=== PATIENT | female | born 1985 | race Two or more races ===

== ENCOUNTER 2021-11-08 03:40 | Inpatient (IN) ==
[2021-11-08] MEDS ORDERED: OXYTOCIN 30 UNITS/500 ML BAG IV PRN ×3 (04:00→21:31)
--- NOTE | 2021-11-08 04:14 | History & Physical Report ---
Date of Service November 08, 2021 Assessment & Plan (1) Uterine contractions at greater than 20 weeks of gestation: Plan: 36-year-old -0-0-3 at 39 weeks of gestation presenting with regular uterine contractions and bloody show, asking for epidural for pain. Vital signs stable afebrile, heart rate reassuring, Bedside ultrasound confirmed vertex presentation with normal placenta, GBS negative, Plan to admit, monitor, labs, COVID-19 testing, IV fluids, epidural for pain, All questions were answered. History of Present Illness Primary Care Provider: Valorie Gabriel PA-C Patient is a 36-year-old -0-0-3 at 39 weeks of gestation who has been feeling contractions since 11 PM last night and went to sleep. She woke up at 3 AM with severe contractions and some vaginal bleeding. She presented to labor and delivery and asking for epidural for pain. She denies leakage of fluid. She reports good movements. Her has been uncomplicated, GBS negative. She denies COVID-19 symptoms. Allergies Allergy/AdvReac Type Severity Reaction Status Date / Time amoxicillin Allergy Intermediate Hives Verified 11/08/21 03:49 Home Medications Medication Instructions Recorded Confirmed Type vit no.95-ferrous 1 tab PO HS 09/08/21 11/08/21 History fumarate 28 mg-folic acid 800 mcg tablet () albuterol 90 mcg/actuation aerosol INHALATION PRN 10/26/21 History inhaler Patient History Medical History Asthma Herniated disc, cervical Surgical History H/O abdominoplasty 2011 History of appendectomy 2009 History of breast augmentation 2011 [place] teeth extracted 2020 Social History Smoking Status: Former smoker Smoking End Date: 2016; Second Hand Exposure: No; Hx Alcohol Use: No Hx Substance Use: No Preferred Language: Amharic Communication Ability: Effective Fulfillment Associate Required: No Beliefs That Will Affect Care: None marital status: Current Living Situation: Spouse and Family Current Living Situation Comment: , her 3 children , Alber's 4 children- this is 1st together Other Information That Helps Us Care for You: No Feels Safe at Home: Yes Assistive Devices: Glasses 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 Review of Systems as per Subjective / HPI Physical Exam Constitutional: WD/WN, vitals as above well developed, well nourished and + acute distress (Contractions) Genitourinary: normal external appearance ( No blood) OB Exam Abdomen: + vertex (Confirmed with bedside ultrasound, placenta fundal posterior) Manual OB Exam: + cervical dilation 3 cm, + cervical effacement 60% and + station -2 OB Exam Monitor Tracing: + external uterine monitor used and + category I Results & Data ([facility]) Vital Signs (Past 12 Hours) Vital Signs Temp Pulse Resp BP 11/08/21 03:53 72 141/87 H 11/08/21 03:52 36.4 C L 20
[2021-11-08] MEDS: LACTATED RINGER'S 1,000 ML IV PRN ×5 (04:21→20:27)
[2021-11-08] MEDS ORDERED: ePHEDrine sulfate 50 MG/ML AMP ONE ×2 (04:32→14:04)
[2021-11-08] MEDS ORDERED: SODIUM CHLORIDE 0.9% INJ 10 ML VIAL ONE ×2 (04:32→14:05)
[2021-11-08] MEDS ORDERED: fentaNYL citrate 100 MCG/2 ML VIAL ONE ×3 (04:33→20:23)
[2021-11-08] MEDS ORDERED: BUPIVACAINE 0.25% 30 ML VIAL ONE ×3 (04:33→20:23)
[2021-11-08] MEDS ORDERED: fentaNYL 2MCG/ML ROPIVACAINE 1.25MG/ML 100 ML BAG EPI ONE ×2 (04:34→14:06)
[2021-11-08 04:39] LABS: Hematocrit (blood only) 38.1 % (37-47); Hemoglobin 12.9 g/dL (12.0-16.0); Mean Corpuscular Hgb Conc 33.9 g/dL (32-36); Mean Corpuscular Volume 91.6 fL (80-100); Mean Platelet Volume 11.1 fL (7.4-10.4); Platelet Count 176 K/uL (130-400); RDW Coefficient of Variation 14.3 % (11.5-14.5); Red Blood Count 4.16 M/uL (4.2-5.4)
[2021-11-08 05:05] LABS: Albumin Globulin Ratio 1.1 (0.9-2); Albumin Level 3.5 gm/dl (3.4-5.0); BUN Creatinine Ratio 16.7 (10-20); Bilirubin,Total 0.4 mg/dl (0.2-1.0); Calcium 8.9 mg/dl (8.5-10.1); Creatinine Clr Calc Pharmacy 106.7 ml/min; Est GFR (African American) 133.6 ml/min; Est GFR (Non-African American) 115.3 ml/min; Globulin 3.3 gm/dl (2.5-4.0); Potassium 3.7 mmol/L (3.5-5.1); Total Protein 6.8 gm/dl (6.0-8.3)
[2021-11-08] MEDS ORDERED: fentaNYL 2MCG/ML ROPIVACAINE 1.25MG/ML 100 ML BAG EPI PRN (05:28)
[2021-11-08] MEDS ORDERED: diphenhydrAMINE 50 MG/ML VIAL IV PRN (05:28)
[2021-11-08] MEDS ORDERED: NALBUPHINE HCL INJ 10 MG/ML AMP IV PRN (05:28)
[2021-11-08] MEDS ORDERED: NALOXONE HCL 1 MG in SODIUM CHLORIDE 0.9% 1000ML 1,000 ML IV PRN (05:28)
[2021-11-08] MEDS ORDERED: NALOXONE HCL 0.4 MG/1 ML VIAL/CARP IV PRN (05:28)
[2021-11-08] MEDS ORDERED: ONDANSETRON INJ 2 MG/ML 2 ML VIAL IV PRN (05:28)
[2021-11-08 05:30] LABS: Fibrinogen 532 mg/dl (184-400); INR 0.9 (0.9-1.1); Partial Thromboplastin Time 25.9 Seconds (21.0-31.0); Prothrombin Time 9.4 Seconds (9.0-12.0)
--- NOTE | 2021-11-08 05:33 | Anesthesiology Consultation ---
Date of Service November 08, 2021 Assessment & Plan (1) Encounter for pre-operative examination: Chart Review Chart Review: Patient NOT seen in Pre Admission Testing and Acceptable Risk for Labor Epidural Consults Requested none ASA ASA2 Proposed Anesthesia Anesthesia Type: Labor Epidural and CSE Risk / Benefits Reviewed With: PT / POA / Parent / Guardian, Accepts Plan and Informed Consent Obtained History Height/Weight Height: 5 ft 1 in Weight: 68.946 kg Allergies Allergy/AdvReac Type Severity Reaction Status Date / Time amoxicillin Allergy Intermediate Hives Verified 11/08/21 03:49 Medications Home Medications Medication Instructions Recorded Confirmed Last Taken vit no.95-ferrous 1 tab PO HS 09/08/21 11/08/21 11/07/21 08:00 fumarate 28 mg-folic acid 800 mcg tablet () albuterol 90 mcg/actuation aerosol INHALATION PRN 10/26/21 Unknown inhaler Active Medications Generic Name Dose Route Start Last Admin Trade Name Freq PRN Reason Stop Dose Admin Lactated Ringer's 1,000 mls @ 125 mls/hr 11/08/21 04:00 11/08/21 05:26 Lr IV 11/10/21 03:59 125 mls/hr .Q8H PRN Administration L&D Protocol Protocol NPO Date Last Intake of Fluids: 11/08/21 Time Last Intake of Fluids: 04:30 Date Last Intake of Solids: 11/07/21 Time Last Intake of Solids: 19:00 Past Medical History Medical History Asthma Herniated disc, cervical Exercise / Class Metabolic Activity II 4-5 Yardwork/Stairs/Walk up hill Past Surgical History Surgical History H/O abdominoplasty 2011 History of appendectomy 2010 History of breast augmentation 2011 [place] teeth extracted 2020 Past Anesthesia History No Hx of Anesthesia Complications and No Family Hx of Anesthesia Complications History of PONV No Hx of PONV and No Hx of Motion Sickness Social History Smoking Status: Former smoker tobacco type: cigarettes Smoking End Date: 2016 Hx Alcohol Use: No Hx Substance Use: No substance use type: does not use Review of Systems no chest pain or sob Physical Exam Vital Signs Last Vital Signs Temp 36.4 C L 11/08/21 03:52 Pulse 83 11/08/21 05:26 Resp 20 11/08/21 03:52 BP 141/87 H 11/08/21 03:53 Pulse Ox 100 11/08/21 05:26 ENMT Mouth: no TMJ abnormality Thyromental Distance: > or= 3.5 Finger Breadths Mallampati Class: II Neck normal visual inspection Respiratory normal respiratory effort Auscultation: lungs clear to auscultation bilaterally Cardiovascular Rate/Rhythm: regular rate and regular rhythm Musculoskeletal Spine: normal cervical ROM Neurologic moves all extremities Psychiatric Orientation: alert and oriented x 3 Testing Laboratory Results 11/08/21 04:18 11/08/21 04:18 PT 9.4 Seconds (9.0-12.0) 11/08/21 04:18 INR 0.9 (0.9-1.1) 11/08/21 04:18 APTT 25.9 Seconds (21.0-31.0) 11/08/21 04:18
--- NOTE | 2021-11-08 07:08 | Obstetrical Progress Note ---
Date of Service November 08, 2021 Assessment & Plan Admission and Anticipated Discharge Date Admission Date: November 08, 2021 Subjective Patient is elevated. She is comfortable now, received epidural. Vital signs stable afebrile, heart rate reassuring, Vaginal exam is unchanged, cervix is 3 cm, 60% effaced, head at -3 station, [place] with contractions every 5 to 6 minutes, Continue to monitor closely, Augment with oxytocin per protocol. All questions were answered. Lab Results 11/08/21 11/08/21 11/08/21 Range/Units 04:18 04:18 04:18 WBC 8.20 (4.8-10.8) K/uL RBC 4.16 L (4.2-5.4) M/uL Hgb 12.9 (12.0-16.0) g/dL Hct 38.1 (37-47) % MCV 91.6 (80-100) fL MCH 31.0 (25-34) pg MCHC 33.9 (32-36) g/dL RDW Std Deviation 48.0 H (36.4-46.3) fL RDW Coeff of Jermain 14.3 (11.5-14.5) % Plt Count 176 (130-400) K/uL MPV 11.1 H (7.4-10.4) fL PT 9.4 (9.0-12.0) Seconds INR 0.9 (0.9-1.1) APTT 25.9 (21.0-31.0) Seconds PTT Ratio 1.0 Fibrinogen 532 H (184-400) mg/dl Sodium (136-145) mmol/L Potassium (3.5-5.1) mmol/L Chloride (98-107) mmol/L Carbon Dioxide (21-32) mmol/L Anion Gap (3-11) BUN (6-23) mg/dl Creatinine (0.6-1.2) mg/dl Est Cr Clr Drug Dosing ml/min Est GFR ( Amer) ml/min Est GFR (Non-Af Amer) ml/min BUN/Creatinine Ratio (10-20) Glucose (70-99(Fasting)) mg/dl Calcium (8.5-10.1) mg/dl Total Bilirubin (0.2-1.0) mg/dl AST (13-39) U/L ALT (7-52) U/L Alkaline Phosphatase (34-104) U/L Total Protein (6.0-8.3) gm/dl Albumin (3.4-5.0) gm/dl Globulin (2.5-4.0) gm/dl Albumin/Globulin Ratio (0.9-2) SARS-CoV-2, RNA, NAAT (NEGATIVE) Blood Type O Positive Antibody Screen NEGATIVE 11/08/21 11/08/21 Range/Units 04:18 Unknown WBC (4.8-10.8) K/uL RBC (4.2-5.4) M/uL Hgb (12.0-16.0) g/dL Hct (37-47) % MCV (80-100) fL MCH (25-34) pg MCHC (32-36) g/dL RDW Std Deviation (36.4-46.3) fL RDW Coeff of Jermain (11.5-14.5) % Plt Count (130-400) K/uL MPV (7.4-10.4) fL PT (9.0-12.0) Seconds INR (0.9-1.1) APTT (21.0-31.0) Seconds PTT Ratio Fibrinogen (184-400) mg/dl Sodium 133 L (136-145) mmol/L Potassium 3.7 (3.5-5.1) mmol/L Chloride 106 (98-107) mmol/L Carbon Dioxide 19 L (21-32) mmol/L Anion Gap 8 (3-11) BUN 11 (6-23) mg/dl Creatinine 0.66 (0.6-1.2) mg/dl Est Cr Clr Drug Dosing 106.7 ml/min Est GFR ( Amer) 133.6 ml/min Est GFR (Non-Af Amer) 115.3 ml/min BUN/Creatinine Ratio 16.7 (10-20) Glucose 90 (70-99(Fasting)) mg/dl Calcium 8.9 (8.5-10.1) mg/dl Total Bilirubin 0.4 (0.2-1.0) mg/dl AST 24 (13-39) U/L ALT 31 (7-52) U/L Alkaline Phosphatase 222 H (34-104) U/L Total Protein 6.8 (6.0-8.3) gm/dl Albumin 3.5 (3.4-5.0) gm/dl Globulin 3.3 (2.5-4.0) gm/dl Albumin/Globulin Ratio 1.1 (0.9-2) SARS-CoV-2, RNA, NAAT NEGATIVE (NEGATIVE) Blood Type Antibody Screen Results & Data ([facility]) Vital Signs (Past 12 Hours) Vital Signs Temp Pulse Resp BP Pulse Ox 11/08/21 07:04 83 100 11/08/21 06:59 84 100 11/08/21 06:58 80 114/78 11/08/21 06:54 71 99 11/08/21 06:49 65 99 11/08/21 06:44 69 98 11/08/21 06:43 67 18 132/89 11/08/21 06:39 68 100 11/08/21 06:34 72 100 11/08/21 06:29 77 98 11/08/21 06:25 73 148/82 H 11/08/21 06:24 74 98 11/08/21 06:19 75 18 130/78 98 11/08/21 06:14 79 97 11/08/21 06:09 68 98 11/08/21 06:08 70 153/80 H 11/08/21 06:05 75 18 110/77 11/08/21 06:04 78 99 11/08/21 06:01 73 124/78 11/08/21 05:59 73 99 11/08/21 05:58 75 18 118/72 11/08/21 05:55 82 115/69 11/08/21 05:54 75 100 11/08/21 05:53 75 18 140/70 11/08/21 05:49 74 133/92 100 11/08/21 05:46 78 125/89 11/08/21 05:44 87 100 11/08/21 05:42 82 137/92 11/08/21 05:39 88 100 11/08/21 05:34 76 100 11/08/21 05:26 83 100 11/08/21 05:21 74 100 11/08/21 05:16 95 H 100 11/08/21 05:11 81 100 11/08/21 05:06 79 100 11/08/21 05:01 83 100 11/08/21 04:56 78 100 11/08/21 04:51 83 100 11/08/21 04:46 91 H 100 11/08/21 03:53 72 141/87 H 11/08/21 03:52 36.4 C L 20
[2021-11-08] MEDS ORDERED: ACETAMINOPHEN 500 MG TAB PO ONE (08:18)
[2021-11-08] MEDS: ePHEDrine sulfate 50 MG/ML AMP IV PRN ×5 (08:54→12:38)
--- NOTE | 2021-11-08 09:07 | Labor Progress Brief Note ---
Date of Service November 08, 2021 Assessment & Plan (1) Vaginal bleeding in : Plan: Met pt and family doing well NST; CAT1 Ctx; 2-5mins Pit; 4Mu VE 3-4/60/-3 Plan continue with labor augmentation Admission and Anticipated Discharge Date Admission Date: November 08, 2021 Results & Data ([facility]) Vital Signs (Past 12 Hours) Vital Signs Temp Pulse Resp BP Pulse Ox 11/08/21 08:56 87 85/56 L 11/08/21 08:54 67 99 11/08/21 08:52 75 71/49 L 11/08/21 08:49 93 H 98 11/08/21 08:45 102 H 76/46 L 94 11/08/21 08:44 69 100 11/08/21 08:39 68 100 11/08/21 08:36 90 90 11/08/21 08:34 66 100 11/08/21 08:29 84 91 11/08/21 08:28 86 92/59 L 11/08/21 08:24 100 H 93 11/08/21 08:19 86 100 11/08/21 08:15 81 91/61 L 11/08/21 08:14 79 94 11/08/21 08:09 91 H 95 11/08/21 08:04 96 H 100 11/08/21 08:01 77 102/60 11/08/21 07:59 72 100 11/08/21 07:55 84 91 11/08/21 07:54 71 100 11/08/21 07:49 78 100 11/08/21 07:45 75 124/79 11/08/21 07:44 73 100 11/08/21 07:39 78 100 11/08/21 07:34 71 100 11/08/21 07:29 75 117/81 100 11/08/21 07:24 74 100 11/08/21 07:19 66 100 11/08/21 07:14 79 100 11/08/21 07:13 80 117/90 11/08/21 07:09 36.6 C 74 20 100 11/08/21 07:04 83 100 11/08/21 06:59 84 100 11/08/21 06:58 80 114/78 11/08/21 06:54 71 99 11/08/21 06:49 65 99 11/08/21 06:44 69 98 11/08/21 06:43 67 18 132/89 11/08/21 06:39 68 100 11/08/21 06:34 72 100 11/08/21 06:29 77 98 11/08/21 06:25 73 148/82 H 11/08/21 06:24 74 98 11/08/21 06:19 75 18 130/78 98 11/08/21 06:14 79 97 11/08/21 06:09 68 98 11/08/21 06:08 70 153/80 H 11/08/21 06:05 75 18 110/77 11/08/21 06:04 78 99 11/08/21 06:01 73 124/78 11/08/21 05:59 73 99 11/08/21 05:58 75 18 118/72 11/08/21 05:55 82 115/69 11/08/21 05:54 75 100 11/08/21 05:53 75 18 140/70 11/08/21 05:49 74 133/92 100 11/08/21 05:46 78 125/89 11/08/21 05:44 87 100 11/08/21 05:42 82 137/92 11/08/21 05:39 88 100 11/08/21 05:34 76 100 11/08/21 05:26 83 100 11/08/21 05:21 74 100 11/08/21 05:16 95 H 100 11/08/21 05:11 81 100 11/08/21 05:06 79 100 11/08/21 05:01 83 100 11/08/21 04:56 78 100 11/08/21 04:51 83 100 11/08/21 04:46 91 H 100 11/08/21 03:53 72 141/87 H 11/08/21 03:52 36.4 C L 20
[2021-11-08] MEDS ORDERED: ePHEDrine sulfate 50 MG/ML AMP IV STA (12:55)
[2021-11-08] MEDS ORDERED: PHENYLEPHRINE 100MCG/ML 5ML SYR IV PRN ×2 (12:55→13:52)
--- NOTE | 2021-11-08 12:59 | Anesthesiology Progress Note ---
Date of Service November 08, 2021 Assessment & Plan Admission and Anticipated Discharge Date Admission Date: November 08, 2021 Subjective Called by nursing, SBP's 70 with pulse 110's. Patient is symptomatic with dizziness she denies any pain at this time. Level to ice is T5 but has retained motor strength of bilateral lower extremities. Epidural catheter is intact without erythema or drainage at the site. Negative aspiration of the catheter. Epidural is suspected to be subdural. Subsequently Pitocin and epidural were stopped patient was placed in Trendelenburg position. She retained consciousness throughout and blood pressure was managed with ephedrine and phenylephrine. heart rate within normal limits throughout. Discussed with the patient possibility of subdural catheter and will hold on replacing at this time given her multipara status and history of expeditious delivery. Discussed with OB. Can replace epidural if necessary but will hold for now. Physical Exam Vital Signs: Last Vital Signs Temp 36.7 C 11/08/21 11:29 Pulse 78 11/08/21 12:54 Resp 20 11/08/21 11:29 BP 123/82 11/08/21 12:54 Pulse Ox 99 11/08/21 12:54 Results & Data ([facility]) Medications Administered Diphenhydramine HCl (Diphenhydramine 50 Mg/Ml Vial) 25 mg IV Q6H PRN PRN Reason: Itching Stop: 11/09/21 05:27 Last Admin: 11/08/21 07:15 Dose: 25 mg Documented by: [id number] Ephedrine Sulfate (Ephedrine Sulfate 50 Mg/Ml Amp) 10 mg IV Q5M PRN PRN Reason: Hypotension Stop: 11/09/21 05:27 Last Admin: 11/08/21 12:31 Dose: 10 mg Documented by: [id number] Admin: 11/08/21 12:06 Dose: 10 mg Documented by: [id number] Admin: 11/08/21 09:01 Dose: 10 mg Documented by: [id number] Admin: 11/08/21 08:54 Dose: 10 mg Documented by: [id number] Lactated Ringer's (Lr) 1,000 mls @ 125 mls/hr IV .Q8H PRN; Protocol PRN Reason: L&D Protocol Stop: 11/10/21 03:59 Last Infusion: 11/08/21 12:10 Dose: 999 mls/hr Documented by: [id number] Admin: 11/08/21 10:00 Dose: 125 mls/hr Documented by: [id number] Infusion: 11/08/21 09:57 Dose: 125 mls/hr Documented by: [id number] Infusion: 11/08/21 08:37 Dose: 125 mls/hr Documented by: [id number] Infusion: 11/08/21 08:07 Dose: 999 mls/hr Documented by: [id number] Infusion: 11/08/21 06:33 Dose: 125 mls/hr Documented by: [id number] Admin: 11/08/21 05:26 Dose: 125 mls/hr Documented by: [id number] Infusion: 11/08/21 05:22 Dose: 0 mls/hr Documented by: [id number] Admin: 11/08/21 04:21 Dose: 999 mls/hr Documented by: [id number] Oxytocin (Pitocin) 30 units in 500 mls @ 0 mls/hr IV .Q0M PRN; Protocol PRN Reason: Labor Induction/Augmentation Stop: 11/10/21 06:48 Last Titration: 11/08/21 12:13 Dose: 0 units/hr, 0 mls/hr Documented by: [id number] Titration: 11/08/21 11:00 Dose: 0.84 units/hr, 14 mls/hr Documented by: [id number] Titration: 11/08/21 10:01 Dose: 0.72 units/hr, 12 mls/hr Documented by: [id number] Titration: 11/08/21 09:32 Dose: 0.6 units/hr, 10 mls/hr Documented by: [id number] Titration: 11/08/21 09:04 Dose: 0.48 units/hr, 8 mls/hr Documented by: [id number] Titration: 11/08/21 08:31 Dose: 0.36 units/hr, 6 mls/hr Documented by: [id number] Titration: 11/08/21 08:00 Dose: 0.24 units/hr, 4 mls/hr Documented by: [id number] Admin: 11/08/21 07:27 Dose: 0.12 units/hr, 2 mls/hr Documented by: [id number] Cosigned by: [id number] Ondansetron HCl (Ondansetron Inj 2 Mg/Ml 2 Ml Vial) 4 mg IV Q6H PRN PRN Reason: Nausea And Vomiting Stop: 11/09/21 05:27 Last Admin: 11/08/21 07:19 Dose: 4 mg Documented by: [id number]
--- NOTE | 2021-11-08 13:58 | Labor Progress Brief Note ---
Date of Service November 08, 2021 Assessment & Plan (1) Vaginal bleeding in : Plan: Doing well Pt examined for episodic hypotension by anethesia Pitocin was d/gregory BP is stable since anaesthesia eval FHR; CAT1 Ctx. minimal VE; / FSE placed- Bloody tinged disch but no significant amniotic fluid dsen bedside sono showed AF in upper quadrant of abdomen. Baby if OP on sono Plan will restart Pitocin augmentation when Pt;s epidural is adequate Admission and Anticipated Discharge Date Admission Date: November 08, 2021 Results & Data ([facility]) Vital Signs (Past 12 Hours) Vital Signs Temp Pulse Resp BP Pulse Ox 11/08/21 13:49 80 128/76 98 11/08/21 13:44 85 100 11/08/21 13:39 89 100 11/08/21 13:34 82 116/70 100 11/08/21 13:29 84 100 11/08/21 13:24 103 H 99 11/08/21 13:19 36.5 C 80 20 143/81 H 98 11/08/21 13:17 102 H 94 11/08/21 13:15 93 H 16 106/60 11/08/21 13:14 81 100 11/08/21 13:12 90 98/57 L 11/08/21 13:09 98 H 98/61 L 99 11/08/21 13:06 84 121/66 11/08/21 13:04 110 H 94 11/08/21 13:03 98 H 20 99/54 L 94 11/08/21 13:00 80 109/64 11/08/21 12:59 75 100 11/08/21 12:57 85 112/67 11/08/21 12:54 78 123/82 99 11/08/21 12:51 69 111/69 11/08/21 12:49 113 H 99/63 L 100 11/08/21 12:45 70 20 128/61 11/08/21 12:44 66 100 11/08/21 12:42 67 130/75 11/08/21 12:40 78 113/63 11/08/21 12:39 100 H 100 11/08/21 12:38 114 H 90/55 L 11/08/21 12:36 113 H 108/58 L 11/08/21 12:34 80 122/63 100 11/08/21 12:29 113 H 66/29 L 100 11/08/21 12:24 74 104/51 L 99 11/08/21 12:19 87 97 11/08/21 12:18 79 157/58 H 11/08/21 12:14 76 100 11/08/21 12:13 75 126/61 11/08/21 12:09 76 100 11/08/21 12:04 93 H 78/49 L 97 11/08/21 12:01 75 103/59 L 11/08/21 11:59 92 H 88/48 L 92 11/08/21 11:54 79 98 11/08/21 11:49 79 98 11/08/21 11:44 93 H 99 11/08/21 11:43 80 107/66 11/08/21 11:39 82 98 11/08/21 11:34 91 H 100 11/08/21 11:29 36.7 C 83 20 111/65 99 11/08/21 11:24 75 99 11/08/21 11:19 106 H 99 11/08/21 11:14 84 98 11/08/21 11:13 77 113/69 11/08/21 11:09 74 99 11/08/21 11:04 87 98 11/08/21 11:00 78 125/75 11/08/21 10:59 84 99 11/08/21 10:54 75 98 11/08/21 10:49 76 97 11/08/21 10:44 73 99 11/08/21 10:43 71 109/63 11/08/21 10:39 77 98 11/08/21 10:34 80 97 11/08/21 10:29 76 16 112/64 97 11/08/21 10:24 77 100 11/08/21 10:19 77 99 11/08/21 10:14 78 100 11/08/21 10:13 85 110/65 11/08/21 10:09 78 100 11/08/21 10:04 84 99 11/08/21 09:59 86 92 11/08/21 09:58 79 16 107/66 11/08/21 09:54 75 98 11/08/21 09:49 73 99 11/08/21 09:44 75 112/68 100 11/08/21 09:41 94 H 93 11/08/21 09:39 72 99 11/08/21 09:34 79 100 11/08/21 09:29 72 99 11/08/21 09:28 71 116/67 11/08/21 09:24 77 96 11/08/21 09:21 85 91 11/08/21 09:19 85 99 11/08/21 09:14 101 H 99 11/08/21 09:13 122 H 90/50 L 11/08/21 09:09 118 H 97 11/08/21 09:04 94 H 100 11/08/21 09:03 100 H 92/60 L 11/08/21 08:59 82 108/57 L 100 11/08/21 08:58 92 H 20 78/51 L 11/08/21 08:56 87 85/56 L 11/08/21 08:54 67 99 11/08/21 08:52 75 71/49 L 11/08/21 08:49 93 H 98 11/08/21 08:45 102 H 76/46 L 94 11/08/21 08:44 69 100 11/08/21 08:39 68 100 11/08/21 08:36 90 90 11/08/21 08:34 66 100 11/08/21 08:29 84 91 11/08/21 08:28 86 92/59 L 11/08/21 08:24 100 H 93 11/08/21 08:19 86 100 11/08/21 08:15 81 91/61 L 11/08/21 08:14 79 94 11/08/21 08:09 91 H 95 11/08/21 08:04 96 H 100 11/08/21 08:01 77 102/60 11/08/21 07:59 72 100 11/08/21 07:55 84 91 11/08/21 07:54 71 100 11/08/21 07:49 78 100 11/08/21 07:45 75 124/79 11/08/21 07:44 73 100 11/08/21 07:39 78 100 11/08/21 07:34 71 100 11/08/21 07:29 75 117/81 100 11/08/21 07:24 74 100 11/08/21 07:19 66 100 11/08/21 07:14 79 100 11/08/21 07:13 80 117/90 11/08/21 07:09 36.6 C 74 20 100 11/08/21 07:04 83 100 11/08/21 06:59 84 100 11/08/21 06:58 80 114/78 11/08/21 06:54 71 99 11/08/21 06:49 65 99 11/08/21 06:44 69 98 11/08/21 06:43 67 18 132/89 11/08/21 06:39 68 100 11/08/21 06:34 72 100 11/08/21 06:29 77 98 11/08/21 06:25 73 148/82 H 11/08/21 06:24 74 98 11/08/21 06:19 75 18 130/78 98 11/08/21 06:14 79 97 11/08/21 06:09 68 98 11/08/21 06:08 70 153/80 H 11/08/21 06:05 75 18 110/77 11/08/21 06:04 78 99 11/08/21 06:01 73 124/78 11/08/21 05:59 73 99 11/08/21 05:58 75 18 118/72 11/08/21 05:55 82 115/69 11/08/21 05:54 75 100 11/08/21 05:53 75 18 140/70 11/08/21 05:49 74 133/92 100 11/08/21 05:46 78 125/89 11/08/21 05:44 87 100 11/08/21 05:42 82 137/92 11/08/21 05:39 88 100 11/08/21 05:34 76 100 11/08/21 05:26 83 100 11/08/21 05:21 74 100 11/08/21 05:16 95 H 100 11/08/21 05:11 81 100 11/08/21 05:06 79 100 11/08/21 05:01 83 100 11/08/21 04:56 78 100 11/08/21 04:51 83 100 22 04:46 91 H 100 11/08/21 03:53 72 141/87 H 11/08/21 03:52 36.4 C L 20
--- NOTE | 2021-11-08 18:43 | Labor Progress Brief Note ---
Date of Service November 08, 2021 Assessment & Plan (1) Vaginal bleeding in : Plan: Pt doing well FHR; CAT2 VE 5/80/-2 Pit 10Mu Admission and Anticipated Discharge Date Admission Date: November 08, 2021 Results & Data ([facility]) Vital Signs (Past 12 Hours) Vital Signs Temp Pulse Resp BP Pulse Ox 11/08/21 18:39 86 100 11/08/21 18:34 81 100 11/08/21 18:29 90 100 11/08/21 18:24 91 H 100 11/08/21 18:19 93 H 100 11/08/21 18:14 85 99 11/08/21 18:09 87 98 11/08/21 18:04 82 119/68 99 11/08/21 17:59 92 H 97 11/08/21 17:54 87 98 11/08/21 17:49 93 H 100 11/08/21 17:47 82 121/67 11/08/21 17:45 84 121/64 11/08/21 17:44 87 99 11/08/21 17:42 105 H 104/62 11/08/21 17:39 97 H 99 11/08/21 17:38 90 110/69 11/08/21 17:35 99 H 108/66 11/08/21 17:34 88 98 11/08/21 17:32 98 H 112/65 11/08/21 17:29 36.9 C 114 H 20 107/59 L 99 11/08/21 17:27 118 H 118/69 11/08/21 17:24 89 129/67 100 11/08/21 17:21 121 H 20 103/69 11/08/21 17:19 95 H 99 11/08/21 17:18 118 H 117/77 11/08/21 17:15 91 H 120/74 11/08/21 17:14 90 100 11/08/21 17:10 104 H 117/71 11/08/21 17:09 96 H 100 11/08/21 17:04 98 H 100 11/08/21 16:59 86 99 11/08/21 16:54 108 H 91 11/08/21 16:53 97 H 130/77 11/08/21 16:50 94 H 120/76 11/08/21 16:49 101 H 100 11/08/21 16:45 91 H 131/80 11/08/21 16:44 92 H 99 11/08/21 16:43 93 H 125/79 11/08/21 16:40 98 H 124/76 11/08/21 16:39 101 H 99 11/08/21 16:34 99 H 100 11/08/21 16:29 97 H 99 11/08/21 16:26 99 H 125/94 11/08/21 16:24 98 H 99 11/08/21 16:21 95 H 93 11/08/21 16:19 84 99 11/08/21 16:14 91 H 99 11/08/21 16:10 90 132/77 11/08/21 16:09 89 98 11/08/21 16:04 95 H 99 11/08/21 15:59 86 99 11/08/21 15:54 36.7 C 86 20 118/69 98 11/08/21 15:49 88 98 11/08/21 15:44 105 H 99 11/08/21 15:40 95 H 117/72 11/08/21 15:39 97 H 98 11/08/21 15:34 85 98 11/08/21 15:29 91 H 98 11/08/21 15:24 86 99 11/08/21 15:19 100 H 107/69 98 11/08/21 15:14 83 123/69 99 11/08/21 15:09 105 H 116/70 99 11/08/21 15:04 88 118/72 99 11/08/21 14:59 115 H 123/74 100 11/08/21 14:55 83 126/72 11/08/21 14:54 82 100 11/08/21 14:49 98 H 117/69 98 11/08/21 14:44 101 H 100 11/08/21 14:42 100 H 102/56 L 11/08/21 14:39 127 H 99 11/08/21 14:38 129 H 105/68 11/08/21 14:36 133 H 106/69 11/08/21 14:35 107 H 109/74 11/08/21 14:34 99 H 100 11/08/21 14:32 101 H 127/87 11/08/21 14:29 100 H 100 11/08/21 14:28 90 141/83 H 11/08/21 14:24 94 H 100 11/08/21 14:20 91 H 132/75 11/08/21 14:19 90 100 11/08/21 14:14 102 H 100 11/08/21 14:10 116 H 89 L 11/08/21 14:09 95 H 100 11/08/21 14:06 85 119/68 11/08/21 14:04 105 H 100 11/08/21 13:59 90 100 11/08/21 13:54 87 100 11/08/21 13:49 80 128/76 98 11/08/21 13:44 85 100 11/08/21 13:39 89 100 11/08/21 13:34 82 116/70 100 11/08/21 13:29 84 100 11/08/21 13:24 103 H 99 11/08/21 13:19 36.5 C 80 20 143/81 H 98 11/08/21 13:17 102 H 94 11/08/21 13:15 93 H 16 106/60 11/08/21 13:14 81 100 11/08/21 13:12 90 98/57 L 11/08/21 13:09 98 H 98/61 L 99 11/08/21 13:06 84 121/66 11/08/21 13:04 110 H 94 11/08/21 13:03 98 H 20 99/54 L 94 11/08/21 13:00 80 109/64 11/08/21 12:59 75 100 11/08/21 12:57 85 112/67 11/08/21 12:54 78 123/82 99 11/08/21 12:51 69 111/69 11/08/21 12:49 113 H 99/63 L 100 11/08/21 12:45 70 20 128/61 11/08/21 12:44 66 100 11/08/21 12:42 67 130/75 11/08/21 12:40 78 113/63 11/08/21 12:39 100 H 100 11/08/21 12:38 114 H 90/55 L 11/08/21 12:36 113 H 108/58 L 11/08/21 12:34 80 122/63 100 11/08/21 12:29 113 H 66/29 L 100 11/08/21 12:24 74 104/51 L 99 11/08/21 12:19 87 97 11/08/21 12:18 79 157/58 H 11/08/21 12:14 76 100 11/08/21 12:13 75 126/61 11/08/21 12:09 76 100 11/08/21 12:04 93 H 78/49 L 97 11/08/21 12:01 75 103/59 L 11/08/21 11:59 92 H 88/48 L 92 11/08/21 11:54 79 98 11/08/21 11:49 79 98 11/08/21 11:44 93 H 99 11/08/21 11:43 80 107/66 11/08/21 11:39 82 98 11/08/21 11:34 91 H 100 11/08/21 11:29 36.7 C 83 20 111/65 99 11/08/21 11:24 75 99 11/08/21 11:19 106 H 99 11/08/21 11:14 84 98 11/08/21 11:13 77 113/69 11/08/21 11:09 74 99 11/08/21 11:04 87 98 11/08/21 11:00 78 125/75 11/08/21 10:59 84 99 11/08/21 10:54 75 98 11/08/21 10:49 76 97 11/08/21 10:44 73 99 11/08/21 10:43 71 109/63 11/08/21 10:39 77 98 11/08/21 10:34 80 97 11/08/21 10:29 76 16 112/64 97 11/08/21 10:24 77 100 11/08/21 10:19 77 99 11/08/21 10:14 78 100 11/08/21 10:13 85 110/65 11/08/21 10:09 78 100 11/08/21 10:04 84 99 11/08/21 09:59 86 92 11/08/21 09:58 79 16 107/66 11/08/21 09:54 75 98 11/08/21 09:49 73 99 11/08/21 09:44 75 112/68 100 11/08/21 09:41 94 H 93 11/08/21 09:39 72 99 11/08/21 09:34 79 100 11/08/21 09:29 72 99 11/08/21 09:28 71 116/67 11/08/21 09:24 77 96 11/08/21 09:21 85 91 11/08/21 09:19 85 99 11/08/21 09:14 101 H 99 11/08/21 09:13 122 H 90/50 L 11/08/21 09:09 118 H 97 11/08/21 09:04 94 H 100 11/08/21 09:03 100 H 92/60 L 11/08/21 08:59 82 108/57 L 100 11/08/21 08:58 92 H 20 78/51 L 11/08/21 08:56 87 85/56 L 11/08/21 08:54 67 99 11/08/21 08:52 75 71/49 L 11/08/21 08:49 93 H 98 11/08/21 08:45 102 H 76/46 L 94 11/08/21 08:44 69 100 11/08/21 08:39 68 100 11/08/21 08:36 90 90 11/08/21 08:34 66 100 11/08/21 08:29 84 91 11/08/21 08:28 86 92/59 L 11/08/21 08:24 100 H 93 11/08/21 08:19 86 100 11/08/21 08:15 81 91/61 L 11/08/21 08:14 79 94 11/08/21 08:09 91 H 95 11/08/21 08:04 96 H 100 11/08/21 08:01 77 102/60 11/08/21 07:59 72 100 11/08/21 07:55 84 91 11/08/21 07:54 71 100 11/08/21 07:49 78 100 11/08/21 07:45 75 124/79 11/08/21 07:44 73 100 11/08/21 07:39 78 100 11/08/21 07:34 71 100 11/08/21 07:29 75 117/81 100 11/08/21 07:24 74 100 11/08/21 07:19 66 100 11/08/21 07:14 79 100 11/08/21 07:13 80 117/90 11/08/21 07:09 36.6 C 74 20 100 11/08/21 07:04 83 100 11/08/21 06:59 84 100 02/21/22 06:58 80 114/78 11/08/21 06:54 71 99 11/08/21 06:49 65 99 11/08/21 06:44 69 98 11/08/21 06:43 67 18 132/89
[2021-11-08] MEDS ORDERED: Nursing to Pharmacy Communication SCH (20:45)
[2021-11-08] MEDS ORDERED: HYDROCORTISONE ACETATE 25 MG SUPP PR PRN (21:31)
[2021-11-08] MEDS ORDERED: bisacodyL 10 MG SUPP PR PRN (21:31)
[2021-11-08] MEDS ORDERED: METHYLERGONOVINE MALEATE 0.2 MG/ML AMP IM ONE (21:31)
[2021-11-08] MEDS ORDERED: BENZOCAINE 20% AER SPR 82.5 GM CAN EXT PRN (21:31)
[2021-11-08] MEDS ORDERED: miSOPROStoL 200 MCG TAB PR ONE (21:31)
[2021-11-08] MEDS ORDERED: DIPHTHERIA/TETANUS/PERTUSSIS 0.5 ML SYR/VIAL IM ONE (21:31)
--- NOTE | 2021-11-08 21:51 | Anesthesia Procedure Note ---
Date of Service November 08, 2021 Anesthesia Post Epidural Note Vital Signs Vital Signs: Temp Pulse Resp BP Pulse Ox 36.6 C 95 H 18 150/88 H 100 11/08/21 19:20 11/08/21 21:49 11/08/21 19:20 11/08/21 21:47 11/08/21 21:49 Pain Intensity Abdomen: Pain Intensity: 7 Notes Mental Status: alert / awake / arousable and participated in evaluation Nausea / Vomiting: adequately controlled Pain: adequately controlled Airway Patency, RR, SpO2: stable & adequate BP & HR: stable & adequate Hydration State: stable & adequate Neuraxial Anesthesia: was administered and sensory block is resolving Anesthetic Complications: no major complications apparent and Pt Satisfied with anesthetic care Epidural: Removed without complications and With tip intact Notes: Epidural site clean, dry and intact. No signs of edema, erythema or bruising at insertion site. Pt instructed to request anesthesia if she has residual lower extremity numbness or if she develops lower extremity pain or weakness, back pain or headache.
[2021-11-08] MEDS: ACETAMINOPHEN 325 MG TAB PO PRN (22:01)
--- NOTE | 2021-11-08 22:03 | Delivery Summary ---
DATE OF SERVICE: 11/08/2021 DELIVERY NOTE: The patient delivered a live male in left occiput anterior presentation. Ther e was no nuchal cord. Infant was delivered and placed on mother's abdomen. Delayed cord clamp was p erformed. Cord gases and cord blood was obtained. Placenta was spontaneously delivered. Inspection of the placenta shows a normal-looking placenta. Cord gas and placenta were sent to pathology for p athological analysis. Inspection of the perineum showed no laceration or tears. Perineum was intact. Rectal exam post-rep air showed good sphincter tone. Estimated blood loss is 450 mL. Baby and mother are doing well in recovery. Apgars of infant is 8 an d 9. Weight is pending. Job ID: [id number]
[2021-11-08 22:50] LABS: Base Excess Cord Venous Blood -4.7 mEq/L (-7.7-1.9); Cord Venous Blood HCO3 20 mmol/L (18.4-26.8); Cord Venous Blood PCO2 36 mmHg (30.4-57.2); Cord Venous Blood PO2 37 mmHg (14.1-43.3); Cord Venous Blood pH 7.36 (7.20-7.44); O2 Saturation Cord Venous Bld 76.5 % (<68)
--- NOTE | 2021-11-08 23:11 | Labor Progress Brief Note ---
Date of Service November 08, 2021 Assessment & Plan (1) Vaginal bleeding in : Plan: Called to evaluate pt because 'Feels funny' On arrival. pt is in beds and having trouble keeping her eyes open Pt and spouse deny any mediations outside PNV Denies any SOB, headache or chest pain Vitals are stable BP 140/80's. P-97 BS; 71 Bleeding : minimal, fundus at umbilicus Shah placed Expectant management labs ordered Admission and Anticipated Discharge Date Admission Date: November 08, 2021 Results & Data ([facility]) Vital Signs (Past 12 Hours) Vital Signs Temp Pulse Resp BP Pulse Ox 11/08/21 22:59 83 98 11/08/21 22:54 88 97 11/08/21 22:52 82 140/66 11/08/21 22:49 85 98 11/08/21 22:44 90 100 11/08/21 22:42 111 H 142/86 H 11/08/21 22:39 101 H 80 L 11/08/21 22:37 96 H 90 11/08/21 22:35 89 152/80 H 11/08/21 22:34 85 100 11/08/21 22:32 84 151/79 H 11/08/21 22:29 36.7 C 81 18 154/77 H 100 11/08/21 22:26 89 160/79 H 11/08/21 22:24 104 H 100 11/08/21 22:23 100 H 138/78 11/08/21 22:21 83 206/115 H 11/08/21 22:20 108 H 94 11/08/21 22:19 112 H 80 L 11/08/21 22:15 86 165/123 H 11/08/21 22:14 109 H 81 L 11/08/21 22:13 109 H 180/104 H 91 11/08/21 22:09 99 H 100 11/08/21 22:07 103 H 92 11/08/21 22:04 105 H 90 11/08/21 22:02 176 H 190/124 H 11/08/21 22:00 99 H 92 11/08/21 21:59 95 H 100 11/08/21 21:54 97 H 90 11/08/21 21:53 96 H 91 11/08/21 21:50 93 H 125/85 11/08/21 21:49 95 H 100 02/21/22 21:47 89 150/88 H 11/08/21 21:44 92 H 132/82 92 11/08/21 21:41 94 H 138/75 11/08/21 21:39 98 H 99 11/08/21 21:36 97 H 91 11/08/21 21:34 101 H 98 11/08/21 21:32 87 137/94 11/08/21 21:29 96 H 132/75 100 11/08/21 21:26 96 H 144/83 H 11/08/21 21:25 97 H 147/84 H 11/08/21 21:24 100 H 147/88 H 93 11/08/21 21:23 93 H 134/99 11/08/21 21:20 121 H 146/102 H 11/08/21 21:19 130 H 93 11/08/21 21:18 114 H 83 L 11/08/21 21:17 105 H 140/89 11/08/21 21:14 105 H 144/93 H 100 11/08/21 21:13 107 H 91 11/08/21 21:11 93 H 142/90 H 11/08/21 21:09 85 100 11/08/21 21:08 85 146/89 H 11/08/21 21:05 88 138/86 11/08/21 21:04 85 100 11/08/21 21:02 90 144/90 H 11/08/21 20:59 95 H 95 11/08/21 20:58 91 H 92 11/08/21 20:56 85 132/82 11/08/21 20:54 103 H 100 11/08/21 20:53 90 140/78 11/08/21 20:50 92 H 117/70 11/08/21 20:49 87 98 11/08/21 20:47 96 H 132/79 11/08/21 20:44 88 132/90 100 11/08/21 20:41 94 H 131/89 11/08/21 20:39 87 100 11/08/21 20:38 93 H 142/91 H 11/08/21 20:35 85 146/91 H 11/08/21 20:34 106 H 100 11/08/21 20:32 84 132/85 11/08/21 20:29 93 H 158/92 H 100 11/08/21 20:25 86 154/87 H 11/08/21 20:24 95 H 96 11/08/21 20:20 99 H 131/84 11/08/21 20:19 99 H 99 11/08/21 20:17 120 H 154/91 H 11/08/21 20:14 111 H 100 11/08/21 20:09 100 H 100 11/08/21 20:05 106 H 119/79 11/08/21 20:04 105 H 98 11/08/21 20:02 95 H 129/75 11/08/21 19:59 86 122/70 100 11/08/21 19:56 92 H 119/68 11/08/21 19:54 109 H 100 11/08/21 19:53 113 H 111/71 11/08/21 19:50 111 H 124/87 94 11/08/21 19:49 92 H 100 11/08/21 19:47 118 H 115/78 11/08/21 19:44 96 H 93 11/08/21 19:39 97 H 98 11/08/21 19:35 104 H 138/83 92 11/08/21 19:34 96 H 99 11/08/21 19:29 93 H 135/92 100 11/08/21 19:28 90 91 11/08/21 19:26 90 124/90 11/08/21 19:24 86 99 11/08/21 19:23 82 137/93 11/08/21 19:22 85 92 11/08/21 19:20 36.6 C 18 11/08/21 19:19 91 H 98 11/08/21 19:14 88 100 11/08/21 19:12 95 H 90 11/08/21 19:09 92 H 100 11/08/21 19:07 86 127/85 11/08/21 19:04 88 100 11/08/21 18:59 91 H 100 11/08/21 18:57 82 138/71 11/08/21 18:54 80 124/84 99 11/08/21 18:49 88 99 11/08/21 18:44 89 100 11/08/21 18:39 86 100 11/08/21 18:34 81 100 11/08/21 18:29 90 100 11/08/21 18:24 91 H 100 11/08/21 18:19 93 H 100 11/08/21 18:14 85 99 11/08/21 18:09 87 98 11/08/21 18:04 82 119/68 99 11/08/21 17:59 92 H 97 11/08/21 17:54 87 98 11/08/21 17:49 93 H 100 11/08/21 17:47 82 121/67 11/08/21 17:45 84 121/64 11/08/21 17:44 87 99 11/08/21 17:42 105 H 104/62 11/08/21 17:39 97 H 99 11/08/21 17:38 90 110/69 11/08/21 17:35 99 H 108/66 11/08/21 17:34 88 98 11/08/21 17:32 98 H 112/65 11/08/21 17:29 36.9 C 114 H 20 107/59 L 99 11/08/21 17:27 118 H 118/69 11/08/21 17:24 89 129/67 100 11/08/21 17:21 121 H 20 103/69 11/08/21 17:19 95 H 99 11/08/21 17:18 118 H 117/77 11/08/21 17:15 91 H 120/74 11/08/21 17:14 90 100 11/08/21 17:10 104 H 117/71 11/08/21 17:09 96 H 100 11/08/21 17:04 98 H 100 11/08/21 16:59 86 99 11/08/21 16:54 108 H 91 11/08/21 16:53 97 H 130/77 11/08/21 16:50 94 H 120/76 11/08/21 16:49 101 H 100 11/08/21 16:45 91 H 131/80 11/08/21 16:44 92 H 99 11/08/21 16:43 93 H 125/79 11/08/21 16:40 98 H 124/76 11/08/21 16:39 101 H 99 11/08/21 16:34 99 H 100 11/08/21 16:29 97 H 99 11/08/21 16:26 99 H 125/94 11/08/21 16:24 98 H 99 11/08/21 16:21 95 H 93 11/08/21 16:19 84 99 11/08/21 16:14 91 H 99 11/08/21 16:10 90 132/77 11/08/21 16:09 89 98 11/08/21 16:04 95 H 99 11/08/21 15:59 86 99 11/08/21 15:54 36.7 C 86 20 118/69 98 11/08/21 15:49 88 98 11/08/21 15:44 105 H 99 11/08/21 15:40 95 H 117/72 11/08/21 15:39 97 H 98 11/08/21 15:34 85 98 11/08/21 15:29 91 H 98 11/08/21 15:24 86 99 11/08/21 15:19 100 H 107/69 98 11/08/21 15:14 83 123/69 99 11/08/21 15:09 105 H 116/70 99 11/08/21 15:04 88 118/72 99 11/08/21 14:59 115 H 123/74 100 11/08/21 14:55 83 126/72 11/08/21 14:54 82 100 11/08/21 14:49 98 H 117/69 98 11/08/21 14:44 101 H 100 11/08/21 14:42 100 H 102/56 L 11/08/21 14:39 127 H 99 11/08/21 14:38 129 H 105/68 11/08/21 14:36 133 H 106/69 11/08/21 14:35 107 H 109/74 11/08/21 14:34 99 H 100 11/08/21 14:32 101 H 127/87 11/08/21 14:29 100 H 100 11/08/21 14:28 90 141/83 H 11/08/21 14:24 94 H 100 11/08/21 14:20 91 H 132/75 11/08/21 14:19 90 100 11/08/21 14:14 102 H 100 11/08/21 14:10 116 H 89 L 11/08/21 14:09 95 H 100 11/08/21 14:06 85 119/68 11/08/21 14:04 105 H 100 11/08/21 13:59 90 100 11/08/21 13:54 87 100 11/08/21 13:49 80 128/76 98 11/08/21 13:44 85 100 11/08/21 13:39 89 100 11/08/21 13:34 82 116/70 100 11/08/21 13:29 84 100 11/08/21 13:24 103 H 99 11/08/21 13:19 36.5 C 80 20 143/81 H 98 11/08/21 13:17 102 H 94 11/08/21 13:15 93 H 16 106/60 11/08/21 13:14 81 100 11/08/21 13:12 90 98/57 L 11/08/21 13:09 98 H 98/61 L 99 11/08/21 13:06 84 121/66 11/08/21 13:04 110 H 94 11/08/21 13:03 98 H 20 99/54 L 94 11/08/21 13:00 80 109/64 11/08/21 12:59 75 100 11/08/21 12:57 85 112/67 11/08/21 12:54 78 123/82 99 11/08/21 12:51 69 111/69 11/08/21 12:49 113 H 99/63 L 100 11/08/21 12:45 70 20 128/61 11/08/21 12:44 66 100 11/08/21 12:42 67 130/75 11/08/21 12:40 78 113/63 11/08/21 12:39 100 H 100 11/08/21 12:38 114 H 90/55 L 11/08/21 12:36 113 H 108/58 L 11/08/21 12:34 80 122/63 100 11/08/21 12:29 113 H 66/29 L 100 11/08/21 12:24 74 104/51 L 99 11/08/21 12:19 87 97 11/08/21 12:18 79 157/58 H 11/08/21 12:14 76 100 11/08/21 12:13 75 126/61 11/08/21 12:09 76 100 11/08/21 12:04 93 H 78/49 L 97 11/08/21 12:01 75 103/59 L 11/08/21 11:59 92 H 88/48 L 92 11/08/21 11:54 79 98 11/08/21 11:49 79 98 02/21/22 11:44 93 H 99 11/08/21 11:43 80 107/66 11/08/21 11:39 82 98 11/08/21 11:34 91 H 100 11/08/21 11:29 36.7 C 83 20 111/65 99 11/08/21 11:24 75 99 11/08/21 11:19 106 H 99 11/08/21 11:14 84 98 11/08/21 11:13 77 113/69 11/08/21 11:09 74 99 11/08/21 11:04 87 98
[2021-11-08 23:50] LABS: Basophils # (auto) 0.01 K/uL (0-0.2); Basophils % (auto) 0.1 %; Eosinophils # (auto) 0.01 K/uL (0-0.5); Eosinophils % (auto) 0.1 %; Hematocrit (blood only) 38.1 % (37-47); Hemoglobin 12.9 g/dL (12.0-16.0); Immature Granulocytes # (auto) 0.06 K/uL (0.00-0.02); Immature Granulocytes % (auto) 0.5 %; Lymphocytes # (auto) 0.81 K/uL (1.2-3.4); Lymphocytes % (auto) 6.3 %; Mean Corpuscular Hemoglobin 30.9 pg (25-34); Mean Corpuscular Volume 91.4 fL (80-100); Mean Platelet Volume 10.6 fL (7.4-10.4); Monocytes % (auto) 6.2 %; Neutrophils # (auto) 11.16 K/uL (1.4-6.5); Neutrophils % (auto) 86.8 %; Platelet Count 138 K/uL (130-400); RDW Coefficient of Variation 14.3 % (11.5-14.5); RDW Standard Deviation 47.6 fL (36.4-46.3); Red Blood Count 4.17 M/uL (4.2-5.4); White Blood Count 12.85 K/uL (4.8-10.8)
[2021-11-08 23:58] LABS: Amphetamines+Metham, Urine Neg (Neg); Barbiturates, Urine Neg (Neg); Benzodiazepine, Urine Neg (Neg); Cocaine, Urine Neg (Neg); MDMA (Ecstacy), Urine Neg (Neg); Methadone, Urine Neg (Neg); Opiate, Urine Neg (Neg); Phencyclidine, Urine Neg (Neg)
[2021-11-09 00:01] LABS: Mean Corpuscular Hgb Conc 33.9 g/dL (32-36)
[2021-11-09 00:08] LABS: Albumin Globulin Ratio 1.1 (0.9-2); Albumin Level 3.2 gm/dl (3.4-5.0); BUN Creatinine Ratio 9.1 (10-20); Bilirubin,Total 0.6 mg/dl (0.2-1.0); Calcium 8.4 mg/dl (8.5-10.1); Est GFR (African American) 141.8 ml/min; Est GFR (Non-African American) 122.4 ml/min; Globulin 2.9 gm/dl (2.5-4.0); Potassium 3.6 mmol/L (3.5-5.1); Total Protein 6.1 gm/dl (6.0-8.3)
[2021-11-09] MEDS: IBUPROFEN 600 MG TAB PO PRN ×6 (00:10→23:34)
[2021-11-09] MEDS ORDERED: miSOPROStoL 200 MCG TAB ONE (01:10)
[2021-11-09] MEDS ORDERED: METHYLERGONOVINE MALEATE 0.2 MG/ML AMP ONE (01:11)
[2021-11-09] MEDS: ACETAMINOPHEN 325 MG TAB PO PRN ×3 (05:07→18:14)
[2021-11-09 06:33] LABS: Hematocrit (blood only) 35.3 % (37-47); Mean Corpuscular Hemoglobin 31.2 pg (25-34); Mean Corpuscular Volume 91.7 fL (80-100); Mean Platelet Volume 10.8 fL (7.4-10.4); Platelet Count 148 K/uL (130-400); RDW Coefficient of Variation 14.4 % (11.5-14.5); RDW Standard Deviation 48.4 fL (36.4-46.3); Red Blood Count 3.85 M/uL (4.2-5.4); White Blood Count 11.72 K/uL (4.8-10.8)
[2021-11-09] MEDS: DOCUSATE SODIUM 100 MG CAP PO SCH ×2 (07:46→20:04)
[2021-11-09] MEDS: PRENATAL VITAMIN 1 TAB PO SCH (07:46)
[2021-11-09] MEDS ORDERED: oxyCODONE/ACETAMINOPHEN 5mg/325mg TAB PO PRN (09:37)
--- NOTE | 2021-11-09 09:42 | Obstetrical Progress Note ---
Date of Service November 09, 2021 Subjective Ambulation: limited ambulation Voiding: no voiding problems Passing Gas:: Yes Diet Tolerance:: regular diet Lochia:: Small Feeding Type:: breast feeding Current Pain Level(1-10): 2 (feeling right back and leg pain radiating down back side. had 2 epidurals in labor) Physical Exam Constitutional WD/WN, vitals as above comfortable Musculoskeletal Extremities: extremities normal to inspection some pain over right back side Neurologic patellar DTR's 2+ bilat, sensation intact Genitourinary fundus firm. Abdomen soft and non-tender. no edema. neg Ben's Results & Data ([facility]) Vital Signs (Past 12 Hours) Vital Signs Temp Pulse Pulse Resp BP BP Pulse Ox 11/09/21 07:20 36.9 C 72 16 125/80 11/09/21 03:30 36.8 C 84 16 110/76 97 11/09/21 00:05 37.0 C 83 16 131/85 98 11/08/21 23:37 105 H 92 11/08/21 23:35 88 147/86 H 11/08/21 23:34 92 H 98 11/08/21 23:29 94 H 98 11/08/21 23:24 96 H 98 11/08/21 23:20 96 H 155/69 H 11/08/21 23:19 99 H 94 11/08/21 23:14 92 H 99 11/08/21 23:11 86 149/77 H 11/08/21 23:09 87 98 11/08/21 23:05 86 169/87 H 11/08/21 23:04 87 97 11/08/21 22:59 83 98 11/08/21 22:54 88 97 11/08/21 22:52 82 140/66 11/08/21 22:49 85 98 11/08/21 22:44 90 100 11/08/21 22:42 111 H 142/86 H 11/08/21 22:40 18 11/08/21 22:39 101 H 80 L 11/08/21 22:37 96 H 90 11/08/21 22:35 89 152/80 H 11/08/21 22:34 85 100 11/08/21 22:32 84 151/79 H 11/08/21 22:29 36.7 C 81 18 154/77 H 100 11/08/21 22:26 89 160/79 H 11/08/21 22:24 104 H 100 11/08/21 22:23 100 H 138/78 11/08/21 22:21 83 206/115 H 11/08/21 22:20 108 H 94 11/08/21 22:19 112 H 80 L 11/08/21 22:15 86 165/123 H 11/08/21 22:14 109 H 81 L 11/08/21 22:13 109 H 180/104 H 91 11/08/21 22:09 99 H 100 11/08/21 22:07 103 H 92 11/08/21 22:04 105 H 90 11/08/21 22:02 176 H 190/124 H 11/08/21 22:00 99 H 92 11/08/21 21:59 95 H 100 11/08/21 21:54 97 H 90 11/08/21 21:53 96 H 91 11/08/21 21:50 93 H 125/85 11/08/21 21:49 95 H 100 11/08/21 21:47 89 150/88 H 11/08/21 21:44 92 H 132/82 92 11/08/21 21:41 94 H 138/75 11/08/21 21:39 98 H 99
--- NOTE | 2021-11-09 11:31 | Communication Note ---
Date of Service: November 09, 2021 Called by nursing per her doctor's request regarding back and RLE pain. In brief, patient had been experiencing back and lower right leg pain shortly after delivery that has persisted until today. Describes it has sharp in nature and intermittent. Thinks her right leg is slightly weak not has been OOB and ambulating. Also notes mild areas of abnormal sensation of anterior thigh and inner aspect of RLE. Noted that she had two epidurals placed during her admission for control of labor pain and described a paresthesia when placing the first epidural. On exam, I didn't note a major difference in lower leg strength between her left and right leg (leg raise, leg extension, plantar/dorsiflexions). When I looked at her lower back, it was tender to pa lpation but not red/swollen/irritated and no drainage was noted. She denied any bowel/bladder dysfunction. It appears this is some degree of nerve root irritation that is usually self limiting. Patient is already using a heat pad to her back, anti-inflammatories, and medications for pain control. In speaking with the attending OB physician, suggested a formal neurology consult for a more focused neurology exam and recommendations regarding treatment (i.e. possibility of steroids or neuropathic pain medications to include gabapentin). Attending agreed and will be placing the consult today.
[2021-11-09] MEDS: oxyCODONE/ACETAMINOPHEN 5mg/325mg TAB PO PRN ×2 (13:57→19:32)
[2021-11-09] MEDS ORDERED: bisacodyL 5 MG TABEC PO SCH (20:00)
--- NOTE | 2021-11-09 21:28 | Consultation Report ---
NEUROLOGY CONSULTATION NOTE DATE OF CONSULTATION: 11/09/2021. CONSULTING PHYSICIAN: New Hernandez MD CHIEF COMPLAINT: Low back pain radiating into the right leg. HISTORY OF HISTORY OF PRESENT ILLNESS: A 36-year-old female status post vaginal delivery of her fourth child, noted to have new onset low back pain predominantly radiating into the leg. She did have an epidural prior to this delivery. She has had 3 previous pregnancies. No similar symptoms. She does have prior history of sciatica during previous pregnancies. She denies numbness or weakness in the right leg. Symptoms were improved with the use of Percocet. Pain seems to wax and wane, although when it does occur, it seems to persist unlike previous sciatica. She denies numbness. Neurology was consulted for further assessment. ALLERGIES: AMOXICILLIN. HOME MEDICATIONS: Albuterol inhaler as needed, vitamin. PAST MEDICAL HISTORY: No pertinent past medical history. PAST SURGICAL HISTORY: Abdominoplasty, appendectomy, breast augmentation, wisdom teeth extraction. SOCIAL HISTORY: She is a former smoker. She quit smoking in 2017. She denies any alcohol. No illicit substance use. She is . She has 4 children. REVIEW OF SYSTEMS: All other review of systems was negative except as noted above in the HPI. PHYSICAL EXAMINATION: GENERAL: The patient is awake, alert, oriented to person, place, and time. She appears in no acute distress. She appears her stated age. She is currently . HEENT: Head is normocephalic and atraumatic. Normal conjunctivae. NECK: Supple. LUNGS: Normal respiratory effort. CARDIAC: Pulses are intact. SKIN: No skin rash. PSYCHIATRIC: Normal mood, normal affect. NEUROLOGIC: Her speech is clear. She is following commands. She has no dysarthria. Her face is symmetric. Eyes are midline. Pupils are symmetric. Hearing is grossly intact. Holding her head upright. She has no tremor or myoclonic jerks. Sensation is intact to light touch. Proprioception is intact. Toes are downgoing. Ankle dorsiflexion is 5/5. BACK: On inspection of her low back, there are no signs of erythema or tenderness to palpation. There is no swelling noted. She is wearing a patch in the mid low back. ASSESSMENT AND PLAN: A 36-year-old female post day #1 after noted to have low back pain radiating into the right leg. Symptoms noted after an epidural injection.She had a vaginal delivery. No prior history of similar symptoms, although she notes having sciatica in the past. Agree with conservative management and pain management per discretion of [employer] providers. I did discuss with the patient that I suspect symptoms will improve with time. If symptoms persist despite conservative management, would obtain an EMG of the right lower extremity in 4-6 weeks. If symptoms progress or become worse, would obtain MRI of the lumbar spine. Otherwise, the patient can follow with neurology on an as-needed basis for now. Please contact me with any additional questions or concerns. Job ID: [id number] [id number]
[2021-11-10] MEDS: IBUPROFEN 600 MG TAB PO PRN ×2 (06:24→11:28)
[2021-11-10 07:10] LABS: Hematocrit (blood only) 32.8 % (37-47); Hemoglobin 10.9 g/dL (12.0-16.0)
--- NOTE | 2021-11-10 07:50 | Obstetrical Progress Note ---
Date of Service November 10, 2021 Assessment & Plan Admission and Anticipated Discharge Date Admission Date: November 08, 2021 Subjective Patient is seen and examined. She feels well, no complaints. Desires d/c No more back or leg pain No numbness/ tingling Ambulating without dizziness Voiding without difficulty Tolerating regular diet with out N&V Bleeding is minimal No fever/ chills/ CP/ SOB/ N&V/ Leg pain Breast feeding without problems Vital Signs Temp Pulse Resp BP BP Pulse Ox 11/10/21 07:36 36.9 C 68 18 107/67 97 11/09/21 23:35 36.7 C 60 18 126/80 99 11/09/21 19:50 36.6 C 62 18 130/79 98 11/09/21 15:25 36.6 C 69 18 110/68 97 11/09/21 11:25 36.8 C 67 18 126/84 Lab Results 11/08/21 11/08/21 11/08/21 Range/Units 04:18 04:18 04:18 WBC 8.20 (4.8-10.8) K/uL RBC 4.16 L (4.2-5.4) M/uL Hgb 12.9 (12.0-16.0) g/dL Hct 38.1 (37-47) % MCV 91.6 (80-100) fL MCH 31.0 (25-34) pg MCHC 33.9 (32-36) g/dL RDW Std Deviation 48.0 H (36.4-46.3) fL RDW Coeff of Jermain 14.3 (11.5-14.5) % Plt Count 176 (130-400) K/uL MPV 11.1 H (7.4-10.4) fL Immature Gran % (Auto) % Neut % (Auto) % Lymph % (Auto) % Jennings % (Auto) % Eos % (Auto) % Baso % (Auto) % Neut # (Auto) (1.4-6.5) K/uL Lymph # (Auto) (1.2-3.4) K/uL Jennings # (Auto) (0.11-0.59) K/uL Eos # (Auto) (0-0.5) K/uL Baso # (Auto) (0-0.2) K/uL Immature Gran # (Auto) (0.00-0.02) K/uL PT 9.4 (9.0-12.0) Seconds INR 0.9 (0.9-1.1) APTT 25.9 (21.0-31.0) Seconds PTT Ratio 1.0 Fibrinogen 532 H (184-400) mg/dl Cord VBG pH (7.20-7.44) Cord VBG pCO2 (30.4-57.2) mmHg Cord VBG pO2 (14.1-43.3) mmHg Cord VBG HCO3 (18.4-26.8) mmol/L Cord VBG Base Excess (-7.7-1.9) mEq/L Cord VBG O2 Sat (<68) % Barometric Pressure mm/Hg Blood Gas Comments Sodium (136-145) mmol/L Potassium (3.5-5.1) mmol/L Chloride (98-107) mmol/L Carbon Dioxide (21-32) mmol/L Anion Gap (3-11) BUN (6-23) mg/dl Creatinine (0.6-1.2) mg/dl Est Cr Clr Drug Dosing ml/min Est GFR ( Amer) ml/min Est GFR (Non-Af Amer) ml/min BUN/Creatinine Ratio (10-20) Glucose (70-99(Fasting)) mg/dl POC Glucose (70-99) mg/dl Calcium (8.5-10.1) mg/dl Total Bilirubin (0.2-1.0) mg/dl AST (13-39) U/L ALT (7-52) U/L Alkaline Phosphatase (34-104) U/L Total Protein (6.0-8.3) gm/dl Albumin (3.4-5.0) gm/dl Globulin (2.5-4.0) gm/dl Albumin/Globulin Ratio (0.9-2) Urine Opiates Screen (Neg) Ur Methadone, Qual (Neg) Urine Barbiturates (Neg) Ur Phencyclidine (PCP) (Neg) U Amphetamin/Meth Scrn (Neg) MDMA (Ecstasy) Screen (Neg) U Benzodiazepines Scrn (Neg) Ur Cocaine Metabolite (Neg) U Marijuana (THC) Screen (Neg) SARS-CoV-2, RNA, NAAT (NEGATIVE) Blood Type O Positive Antibody Screen NEGATIVE 11/08/21 11/08/21 11/08/21 Range/Units 04:18 21:19 22:44 WBC (4.8-10.8) K/uL RBC (4.2-5.4) M/uL Hgb (12.0-16.0) g/dL Hct (37-47) % MCV (80-100) fL MCH (25-34) pg MCHC (32-36) g/dL RDW Std Deviation (36.4-46.3) fL RDW Coeff of Jermain (11.5-14.5) % Plt Count (130-400) K/uL MPV (7.4-10.4) fL Immature Gran % (Auto) % Neut % (Auto) % Lymph % (Auto) % Jennings % (Auto) % Eos % (Auto) % Baso % (Auto) % Neut # (Auto) (1.4-6.5) K/uL Lymph # (Auto) (1.2-3.4) K/uL Jennings # (Auto) (0.11-0.59) K/uL Eos # (Auto) (0-0.5) K/uL Baso # (Auto) (0-0.2) K/uL Immature Gran # (Auto) (0.00-0.02) K/uL PT (9.0-12.0) Seconds INR (0.9-1.1) APTT (21.0-31.0) Seconds PTT Ratio Fibrinogen (184-400) mg/dl Cord VBG pH 7.36 (7.20-7.44) Cord VBG pCO2 36 (30.4-57.2) mmHg Cord VBG pO2 37 (14.1-43.3) mmHg Cord VBG HCO3 20 (18.4-26.8) mmol/L Cord VBG Base Excess -4.7 (-7.7-1.9) mEq/L Cord VBG O2 Sat 76.5 H (<68) % Barometric Pressure 737.1 mm/Hg Blood Gas Comments ANDERSON Sodium 133 L (136-145) mmol/L Potassium 3.7 (3.5-5.1) mmol/L Chloride 106 (98-107) mmol/L Carbon Dioxide 19 L (21-32) mmol/L Anion Gap 8 (3-11) BUN 11 (6-23) mg/dl Creatinine 0.66 (0.6-1.2) mg/dl Est Cr Clr Drug Dosing 106.7 ml/min Est GFR ( Amer) 133.6 ml/min Est GFR (Non-Af Amer) 115.3 ml/min BUN/Creatinine Ratio 16.7 (10-20) Glucose 90 (70-99(Fasting)) mg/dl POC Glucose 77 (70-99) mg/dl Calcium 8.9 (8.5-10.1) mg/dl Total Bilirubin 0.4 (0.2-1.0) mg/dl AST 24 (13-39) U/L ALT 31 (7-52) U/L Alkaline Phosphatase 222 H (34-104) U/L Total Protein 6.8 (6.0-8.3) gm/dl Albumin 3.5 (3.4-5.0) gm/dl Globulin 3.3 (2.5-4.0) gm/dl Albumin/Globulin Ratio 1.1 (0.9-2) Urine Opiates Screen (Neg) Ur Methadone, Qual (Neg) Urine Barbiturates (Neg) Ur Phencyclidine (PCP) (Neg) U Amphetamin/Meth Scrn (Neg) MDMA (Ecstasy) Screen (Neg) U Benzodiazepines Scrn (Neg) Ur Cocaine Metabolite (Neg) U Marijuana (THC) Screen (Neg) SARS-CoV-2, RNA, NAAT (NEGATIVE) Blood Type Antibody Screen 11/08/21 11/08/21 11/08/21 Range/Units 23:00 23:27 23:27 WBC 12.85 H (4.8-10.8) K/uL RBC 4.17 L (4.2-5.4) M/uL Hgb 12.9 (12.0-16.0) g/dL Hct 38.1 (37-47) % MCV 91.4 (80-100) fL MCH 30.9 (25-34) pg MCHC 33.9 (32-36) g/dL RDW Std Deviation 47.6 H (36.4-46.3) fL RDW Coeff of Jermain 14.3 (11.5-14.5) % Plt Count 138 (130-400) K/uL MPV 10.6 H (7.4-10.4) fL Immature Gran % (Auto) 0.5 % Neut % (Auto) 86.8 % Lymph % (Auto) 6.3 % Jennings % (Auto) 6.2 % Eos % (Auto) 0.1 % Baso % (Auto) 0.1 % Neut # (Auto) 11.16 H (1.4-6.5) K/uL Lymph # (Auto) 0.81 L (1.2-3.4) K/uL Jennings # (Auto) 0.80 H (0.11-0.59) K/uL Eos # (Auto) 0.01 (0-0.5) K/uL Baso # (Auto) 0.01 (0-0.2) K/uL Immature Gran # (Auto) 0.06 H (0.00-0.02) K/uL PT (9.0-12.0) Seconds INR (0.9-1.1) APTT (21.0-31.0) Seconds PTT Ratio Fibrinogen (184-400) mg/dl Cord VBG pH (7.20-7.44) Cord VBG pCO2 (30.4-57.2) mmHg Cord VBG pO2 (14.1-43.3) mmHg Cord VBG HCO3 (18.4-26.8) mmol/L Cord VBG Base Excess (-7.7-1.9) mEq/L Cord VBG O2 Sat (<68) % Barometric Pressure mm/Hg Blood Gas Comments Sodium 134 L (136-145) mmol/L Potassium 3.6 (3.5-5.1) mmol/L Chloride 105 (98-107) mmol/L Carbon Dioxide 20 L (21-32) mmol/L Anion Gap 9 (3-11) BUN 5 L (6-23) mg/dl Creatinine 0.55 L (0.6-1.2) mg/dl Est Cr Clr Drug Dosing 128.0 ml/min Est GFR ( Amer) 141.8 ml/min Est GFR (Non-Af Amer) 122.4 ml/min BUN/Creatinine Ratio 9.1 L (10-20) Glucose 129 H (70-99(Fasting)) mg/dl POC Glucose (70-99) mg/dl Calcium 8.4 L (8.5-10.1) mg/dl Total Bilirubin 0.6 (0.2-1.0) mg/dl AST 25 (13-39) U/L ALT 28 (7-52) U/L Alkaline Phosphatase 193 H (34-104) U/L Total Protein 6.1 (6.0-8.3) gm/dl Albumin 3.2 L (3.4-5.0) gm/dl Globulin 2.9 (2.5-4.0) gm/dl Albumin/Globulin Ratio 1.1 (0.9-2) Urine Opiates Screen Neg (Neg) Ur Methadone, Qual Neg (Neg) Urine Barbiturates Neg (Neg) Ur Phencyclidine (PCP) Neg (Neg) U Amphetamin/Meth Scrn Neg (Neg) MDMA (Ecstasy) Screen Neg (Neg) U Benzodiazepines Scrn Neg (Neg) Ur Cocaine Metabolite Neg (Neg) U Marijuana (THC) Screen Neg (Neg) SARS-CoV-2, RNA, NAAT (NEGATIVE) Blood Type Antibody Screen 11/08/21 11/09/21 11/10/21 Range/Units Unknown 05:55 06:50 WBC 11.72 H (4.8-10.8) K/uL RBC 3.85 L (4.2-5.4) M/uL Hgb 12.0 10.9 L (12.0-16.0) g/dL Hct 35.3 L 32.8 L (37-47) % MCV 91.7 (80-100) fL MCH 31.2 (25-34) pg MCHC 34.0 (32-36) g/dL RDW Std Deviation 48.4 H (36.4-46.3) fL RDW Coeff of Jermain 14.4 (11.5-14.5) % Plt Count 148 (130-400) K/uL MPV 10.8 H (7.4-10.4) fL Immature Gran % (Auto) % Neut % (Auto) % Lymph % (Auto) % Jennings % (Auto) % Eos % (Auto) % Baso % (Auto) % Neut # (Auto) (1.4-6.5) K/uL Lymph # (Auto) (1.2-3.4) K/uL Jennings # (Auto) (0.11-0.59) K/uL Eos # (Auto) (0-0.5) K/uL Baso # (Auto) (0-0.2) K/uL Immature Gran # (Auto) (0.00-0.02) K/uL PT (9.0-12.0) Seconds INR (0.9-1.1) APTT (21.0-31.0) Seconds PTT Ratio Fibrinogen (184-400) mg/dl Cord VBG pH (7.20-7.44) Cord VBG pCO2 (30.4-57.2) mmHg Cord VBG pO2 (14.1-43.3) mmHg Cord VBG HCO3 (18.4-26.8) mmol/L Cord VBG Base Excess (-7.7-1.9) mEq/L Cord VBG O2 Sat (<68) % Barometric Pressure mm/Hg Blood Gas Comments Sodium (136-145) mmol/L Potassium (3.5-5.1) mmol/L Chloride (98-107) mmol/L Carbon Dioxide (21-32) mmol/L Anion Gap (3-11) BUN (6-23) mg/dl Creatinine (0.6-1.2) mg/dl Est Cr Clr Drug Dosing ml/min Est GFR ( Amer) ml/min Est GFR (Non-Af Amer) ml/min BUN/Creatinine Ratio (10-20) Glucose (70-99(Fasting)) mg/dl POC Glucose (70-99) mg/dl Calcium (8.5-10.1) mg/dl Total Bilirubin (0.2-1.0) mg/dl AST (13-39) U/L ALT (7-52) U/L Alkaline Phosphatase (34-104) U/L Total Protein (6.0-8.3) gm/dl Albumin (3.4-5.0) gm/dl Globulin (2.5-4.0) gm/dl Albumin/Globulin Ratio (0.9-2) Urine Opiates Screen (Neg) Ur Methadone, Qual (Neg) Urine Barbiturates (Neg) Ur Phencyclidine (PCP) (Neg) U Amphetamin/Meth Scrn (Neg) MDMA (Ecstasy) Screen (Neg) U Benzodiazepines Scrn (Neg) Ur Cocaine Metabolite (Neg) U Marijuana (THC) Screen (Neg) SARS-CoV-2, RNA, NAAT NEGATIVE (NEGATIVE) Blood Type Antibody Screen PE: General: Alert, orientedx3, NAD Abd: soft, NT, fundus firm, below Umbilicus Perineum intact, Lochia rubra minimal Ext; NT, no edema AP: 36 yo s/p , ppd# 2 VSS Afebrile doing well no more back/ leg pain Appreciated neurology consultation, recommended expectant management Continue routine care Discussed when to call All questions were answered D/C home , f/u in office Results & Data ([facility]) Vital Signs (Past 12 Hours) Vital Signs Temp Pulse Resp BP BP Pulse Ox 11/10/21 07:36 36.9 C 68 18 107/67 97 11/09/21 23:35 36.7 C 60 18 126/80 99 11/09/21 19:50 36.6 C 62 18 130/79 98
[2021-11-10] MEDS: PRENATAL VITAMIN 1 TAB PO SCH (08:13)
[2021-11-10] MEDS: DOCUSATE SODIUM 100 MG CAP PO SCH (08:13)
[2021-11-10] MEDS: oxyCODONE/ACETAMINOPHEN 5mg/325mg TAB PO PRN (13:20)
== END 2021-11-10 14:05 | disposition home or self-care (01) | DRG 807 ==
LOC: OPB 03:40 → 4S1 03:43 → 4S2 11-09 00:16

== ENCOUNTER 2023-09-18 15:47 | Inpatient (IN) ==
--- NOTE | 2023-09-18 16:13 | ED Triage Note ---
Date of Service September 18, 2023 Provider in Triage Author: Dieudonne Rowland A History of Present Illness This patient was briefly evaluated while in triage. An abbreviated physical exam was performed. This patient is a 38-year-old Female who presents to the ED for evaluation of headache and chest pain. Is 11 weeks . Symptoms for 1 day. Hx of cardiac spasm--last cath was May 2023. Physical Exam Limited Triage Exam: VITALS: Vitals are noted on the nurse's note and reviewed by myself. Vital signs stable. GENERAL: Well-developed, well-nourished, white female, who is in no acute distress and resting comfortably. Patient is cooperative with the examination. HEART: Regular rate and rhythm without murmurs gallops or rubs. LUNGS: Clear to auscultation bilaterally without wheezes, rales or rhonchi. No retractions or accessory muscle use. NEURO: Patient was alert and oriented to person place and time. CN II through XII grossly intact. Initial orders for labs and / or imaging were placed and patient was placed in the waiting area until a bed is available. Please see further documentation for the full ED course.
--- OUTSIDE RECORDS SUMMARY | 2023-09-18 16:13 | External Medical Summary ---
Author Name Unknown Address Unknown Organization [id number]:[facility] [place] - [address] [place] [id number] Laboratory Report Ordering Provider Test Date Status ALIDA SAMANO 08/24/2023 16:04:09 Final Observation Date Value Abnormality Reference (Units) Status Bacteria identified in Specimen by Culture 08/24/2023 16:04:09 No significant growth Final Test: Culture, Urine, Quanti tative
Specimen Source: Urine, Clean Catch
Specimen Type: Urine
Specimen Date: 08/24/2023 4:04 PM
Result Date: 08/25/2023 5:57 PM
Result Status: Final result
Resulting Lab: [facility] [place]
[address]
[facility] [id number]

CULTURE

No significant growth

null Performing Location [facility] [place] - [address] [facility] [id number]
--- OUTSIDE RECORDS SUMMARY | 2023-09-18 16:13 | External Medical Summary | Summary of Care ---
Author Name Unknown Organization [facility] Address [address] [place] [address] Phone [phone] Care Team Providers Care Line Fisher Name Role Phone Penny Roper MD Primary Care Provider [phone] Encounter Details Date Type Department Care Team (Late st Contact Info) Description 09/04/2023 Orders Only Outcomes Research Department [address] [place] [address] Emily Rogers CHRA [facility] Other*[id number] Allergies Active Allergy Reactions Criticality Noted Date Comments Amoxicillin-Pot Clavulanate Rash 06/29/20 17 Pollen Hives High 02/28/2017 Dust,ragweed,mold,dog and cat dander. documented as of this encounter (statuses as of 09/04/2023) Medications Medication Sig Dispensed Refills Start Date End Date Status Montelukast Sodium 10 MG Oral Tablet (Singulair) Take 1 Tab by mouth every evening. 30 Tab 5 02/24/2021 Active Acetaminophen 325 MG Oral Tablet (Tylenol) Take 3 Tablets by mouth in the morning and 3 Tablets at noon and 3 Tablets in the evening and 3 Tablets before bedtime. 30 Tablet 5 01/25/2023 Active traZODone HCl 50 MG Oral Tablet (Desyrel)Indication s:Primary insomnia Take 1.5 Tablets by mouth at bedtime for 360 doses. 135 Tablet 3 05/29/2023 05/23/2024 Active 27-0.8 MG Oral Tablet Take 1 Tablet by mouth daily at noon. 0 Active Ondansetron HCl 4 MG Oral TabletIndications:Familia nava of advanced maternal age in third trimester,Vomiting of Take 1 Tablet by mouth in the morning and 1 Tablet at noon and 1 Tablet before bedtime. 40 Tablet 2 08/24/2023 Active documented as of this encounter (statuses as of 09/04/2023) Active Problems Problem Noted Date Diagnosed Date Medication exposure during first trimester of pr egnancy 08/30/2023 Last Assessment & Plan: Trazodone - Based on experimental animal studies and limited experience in human pregnancies, is not expected to increase incident of congenital anomalies. Family history of DVT 08/30/2023 Overview: Mother with hx of VTE. Patient unsure what etiology was. Last Assessment & Plan: Encouraged patient to ask her mother if VTE related to inherited thrombophilia. If yes, recommend testing patient for inherited thrombophilias as may affect management. Antepartum multigravida of advanced maternal age 1208/24/2023 Last Assessment & Plan: CONSIDERATIONS: We reviewed the most pertinent aspects of the following: Advanced maternal age (AMA) refers to a woman with a giron who will be at the age of 35 or older at the estimated time of delivery and may be associated with increased morbidity. After discussion of the genetic screening/testing options, the patient desires cffDNA screening, and testing was coordinated by [facility]. In addition to the risk of chromosomal abnormalities, there is an increased risk of congenital/structural anomalies. RECOMMENDATIONS: Recommend M anatomy ultrasound at 19-20 weeks gestation. H/O section 08/24/2023 Overview: Desired TOLAC Last Assessment & Plan: DISCUSSION: 1. Reviewed that patients with a history of a previous section are at increased risk in subsequent pregnancies for abnormal placentation (such as previa, acreta, increta, percreta), uterine rupture, abdominal adhesions (which increases the associated surgical risks of injury to adjacent organs, length of procedure, and increased blood loss), and other incision-related complications (such as hernia, rectal muscle diastasis). These risks increase linearly with the number of previous sections performed. 2. carries a lower risk of hemorrhage and infection than delivery. It also generally involves a shorter hospital admission as well as a less painful and shorter recovery than delivery. The risks of uterine rupture are increased for at 0.2 to 1.5% with prior low transverse uterine incision and up to 10% with prior classical incision. In the event of uterine rupture there is a risk of maternal injury that may require a blood transfusion, hysterectomy, damage to nearby organs and even maternal . There is also a 10 to 25% risk of significant adverse sequelae which includes or permanent injury in 09/999 's. The chances of successful increases with any prior successful deliveries. RECOMMENDATIONS: 1. Routine repeat section is recommended to be scheduled between 39-40 weeks gestation. If patient has a previous classical uterine incision, then recommend proceeding with scheduled repeat delivery at 36-37 weeks without amniocentesis per [employer]. Every effort should be made by patient s primary OB provider to obtain prior operative reports. 2. As per [employer]'s 2010 practice bulletin (reaffirmed 2015) regarding offering of trial of labor after delivery, the risks and benefits should be discussed between the patient and her primary OB provider and ultimately agreed upon between these parties and documented as such. Any attempt at should be undertaken at a facility capable of emergent delivery. The following factors are NOT contraindications to offering a trial of labor after delivery: a. Two prior deliveries b. Suspected macrosomia c. Gestation beyond 40 weeks d. History of previous low vertical uterine incision e. Twin gestation (if only one prior ) f. One delivery with an unknown uterine scar type (unless there is a high clinical suspicion of a previous classical uterine incision) 3. Induction of labor for maternal or indications is an option for women undergoing Trial of Labor After . Misoprostol should not be used for cervical ripening or induction of labor. 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 Suspected during evaluation with heart cath. Her chest pain also responds to nitroglycerine. S/p stress echo which was unremarkable. Continues to follow with Cardiology (notes in scanned records). Taking nitroglycerine prn. Stopped Imdur with . Also experiences palpitations with normal Zio Patch. Last Assessment & Plan: DISCUSSION: Discussed reassuring findings of normal stress echo. Would not expect to be a direct trigger of her vasospasm. Reviewed that palpitations can increase in frequency during . RECOMMENDATIONS: Continue to follow with Cardiology. Patient has not noticed worsening in symptoms since stopping Imdur. Limited data on Imdur use in . Does appear that CCB may be alternative therapy, which would be okay to use in with reassuring safety profile. Discussed that when these medications are used in the setting of HTN there is a potential risk of affecting growth, however HTN also carries this risk. If she were to start CCB during would at least check growth in the third trimester. If symptoms worsen and are not responsive to CCB then risk/benefit discussion on the use of Imdur would be recommended as there may be more benefit than risks. This diagnosis should not preclude patient from having a TOLAC. If palpitations persist may consider repeat evaluation with Ziopatch. Hypokalemia 07/04/2023 Abnormal GTT (glucose tolerance test) 12/23/2022 Estimated Date of Delivery Comme nts Yes 04/05/2024 Based on Ultraso und documented as of this encounter (statuses as of 09/04/2023) Resolved Problems Problem Noted Date Diagnosed Date Resolved Date Liveborn , of triplet , born in hospital by delivery 01/24/2023 023 Hypokalemia 12/23/2022 05/29/2023 Health counseling 09/28/2022 01/22/2023 Overview: Problem Action Taken Date entered Entered by Date resolved Education 2nd trimester education 09/28/2022 Chica Fountain RN 09/28/2022 Problem Action Taken Date entered Entered by Date resolved Need for food assistance Due date letter given for Assistance office 09/28/2022 Chica Fountain RN 09/28/2022 Problem Action Taken Date entered Entered by Date resolved Current needs or questions Patient denies having any current needs or questions 10/28/2022 Chica Fountain RN 10/28/2022 Problem Action Taken Date entered Entered by Date resolved Current needs or questions Patient denies having any current needs or questions 11/21/2022 Chica Fountain RN 11/21/22 Problem Action Taken Date entered Entered by Date resolved 3rd trimester education Education given 11/21/2022 Chica Fountain RN 11/21/2022 Problem Action Taken Date entered Entered by Date resolved Current needs or questions Patient denies having any current needs or questions 12/22/2022 Chica Fountain RN 12/22/2022 Problem Action Taken Date entered Entered by Date resolved Current needs or questions Patient denies having any current needs or questions 01/04/2023 Chica Fountain RN 01/04/2023 Problem Action Taken Date entered Entered by Date resolved Need for baby supplies Distribute cribs letter 03/06/2023 Chica Fountain RN 03/06/2023 Problem Action Taken Date entered Entered by Date resolved PP education given 03/06/2023 Chica Fountain RN 03/06/2023 Anxiety disorder affecting p regnancy, antepartum 08/21/2022 03/06/2023 Overview: -Mood stable. Last Assessment & Plan: -Risks and benefits of anti-anxiety medications in should be considered and compared with the risks of untreated anxiety or mental illness in . Anxiety in has been associated with miscarriage, delivery and delivery complications. -Patient appears to be overall well controlled and stable at this time without treatment. We discussed that it may worsen during ; however, the period is a particularly high risk time period. depression and anxiety precautions were reviewed. We discussed that multiple therapeutic options, including medications, can be considered if treatment is indicated. She was advised to maintain/establish care with her psychiatric team. -Treatment of anxiety in can include counseling or medication. Monotherapy is preferred over polytherapy, and at the lowest effective dose. -Benzodiazepines (Xanax, Ativan, Klonopin) are category D medications used to treat anxiety. They can be expected to cross the placenta. Some benzodiazepines have shown teratogenic potential, therefore the risk cannot be ruled out. Main risks of benzodiazepine use throughout the , are withdrawal symptoms. Symptoms include tremors, irritability, hyperactivity, tachypnea, and hypertonicity. Careful monitoring of the for these signs/symptoms should be performed. Data suggests that is not recommended while a woman is taking benzodiazepines. -Additional classes of medications include non-benzodiazepines that are in categories B or C, and have not been shown to cause harm. In all cases, it is important to consider the benefits and risks of medication use in . Headache in 08/21/20222022 Last Assessment & Plan: Considerations: Reviewed relief measures for headaches in include adequate hydration, small frequent meals, and Tylenol with caffeinated beverage as needed. Advise limiting Tylenol to no greater than 3000 mg per day. Recommendations: Recommend patient follow up with primary care provider or a neurologist if her headache symptoms persist or worsen. Recommend evaluation for Preeclampsia if greater than 20 weeks gestation. A combination of supplements--once daily magnesium 400 mg, coenzyme Q-10 200 mg, and riboflavin (vitamin B2) 400 mg--prevent migraine headaches if taken daily. MRI is the diagnostic imaging modality of choice in . Discussed at length that there is no evidence of adverse effects due to MRI. However, gadolinium contrast may be associated with a higher risk of congenital anomalies and should be avoided in the first trimester of . Asthma affecting in third trimester 08/21/2003/06/2023 Last Assessment & Plan: CONSIDERATIONS: Asthma symptoms may improve, worsen or remain unchanged in severity in . Asthma is generally managed the same in as in the non- patient, as asthma-control medications are considered safe in . If asthma is well-controlled with medications prior to , it is recommended to continue the same medication regimen during . A patient should seek medical care immediately if an asthma flare does not respond to therapy. Mild and well-controlled moderate asthma can be associated with excellent maternal and outcomes. Severe and poorly controlled asthma may be associated with increased morbidity and mortality. Asthma management includes monitoring of lung function with pulmonary function testing (when indicated), avoidance of triggers (such as tobacco smoke, mold, dust mite exposure, animal dander and cockroaches), and a step-care approach to pharmacologic therapy based on the severity of the patient's asthma. RECOMMENDATIONS: Inhaled corticosteroids are the mainstay of therapy for all patients except those with intermittent asthma. o If patients are routinely requiring rescue inhaler (such as albuterol, Ventolin, ProAir, Atrovent, or Proventil) use more than twice weekly, we recommend adding a low-dose inhaled corticosteroid. [Pulmicort (budesonide) is preferred to use in .] o If patients are routinely requiring rescue inhaler use daily, we recommend adding a combined low-dose inhaled corticosteroid/long-acting beta-agonist [such as Advair (fluticasone/salmeterol) or Symbicort (budesonide/formoterol)] or a medium dose inhaled corticosteroid. o Patient should discuss these treatment options with her primary OB provider or PCP. Typically, patients do not need stress dose steroids as long as they continue their usual dose perioperatively (or during labor) and do not have primary renal failure or other problems with the pituitary axis. Medications such as prostaglandin F2a (including Hemabate), ergonovine, and indomethacin (in patients who are aspirin allergic) should be used with caution. Supervision of high-risk pre gnancy, unspecified trimester 08/19/2022 03/06/2023 AMA (advanced maternal age) multigravida 35+ 03/06/2023 Last Assessment & Plan: We reviewed the most pertinent aspects of the following: -Advanced maternal age (AMA) refers to a woman with a giron who will be at the age of 35 or older at the estimated time of delivery and may be associated with increased morbidity. After discussion of the genetic screening/testing options, the patient desires NT screening. In addition to the risk of chromosomal abnormalities, there is an increased risk for congenital/structural anomalies. RECOMMENDATIONS: Recommend MFM NT <14 weeks and anatomy ultrasound at 19-20 weeks gestation. Short interval between pregn ancies complicating , antepartum 08/19/202203/06 Overview: Triplets delivered via c/s 01/2023 Last Assessment & Plan: DISCUSSION: Reviewed that a short Inter- Interval (IPI) may place the patient at an increased risk for , low weight, and SGA . IPI is defined as less than a year from the time of delivery of one to conception of the next . Some studies show that a short IPI may be associated with an increased risk for maternal , third trimester bleeding, premature rupture of membranes, puerperal endometritis, and anemia as well as placental abruption. Health counseling 08/04/2022 08/21/2022 Last Assessment & Plan: Problem Action Taken Date entered Entered by Date resolved Triplet Provider eval 08/04/2022 Jennifer Lee RN 08/04/2022 Problem Action Taken Date entered Entered by Date resolved Nutrition Due date letter given for WIC 08/04/2022 Jennifer Lee RN 08/04/2022 Triplet gestation, with two or more monochorionic fetuses 08/04/2022 03/06/2023 Overview: Spontaneous [id number]-[id number] [on outside scan, to be confirmed by MFM] Primary OB planning for Betamethasone at 24wk. -Any multiple gestation with a shared chorionic sac is at risk for TTTS, selective FGR, and TAPS. -Beginning at 16 weeks we recommend surveillance for MVP, and hydrops check every 2 weeks and assessment of growth every 3-4 weeks. -Recommend twice weekly surveillance starting at 32 weeks. -Recommend repeat at 24-28 weeks. -Consider prophylactic course of Betamethasone at 24 weeks gestation for lung maturity on a case by case basis. -Recommend delivery of uncomplicated triplet via section at 35w0d to 35w6d. -Weight gain: 54lbs -Supplement 1mg folic acid and daily Fe -Recommend early GDM screening and repeat 26-28 weeks if normal. Last Assessment & Plan: She presents for follow-up of triplet growth and TTTS surveillance. This is a monochorionic triamniotic triplet gestation. We reviewed the results of today's ultrasound. A monochorionic triamniotic triplet gestation is noted. The estimated weight for all three fetuses is appropriate for gestational age. Triplet B is again at the 10th percentile with an AC in the 14th percentile. The inter-triplet discordance is normal. The visualized anatomy is unremarkable in appearance. The maximum vertical pockets of amniotic fluid are normal. There is no evidence of twin to twin transfusion syndrome. Umbilical artery and MCA Doppler testing is normal for all three fetuses. A BPP is 8/8 x 3. We discussed the growth patterns. Triplet B is again measuring at the lower range of normal, which is a decrease compared to her most recent growth evaluation but is similar to the exam before that. We reviewed challenges in defining normal growth, particularly in a multifetal gestation, but at this time the trend over time appears stable. I recommended surveillance as scheduled and a return visit for growth and Doppler testing in 2 weeks as she is at risk for complications regarding her monochorionic triplet gestation.. Transverse or oblique presentation 10/28/2021 08/19/2022 Overview: OBLIQUE but vertex at 37w3d Antepartum anemia complicating 09/08/2021 08/19/2022 Overview: hgb 11.3 at 28 wks Supervision of other normal 04/01/2021 08/19/2022 Overview: Problem Action Taken Date entered Entered by Date resolved Nutrition provided due date letter for pt to attend [facility] 04/01/2021 Kasey Tovar RN 04/01/2021 1st trimester education Reviewed w/pt 04/01/2021 Kasey Tovar RN 04/01/2021 Problem Action Taken Date entered Entered by Date resolved Current needs or questions Patient denies having any current needs or questions 07/01/2021 Jennifer Lee RN 07/01/2021 Problem Action Taken Date entered Entered by Date resolved 3rd trimester education reviewed w/pt 08/25/2021 Kasey Tovar RN 08/25/2021 Problem Action Taken Date entered Entered by Date resolved Current needs or questions Patient denies having any current needs or questions 09/08/2021 Jennifer Lee RN 09/08/2021 Problem Action Taken Date entered Entered by Date resolved Current needs or questions Patient denies having any current needs or questions 10/20/2021 Kasey Tovar RN 10/20/2021 Problem Action Taken Date entered Entered by Date resolved Current needs or questions Patient denies having any current needs or questions 10/28/2021 Kasey Tovar RN 10/28/2021 Allergic conjunctivitis, bilateral 02/24/2021 08/21/2022 Intermittent asthma with rel iever use up to twice per week, uncomplicated 02/24/2021 08/21/2022 Anxiety state 03/11/2020 08/21/2022 Paresthesias 07/27/2018 08/21/2022 Herniated disc, cervical 07/27/2018 Headache, unspecified headache type 07/27/2018 08/21/2022 Allergic rhinitis 09/08/2017 08/21/2022 Psychophysiological insomnia 03/03/2017 08/21/2022 Family history of hypercoagulable state 03/06/2023 Overview: Mother with a provoked DVT/PE Unsure on thrombophilia work-up. Last Assessment & Plan: Recommend patient discuss with mother and encourage mother to pursue thrombophilia work up if not previously done. If positive, patient should also be tested. -Reassured patient that she has tolerated well x4 and that this is of low likelihood to provide any yield. -S/s of pulmonary embolism and DVT reviewed> calf swelling/tenderness/redness/ documented as of this encounter (statuses as of 09/04/2023) Immunizations Name Administration Dates Next Due COVID-19 mRNA, LNP-s, No Pre serve, 2-Dose Series ([employer]) 01/06/2021,12/02/2020 DTaP Dipth/Tet/Acell Pertussis (Infanrix), Peds 08/23/2015 MMR - Measles/Mumps/Rubella Vaccine 08/24/2015 PPD 05/25/2018 Seasonal Influenza, PF, 6 M & above, IM , (FluLaval or Fluzone) 06/20/2023,08/31/2022,07/01/2021, 021,07/26/2018() Seasonal Influenza, Split, I IV3, With Preserve, Inj 08/07/2017 TDAP (age 10 and older)(Boostrix) 08/25/2021 documented as of this encounter Social History Tobacco Use Types Packs/Day Years Used Date Smoking Tobacco: Former Cigarettes 0.5 8 Q uit: 01/16/2017 Smokeless Tobacco: Former Quit: 03/08/2017 Comments:No passive smoke ex posures Alcohol Use Standard Drinks/Week Comments Not Currently 0 (1 standard drink = 0.6 oz pur e alcohol) social wine AUDIT-C Answer Date Recorded Q1: How often do you have a drink containing alc ohol? 2-4 times a month 10/28/2020 Q2: How many drinks containi ng alcohol do you have on a typical day when you are drinking? 1 or 2 10/28/2020 Q3: How often do you have si x or more drinks on one occasion? Never 10/28/2020 PHQ-2 Answer Date Recorded PHQ-2 Score 0 08/07/2018 [facility] - Occupational Stress Questionnaire Answer Date Recorded Do you feel stress - tense, restless, nervous, or anxious, or unable to sleep at night because your mind is troubled all the time - these days? Only a little 10/28/2020 Exercise Vital Sign Answer Date Recorde d On average, how many days pe r week do you engage in moderate to strenuous exercise (like a brisk walk)? 5 days 10/28/2020 On average, how many minutes do you engage in exercise at this level? 120 min 10/28/2020 Hunger Vital Sign Answer Date Recorded Within the past 12 months, y ou worried that your food would run out before you got the money to buy more. Never true 01/21/20 23 Within the past 12 months, t he food you bought just didn't last and you didn't have money to get more. Never true 01/20/2023 [place] Depression Scale Answer Date Recorded [place] Depression Scale Total 8 08/24/2023 The thought of harming myself has occurred to me . Never 08/24/2023 Estimated Date of Delivery Comme nts Yes 04/05/2024 Based on Ultraso und Sex and Gender Information Value Date Recorded Sex Assigned at Female 04/21/2022 2:32 PM EDT Gender Identity Not on file Sexual Orientation Straight 04/21/2022 2: 32 PM EDT Job Start Date Occupation Industry Not on file Not on file Not on file documented as of this encounter Functional Status Functional Status Response Date of Assess ment Are you deaf or do you have serious difficulty h earing? No 07/24/2018 Are you blind or do you have serious difficulty seeing, even when wearing glasses? No 07/24/2018 Do you have serious difficul ty walking or climbing stairs? (5 years old or older) No 07/24/2018 Do you have difficulty dress ing or bathing? (5 years old or older) No 07/24/2018 Because of a physical, menta l, or emotional condition, do you have difficulty doing errands alone such as visiting a doctor s office or shopping? (15 years old or older) No 07/24/20 18 Cognitive Status Response Date of Assessm ent Because of a physical, menta l, or emotional condition, do you have serious difficulty concentrating, remembering, or making decisions? (5 years old or older) No 07/24/2018 documented as of this encounter Plan of Treatment Upcoming Encounters Date Type Department Care Team (Late st Contact Info) Description 09/22/2023 2:30 PM EST Office Visit Clinical Nursing Assistant Obstetrics Maternal Medicine, [address] [address] Randall Mathew, [address] [address] 09/22/2023 2:30 PM EST Imaging Radiology [address] [address] 10/16/2023 12:00 PM EST Office Visit Gastroenterology, [facility] [address] [facility] [place] [address] Tarah Tyler CRNP [facility] [place] [address] 11/13/2023 9:30 AM EST Office Visit Clinical Nursing Assistant Obstetrics Maternal Medicine, [address] [address] Randall Mathew [place] [address] 11/13/2023 9:30 AM EST Imaging Radiology [place] [address] [place] [address] Scheduled Orders Name Type Priority Associated Diagnoses Orde r Schedule MYCODE SUBSEQUENT ADULT Lab Routine MyCode Research Other*[id number] Every 6 Months for 2 Occurrences starting 09/04/2023 until 09/23/2024 Health Maintenance Due Date Last Done Comments Hepatitis B (1 of 3 - 3-dose series) 1987 Pneumococcal Vaccine: Pediatrics (0 to 5 Years) and At-Risk Patients (6 to 64 Years) (1 - PCV) 1993 HPV/Co-Test 2017 Depression Screening 08/07/2019 08/07/2018 COVID-19 Vaccine (3 - 2022-24 season) 2023 01/06/2021, 12/02/2020 Cervical Cancer Screening 01/20/2024 Pap Smear 01/20/2024 01/19/2021 Diabetes Screening 06/29/2026 06/29/2023, 0 12/22/2022, 11/28/2022, Additional history exists DTaP,Tdap,and Td Vaccines (3 - Td or Tdap) 08/25/2031 08/25/2021, 08/23/2015 Influenza Vaccine (FLU shot) Completed 11/2022, 08/31/2022, 07/01/2021, Additional history exists GARDASIL-HPV IMMUNIZATION SERIES Aged Out No longer eligible based on patient's age to complete this topic MENINGOCOCCAL (MENACTRA/MENVEO) Aged Out No longer eligible based on patient's age to complete this topic documented as of this encounter Medical Devices Not on filedocumented as of this encounter Visit Diagnoses Diagnosis MyCode Research Other*[id number] documented in this encounter Advance Directives Latest Code Status on File Code Status Date Activated Date Inactivated Comments Full Code 01/21/2023 12:29 AM 01/25/2023 4:50 PM This order reflects the patients wishes and were consensually agreed upon. Question Answer Comments Discussion of Advance Directives occurred with: Not Discussed due to patient's condition Code Status History Code Status Date Activated Date Inactivated Comments Full Code 07/24/2018 11:50 AM 07/27/2018 4:40 PM This order reflects the patients wishes and were consensually agreed upon. Question Answer Comments Discussion of Advance Directives occurred with: Patient Does the patient have a Living Will? No Does the patient have Health Care Power of Clay Machine Operator? No Care Teams Line Fisher Relationship Specialty Start Date End Date Penny Roper MD [address] [facility], [place] [address] PCP - General Family Medicine 08/30/22 documented as of this encounter
--- OUTSIDE RECORDS SUMMARY | 2023-09-18 16:13 | External Medical Summary | Summary of Care ---
Author Name Unknown Organization [facility] Address [address] [place] [address] Phone [phone] Care Team Providers Care Linter Tender Name Role Phone Penny Roper MD Primary Care Provider [phone] Reason for Referral * Evaluate & Treat - Unlimited Visits (Within 10 days (routine)) - Authorized Specialty Diagnoses / Procedures Referred By Contac t Referred To Contact Obstetrics/Gynecology / Maternal Medicine Diagnoses Multigravida of advanced maternal age in third trimester Supervision of with grand multiparity, antepartum H/O section Vasospasm (HCC) Leila Alejandra CRNP [address] [place] [address] Referral ID Status Reason Start Date Expiration Date Visits Requested Visits Authorized [id number] Authorized Specialty Services Required 08/24/2023 999 999 Question Answer Referral Priority Within 10 days (routine) Has the patient had a viability scan? Yes Date performed 08/24/2023 Location performed Radiology Reason for referral Other Please provide additional details recently dx with vasospasm, PR ruled out. taking nitroglycerine prn. stopped Imdur with . c/s with triplet 01/2023 Where should this appointment be scheduled? [facility] Comments /Para: LMP: Patient's last menstrual period was 06/30/2023. Patient is . LORENA: 04/05/2024, by Last Menstrual Period Pre-Gravid BMI: 26.69 Reason for Visit * Reason Comments [facility] New Encounter Details Date Type Department Care Team ([facility] Contact Info) Description 08/24/2023 1:45 PM EST Office Visit Gynecology/Obstetric s Joyce Beckett [address] [place] [address] Leila Alejandra CRNP [address] [place] [address] Gw, Nurse [employer] [place] [address] [place] [address] Multigravida of advanced maternal age in third trimester*; Vomiting of ; Supervision of with grand multiparity, antepartum; H/O section; Vasospasm (HCC) Allergies Active Allergy Reactions Criticality Noted Date Comments Amoxicillin-Pot Clavulanate Rash 06/29/20 17 Pollen Hives High 02/28/2017 Dust,ragweed,mold,dog and cat dander. documented as of this encounter (statuses as of 08/24/2023) Medications Medication Sig Dispensed Refills Start Date [...] Active traZODone HCl 50 MG Oral Tablet (Desyrel)Indicati ons:Primary insomnia Take 1.5 Tablets by mouth at bedtime for 360 doses. 135 Tablet 3 05/29/2023 05/23/2024 Active 27-0.8 MG Oral Tablet Take 1 Tablet by mouth daily at noon. 0 Active Ondansetron HCl 4 MG Oral TabletIndications :Multigravida of advanced maternal age in third trimester,Vomitin g of Take 1 Tablet by mouth in the morning and 1 Tablet at noon and 1 Tablet before bedtime. 40 Tablet 2 08/24/2023 Active Sennosides 8.6 MG Oral Tablet (Senokot) Take 1 Tablet by mouth in the morning and 1 Tablet before bedtime. 60 Tablet 0 01/25/2023 08/24/2023 Discontinued (Medication List Clean Up) Sucralfate 1 GM/10ML Oral Suspension (Carafate) Take 10 mL by mouth in the morning and 10 mL before bedtime. 0 06/16/2023 08/24/2023 Discontinued (Medication List Clean Up) amLODIPine Besylate 2.5 MG Oral Tablet (Norvasc)Indicati ons:Esophageal spasm Take 1 Tablet by mouth in the morning. 30 Tablet 5 06/20/2023 08/24/2023 Discontinued (Medication List Clean Up) Pantoprazole Sodium 40 MG Oral Tablet Delayed Release (Protonix) Take 1 Tablet by mouth in the morning. 30 Tablet 3 06/22/2023 08/24/2023 Discontinued (Medication List Clean Up) Nitroglycerin 0.4 MG Sublingual Tablet Sublingual (Nitrostat) Place 1 Tablet under the tongue every 5 minutes as needed for Pain, Chest. 25 Tablet 1 07/07/2023 08/24/2023 Discontinued (Medication List Clean Up) documented as of this encounter (statuses as of 08/24/2023) Active Problems Problem Noted Date Diagnosed Date Antepartum multigravida of advanced maternal age 1208/24/2023 H/O section 08/24/2023 Supervision of with grand multiparity, antepartum 08/24/2023 Vasospasm 08/24/2023 Overview: Taking nitroglycerine prn. Stopped Imdur with . Following with cardiology at [facility]. Hypokalemia 07/04/2023 Abnormal GTT (glucose tolerance test) 12/23/2022 Estimated Date of Delivery Comme nts Yes 04/05/2024 Based on last me nstrual period of 06/30/2023 documented as of this encounter (statuses as of 08/24/2023) Resolved Problems Problem Noted Date Diagnosed Date Resolved Date Liveborn infant, of triplet , born in hospital by [...] more monochorionic fetuses 08/04/2022 03/06/2023 Overview: Spontaneous [id number] [on outside scan, to be confirmed by [...] due date letter for pt to attend [facility] 04/01/2021 Kasey Tovar RN 04/01/2021 1st trimester [...] as of this encounter (statuses as of 08/24/2023) Immunizations Name Administration Dates Next Due COVID-19 mRNA, LNP-s, No Pre serve, 2-Dose Series (LFS ([employer])) 01/06/2021,12/02/2020 DTaP Dipth/Tet/Acell Pertussis (Infanrix), Peds 08/23/2015 MMR - Measles/Mumps/Rubella Vaccine 08/24/2015 PPD 05/25/2018 SEASONAL INFLUENZA, PF, 6 M & Above, IM , (FLULAVAL or FLUZONE) 06/20/2023,08/31/2022,07/01/2021, 021,07/26/2018() Seasonal Influenza, Split, I IV3, With Preserve, Inj 08/07/2017 TDAP (age 10 and older)(Boostrix) 08/25/2021 documented as of this encounter Social History Tobacco Use Types Packs/Day Years Used Date Smoking Tobacco: Former Cigarettes 0.5 8 Q uit: 01/16/2017 Smokeless Tobacco: Former Quit: 03/08/2017 Tobacco Cessation:Counseling Given: Not Answered Comments:No passive smoke exposures Alcohol Use Standard Drinks/Week Comments Not Currently [...] Answer Date Recorded PHQ-2 Score 0 08/07/2018 [facility] - Occupational Stress [...] money to get more. Never true 01/20/2023 [place] Depression Scale Answer Date Recorded [place] Depression Scale Total 8 08/24/2023 The thought of harming myself has occurred to me . Never 08/24/2023 Estimated Date of Delivery Comme nts Yes 04/05/2024 Based on last me nstrual period of 06/30/2023 Sex and Gender Information Value Date Recorded Sex Assigned at Female 04/21/2022 2:32 PM EDT Gender Identity Not on file Sexual Orientation Straight 04/21/2022 2: 32 PM EDT Job Start Date Occupation Industry Not on file Not on file Not on file documented as of this encounter Last Filed Vital Signs Vital Sign Reading Time Taken Comments Blood Pressure 110/72 08/24/2023 1:28 PM EST Pulse - - Temperature - - Respiratory Rate - - Oxygen Saturation - - Inhaled Oxygen Concentration - - Weight 64.2 kg (141 lb 9.6 oz) 08/24/2023 1:28 P M EST Height 154.9 cm (5' 1") 08/24/2023 1:28 PM EST Body Mass Index 26.76 08/24/2023 1:28 PM EST documented in this encounter Functional Status Functional Status Response [...] No 07/24/2018 documented as of this encounter Progress Notes * Leila Alejandra CRNP - 08/24/2023 3:35 PM EST HPI: Yakelin Hughes is a 38 year old year old female here for NOB visit. 7w6d . EDC 04/05/24. Early dating u/s confirming single viable IUP. Reviewed PMH, PSH, social hx, and family hx with pt and FOB. Recently had extensive cardiac workup including cardiac cath for chest pain. Diagnosed as coronary vasospasm. Stopped nitroglycerine and Imdur with knowledge of . Did take nitro again recently for chest pain that would not resolve, it did resolve after taking the med. Following with [facility] cardiology. Recent c/s for delivery of triplets on 01/2023, delivered at 32w6d at [facility]. Babies are thriving. Discussed genetic screening tests with pt. She is interested in Qnatal symptoms: +nausea, +vomiting, no vaginal bleeding since LMP. She is taking PNV. She is planning to breastfeed. Past Medical History: Diagnosis Date Anxiety state 03/11/2020 Family history of hypercoagulable state mother with blood clots-provoked Headache, unspecified headache type 07/27/2018 Herniated disc, cervical 07/27/2018 Hypertension Insomnia Paresthesias 07/27/2018 Vasospasm (HCC) Past Surgical History: Procedure Laterality Date BREAST AUGMENTATION EDU CARDIAC CATHERIZATION.EDU 05/2023 [facility] Cardio DELIVERY ONLY W/ N/A 01/21/2023 DELIVERY AND CARE performed by Bay Long Jr., MD at OB [facility] INFORMATION history of tummy tuck LA EXCISION EXCESSIVE SKIN & SUBQ TISSUE ABDOMEN N/A 2009 REMOVAL OF APPENDIX around age 27 Current outpatient prescriptions Current Outpatient Medications Medication Sig Dispense Refill traZODone HCl 50 MG Oral Tablet (Desyrel) Take 1.5 Tablets by mouth at bedtime for 360 doses. 135 Tablet 3 27-0.8 MG Oral Tablet Take 1 Tablet by mouth daily at noon. Ondansetron HCl 4 MG Oral Tablet Take 1 Tablet by mouth in the morning and 1 Tablet at noon and 1 Tablet before bedtime. 40 Tablet 2 Montelukast Sodium 10 MG Oral Tablet (Singulair) Take 1 Tab by mouth every evening. 30 Tab 5 Acetaminophen 325 MG Oral Tablet (Tylenol) Take 3 Tablets by mouth in the morning and 3 Tablets at noon and 3 Tablets in the evening and 3 Tablets before bedtime. 30 Tablet 5 No current facility-administered medications for this visit. Review of patient's allergies indicates: Allergen Reactions Environmental [Pollen] Hives Dust,ragweed,mold,dog and cat dander. Augmentin [Amoxicillin-Pot Clavulanate] Rash Social History Social History Socioeconomic History Marital status: Spouse name: Alber Number of children: Not on file Years of education: Not on file Highest education level: Not on file Occupational History Not on file Tobacco Use Smoking status: Former Packs/day: 0.50 Years: 8.00 Additional pack years: 0.00 Total pack years: 4.00 Types: Cigarettes Quit date: 01/16/2017 Years since quittin.6 Smokeless tobacco: Former Quit date: 03/08/2017 Tobacco comments: No passive smoke exposures Vaping Use Vaping Use: Never used Substance and Sexual Activity Alcohol use: Not Currently Comment: social wine Drug use: Never Sexual activity: Yes Partners: Male Other Topics Concern Not on file Social History Narrative Not on file Social Determinants of Health Financial Resource Strain: Not on file Food Insecurity: No Food Insecurity (01/20/2023) Hunger Vital Sign Worried About Running Out of Food in the Last Year: Never true Ran Out of Food in the Last Year: Never true Transportation Needs: Not on file Physical Activity: Sufficiently Active (10/28/2020) Exercise Vital Sign Days of Exercise per Week: 5 days Minutes of Exercise per Session: 120 min Stress: No Stress Concern Present (10/28/2020) [facility] [place] [facility] - Occupational Stress Questionnaire Feeling of Stress : Only a little Social Connections: Not on file Intimate Partner Violence: Not on file Housing Stability: Not on file Family History Family History Problem Relation Age of Onset Diabetes Brother Allergies Brother Nasal and food allergies Diabetes Grandmother (Maternal) Diabetes Grandmother (Paternal) Dementia Grandmother (Paternal) Blood Disorder Mother hypercoagulable, hx of VTE (DVT, PE) Lung Disorder Mother PE Allergies Mother Nasal allergies Asthma Sister Allergies Sister Allergic rhinitis Glaucoma Brother Obstetric History OB History Para Term AB Living 6 5 4 1 0 7 SAB IAB Ectopic Multiple Live Births 0 0 0 1 7 # Outcome Date GA Lbr Derek/2nd Weight Sex Delivery Anes PTL Lv 6 Current 5A 01/21/23 32w6d 1.758 kg (3 lb 14 oz) M CS-LTranv Spinal, EPI Y BRIGITTE 5B 01/21/23 32w6d 1.644 kg (3 lb 10 oz) M CS-LTranv Spinal, EPI Y BRIGITTE 5C 01/21/23 32w6d 1.559 kg (3 lb 7 oz) M CS-LTranv Spinal, EPI Y BRIGITTE 4 Term 11/08/21 39w0d 3.095 kg (6 lb 13.2 oz) M Vag-Spont BRIGITTE 3 Term 08/23/15 3.402 kg (7 lb 8 oz) M Vag-Spont N BRIGITTE 2 Term 04/13/10 3.402 kg (7 lb 8 oz) M Vag-Spont EPI N BRIGITTE 1 Term 08/07/07 3.005 kg (6 lb 10 oz) M Vag-Spont EPI N BRIGITTE PHYSICAL EXAM: See physical IMPRESSION: Multigravida of advanced maternal age in third trimester (Primary) - CULTURE, URINE, QUANTITATIVE; Future; Expected date: 08/24/2023 - TYPE AND SCREEN; Future; Expected date: 08/24/2023 - RUBELLA IGG ANTIBODY; Future; Expected date: 08/24/2023 - HEPATITIS B SURFACE ANTIGEN; Future; Expected date: 08/24/2023 - HIV ANTIGEN & ANTIBODY SCREEN W/ CONFIRMATION; Future; Expected date: 08/24/2023 - CHLAMYDIA TRACHOMATIS AND NEISSERIA GONORRHOEAE, AMPLIFIED PROBE; Future; Expected date: 08/24/2023 - CBC WITH WBC DIFFERENTIAL AND ANEMIA REFLEX WORKUP; Future; Expected date: 08/24/2023 - HEPATITIS C ANTIBODY SCREEN WITH PROGRESSION TO HEPATITIS C RNA QUANTITATIVE; Future; Expected date: 08/24/2023 - SYPHILIS ANTIBODY SCREEN WITH REFLEX TO RPR; Future; Expected date: 08/24/2023 - URINALYSIS, POINT OF CARE (ENTER/EDIT) - Ondansetron HCl 4 MG Oral Tablet; Take 1 Tablet by mouth in the morning and 1 Tablet at noon and1 Tablet before bedtime. - [facility] US MATERNAL 1ST FETUS; Future; Expected date: 08/24/2023 - MATERNAL MEDICINE REFERRAL OP Vomiting of - Ondansetron HCl 4 MG Oral Tablet; Take 1 Tablet by mouth in the morning and 1 Tablet at noon and 1 Tablet before bedtime. Supervision of with grand multiparity, antepartum - [facility] US MATERNAL 1ST FETUS; Future; Expected date: 08/24/2023 - MATERNAL MEDICINE REFERRAL OP H/O section - [facility] US MATERNAL 1ST FETUS; Future; Expected date: 08/24/2023 - MATERNAL MEDICINE REFERRAL OP Vasospasm (HCC) - [facility] US MATERNAL 1ST FETUS; Future; Expected date: 08/24/2023 - MATERNAL MEDICINE REFERRAL OP Follow Up: Return in about 4 weeks (around 09/21/2023) for steve. | For: steve | Check-out note: Lab today KIRA Casarez documented in this encounter Nursing Notes * Chica Fountain RN - 08/24/2023 2:08 PM EST Patient here for HB NOB visit Recent triplet delivery 01/2023 Dating US today showing 7w6d Having a lot of nausea and vomiting - would like medication for this. + BARBOSA Taking Seeing [facility] for exertional chest pain and ? Coronary vasospasm, was recently on amlodipine and nitroglycerine PRN and stopped these since finding out about . Patient here to enroll in the [facility] program. Forms completed and intake assessment form completed. Info given on moderate needs teacher, clinical social work therapist, home health nurse, childbirth classes, and community resources - [facility], [place] , [facility] and [facility], WIC, and CARS. Patient has our phone number and is aware who her [facility] nurses areand to contact us at office number if needs/concerns should arise and that we are available to her throughout the . Chica Fountain RN documented in this encounter Plan of Treatment Upcoming Encounters Date Type Department Care Team (Late st Contact Info) Description 10/16/2023 12:00 PM EST Office Visit Gastroenterology, [facility] [address] [place] [address] Tarah Tyler CRNP [address] [place] [address] Pending Results Name Type Priority Associated Diagnoses Date /Time CULTURE, URINE, QUANTITATIVE Lab Routine Multigravida of advanced maternal age in third trimester 08/24/2023 4:04 PM EST TYPE AND SCREEN Lab Routine Multigravida of advanced maternal age in third trimester 08/24/2023 3:35 PM EST RUBELLA IGG ANTIBODY Lab Routine Multigravida of advanced maternal age in third trimester 08/24/2023 3:35 PM EST HEPATITIS B SURFACE ANTIGEN Lab Routine Multigravida of advanced maternal age in third trimester 08/24/2023 3:35 PM EST HIV ANTIGEN & ANTIBODY SCREEN W/ CONFIRMATION Lab Routine Multigravida of advanced maternal age in third trimester 08/24/2023 3:35 PM EST CHLAMYDIA TRACHOMATIS AND NEISSERIA GONORRHOEAE, AMPLIFIED PROBE Lab Routine Multigravida of advanced maternal age in third trimester 08/24/2023 4:04 PM EST CBC WITH WBC DIFFERENTIAL AND ANEMIA REFLEX WORKUP Lab Routine Multigravida of advanced maternal age in third trimester 08/24/2023 3:35 PM EST HEPATITIS C ANTIBODY SCREEN WITH PROGRESSION TO HEPATITIS C RNA QUANTITATIVE Lab Routine Multigravida of advanced maternal age in third trimester 08/24/2023 3:35 PM EST SYPHILIS ANTIBODY SCREEN WITH REFLEX TO RPR Lab Routine Multigravida of advanced maternal age in third trimester 08/24/2023 3:35 PM EST Scheduled Orders Name Type Priority Associated Diagnoses Orde r Schedule CULTURE, URINE, QUANTITATIVE Lab Routine Multigravida of advanced maternal age in third trimester Expected: 08/24/2023, Expires: 08/24/2024 TYPE AND SCREEN Lab Routine Multigravida of advanced maternal age in third trimester Expected: 08/24/2023, Expires: 09/24/2024 RUBELLA IGG ANTIBODY Lab Routine Multigravida of advanced maternal age in third trimester Expected: 08/24/2023, Expires: 08/24/2024 HEPATITIS B SURFACE ANTIGEN Lab Routine Multigravida of advanced maternal age in third trimester Expected: 08/24/2023, Expires: 08/24/2024 HIV ANTIGEN & ANTIBODY SCREEN W/ CONFIRMATION Lab Routine Multigravida of advanced maternal age in third trimester Expected: 08/24/2023, Expires: 08/24/2024 CHLAMYDIA TRACHOMATIS AND NEISSERIA GONORRHOEAE, AMPLIFIED PROBE Lab Routine Multigravida of advanced maternal age in third trimester Expected: 08/24/2023, Expires: 08/24/2024 CBC WITH WBC DIFFERENTIAL AND ANEMIA REFLEX WORKUP Lab Routine Multigravida of advanced maternal age in third trimester Expected: 08/24/2023, Expires: 08/24/2024 HEPATITIS C ANTIBODY SCREEN WITH PROGRESSION TO HEPATITIS C RNA QUANTITATIVE Lab Routine Multigravida of advanced maternal age in third trimester Expected: 08/24/2023, Expires: 08/24/2024 SYPHILIS ANTIBODY SCREEN WITH REFLEX TO RPR Lab Routine Multigravida of advanced maternal age in third trimester Expected: 08/24/2023, Expires: 08/24/2024 MFM US MATERNAL 1ST FETUS Medical Imaging Routine Multigravida of advanced maternal age in third trimester Supervision of with grand multiparity, antepartum H/O section Vasospasm (HCC) Expected: 08/24/2023, Expires: 09/24/2024 Scheduled Referrals Name Type Priority Associated Diagnoses Orde r Schedule MATERNAL MEDICINE REFERRAL OP Referral Within 10 days (routine) Multigravida of advanced maternal age in third trimester Supervision of with grand multiparity, antepartum H/O section Vasospasm (HCC) Ordered: 08/24/2023 Health Maintenance Due Date Last Done Comments [...] Not on filedocumented as of this encounter Procedures Procedure Name Priority Date/Time Associated Diagnosis Comments URINALYSIS, POINT OF CARE (ENTER/EDIT) Routine 08/24/2023 Multigravida of advanced maternal age in third trimester documented in this encounter Results * URINALYSIS, POINT OF CARE (ENTER/EDIT) (08/24/2023) Color, Urine Yellow Yellow or Light Yellow Clarity, Urine Clear Clear Glucose, Urine Negative Negative mg/dL Bilirubin, Urine Negative Negative Ketone, Urine Negative Negative mg/dL Specific [place], Urine 1.030 1.003 - 1.030 Blood, Urine Negative Negative pH, Urine 6.0 5.0 - 7.5 units Protein, Urine Trace Negative mg/dL Urobilinogen, Urine 0.2 0.2 - 1.0 mg/dL Nitrite, Urine Negative Negative Esterase, Urine Negative Negative Urine 08/24/2023 Leila MALONE [facility] POINT OF CARE TE ST ENTER/EDIT ORDERABLES documented in this encounter Visit Diagnoses Diagnosis Multigravida of advanced maternal age in third trimester- Primary Vomiting of Unspecified vomiting of , unspecified as to episode of care Supervision of with grand multiparity, antepartum H/O section Other postprocedural status Vasospasm (HCC) Peripheral vascular disease, unspecified documented in this encounter Advance Directives Latest [...] the patient have Health Care Power of Aluminum Can Collector? No Care Teams Linter Tender Relationship Specialty Start Date End Date Penny Roper MD [address] [facility], [place] [address] PCP - General Family Medicine 08/30/22 documented as of this encounter
--- OUTSIDE RECORDS SUMMARY | 2023-09-18 16:13 | External Medical Summary | Summary of Care ---
Author Name Unknown Organization [facility] Address [address] [place] [address] Phone [phone] Care Team Providers Care Boat Canvas Maker Installer Name Role Phone Penny Roper MD Primary Care Provider [phone] Reason for Visit * Reason Onset Date Comments Appointment 06/16/2023 Encounter Details Date Type Department Care Team ([facility] Contact Info) Description 06/16/2023 Telephone Gastroenterology, [facility] [address] [facility] [address] Tarah Tyler CRNP [address] [facility] [address] Appointment Allergies Active Allergy Reactions Criticality Noted Date Comments Amoxicillin-Pot Clavulanate Rash 06/29/20 17 Pollen Hives High 02/28/2017 Dust,ragweed,mold,dog and cat dander. documented as of this encounter (statuses as of 08/01/2023) Medications Medication Sig Dispensed Refills Start Date [...] before bedtime. 30 Tablet 5 01/25/2023 Active Sennosides 8.6 MG Oral Tablet (Senokot) Take 1 Tablet by mouth in the morning and 1 Tablet before bedtime. 60 Tablet 0 01/25/2023 Active traZODone HCl 50 MG Oral Tablet (Desyrel)Indicati ons:Primary insomnia Take 1.5 Tablets by mouth at bedtime for 360 doses. 135 Tablet 3 05/29/2023 05/23/2024 Active Naproxen 500 MG Oral Tablet (Naprosyn)Indicat ions:Left wrist pain Take 1 Tablet by mouth 2 times a day with morning and evening meals. 20 Tablet 0 06/09/2023 06/20/2023 Discontinued (Medication List Clean Up) documented as of this encounter (statuses as of 08/01/2023) Active Problems Problem Noted Date Diagnosed Date Abnormal GTT (glucose tolerance test) 12/23/2022 documented as of this encounter (statuses as of 08/01/2023) Resolved Problems Problem Noted Date Diagnosed Date [...] pregn ancies complicating , antepartum 08/19/202203/06 Overview: Last delivered 10/2021 Last Assessment & Plan: DISCUSSION: Reviewed that [...] entered Entered by Date resolved Triplet Provider lexus 08/04/2022 Jennifer Lee RN 08/04/2022 Problem Action Taken Date entered Entered by Date resolved Nutrition Due date letter given for [facility] 08/04/2022 Jennifer Lee RN 08/04/2022 Triplet gestation, with two or more monochorionic fetuses 08/04/2022 03/06/2023 Overview: Spontaneous nqbbajihikaij-huq-lxtoqvfr [on outside scan, to be confirmed by [...] due date letter for pt to attend [facility] 04/01/2021 Kasey Tovar RN 04/01/2021 1st trimester [...] as of this encounter (statuses as of 08/01/2023) Immunizations Name Administration Dates Next Due COVID-19 mRNA, LNP-s, No Pre serve, 2-Dose Series (Pfizer) 01/06/2021,12/02/2020 DTaP Dipth/Tet/Acell Pertussis (Infanrix), Peds 08/23/2015 [...] Answer Date Recorded PHQ-2 Score 0 08/07/2018 [facility] - Occupational Stress Questionnaire Answer Date Recorded [...] money to get more. Never true 01/20/2023 [place] Depression Scale Answer Date Recorded [place] Depression Scale Total 1 03/06/2023 The thought of harming myself has occurred to me . Never 03/06/2023 Sex and Gender Information Value Date Recorded [...] No 07/24/2018 documented as of this encounter Miscellaneous Notes * Telephone Encounter - Rickie Costello OSA - 06/22/2023 12:20 PM EDT Spoke to pt, appt scheduled 10/16 * Telephone Encounter - Penelope Lantigua RN - 06/22/2023 12:09 PM EDT It also looks like tarah may have wanted her to have a follow up in the GI clinic not just referred for a mano appt as she didn't place the order. Scheduling can you verify she doesn't want a regular OV with us. Mano order is not in yet. * Telephone Encounter - Ceci Gaviria LPN - 06/20/2023 4:17 PM EDT Pt asking to get scheduled for a mano. Pt told that this office is most likely unable to get her scheduled til closer til the end of the year. Asked pt if she would like to see if reji has a sooner appt. ? Pt agreeable. Scheduling, do you have any sooner appt's for esophageal motility at this time ? * Telephone Encounter - Rickie Costello OSA - 06/19/2023 11:27 AM EDT Spoke to pt, she states that she wants to try a couple things and speak with her pcp first. Then if an appt is needed she will call back to schedule * Telephone Encounter - Tarah Tyler CRNP - 06/16/2023 11:45 AM EDT Pt admitted at [facility] for CP symptoms. Barium swallow negative. She needs f/u appt in GI clinic to discuss esophageal manometry evaluationto r/o esophageal dysmotility +/- EGD. Pls assist w appt KIRA Bautista documented in this encounter Plan of Treatment Upcoming Encounters Date Type Department Care Team (Late st Contact Info) Description 08/24/2023 12:45 PM EST Imaging Radiology [facility] [place] [address] 08/24/2023 1:45 PM EST Office Visit Gynecology/Obstetrics [facility] 132 [facility] [place] [address] Leila Alejandra CRNP [address] [place] [address] Gw, Nurse Organ Tuner Electronic New 132 [facility] [place] [address] 10/16/2023 12:00 PM EST Office Visit [facility], [facility] [place] [address] Tarah Tyler CRNP [address] [place] [address] Health Maintenance Due Date Last Done Comments Hepatitis B (1 of 3 - 3-dose series) 1987 Pneumococcal Vaccine: Pediatrics (0 to 5 Years) and At-Risk Patients (6 to 64 Years) (1 - PCV) 1993 HPV/Co-Test 2017 Depression Screening 08/07/2019 08/07/2018 COVID-19 Vaccine (3 - 2022- season) 2023 01/06/2021, 12/02/2020 Cervical Cancer Screening [...] Not on filedocumented as of this encounter Advance Directives Latest Code Status [...] the patient have Health Care Power of Tool And Die Designer? No Care Teams Boat Canvas Maker Installer Relationship Specialty Start Date End Date Penny Roper MD [address] [place] [address] PCP - General Family Medicine 08/30/22 documented as of this encounter
--- OUTSIDE RECORDS SUMMARY | 2023-09-18 16:13 | External Medical Summary | Summary of Care ---
Author Name Unknown Organization [facility] Address [address] [place] [address] Phone [phone] Care Team Providers Care Footwear Production Machine Operator Name Role Phone Penny Roper MD Primary Care Provider [phone] Reason for Visit * Evaluate & Treat - Unlimited Visits (Within 10 days (routine)) - Authorized Specialty Diagnoses / Procedures Referred By Contac t Referred To Contact Obstetrics/Gynecology / Maternal Medicine Diagnoses Multigravida of advanced maternal age in third trimester Supervision of with grand multiparity, antepartum H/O section Vasospasm (HCC) Leila Alejandra, KIRA [address] [place] [address] Referral ID Status Reason Start Date Expiration Date Visits Requested Visits Authorized [id number] Authorized Specialty Services Required 08/24/2023 [id number] Encounter Details Date Type Department Care Team ([facility] Contact Info) Description 08/30/2023 10:45 AM EST Telemedicine Membership Counselor Obstetrics Maternal Medicine, [place] [address], [place] [id number] Sivan Butterfield DO [address] [place] [address] Multigravida of advanced maternal age in first trimester*; Antepartum multigravida of advanced maternal age; H/O section; Supervision of with grand multiparity, antepartum; Coronary vasospasm (HCC); Medication exposure during first trimester of ; Family history of DVT Allergies Active Allergy Reactions Criticality Noted Date Comments Amoxicillin-Pot Clavulanate Rash 06/29/20 17 Pollen Hives High 02/28/2017 Dust,ragweed,mold,dog and cat dander. documented as of this encounter (statuses as of 08/31/2023) Medications Medication Sig Dispensed Refills Start Date [...] 0 Active Ondansetron HCl 4 MG Oral TabletIndications:M ultigravida of advanced maternal age in third trimester,Vomiting of Take 1 Tablet by mouth in the morning and 1 Tablet at noon and 1 Tablet before bedtime. 40 Tablet 2 08/24/2023 Active documented as of this encounter (statuses as of 08/31/2023) Active Problems Problem Noted Date Diagnosed Date [...] cffDNA screening, and testing was coordinated by [facility]. In addition to the risk of [...] delivery at 36-37 weeks without amniocentesis per [employer]. Every effort should be made by patient s primary OB provider to obtain prior operative reports. 2. As per [employer]'s 2010 practice [...] Diagnosed in May 2023 after evaluation at [facility] for chest pain. Suspected during evaluation with [...] as of this encounter (statuses as of 08/31/2023) Resolved Problems Problem Noted Date Diagnosed Date [...] resolved Nutrition Due date letter given for [facility] 08/04/2022 Jennifer Lee RN 08/04/2022 Triplet gestation, with two or more monochorionic fetuses 08/04/2022 03/06/2023 Overview: Spontaneous gtwjjsbsnujgy-upm-zsuhsmts [on outside scan, to be confirmed by [...] due date letter for pt to attend [facility] 04/01/2021 Kasey Tovar RN 04/01/2021 1st trimester [...] as of this encounter (statuses as of 08/31/2023) Immunizations Name Administration Dates Next Due COVID-19 [...] Answer Date Recorded PHQ-2 Score 0 08/07/2018 [facility] - Occupational Stress [...] money to get more. Never true 01/20/2023 [place] Depression Scale Answer Date Recorded [place] Depression Scale Total 8 08/24/2023 The thought [...] as of this encounter Progress Notes * Sivan Butterfield, - 08/30/2023 4:57 PM EST MATERNAL MEDICINE CONSULT Yakelin Hughes 08/30/23 REFERRING PROVIDER: KIRA Casarez Patient location: HOME. I was in a hospital or clinic location. After connecting through [employer],patient was verified with two unique identifiers. Patient (or authorized legal entry level account representative) was then informed that this was a Telemedicine visit and being conducted confidentially over secure lines. Methods to assure confidentiality were taken. Patient acknowledged consent and understanding of pr ivacy and security of the Telemedicine visit. The patient agreed to participate. Yakelin Hughes is a 38 year old with intrauterine at 8w5d (Estimated Date of Delivery: 04/05/24 by 7w6d ultrasound) who presents today for a MFM consult. HPI/CURRENT : pre- BMI=overweight (64 kg (141 lb 3.2 oz); 5' 1"); FOB #2; complicated by the following: OB Allison Beckett HBP Problems (from 08/24/23 to present) Problem Noted Resolved Medication exposure during first trimester of Family history of DVT Mother with hx of VTE. Patient unsure what etiology was. Antepartum multigravida of advanced maternal age H/O section Desired TOLAC Supervision of with grand multiparity, antepartum Coronary vasospasm (HCC) Diagnosed in May 2023 after evaluation at [facility] for chest pain. Suspected during evaluation with heart cath. Her chest pain also responds to nitroglycerine. S/p stress echo which was unremarkable. Continues to follow with Cardiology (notes in scanned records). Taking nitroglycerine prn. Stopped Imdur with . Also experiences palpitations with normal Zio Patch. I have reviewed this patient's previous OB ultrasound reports, pertinent labwork and testing provided by her referring OB provider. Current Outpatient Medications Medication Sig Dispense Refill Acetaminophen 325 MG Oral Tablet (Tylenol) Take 3 Tablets by mouth in the morning and 3 Tablets at noon and 3 Tablets in the evening and 3 Tablets before bedtime. 30 Tablet 5 Montelukast Sodium 10 MG Oral Tablet (Singulair) Take 1 Tab by mouth every evening. 30 Tab 5 Ondansetron HCl 4 MG Oral Tablet Take 1 Tablet by mouth in the morning and 1 Tablet at noon and 1 Tablet before bedtime. 40 Tablet 2 27-0.8 MG Oral Tablet Take 1 Tablet by mouth daily at noon. traZODone HCl 50 MG Oral Tablet (Desyrel) Take 1.5 Tablets by mouth at bedtime for 360 doses. 135 Tablet 3 No current facility-administered medications for this visit. Review of patient's allergies indicates: Allergen Reactions Environmental [Pollen] Hives Dust,ragweed,mold,dog and cat dander. Augmentin [Amoxicillin-Pot Clavulanate] Rash OB History Para Term AB Living 6 [...] 10 oz) M Vag-Spont EPI N BRIGITTE Obstetric Comments FOB#2: Alber, 43yo, healthy no concerns Past Medical History: Diagnosis Date Anxiety state 03/11/2020 Family history of hypercoagulable state mother with blood clots-provoked Headache, unspecified headache type 07/27/2018 Herniated disc, cervical 07/27/2018 Hypertension Insomnia Paresthesias 07/27/2018 Vasospasm (HCC) Past Surgical History: Procedure Laterality Date BREAST AUGMENTATION EDU CARDIAC CATHERIZATION.EDU 05/2023 [facility] Cardio DELIVERY ONLY W/ N/A 01/21/2023 DELIVERY AND CARE performed by Bay Long Jr., MD at [facility] [place] history of tummy tuck MS EXCISION EXCESSIVE SKIN & SUBQ TISSUE ABDOMEN N/A 2009 REMOVAL OF APPENDIX around age 27 Family History Problem Relation Age of Onset Diabetes Brother Allergies Brother Nasal and food allergies Diabetes Grandmother (Maternal) Diabetes Grandmother (Paternal) Dementia Grandmother (Paternal) Blood Disorder Mother hypercoagulable, hx of VTE (DVT, PE) Lung Disorder Mother PE Allergies Mother Nasal allergies Asthma Sister Allergies Sister Allergic rhinitis Glaucoma Brother Social History Tobacco Use Smoking status: Former Packs/day: 0.50 Years: 8.00 Additional pack years: 0.00 Total pack years: 4.00 Types: Cigarettes Quit date: 01/16/2017 Years since quittin.6 Smokeless tobacco: Former Quit date: 03/08/2017 Tobacco comments: No passive smoke exposures Vaping Use Vaping Use: Never used Substance Use Topics Alcohol use: Not Currently Comment: social wine Drug use: Never REVIEW OF SYSTEMS: negative PHYSICAL EXAM: General: Well appearing Psych: Alert to time, place, and person DISCUSSION/RECOMMENDATIONS: Problem List Items Addressed This Visit Circulatory Coronary vasospasm (HCC) (Chronic) DISCUSSION: Discussed reassuring findings of normal stress [...] persist may consider repeat evaluation with Ziopatch. Other Antepartum multigravida of advanced maternal age CONSIDERATIONS: We reviewed the most pertinent aspects of the following: Advanced maternal age (AMA) refers to a woman with a giron who will be at the age of 35 or older at the estimated time of delivery and may be associated with increased morbidity. After discussion of the genetic screening/testing options, the patient desires cffDNA screening, and testing was coordinated by [facility]. In addition to the risk of chromosomal abnormalities, there is an increased risk of congenital/structural anomalies. RECOMMENDATIONS: Recommend [facility] anatomy ultrasound at 19-20 weeks gestation. H/O section DISCUSSION: 1. Reviewed that patients with a history of a previous section are at increased risk in subsequent pregnancies for abnormal placentation (such as previa, acreta, increta, percreta), uterine rupture, abdominal adhesions (which increases the associated surgical risks of injury to adjacent organs, length of procedure, and increased blood loss), and other incision-related complications (suchas hernia, rectal muscle diastasis). These risks increase [...] 10 to 25% risk of significant adverse sequelaewhich includes or permanent injury in 09/999 's. The chances of successful increases with any prior successful deliveries. RECOMMENDATIONS: 1. Routine repeat section is recommended to be scheduled between 39-40 weeks gestation. Ifpatient has a previous classical uterine incision, then recommend proceeding with scheduled repeat delivery at 36-37 weeks without amniocentesis per [employer]. Every effort should be made by patients primary OB provider to obtain prior operative reports. 2. As per [employer]'s 2010 practice [...] labor. Supervision of with grand multiparity, antepartum Medication exposure during first trimester of Trazodone - Based on experimental animal studies and limited experience in human pregnancies, is not expected to increase incident of congenital anomalies. Family history of DVT Encouraged patient to ask her mother if VTE related to inherited thrombophilia. If yes, recommend testing patient for inherited thrombophilias as may affect management. Other Visit Diagnoses Multigravida of advanced maternal age in first trimester - Primary Relevant Orders QNATAL ADVANCED ([facility]) Follow up ultrasound with Maternal Medicine is scheduled on 09/22/23 for limited anatomy scan . Patient is aware of upcoming MFM appointments. Sivan Butterfield DO 08/30/2023 4:57 PM LATE ENTRY FOR 08/30/2023: I have discussed the patient's management with the medical trainee and agree with the note. Please refer to the documented findings and plan of care. This patient's visit today consisted of a telemedicine visit using real time audio/video technology. I personally interacted with the patient via this technology and confirmed the findings as documented. Yonny Goldsmith MD 08/31/2023 8:46 AM Yonny Goldsmith MD documented in this encounter Miscellaneous Notes * Assessment & Plan Note - Sivan Butterfield DO - 08/30/2023 4:57 PM ESTAssociated Problem(s): Family history of DVT Encouraged patient to ask her mother if VTE related to inherited thrombophilia. If yes, recommend testing patient for inherited thrombophilias as may affect management. * Assessment & Plan Note - Sivan Butterfield DO - 08/30/2023 4:55 PM ESTAssociated Problem(s): Medication exposure during first trimester of Trazodone - Based on experimental animal studies and limited experience in human pregnancies, is not expected to increase incident of congenital anomalies. * Assessment & Plan Note - Sivan Butterfield DO - 08/30/2023 4:54 PM ESTAssociated Problem(s): H/O section DISCUSSION: 1. Reviewed that patients with a history of a previous section are at increased risk in subsequent pregnancies for abnormal placentation (such as previa, acreta, increta, percreta), uterine rupture, abdominal adhesions (which increases the associated surgical risks of injury to adjacent organs, length of procedure, and increased blood loss), and other incision-related complications (suchas hernia, rectal muscle diastasis). These risks increase [...] 10 to 25% risk of significant adverse sequelaewhich includes or permanent injury in 09/999 's. The chances of successful increases with any prior successful deliveries. RECOMMENDATIONS: 1. Routine repeat section is recommended to be scheduled between 39-40 weeks gestation. Ifpatient has a previous classical uterine incision, then recommend proceeding with scheduled repeat delivery at 36-37 weeks without amniocentesis per [employer]. Every effort should be made by patients primary OB provider to obtain prior operative reports. 2. As per [employer]'s 2010 practice [...] for cervical ripening or induction of labor. * Assessment & Plan Note - Sivan Butterfield DO - 08/30/2023 4:54 PM ESTAssociated Problem(s): Antepartum multigravida of advanced maternal age CONSIDERATIONS: We reviewed the most pertinent aspects of the following: Advanced maternal age (AMA) refers to a woman with a giron who will be at the age of 35 or older at the estimated time of delivery and may be associated with increased morbidity. After discussion of the genetic screening/testing options, the patient desires cffDNA screening, and testing was coordinated by [facility]. In addition to the risk of chromosomal abnormalities, there is an increased risk of congenital/structural anomalies. RECOMMENDATIONS: Recommend [facility] anatomy ultrasound at 19-20 weeks gestation. * Assessment & Plan Note - Sivan Butterfield DO - 08/30/2023 4:50 PM ESTAssociated Problem(s): Coronary vasospasm (HCC) DISCUSSION: Discussed reassuring findings of normal stress [...] persist may consider repeat evaluation with Ziopatch. documented in this encounter Plan of Treatment Upcoming Encounters Date Type Department Care Team (Late st Contact Info) Description 09/22/2023 2:30 PM EST Office Visit Membership Counselor Obstetrics Maternal Medicine, [address] [address] Randall Mathew DO [address] [place] [address] 09/22/2023 2:30 PM EST Imaging Radiology [address] [address] 10/16/2023 12:00 PM EST Office Visit Gastroenterology, [facility] [address] [place] [address] Tarah Tyler CRNP [address] [place] [address] 11/13/2023 9:30 AM EST Office Visit Membership Counselor Obstetrics Maternal Medicine, [address] [address] Randall Mathew DO [address] [place] [address] 11/13/2023 9:30 AM EST Imaging Radiology [address] [address] Scheduled Orders Name Type Priority Associated Diagnoses Orde r Schedule QNATAL ADVANCED ([facility]) Lab Routine Multigravida of advanced maternal age in first trimester 1 Occurrences starting 08/30/2023 until 11/29/2023 Health Maintenance Due Date Last Done Comments [...] as of this encounter Visit Diagnoses Diagnosis Multigravida of advanced maternal age in first trimester- Primary Antepartum multigravida of advanced maternal age H/O section Other postprocedural status Supervision of with grand multiparity, antepartum Coronary vasospasm (HCC) Prinzmetal angina Medication exposure during first trimester of Supervision of other high-risk Family history of DVT Family history of other cardiovascular diseases documented in this encounter Advance Directives Latest [...] the patient have Health Care Power of Battery Tester And Repairer? No Care Teams Footwear Production Machine Operator Relationship Specialty Start Date End Date Penny Roper MD [address] [place] [address] PCP - General Family Medicine 08/30/22 documented as of this encounter
--- OUTSIDE RECORDS SUMMARY | 2023-09-18 16:13 | External Medical Summary ---
Author Name Unknown Address Unknown Organization K01:[facility] [place] [facility] [address] [facility] [address] Laboratory Report Ordering Provider Test Date Status ALIDA SAMANO 08/24/2023 16:04:09 Final Observation Date Value Abnormality Reference (Units ) Status Chlamydia trachomatis rRNA [Presence] in Specimen by CARLOS MANUEL with probe detection 08/24/2023 16:04:09 Negative Negative Final No Chlamydia trachomatis det ected by blueprint blocker-mediated nucleic acid amplification. Neisseria gonorrhoeae rRNA [ Presence] in Specimen by CARLOS MANUEL with probe detection 08/24/2023 16:04:09 Negative Negative Final No Neisseria gonorrhoeae det ected by blueprint blocker-mediated nucleic acid amplification. Performing Location [facility] [place] [address] [facility] [address]
--- OUTSIDE RECORDS SUMMARY | 2023-09-18 16:13 | External Medical Summary | Summary of Care ---
Author Name Unknown Organization [facility] Address [address] [place] [address] Phone [phone] Care Team Providers Care Manufacturing Plant Controller Name Role Phone Penny Roper MD Primary Care Provider [phone] Reason for Visit * Reason Onset Date Comments Referral 08/25/2023 Encounter Details Date Type Department Care Team ([facility] st Contact Info) Description 08/25/2023 Telephone Antique Furniture Repairer Obstetrics Maternal Medicine, [place] [address] [place] [address] [place], Nurse Antique Furniture Repairer [facility] [address] [place] [address] Referral Allergies Active Allergy Reactions Criticality Noted Date Comments Amoxicillin-Pot Clavulanate Rash 06/29/20 17 Pollen Hives High 02/28/2017 Dust,ragweed,mold,dog and cat dander. documented as of this encounter (statuses as of 08/25/2023) Medications Medication Sig Dispensed Refills Start Date [...] 0 Active Ondansetron HCl 4 MG Oral TabletIndications:Aamir nava of advanced maternal age in third trimester,Vomiting of Take 1 Tablet by mouth in the morning and 1 Tablet at noon and 1 Tablet before bedtime. 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 Stopped Imdur with . Following with cardiology at [facility]. Hypokalemia 07/04/2023 Abnormal GTT (glucose tolerance test) 12/23/2022 Estimated Date of Delivery Comme nts Yes 04/05/2024 Based on last me nstrual period of 06/30/2023 documented as of this encounter (statuses as of 08/25/2023) Resolved Problems Problem Noted Date Diagnosed Date [...] more monochorionic fetuses 08/04/2022 03/06/2023 Overview: Spontaneous nlvacucnzxtim-vdm-vlrlnrbf [on outside scan, to be confirmed by [...] due date letter for pt to attend [facility] 04/01/2021 Kasey Tovar RN 04/01/2021 1st [...] as of this encounter (statuses as of 08/25/2023) Immunizations Name Administration Dates Next Due COVID-19 [...] Answer Date Recorded PHQ-2 Score 0 08/07/2018 [facility] - Occupational Stress Questionnaire Answer [...] money to get more. Never true 01/20/2023 [place] Depression Scale Answer Date Recorded [place] Depression Scale Total 8 08/24/2023 The thought [...] encounter Miscellaneous Notes * Telephone Encounter - Amy Bustillo OSA - 08/25/2023 10:44 AM EST Appointment scheduled. Patient aware of date, time and location of Maternal Medicine appointment. * Telephone Encounter - Jennifer Yuan MED ASSIST - 08/25/2023 9:57 AM EST Estimated Date of Delivery: 04/05/24 Please schedule for 60 MINUTE CONSULT SIMPLE MEDICAL WITH FELLOW , in time frame of next available or at patient's earliest convenience at location [facility] with the indication of AMA(37), recently dx with vasospasm, [place] ruled out. taking nitroglycerine prn. stopped Imdur with . c/s with triplet 01/2023 . Please schedule limited anatomy between [id number] weeks (09/19/23-10/05/23) Please schedule anatomy between 19-21 weeks (11/10/23-11/25/23). Referring Provider: Leila Alejandra CRNP documented in this encounter Plan of Treatment Upcoming Encounters Date Type Department Care Team (Late st Contact Info) Description 08/30/2023 10:45 AM EST Telemedicine Antique Furniture Repairer Obstetrics Maternal Medicine, [address] [address] Sivan Butterfield, DO [address] [place] [facility] [place] [address] 09/22/2023 2:30 PM EST Office Visit Antique Furniture Repairer Obstetrics Maternal Medicine, [place] [address] [place] [address] Randall Mathew, DO [address] [place] [address] 09/22/2023 2:30 PM EST Imaging Radiology [facility], [place] [address] [place] [address] 10/16/2023 12:00 PM EST Office Visit Gastroenterology, [facility] [address] [facility] [address] Tarah Tyler CRNP [address] [place] [address] 11/13/2023 9:30 AM EST Office Visit Antique Furniture Repairer Obstetrics Maternal Medicine, [place] [address] [place] [address] Randall Mathew, [address] [place] [address] 11/13/2023 9:30 AM EST Imaging Radiology [place] [address] [place] [address] Health Maintenance Due Date Last Done Comments [...] the patient have Health Care Power of Agitator Operator? No Care Teams Manufacturing Plant Controller Relationship Specialty Start Date End Date Penny Roper MD [address] [place] [address] PCP - General Family Medicine 08/30/22 documented as of this encounter
--- OUTSIDE RECORDS SUMMARY | 2023-09-18 16:13 | External Medical Summary | Summary of Care ---
Author Name Unknown Organization [facility] Address [address] [place] [address] Phone [phone] Care Team Providers Care Blood Bank Laboratory Technologist Name Role Phone Penny Roper MD Primary Care Provider [phone] Reason for Visit * Reason Onset Date Comments Order Request 08/16/2023 Encounter Details Date Type Department Care Team ([facility] Contact Info) Description 08/16/2023 Telephone [facility] [address] [facility] [place] [address] Selwyn Alejandra CRNP [address] [facility] [place] [address] Order Request Allergies Active Allergy Reactions Criticality Noted Date Comments Amoxicillin-Pot Clavulanate Rash 06/29/20 17 Pollen Hives High 02/28/2017 Dust,ragweed,mold,dog and cat dander. documented as of this encounter (statuses as of 08/16/2023) Medications Medication Sig Dispensed Refills Start Date [...] doses. 135 Tablet 3 05/29/2023 05/23/2024 Active Sucralfate 1 GM/10ML Oral Suspension (Carafate) Take 10 mL by mouth in the morning and 10 mL before bedtime. 0 06/16/2023 Active amLODIPine Besylate 2.5 MG Oral Tablet (Norvasc)Indication s:Esophageal spasm Take 1 Tablet by mouth in the morning. 30 Tablet 5 06/20/2023 Active Pantoprazole Sodium 40 MG Oral Tablet Delayed Release (Protonix) Take 1 Tablet by mouth in the morning. 30 Tablet 3 06/22/2023 Active Nitroglycerin 0.4 MG Sublingual Tablet Sublingual (Nitrostat) Place 1 Tablet under the tongue every 5 minutes as needed for Pain, Chest. 25 Tablet 1 07/07/2023 Active documented as of this encounter (statuses as of 08/16/2023) Active Problems Problem Noted Date Diagnosed Date Hypokalemia 07/04/2023 Abnormal GTT (glucose tolerance test) 12/23/2022 documented as of this encounter (statuses as of 08/16/2023) Resolved Problems Problem Noted Date Diagnosed Date [...] 3rd trimester education Education given 11/21/2022 Chica Fountain, AMIRAH 11/21/2022 Problem Action Taken Date entered Entered [...] more monochorionic fetuses 08/04/2022 03/06/2023 Overview: Spontaneous eodmnzlyyvefb-ujj-llbeikah [on outside scan, to be confirmed by [...] due date letter for pt to attend [facility] 04/01/2021 Kasey Tovar RN 04/01/2021 [...] as of this encounter (statuses as of 08/16/2023) Immunizations Name Administration Dates Next Due COVID-19 [...] Answer Date Recorded PHQ-2 Score 0 08/07/2018 [facility] - Occupational Stress Questionnaire Answer [...] money to get more. Never true 01/20/2023 [place] Depression Scale Answer Date Recorded [place] Depression Scale Total 1 03/06/2023 The thought [...] as of this encounter Miscellaneous Notes * Addendum Note - Selwyn Alejandra CRNP - 08/16/2023 3:30 PM ESTAddended by: SELWYN ALEJANDRA on: 08/16/2023 03:30 PM Modules accepted: Orders * Telephone Encounter - Selwyn Alejandra CRNP - 08/16/2023 3:30 PM EST Signed. * Telephone Encounter - Velia Graves OSA - 08/16/2023 2:54 PM EST Pt is scheduled for an US pelvis trans vaginal ob and needs the order placed documented in this encounter Plan of Treatment Upcoming Encounters Date Type Department Care Team (Late st Contact Info) Description 08/24/2023 12:45 PM EST Imaging Radiology [facility] [address] [facility] [place] [address] 08/24/2023 1:45 PM EST Office Visit Gynecology/Obstetrics [facility] [address] [facility] [place] [address] Selwyn Alejandra CRNP [address] [facility] [place] [address] G[place], Nurse Algology Teacher New [address] [place] [address] 10/16/2023 12:00 PM EST Office Visit Gastroenterology, [facility] [address] [place] [address] Tarah Tyler CRNP [address] [place] [address] Scheduled Orders Name Type Priority Associated Diagnoses Orde r Schedule US PELVIS TRANS-VAGINAL OB Medical Imaging Routine Early stage of Expected: 08/16/2023 (Approximate), Expires: 09/15/2024 Health Maintenance Due Date Last Done Comments [...] as of this encounter Visit Diagnoses Diagnosis Early stage of - Primary documented in this encounter Advance Directives Latest [...] the patient have Health Care Power of Analytics Consultant? No Care Teams Blood Bank Laboratory Technologist Relationship Specialty Start Date End Date Penny Roper MD [address] [place] [address] PCP - General Family Medicine 08/30/22 documented as of this encounter
--- OUTSIDE RECORDS SUMMARY | 2023-09-18 16:13 | External Medical Summary | Summary of Care ---
Author Name Unknown Organization [facility] Address [address] [place] [address] Phone [phone] Care Team Providers Care Tow Truck Dispatcher Name Role Phone Penny Roper MD Primary Care Provider [phone] [phone] Reason for Visit * Reason Comments Outpatient Testing Encounter Details Date Type Department Care Team ([facility] Contact Info) Description 08/24/2023 3:40 PM EST Laboratory Laboratory, [facility] [address] [place] [id number] [facility] [address] [place] [address] Multigravida of advanced maternal age in third trimester Allergies Active Allergy Reactions Criticality Noted Date [...] Imdur with . Following with cardiology at [facility]. Hypokalemia 07/04/2023 Abnormal GTT (glucose tolerance test) [...] more monochorionic fetuses 08/04/2022 03/06/2023 Overview: Spontaneous jrkqgomdujfmu-zyh-vglfjhnk [on outside scan, to be confirmed by [...] having any current needs or questions 07/01/2021 Jennifre Lee RN 07/01/2021 Problem Action Taken Date [...] mRNA, LNP-s, No Pre serve, 2-Dose Series ([employer]) 01/06/2021,12/02/2020 DTaP Dipth/Tet/Acell Pertussis ([employer]an[employer]), Peds 08/23/2015 [...] Answer Date Recorded PHQ-2 Score 0 08/07/2018 [facility] ional Health - Occupational [...] money to get more. Never true 01/20/2023 Meta Depression Scale Answer Date Recorded Meta Depression Scale Total 8 08/24/2023 The thought [...] 12:00 PM EST Office Visit Gastroenterology, [facility] [address] [place] [address] Tarah Tyler CRNP [address] [place] [address] Pending Results Name Type Priority Associated Diagnoses Date /Time TYPE AND SCREEN Lab Routine Multigravida of [...] in third trimester 08/24/2023 3:35 PM EST CBC WITH WBC DIFFERENTIAL AND [...] in third trimester 08/24/2023 3:35 PM EST ANEMIA CBC Lab Routine Multigravida of advanced maternal age in third trimester 08/24/2023 3:35 PM EST DIFFERENTIAL, AUTOMATED Lab Routine Multigravida of advanced maternal age in third trimester 08/24/2023 3:35 PM EST ANEMIA REFLEX CHEMISTRY HOLD Lab Routine Multigravida of advanced maternal age in third trimester 08/24/2023 3:35 PM EST HEPATITIS C ANTIBODY Lab Routine Multigravida of advanced maternal age in third trimester 08/24/2023 3:35 PM EST HEPATITIS C RNA ADD ON Lab Routine Multigravida of advanced maternal age in third trimester 08/24/2023 3:35 PM EST SYPHILIS ANTIBODY SCREEN Lab Routine Multigravida of advanced maternal age in third trimester 08/24/2023 3:35 PM EST Health Maintenance Due Date Last Done Comments [...] in third trimester documented in this encounter Advance Directives Latest [...] the patient have Health Care Power of Copy Writer? No Care Teams Tow Truck Dispatcher Relationship Specialty Start Date End Date Penny Roper MD [address] [place] [address] PCP - General Family Medicine 08/30/22 documented as of this encounter
--- OUTSIDE RECORDS SUMMARY | 2023-09-18 16:13 | External Medical Summary ---
Author Name Unknown Address Unknown Organization [id number]:[facility]ORY [facility] - [address] [place] [address] Laboratory Report Ordering Provider Test Date Status ALIDA SAMANO 08/24/2023 15:35:47 Final Observation Date Value Abnormality Reference (Units ) Status Rubella virus IgG Ab [Presence] in Serum 08/24/2023 15:35:47 Positive Abnormal Negative Final A positive result is consist ent with having had rubella virus or vaccination. Performing Location [facility]ORY [facility] - [address] [place] [address]
--- OUTSIDE RECORDS SUMMARY | 2023-09-18 16:13 | External Medical Summary ---
Author Name Unknown Address Unknown Organization [id number]:[facility] [place] [address] [place] [address] Ave[address] [facility] [address] Laboratory Report Ordering Provider Test Date Status ALIDA SAMANO 08/24/2023 15:35:47 Final Observation Date Value Abnormality Reference (Units ) Status HIV 1+2 Ab+HIV1 p24 Ag [Presence] in Serum or Plasma by Immunoassay 08/24/2023 15:35:47 Negative Negative Final Negative HIV-1/2 antigen and antibody screening tset results usually indicate the absence of HIV-1 and HIV-2 infection. However, such negative results do not rule-out acute HIV infection. If acute HIV-1 infection is highly suspected, it is recommended that a specimen be submitted for detection of HIV-1 RNA. Performing Location [facility] - [address] [facility] [address] [facility] [address]
--- OUTSIDE RECORDS SUMMARY | 2023-09-18 16:13 | External Medical Summary | Summary of Care ---
Author Name Unknown Organization [facility] Address [address] [place] [address] Phone [phone] Care Team Providers Care Mail Processing Clerk Name Role Phone Penny Roper MD Primary Care Provider [phone] Reason for Referral * Evaluate & Treat - Unlimited Visits (Within 10 days (routine)) - Authorized Specialty Diagnoses / Procedures Referred By Contac t Referred To Contact Obstetrics/Gynecology / Maternal Medicine Diagnoses Multigravida of advanced maternal age in third trimester Supervision of with grand multiparity, antepartum H/O section Vasospasm (HCC) Leila Alejandra CRNP [address] [place] [address] Referral ID Status Reason Start Date Expiration Date Visits Requested Visits Authorized [id number] Authorized Specialty Services Required 08/24/2023 999 999 Question Answer Referral Priority Within 10 days (routine) Has the patient had a viability scan? Yes Date performed 08/24/2023 Location performed Radiology Reason for referral Other Please provide additional details recently dx with vasospasm, [place] ruled out. taking nitroglycerine prn. stopped Imdur with . c/s with triplet 01/2023 Where should this appointment be scheduled? [facility] Comments /Para: LMP: Patient's last menstrual period was 06/30/2023. Patient is . LORENA: 04/05/2024, by Last Menstrual Period Pre-Gravid BMI: 26.69 Reason for Visit * Reason Comments Healthy Beginnings New Encounter Details Date Type Department Care Team ([facility] Contact Info) Description 08/24/2023 1:45 PM EST Office Visit Gynecology/Obstetric s Joyce Beckett [address] [place] [address] Leila Alejandra CRNP [address] [place] [address] Gw, Nurse Seed Core Operator New [address] [place] [address] Multigravida of advanced maternal age in third [...] Imdur with . [place] with [place] [facility]. Hypokalemia 07/04/2023 Abnormal GTT (glucose tolerance test) [...] having any current needs or questions 11/21/2022 Chiac Fountain RN 11/21/22 Problem Action Taken Date entered Entered by Date resolved 3rd trimester education Education given 11/21/2022 Chica Fountain RN 11/21/2022 Problem Action Taken Date entered Entered by Date resolved Current needs or questions Patient denies having any current needs or questions 12/22/2022 Chica Fountian RN 12/22/2022 Problem Action Taken Date entered [...] more monochorionic fetuses 08/04/2022 03/06/2023 Overview: Spontaneous zwmtfmpwurkcd-oxr-wcgxsanu [on outside scan, to be confirmed by [...] mRNA, LNP-s, No Pre serve, 2-Dose Series ([employer]) 01/06/2021,12/02/2020 DTaP Dipth/Tet/Acell Pertussis ([employer]anrix), Peds 08/23/2015 [...] Answer Date Recorded PHQ-2 Score 0 08/07/2018 [facility] ional Health - Occupational [...] money to get more. Never true 01/20/2023 [place] Depression Scale Answer Date Recorded [place] Depression Scale Total 8 08/24/2023 The thought [...] resolve after taking the med. Following with [facility] cardiology. Recent c/s for delivery of triplets on 01/2023, delivered at 32w6d at [facility]. Babies are thriving. Discussed genetic screening tests [...] Date BREAST AUGMENTATION EDU CARDIAC CATHERIZATION.EDU 05/2023 [facility] Cardio DELIVERY ONLY W/ N/A 01/21/2023 DELIVERY AND CARE performed by Bay Long Jr., MD at OB [facility] INFORMATION history of tummy tuck [place] EXCISION EXCESSIVE SKIN & SUBQ TISSUE ABDOMEN [...] min Stress: No Stress Concern Present (10/28/2020) [place] of Occupational Health - Occupational Stress Questionnaire [...] at noon and 1 Tablet before bedtime. - [facility] US MATERNAL 1ST FETUS; Future; Expected date: 08/24/2023 - MATERNAL MEDICINE REFERRAL OP Vomiting of - Ondansetron HCl 4 MG Oral Tablet; Take 1 Tablet by mouth in the morning and 1 Tablet at noon and 1 Tablet before bedtime. Supervision of with grand multiparity, antepartum - [facility] US MATERNAL 1ST FETUS; Future; Expected date: 08/24/2023 - MATERNAL MEDICINE REFERRAL OP H/O section - [facility] US MATERNAL 1ST FETUS; Future; Expected [...] intake assessment form completed. Info given on marketing strategy analyst, social media assistant, home health nurse, childbirth classes, and community resources - [facility], [place] , [facility] and Elect [...] 10/16/2023 12:00 PM EST Office Visit Gastroenterology, [facility] [address] [place] [address] Tarah Tyler CRNP [address] [place] [address] Pending Results Name Type Priority Associated Diagnoses [...] Negative Ketone, Urine Negative Negative mg/dL Specific [facility], Urine 1.030 1.003 - 1.030 Blood, Urine [...] the patient have Health Care Power of Core Manager? No Care Teams Mail Processing Clerk Relationship Specialty Start Date End Date Penny Roper MD [address] [place] [address] PCP - General Family Medicine 08/30/22 documented as of this encounter
--- OUTSIDE RECORDS SUMMARY | 2023-09-18 16:13 | External Medical Summary ---
Author Name Unknown Address Unknown Organization [id number]:[facility] [place] [address] [facility] [address] Laboratory Report Ordering Provider Test Date Status ALIDA SAMANO 08/24/2023 15:35:47 Final Observation Date Value Abnormality Reference (Units ) Status Treponema pallidum Ab [Presence] in Serum by Immunoassay 08/24/2023 15:35:47 Nonreactive Nonreactive Final No serologic evidence of syp hilis. No additional testing clinicially indicated at this time. Consider repeat testing in 2-4 weeks if acute or primary syphilis is suspected. Performing Location [facility] [place] [address] [place] [address]
--- OUTSIDE RECORDS SUMMARY | 2023-09-18 16:13 | External Medical Summary ---
Author Name Unknown Address Unknown Organization [id number]:[facility] [place] [address] [facility] [address] Laboratory Report Ordering Provider Test Date Status ALIDA SAMANO 08/24/2023 15:35:47 Final Observation Date Value Abnormality Reference (Units ) Status SYNC LEUKOCYTES IN BLOOD BY AUTOMATED COUNT 08/24/2023 15:35:47 7.64 4.00-10.80 (K/uL) Final Segs 08/24/2023 15:35:47 73.9 40.0-75.0 (%) Final Lymphs % 08/24/2023 15:35:47 17.5 Below low normal 18.0-42.0 (%) Final Monos 08/24/2023 15:35:47 6.2 1.0-11.0 (%) Final Eosinophils 08/24/2023 15:35:47 0.9 0.0-6.0 (%) Final Basos 08/24/2023 15:35:47 0.5 0.0-2.0 (%) Final Immature Granulocyte, Percent 08/24/2023 15:35:47 1.0 0.0-2.0 (%) Final Absolute Segs 08/24/2023 15:35:47 5.64 1.80-7.70 (K/uL) Final Lymphs, absolute 08/24/2023 15:35:47 1.34 1.00-4.80 (K/ul) Final Monos, Abs 08/24/2023 15:35:47 0.47 0.00-1.10 (K/uL) Final Eos, Abs 08/24/2023 15:35:47 0.07 0.00-0.70 (K/uL) Final Basos, Abs 08/24/2023 15:35:47 0.04 0.00-0.20 (K/uL) Final Immature Granulocytes, Number 08/24/2023 15:35:47 0.08 0.00-0.20 (K/uL) Final Performing Location [facility] [place] [address] [facility] [address]
--- OUTSIDE RECORDS SUMMARY | 2023-09-18 16:13 | External Medical Summary | Summary of Care ---
Author Name Unknown Organization [facility] Address [address] [place] [address] Phone [phone] Care Team Providers Care Navy Airspace Officer Name Role Phone Penny Roper MD Primary Care Provider [phone] Reason for Visit * Reason Onset Date Comments Order Request 08/16/2023 Encounter Details Date Type Department Care Team ([facility] Contact Info) Description 08/16/2023 Telephone [facility] [address] [facility] [address] [address] Leila Alejandra CRNP [address] [facility], [place] [address] Order Request Allergies Active Allergy Reactions Criticality [...] having any current needs or questions 01/04/2023 Chiac Fountain RN 01/04/2023 Problem Action Taken Date [...] more monochorionic fetuses 08/04/2022 03/06/2023 Overview: Spontaneous fvhvvforisicr-qlk-vcqjjouw [on outside scan, to be confirmed by [...] due date letter for pt to attend [facility] 04/01/2021 Kasey Tovar RN 04/01/2021 1st [...] Answer Date Recorded PHQ-2 Score 0 08/07/2018 [facility] - Occupational Stress Questionnaire Answer [...] money to get more. Never true 01/20/2023 Lamont Depression Scale Answer Date Recorded [place] Depression Scale Total 1 03/06/2023 The thought [...] encounter Miscellaneous Notes * Telephone Encounter - Velia Graves OSA - 08/16/2023 2:54 PM EST Pt is scheduled for an US pelvis trans vaginal ob and needs the order placed documented in this encounter Plan of Treatment Upcoming Encounters Date Type Department Care Team (Late st Contact Info) Description 08/24/2023 12:45 PM EST Imaging Radiology [facility] 2nd [facility] [address] [address] 08/24/2023 1:45 PM EST Office Visit Gynecology/Obstetrics [facility] [address] [address] Leila Alejandra CRNP [address] [address] Gw, Nurse Tax Manager [facility] [address] [address] 10/16/2023 12:00 PM EST Office Visit Gastroenterology, [facility] [address] [address] Tarah Tyler CRNP [address] [address] Health Maintenance Due Date Last Done Comments [...] the patient have Health Care Power of Trailhead Maintenance Worker? No Care Teams Navy Airspace Officer Relationship Specialty Start Date End Date Penny Roper MD [address] [place] [address] PCP - General Family Medicine 08/30/22 documented as of this encounter
--- OUTSIDE RECORDS SUMMARY | 2023-09-18 16:13 | External Medical Summary ---
Author Name Unknown Address Unknown Organization K01:[facility]ATORY C - [address] [place] [address] Laboratory Report Ordering Provider Test Date Status ALIDA SAMANO 08/24/2023 15:35:47 Final Observation Date Value Abnormality Reference (Units ) Status Hep C Ab 08/24/2023 15:35:47 Negative Negative Final Further HCV quantitative génesis ting not performed per protocol. Performing Location [facility] [address] [place] [address]
--- OUTSIDE RECORDS SUMMARY | 2023-09-18 16:13 | External Medical Summary ---
Author Name Unknown Address Unknown Organization : Laboratory Report Ordering Provider Test Date Status EDER LINDQUIST 09/08/2023 12:02:16 Final Observation Date Value Abnormality Reference (Units ) Status NUMBER OF FETUSES? 09/08/2023 12:02:16 1 Final ADVANCED MATERNAL AGE? 09/08/2023 12:02:16 NO Final ABNORMAL PATRICIA? 09/08/2023 12:02:16 NO Final ABNORMAL US? 09/08/2023 12:02:16 NOT GIVEN Final PERSONAL/FAM HISTORY? 09/08/2023 12:02:16 NOT GIVEN Final INTERPRETATION 09/08/2023 12:02:16 SEE BELOW Final This specimen showed an expe cted representation of
chromosome 21, 18, and 13 material. Results were
not analyzed or reported for microdeletions. See
'Limitations' below. TRISOMY 21 (T21) 09/08/2023 12:02:16 Negative Final TRISOMY 18 (T18) 09/08/2023 12:02:16 Negative Final TRISOMY 13 (T13) 09/08/2023 12:02:16 Negative Final Y CHROMOSOME 09/08/2023 12:02:16 Not detected Final Y CHR. INTERPRETATION 09/08/2023 12:02:16 SEE BELOW Final Consistent with a female fet us. SEX CHROMOSOME 09/08/2023 12:02:16 No aneuploidy Final SEX CHROMOSOME INTERP 09/08/2023 12:02:16 SEE BELOW Final No apparent abnormality was detected. See
'Limitations' below. MICRODELETION 09/08/2023 12:02:16 Opted Out Final MICRODELETION INTERP 09/08/2023 12:02:16 SEE BELOW Final Results were not analyzed or reported for
microdeletions. GESTATIONAL AGE (IN WEEKS) 09/08/2023 12:02:16 10 Final GESTATIONAL AGE (IN DAYS) 09/08/2023 12:02:16 0 Final FRACTION 09/08/2023 12:02:16 13.76% Final LABORATORY COMMENTS 09/08/2023 12:02:16 SEE BELOW Final Laboratory testing supervise d and results
monitored by Angela Watts, Ph.D., DABMGG,
[facility]. LIMITATIONS 09/08/2023 12:02:16 SEE BELOW Final QNatal(R) Advanced is a cell -free DNA test that
screens for increased risk of certain
chromosomal abnormalities that may cause
defects, including Trisomy 21 (Down syndrome),
Trisomy 18, Trisomy 13, and certain sex chromosome
abnormalities (i.e., 45,X, 47,XXY, 47,XXX, and
47,XYY), as well as sex. In addition, if
selected as an option, QNatal(R) Advanced can
screen for certain microdeletions (i.e., 22q, 5p,
1p36, 15q, 11q, 8q, and 4p) that may cause
defects. This test does not assess the risk of
abnormalities such as neural tube defects or
ventral wall defects and should not be considered
in isolation from other clinical findings and
laboratory test results.
QNatal(R) Advanced has been validated in giron
pregnancies for the trisomies and sex chromosome
abnormalities listed above, as well as for
microdeletions, and for the determination of
sex. Sex chromosome aneuploidy analysis is only
performed in giron pregnancies. The test has
also been validated in twin pregnancies for the
trisomies listed above and for microdeletions, but
not for the sex chromosome abnormalities due to
limited data. The test has not been validated in
higher order pregnancies (more than two) because
limited data is available.
Microdeletion screening is limited to the
specified microdeletion regions (see
'Methodology'). The Y chromosome is analyzed for
the determination of sex. The sensitivity
and specificity of sex determination
analysis may be less than that of the Trisomy 21,
18, and 13 analysis and this determination can be
confounded by vanishing twin syndrome in
pregnancies that were originally multiple
gestation pregnancies. It should be noted that
QNatal(R) Advanced is a quantitative analysis of
maternal and placental cfDNA. As a result, the
accuracy of the screening test results may be
affected by the presence of chromosome
abnormalities or microdeletions that are maternal
or confined placental in origin. False positive
findings involving the examined chromosomes and
microdeletion regions may be due to maternal,
placental, or mosaicism, by vanishing twin
syndrome, or other unexplained causes. SPECIFICATIONS 09/08/2023 12:02:16 SEE BELOW Final Sensitivity Specificity
T21 >99.9% >99.9%
T18 >99.9% >99.9%
T13 >99.9% >99.9%
Accuracy
Y >99.9%
Performance of the QNatal Advanced
laboratory-developed test (LDT) has been
determined based on internal analytical
assessment. METHODOLOGY 09/08/2023 12:02:16 SEE BELOW Final Circulating cell-free (cf) D NA was isolated from
plasma followed by detection on a massively
parallel sequencing platform. Bioinformatic
analysis was performed to determine the
representation of chromosomes 21, 18, 13, X and Y
in circulating cell-free DNA. The representation
of sequences from the critical regions involved in
1p36 microdeletion syndrome (1p36),
Rosenberg-Hirschhorn syndrome (4p), Cri-du-chat
syndrome (5p), Saira-Giedion syndrome (8p),
Riky syndrome (11q), Prader Willi
syndrome/Angelman syndrome (15q), and DiGeorge
syndrome (22q) is evaluated for the detection of
microdeletions if requested. This test was
developed, and its performance characteristics
have been determined by [facility]. It has not been
cleared or approved by the U.S. Food and Drug
Administration. Performance characteristics refer
to the analytical performance of the test. This
test is performed pursuant to a license agreement
with [facility].
This test was developed and its analytical
performance characteristics have been determined
by [facility]. It has not been cleared or
approved by FDA. This assay has been validated
pursuant to the CLIA regulations and is used for
clinical purposes.
Test performed by [facility]
[address] [facility] [place] [address]

Client Account Representative: Viviane Rosenthal MD,PHD,WALTER
Test Reported by [facility],
[facility],
[address] [place], [place]
Al Soto M.D., Ph.D., Director of Laboratories
, [place] [id number] Performing Location
--- OUTSIDE RECORDS SUMMARY | 2023-09-18 16:13 | External Medical Summary | Summary of Care ---
Author Name Unknown Organization [facility] Address [address] [place] [address] Phone [phone] Care Team Providers Care Biostatistics Manager Name Role Phone Penny Roper MD Primary Care Provider [phone] Reason for Visit * Reason Comments Outpatient Testing Encounter Details Date Type Department Care Team ([facility] Contact Info) Description 09/08/2023 12:00 PM EST Laboratory Laboratory, [facility] [address] [place] [id number] [facility] [address] [place] [address] Multigravida of advanced maternal age in first trimester Allergies Active Allergy Reactions Criticality Noted Date Comments Amoxicillin-Pot Clavulanate Rash 06/29/20 17 Pollen Hives High 02/28/2017 Dust,ragweed,mold,dog and cat dander. documented as of this encounter (statuses as of 09/08/2023) Medications Medication Sig Dispensed Refills Start Date [...] as of this encounter (statuses as of 09/08/2023) Active Problems Problem Noted Date Diagnosed Date [...] cffDNA screening, and testing was coordinated by [facility]. In addition to the risk of [...] delivery at 36-37 weeks without amniocentesis per [employer]. Every effort should be made by patient s primary OB provider to obtain prior operative reports. 2. As per [employer]'s 2010 practice [...] Diagnosed in May 2023 after evaluation at [facility] for chest pain. Suspected during [...] as of this encounter (statuses as of 09/08/2023) Resolved Problems Problem Noted Date Diagnosed Date [...] any current needs or questions 10/28/2022 Chica Fountain, AMIRAH 10/28/2022 Problem Action Taken Date entered Entered by Date resolved Current needs or questions Patient denies having any current needs or questions 11/21/2022 Chica Fountain, AMIRAH 11/21/22 Problem Action Taken Date entered Entered [...] resolved Nutrition Due date letter given for [place] 08/04/2022 Jennifer Lee RN 08/04/2022 Triplet gestation, with two or more monochorionic fetuses 08/04/2022 03/06/2023 Overview: Spontaneous fvvjanyjhiopc-wpf-ratsfovq [on outside scan, to be confirmed by [...] due date letter for pt to attend [facility] 04/01/2021 Kasey Tovar RN 04/01/2021 [...] as of this encounter (statuses as of 09/08/2023) Immunizations Name Administration Dates Next Due COVID-19 [...] Answer Date Recorded PHQ-2 Score 0 08/07/2018 [facility] [...] money to get more. Never true 01/20/2023 [place] Depression Scale Answer Date Recorded [place] Depression Scale Total 8 08/24/2023 The thought [...] Description 09/22/2023 2:30 PM EST Office Visit Business Lawyer Obstetrics [facility], [place] [address] [place] [address] Randall Mathew DO [address] [place] [address] 09/22/2023 2:30 PM EST Imaging Radiology [facility] [place] [address] [place] [address] 10/17/2023 11:00 AM EST Office Visit Gastroenterology, [facility] [address] [address] Tarah Tyler CRNP [address] [address] 11/13/2023 9:30 AM EST Office Visit Business Lawyer Obstetrics Maternal Medicine, [place] [address] [place] [address] Randall Mathew, DO [address] [place] [address] 11/13/2023 9:30 AM EST [facility] [address] [place] [address] Pending Results Name Type Priority Associated Diagnoses Date /Time QNATAL ADVANCED (QUEST) Lab Routine Multigravida of advanced maternal age in first trimester 09/08/2023 12:02 PM EST Health Maintenance Due Date Last Done Comments Hepatitis B (1 of 3 - 3-dose series) 1987 Pneumococcal Vaccine: Pediatrics (0 to 5 Years) and At-Risk Patients (6 to 64 Years) (1 - PCV) 1993 HPV/Co-Test 2017 Depression Screening 08/07/2019 08/07/2018 COVID-19 Vaccine (3 - season) 2023 01/06/2021, 12/02/2020 Cervical Cancer Screening [...] of advanced maternal age in first trimester documented in this encounter Advance Directives [...] the patient have Health Care Power of Biodiesel Production Technician? No Care Teams Biostatistics Manager Relationship Specialty Start Date End Date Penny Roper MD [address] [place] [address] PCP - General Family Medicine 08/30/22 documented as of this encounter
--- OUTSIDE RECORDS SUMMARY | 2023-09-18 16:13 | External Medical Summary ---
Author Name Unknown Address Unknown Organization K01:LABORATORY C - [address] [facility] [address] Laboratory Report Ordering Provider Test Date Status KRISTAN SAMANOHAWK 08/24/2023 15:35:47 Final Observation Date Value Abnormality Reference (Units ) Status WBC, Total 08/24/2023 15:35:47 7.64 4.00-10.8 0 (K/uL) Final RBC 08/24/2023 15:35:47 4.55 3.85-5.15 (M/uL) Final Hemoglobin 08/24/2023 15:35:47 13.8 12.0-15.3 (g/dL) Final Anemia reflex testing trigge rs on a HGB < 12.0 for Females and HGB < 13.0 for Males in accordance with the WHO Anemia Guidelines
Anemia reflex testing triggers on a HGB < 12.0 for Females and HGB < 13.0 for Males in accordance with the WHO Anemia Guidelines HCT 08/24/2023 15:35:47 42.5 36.0-45.2 (%) Final MCV 08/24/2023 15:35:47 93.4 81.5-97.5 (fL) Final MCH 08/24/2023 15:35:47 30.3 27.0-34.0 (pg) Final MCHC 08/24/2023 15:35:47 32.5 32.0-36.0 (g/dL) Final RDW 08/24/2023 15:35:47 12.7 11.5-15.5 (%) Final Platelets 08/24/2023 15:35:47 238 140-400 (K /uL) Final MPV 08/24/2023 15:35:47 10.0 6.6-11.1 ( fL) Final Nucleated erythrocytes/100 leukocytes [Ratio] in Blood by Automated count 08/24/2023 15:35:47 0 <=0 (/100 WBCs) [facility] Performing Location [facility] - [address] [facility] [address]
--- OUTSIDE RECORDS SUMMARY | 2023-09-18 16:13 | External Medical Summary ---
Author Name Unknown Address Unknown Organization K01:LABORATORY C - [address] [place] [address] Laboratory Report Ordering Provider Test Date Status ALIDA SAMANO 08/24/2023 15:35:47 Final Observation Date Value Abnormality Reference (Units ) Status Hep B surface Ag 08/24/2023 15:35:47 Negative Neg ative Final Performing Location [facility] - [address] [facility] [place] [address]
--- OUTSIDE RECORDS SUMMARY | 2023-09-18 16:14 | External Medical Summary | Summary of Care ---
Author Name Unknown Organization [facility] Address [address] [place] [address] Phone [phone] Care Team Providers Care Coal Weigher Name Role Phone Penny Roper MD Primary Care Provider [phone] Encounter Details Date Type Department Care Team ([facility] st Contact Info) Description 07/28/2023 Result Scan Unspecified Department <No scans attached> Allergies Active Allergy Reactions Criticality Noted Date Comments Amoxicillin-Pot Clavulanate Rash 06/29/20 17 Pollen Hives High 02/28/2017 Dust,ragweed,mold,dog and cat dander. documented as of this encounter (statuses as of 07/31/2023) Medications Medication Sig Dispensed Refills Start Date [...] Active traZODone HCl 50 MG Oral Tablet (Desyrel)Indications :Primary insomnia Take 1.5 Tablets by mouth at bedtime for 360 doses. 135 Tablet 3 05/29/2023 05/23/2024 Active Sucralfate 1 GM/10ML Oral Suspension (Carafate) Take 10 mL by mouth in the morning and 10 mL before bedtime. 0 06/16/2023 Active amLODIPine Besylate 2.5 MG Oral Tablet (Norvasc)Indications :Esophageal spasm Take 1 Tablet by mouth in the morning. 30 Tablet 5 06/20/2023 Active Pantoprazole Sodium 40 MG Oral Tablet Delayed Release (Protonix) Take 1 Tablet by mouth in the morning. 30 Tablet 3 06/22/2023 Active Isosorbide Mononitrate ER 30 MG Oral Tablet Extended Release 24 Hour (Imdur) Take 1 Tablet by mouth in the morning for 30 doses. 30 Tablet 1 07/07/2023 08/06/2023 Active Nitroglycerin 0.4 MG Sublingual Tablet Sublingual (Nitrostat) Place 1 Tablet under the tongue every 5 minutes as needed for Pain, Chest. 25 Tablet 1 07/07/2023 Active documented as of this encounter (statuses as of 07/31/2023) Active Problems Problem Noted Date Diagnosed Date Hypokalemia 07/04/2023 Abnormal GTT (glucose tolerance test) 12/23/2022 documented as of this encounter (statuses as of 07/31/2023) Resolved Problems Problem Noted Date Diagnosed Date [...] resolved Nutrition Due date letter given for [facility] 08/04/2022 Jennifer Lee RN 08/04/2022 Triplet gestation, with two or more monochorionic fetuses 08/04/2022 03/06/2023 Overview: Spontaneous slcmugezpwshy-ckk-ituyffcu [on outside scan, to be confirmed by [...] due date letter for pt to attend [facility] 04/01/2021 Kasey Tovar RN 04/01/2021 [...] as of this encounter (statuses as of 07/31/2023) Immunizations Name Administration Dates Next Due COVID-19 [...] Answer Date Recorded PHQ-2 Score 0 08/07/2018 [facility]ational Stress Questionnaire Answer Date [...] money to get more. Never true 01/20/2023 [place] Depression Scale Answer Date Recorded [place] Depression Scale Total 1 03/06/2023 The thought [...] Team (Late st Contact Info) Description 08/24/2023 1:45 PM EST Office Visit Gynecology/Obstetrics [facility] [address] [address] Leila Alejandra CRNP [address] [address] Tomas, Nurse Assembler [employer] [place] [address] [address] 10/16/2023 12:00 PM EST Office Visit Gastroenterology, [facility] [address] [address] Tarah Tyler CRNP [address] [address] Health Maintenance Due Date Last Done Comments [...] Procedure Name Priority Date/Time Associated Diagnosis Comments CARDIOLOGY SCANNED RESULT 07/28/2023 documented in this encounter Results * CARDIOLOGY SCANNED RESULT (07/28/2023) 07/28/2023 No Physician Data Unknown OTHER documented in this encounter Advance Directives Latest [...] the patient have Health Care Power of Supply Chain Generalist? No Care Teams Coal Weigher Relationship Specialty Start Date End Date Penny Roper MD [address] [place] [address] PCP - General Family Medicine 08/30/22 documented as of this encounter
--- NOTE | 2023-09-18 16:40 | XRay Report ---
XR chest 1V not portable CLINICAL HISTORY: Chest pain, nonspecific. COMPARISON STUDY: Chest CT September 08, 2021. Chest radiograph June 13, 2023. FINDINGS: Lung volumes are normal. Lungs are clear. There is no pneumothorax or pleural effusion. Car diac size is normal. Mediastinal contours are normal. There is no evidence for pulmonary edema. IMPRESSION: No acute cardiopulmonary findings. ACT 112: Negative or not required by law. Electronically signed by: Inderjit Ramos M.D. 09/18/2023 4:39 PM
[2023-09-18 16:45] LABS: Basophils # (auto) 0.02 K/uL (0.00-0.20); Basophils % (auto) 0.3 %; Eosinophils # (auto) 0.02 K/uL (0.00-0.50); Eosinophils % (auto) 0.3 %; Hematocrit (blood only) 40.4 % (37.0-47.0); Hemoglobin 13.7 g/dl (12.0-16.0); Immature Granulocytes # (auto) 0.05 K/uL (0.01-0.20); Immature Granulocytes % (auto) 0.7 %; Lymphocytes # (auto) 0.42 K/uL (1.20-3.40); Lymphocytes % (auto) 6.1 %; Mean Corpuscular Hgb Conc 33.9 g/dL (32.0-36.0); Mean Corpuscular Volume 88.4 fL (80.0-100.0); Mean Platelet Volume 9.6 fL (9.4-12.4); Monocytes # (auto) 0.41 K/uL (0.11-0.59); Neutrophils # (auto) 5.92 K/uL (1.40-6.50); Neutrophils % (auto) 86.6 %; Platelet Count 193 K/uL (130-400); RDW Coefficient of Variation 12.9 % (11.5-14.5); RDW Standard Deviation 41.5 fL (36.4-46.3); Red Blood Count 4.57 M/uL (4.20-5.40); White Blood Count 6.84 K/ul (4.8-10.8)
[2023-09-18 16:46] LABS: Albumin Globulin Ratio 1.3 (0.9-2); Albumin Level 4.4 gm/dl (3.4-5.0); Bilirubin,Total 0.3 mg/dl (0.2-1.0); Calcium 9.4 mg/dl (8.6-10.3); Creatinine Clr Calc Pharmacy 125.8 ml/min; Est GFR (African American) 141.6 ml/min; Est GFR (Non-African American) 122.2 ml/min; Globulin 3.3 gm/dl (2.5-4.0); Potassium 3.9 mmol/L (3.5-5.1); Total Protein 7.7 gm/dl (6.0-8.3)
[2023-09-18 16:52] LABS: Troponin I High Sensitivity 20.7 pg/ml (0-14)
[2023-09-18 16:56] LABS: INR 0.9 (0.9-1.1); Partial Thromboplastin Time 27 Seconds (21-31); Prothrombin Time 10.3 Seconds (9.0-12.0)
[2023-09-18 17:07] LABS: Adenovirus PCR Not Detected (NotDetected); Bordetella parapertussis PCR Not Detected (NotDetected); Bordetella pertussis PCR Not Detected (NotDetected); Chlamydia pneumoniae PCR Not Detected (NotDetected); Coronavirus 229E PCR Not Detected (NotDetected); Coronavirus HKU1 PCR Not Detected (NotDetected); Coronavirus NL63 PCR Not Detected (NotDetected); Coronavirus OC43PCR Not Detected (NotDetected); Human Metapneumovirus PCR Not Detected (NotDetected); Influenza A PCR Not Detected (NotDetected); Influenza B PCR Not Detected (NotDetected); Mycoplasma pneumoniae PCR Not Detected (NotDetected); Parainfluenza Virus 1 PCR Not Detected (NotDetected); Parainfluenza Virus 2 PCR Not Detected (NotDetected); Parainfluenza Virus 3 PCR Not Detected (NotDetected); Parainfluenza Virus 4 PCR Not Detected (NotDetected); Rhinovirus/Enterovirus PCR Not Detected (NotDetected)
[2023-09-18 17:11] LABS: Coronavirus CoV-2 (COVID19)PCR DETECTED (NotDetected); Respiratory Syncytial VirusPCR DETECTED (NotDetected)
[2023-09-18] MEDS ORDERED: SODIUM CHLORIDE 0.9% 1,000 ML IV ONE (18:53)
[2023-09-18] MEDS ORDERED: ONDANSETRON INJ 2 MG/ML 2 ML VIAL IV STA (18:53)
[2023-09-18] MEDS ORDERED: ACETAMINOPHEN 1,000 MG/100 ML VIAL IV STA (18:53)
--- NOTE | 2023-09-18 18:58 | Emergency Department Note ---
Impression & Plan COVID-19 virus infection, Headache, RSV (respiratory syncytial virus infection), Chest pain, Elevated troponin I level ED Provider Note NAME: SUSANNAH HUGHES AGE: 38 SEX: F : 1985 ARRIVES VIA: Walk-In INFORMANT: Patient, ED PROVIDER(S): Mick Viera DO CHIEF COMPLAINT: Headache HPI: The patient is a 38-year-old female who is currently 11 weeks who presented to the emergency department for multiple complaints. The patient has been experiencing headache sore throat runny eyes cough and muscle aches over the course of the last 24 to 48 hours. She also noticed subjective fever. The patient states that her child is also sick with similar complaints. Her significant other is also sick with similar complaints. She was concerned because she is and came to the emergency department for further evaluation. The patient denies having any black or tarry stools. She denies having any lower extremity swelling but does complain of muscle aches in both legs. The patient denies any recent trauma. She was not seen by provider prior to coming emergency department because of the holiday she presented to the emergency department immediately. ROS: See above HPI for pertinent positives & negatives. A total of 10 systems reviewed and were otherwise negative. PAST MEDICAL HISTORY: See Below PAST SURGICAL HISTORY: See Below FAMILY HISTORY: See Below SOCIAL HISTORY: See Below HOME MEDICATIONS: See Below ALLERGIES: See Below VITALS: See Below PHYSICAL EXAMINATION: GENERAL: Patient is awake alert in no acute distress patient is resting comfortably and showing no signs of anxiety EYES: The conjunctivae are clear. The pupils are round and reactive. EARS, NOSE, MOUTH AND THROAT: The nose is without any evidence of any deformity. Mucous membranes are moist. NECK: The neck is nontender and supple. RESPIRATORY: Normal respiratory effort is noted there is no evidence of wheezing rhonchi or rales CARDIOVASCULAR: Regular rate and rhythm noted there no murmurs rubs or gallops normal S1 normal S2. GASTROINTESTINAL: The abdomen is soft. Abdomen is nontender. MUSCULOSKELETAL/EXTREMITIES: There is no evidence of gross deformity full range of motion is noted in the hips and shoulders. SKIN: There is no obvious evidence of any rash. There is no calf tenderness. Pulses are symmetric in both wrist. NEUROLOGIC: Patient is awake alert and oriented x3. Gait was steady. MEDICAL DECISION MAKING: The patient is a 38-year-old female who presented to the emergency department for an evaluation of chest pain headache and bodyaches. The patient does have sick contacts. She was treated in the emergency department with IV fluids IV pain medication and IV antiemetics. On reevaluation she was only somewhat improved. I discussed the patient's laboratory and radiographic studies with her. She has a history of an elevated troponin in the past. She was told that this was due to vasospasm. She did have a stress test that I reviewed and it was negative. The patient had repeat troponin which was still elevated. Given her current status I thought this could be related to some other underlying issue so CT angiography of the chest was obtained. This did not show any signs of thoracic aortic aneurysm or pulmonary embolism. [facility] have agreed to evaluate the patient in the emergency department for further management and disposition. Triage Nursing notes reviewed. Prior medical records reviewed. Patient's previous cardiac workup was reviewed. Vital Signs: reviewed and remarkable for no significant abnormalities Differential diagnosis: Viral syndrome, strep pharyngitis, tonsillitis, mononucleosis, retropharyngeal abscess, peritonsillar abscess, otitis media, sinusitis, bronchitis, pneumonia, as well as other pathologies. ER treatment provided: See below Diagnostics interpreted by me: ECG: EKG was obtained in the emergency department. My interpretation is normal sinus rhythm at 95 bpm. There is no ectopy. There is no acute ST segment abnormalities noted. This was compared to a tracing from June 15, 2023. No changes were noted. Cardiac Monitoring: An order was placed for continuous cardiac monitoring. The monitor shows a rate of 94 bpm with sinus rhythm. Laboratory studies: As stated above and show below. Imaging studies: See below. Radiographic imaging was reviewed by myself Consultation(s): I discussed this case with Dr. Griffiths. [facility] Past Med/Surg History Medical History Insomnia Seasonal allergies Spontaneous [place] [facility] [place] [facility] [place] [facility] [place] [facility] [place] Encounter for pre-operative examination Herniated disc, cervical Surgical History H/O abdominoplasty 2010 History of breast augmentation 2010 [place] teeth extracted 2020 History of appendectomy 2009 Social History Smoking Status: Never smoker Tobacco Type: Cigarettes Second Hand Exposure: No; Hx Alcohol Use: No Hx Substance Use: No Preferred Language: Andorran Communication Ability: Effective 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 Beliefs That Will Affect Care: None marital status: marital status details: Alber Hughes Current Living Situation: Spouse Current Living Situation Comment: , her 4 children , Alber's 3 children current occupational status: unemployed Feels Safe at Home: Yes Assistive Devices: None Allergies Allergies Allergy/AdvReac Type Severity Reaction Status Date / Time amoxicillin Allergy Intermediate Hives Verified 09/18/23 20:26 pollen extracts Allergy Intermediate ITCHY Verified 09/18/23 20:26 EYES, SNEEZING, CONGESTION Home Meds Home Medications Medication Instructions Recorded Confirmed montelukast 10 mg tablet 10 mg PO DAILY 06/13/23 09/18/23 (Singulair) trazodone 50 mg tablet 75 mg PO HS 06/13/23 09/18/23 ondansetron HCl 4 mg tablet 4 mg PO TID PRN NAUSEA/VOMITING 09/18/23 09/18/23 Previous Rx's Medication Instructions Recorded nitroglycerin 0.4 mg sublingual 0.4 mg sublingual Q5M PRN chest 06/16/23 tablet (Nitrostat) pain #30 tabs Results & Data (ED) Vital Signs Vital Signs - 24 hr 09/18/23 16:06 09/18/23 20:14 09/18/23 21:40 Temperature 36.8 C Temperature Source Temporal Artery Scan Pulse Rate 99 H 91 H Pulse Rate [Apical] 102 H Respiratory Rate 18 14 Respiratory Effort / Characteristics Non-Labored Spontaneous Respiratory Depth Normal Blood Pressure 126/76 Blood Pressure [Right Arm] 94/66 L Blood Pressure Mean 92 Blood Pressure Mean [Right Arm] 75 Pulse Oximetry 99 97 Oxygen Delivery Method Room Air Room Air Sepsis Recent Fever Within 48 Hours No Sepsis New/Unexplained Change in Mental Status No Sepsis Action Taken by Nursing No Action Required 09/18/23 22:00 Temperature Temperature Source Pulse Rate Pulse Rate [Apical] 94 H Respiratory Rate 18 Respiratory Effort / Characteristics Non-Labored Respiratory Depth Normal Blood Pressure Blood Pressure [Right Arm] 98/69 L Blood Pressure Mean Blood Pressure Mean [Right Arm] 78 Pulse Oximetry 98 Oxygen Delivery Method Room Air Sepsis Recent Fever Within 48 Hours Sepsis New/Unexplained Change in Mental Status Sepsis Action Taken by [facility] Medications Current Medication List: was personally reviewed by me Laboratory Data Attestation: I reviewed the patient's lab results. 09/18/23 16:16 09/18/23 16:16 Lab Results 09/18/23 09/18/23 09/18/23 Range/Units 16:00 16:16 19:00 WBC 6.84 (4.8-10.8) K/ul RBC 4.57 (4.20-5.40) M/uL Hgb 13.7 (12.0-16.0) g/dl Hct 40.4 (37.0-47.0) % MCV 88.4 (80.0-100.0) fL MCH 30.0 (25.0-34.0) pg MCHC 33.9 (32.0-36.0) g/dL RDW Std Deviation 41.5 (36.4-46.3) fL RDW Coeff of Jermain 12.9 (11.5-14.5) % Plt Count 193 (130-400) K/uL MPV 9.6 (9.4-12.4) fL Immature Gran % (Auto) 0.7 % Neut % (Auto) 86.6 % Lymph % (Auto) 6.1 % [place] % (Auto) 6.0 % Eos % (Auto) 0.3 % Baso % (Auto) 0.3 % Neut # (Auto) 5.92 (1.40-6.50) K/uL Lymph # (Auto) 0.42 L (1.20-3.40) K/uL [place] # (Auto) 0.41 (0.11-0.59) K/uL Eos # (Auto) 0.02 (0.00-0.50) K/uL Baso # (Auto) 0.02 (0.00-0.20) K/uL Immature Gran # (Auto) 0.05 (0.01-0.20) K/uL PT 10.3 (9.0-12.0) Seconds INR 0.9 (0.9-1.1) APTT 27 (21-31) Seconds PTT Ratio 1.0 Sodium 133 L (136-145) mmol/L Potassium 3.9 (3.5-5.1) mmol/L Chloride 102 (98-107) mmol/L Carbon Dioxide 22 (21-32) mmol/L Anion Gap 9 (3-11) BUN 9 (6-23) mg/dl Creatinine 0.53 L (0.6-1.2) mg/dl Est Cr Clr Drug Dosing 125.8 ml/min Est GFR ( Amer) 141.6 ml/min Est GFR (Non-Af Amer) 122.2 ml/min BUN/Creatinine Ratio 17.0 (10-20) Glucose 88 (70-99(Fasting)) mg/dl Calcium 9.4 (8.6-10.3) mg/dl Total Bilirubin 0.3 (0.2-1.0) mg/dl AST 16 (13-39) U/L ALT 14 (7-52) U/L Alkaline Phosphatase 40 (34-104) U/L Troponin I High Sens 20.7 H 35.7 H D (0-14) pg/ml Total Protein 7.7 (6.0-8.3) gm/dl Albumin 4.4 (3.4-5.0) gm/dl Globulin 3.3 (2.5-4.0) gm/dl Albumin/Globulin Ratio 1.3 (0.9-2) Lipase 22 (11-82) U/L Adenovirus (PCR) Not Detected (NotDetected) B. pertussis DNA (PCR) Not Detected (NotDetected) B.parapertussis DNA PCR Not Detected (NotDetected) C. pneumoniae DNA (PCR) Not Detected (NotDetected) Coronavirus OC43 (PCR) Not Detected (NotDetected) Coronavirus HKU1 (PCR) Not Detected (NotDetected) Coronavirus 229E (PCR) Not Detected (NotDetected) SARS-CoV-2 (PCR) DETECTED A* (NotDetected) Coronavirus NL63 (PCR) Not Detected (NotDetected) Human Metapneumovir PCR Not Detected (NotDetected) Influenza Type A (PCR) Not Detected (NotDetected) Influenza Type B (PCR) Not Detected (NotDetected) M. pneumoniae (PCR) Not Detected (NotDetected) Parainfluenza 1 (PCR) Not Detected (NotDetected) Parainfluenza 2 (PCR) Not Detected (NotDetected) Parainfluenza 3 (PCR) Not Detected (NotDetected) Parainfluenza 4 (PCR) Not Detected (NotDetected) RSV (PCR) DETECTED A* (NotDetected) Entero/Rhino (PCR) Not Detected (NotDetected) Administered Medications Discontinued Medications Sodium Chloride (Nss) 1,000 mls @ 999 mls/hr IV .Q1H1M ONE Stop: 09/18/23 19:53 Last Infusion: 09/18/23 20:15 Dose: Infused Documented By: Admin: 09/18/23 19:03 Dose: 999 mls/hr Documented By: JUAN PABLO Acetaminophen (Ofirmev) 1,000 mg in 100 mls @ 400 mls/hr IV NOW STA Stop: 09/18/23 19:07 Last Infusion: 09/18/23 19:32 Dose: Infused Documented By: Admin: 09/18/23 19:02 Dose: 400 mls/hr Documented By: JUAN PABLO Ioversol (Optiray 320 125ml) 116 ml IV ONCE ONE Stop: 09/18/23 20:38 Last Admin: 09/18/23 20:38 Dose: 116 ml Documented By: PARKER Ketorolac Tromethamine (Ketorolac Tromethamine 15 Mg/Ml Vial) 10 mg IV NOW ONE Stop: 09/18/23 19:35 Last Admin: 09/18/23 20:01 Dose: 10 mg Documented By: DEXTER Morphine Sulfate (Morphine Sulfate 4 Mg/Ml 1 Ml Carp\Vial) 4 mg IV NOW STA Stop: 09/18/23 20:07 Last Admin: 09/18/23 20:23 Dose: 4 mg Documented By: CONI Ondansetron HCl (Ondansetron Inj 2 Mg/Ml 2 Ml Vial) 4 mg IV NOW STA Stop: 09/18/23 18:54 Last Admin: 09/18/23 19:02 Dose: 4 mg Documented By: JUAN PABLO Imaging Data Attestation: I personally reviewed and interpreted this imaging study as follows: My Impression: 1 view chest x-ray was obtained in the emergency department. My interpretation is no free air or definite infiltrate, final report below. CT of the chest was obtained in the emergency department. My interpretation is no free air or definite infiltrate, final report below Radiologist's Impression: Chest X-Ray 09/18/23 16:11 XR chest 1V not portable CLINICAL HISTORY: Chest pain, nonspecific. COMPARISON STUDY: Chest CT September 08, 2021. Chest radiograph June 13, 2023. FINDINGS: Lung volumes are normal. Lungs are clear. There is no pneumothorax or pleural effusion. Cardiac size is normal. Mediastinal contours are normal. There is no evidence for pulmonary edema. IMPRESSION: No acute cardiopulmonary findings. ACT 112: Negative or not required by law. Electronically signed by: Inderjit Ramos M.D. 09/18/2023 4:39 PM Chest CTA 09/18/23 20:05 Exam(s): CTA CHEST IV Amt: 116ml EXAM: CT Angiography Chest With Intravenous Contrast CLINICAL HISTORY: Reason for exam: PE. TECHNIQUE: Axial computed tomographic angiography images of the chest with intravenous contrast. CTDI is 18.14 mGy and DLP is 519.91 mGy-cm. Automated exposure control was utilized for the study. A dose lowering technique was utilized adhering to the principles of ALARA. MIP reconstructed images were created and reviewed. COMPARISON: No relevant prior studies available. FINDINGS: Pulmonary arteries: Unremarkable. No acute pulmonary embolism. Aorta: No acute findings. No thoracic aortic aneurysm. Lungs: Unremarkable. No mass. No consolidation. Pleural space: Unremarkable. No focal infiltrate, pleural effusion, or pneumothorax. Heart: Cardiomegaly. No significant pericardial effusion. No evidence of RV dysfunction. Bones/joints: No acute fracture. No dislocation. Soft tissues: Bilateral breast implants. Lymph nodes: Unremarkable. No enlarged lymph nodes. Liver: Hypervascular lesion in the posterior RIGHT hepatic lobe measures approximately 2.4 x 1.9 cm. Recommend nonemergent hepatic MRI. IMPRESSION: 1. No acute pulmonary embolism. 2. No focal infiltrate, pleural effusion, or pneumothorax. 3. Hypervascular lesion in the posterior RIGHT hepatic lobe measures approximately 2.4 x 1.9 cm. Recommend nonemergent hepatic MRI. Electronically signed by: Ronnie Michaud MD 09/18/23 21:34 PM Discharge Plan Visit Data Chief Complaint: Headache ED Provider: Mick Viera Discharge Problem: COVID-19 virus infection, Headache, RSV (respiratory syncytial virus infection), Chest pain, Elevated troponin I level Patient Disposition: Being Evaluated by Hospitalist Forms Stand Alone Forms: My [email or web address] Prescriptions Prescriptions: No Action ondansetron HCl 4 mg tablet 4 mg PO TID PRN (Reason: NAUSEA/VOMITING) trazodone 50 mg tablet 75 mg PO HS montelukast [Singulair] 10 mg Tablet 10 mg PO DAILY nitroglycerin [Nitrostat] 0.4 mg Tablet, Sublingual 0.4 mg sublingual Q5M PRN (Reason: chest pain) Qty: 30 0RF Referrals Referrals: Nickie Tolentino DO [Primary Care Provider] - Discharge Problem: Headache Qualifiers: Headache type: unspecified Headache chronicity pattern: episodic headache I ntractability: not intractable Qualified Code(s): R51.9 - Headache, unspecified Chest pain Qualifiers: Chest pain type: unspecified Qualified Code(s): R07.9 - Chest pain, unspecified
[2023-09-18] MEDS ORDERED: KETOROLAC TROMETHAMINE 15 MG/ML VIAL IV ONE (19:34)
[2023-09-18] MEDS ORDERED: MoRPHine SULFATE 4 MG/ML 1 ML CARP\\VIAL IV STA (20:06)
[2023-09-18] MEDS ORDERED: OPTIRAY 320 125ml IV ONE (20:37)
--- NOTE | 2023-09-18 21:35 | CT Scan Report ---
Exam(s): CTA CHEST IV Amt: 116ml EXAM: CT Angiography Chest With Intravenous Contrast CLINICAL HISTORY: Reason for exam: PE. TECHNIQUE: Axial computed tomographic angiography images of the chest with intravenous contrast. CTDI is 18.14 mGy and DLP is 519.91 mGy-cm. Automated exposure control was utilized for the study. A dose lowering technique was utilized adhering to the principles of ALARA. MIP reconstructed images were created and reviewed. COMPARISON: No relevant prior studies available. FINDINGS: Pulmonary arteries: Unremarkable. No acute pulmonary embolism. Aorta: No acute findings. No thoracic aortic aneurysm. Lungs: Unremarkable. No mass. No consolidation. Pleural space: Unremarkable. No focal infiltrate, pleural effusion, or pneumothorax. Heart: Cardiomegaly. No significant pericardial effusion. No evidence of RV dysfunction. Bones/joints: No acute fracture. No dislocation. Soft tissues: Bilateral breast implants. Lymph nodes: Unremarkable. No enlarged lymph nodes. Liver: Hypervascular lesion in the posterior RIGHT hepatic lobe measures approximately 2.4 x 1.9 cm. Recommend nonemergent hepatic MRI. IMPRESSION: 1. No acute pulmonary embolism. 2. No focal infiltrate, pleural effusion, or pneumothorax. 3. Hypervascular lesion in the posterior RIGHT hepatic lobe measures approximately 2.4 x 1.9 cm. Recommend nonemergent hepatic MRI. Electronically signed by: Ronnie Michaud MD 09/18/23 21:34 PM
--- NOTE | 2023-09-18 22:12 | History & Physical Report ---
Date of Service September 18, 2023 Assessment & Plan (1) Elevated troponin I level: (2) Chest pain: (3) RSV (respiratory syncytial virus infection): (4) COVID-19 virus infection: (5) : Plan Pt is a 38yoF with PMhx significant for seasonal allergies, insomnia, and recurr ent chest pain admitted with chest pain once more, currently 11 weeks . Chest pain Pt states that she has been having chest pressure that started the day before arrival. Sharp and radiates to the back hs-trop elevated at 20.7 to 35.7 but appears to be pt's baseline, continue to trend until downtrending Positive for both covid and RSV Has had extensive workup recently with cardiac cath and recent stress test, without significant findings Repeat echo ordered CTA chest with no PE States that her isosorbide was discontinued due to the Consider nitroglycerin prn for chest pain while hospitalized Cardiology consult- appreciate recs RSV infection Covid infection Noted on biofire Not requiring oxygen supplementation Chest CTA with no PE or noted pneumonia IV fluids Supportive care R hepatic lobe lesion Noted on CTA chest Radiology advising nonemergent MRI for vascular lesion State Pt 11 weeks Consider using only medications safe for Continue other home meds as ordered, states has been advised can use Singulair and trazodone in . Has discontinued use of isosorbide due to . CODE STATUS: Full code DVT prophylaxis: Ambulation as tolerated Diet: HH Dispo: Med/Surg with tele History of Present Illness Chief Complaint: Chest pain Primary Care Provider: Nickie Tolentino, Pt is a 38yoF with PMhx significant for seasonal allergies, insomnia, and recurrent chest pain admitted with chest pain once more, currently 11 weeks . States that she started with URI symptoms the day before. Started having chest pressure the day of admission, describes occasional sharp shooting pain to her back. Currently 11 weeks , asking to eat. States that she was told she can take her home trazodone and singulair but to stop taking her home isosorbide. Has not been able to stay hydrated. States she feels tired. Allergies Allergy/AdvReac Type Severity Reaction Status Date / Time amoxicillin Allergy Intermediate Hives Verified 09/18/23 20:26 pollen extracts Allergy Intermediate ITCHY Verified 09/18/23 20:26 EYES, SNEEZING, CONGESTION Home Medications Medication Instructions Recorded Confirmed Type montelukast 10 mg tablet 10 mg PO DAILY 06/13/23 09/18/23 History (Singulair) trazodone 50 mg tablet 75 mg PO HS 06/13/23 09/18/23 History nitroglycerin 0.4 mg sublingual 0.4 mg sublingual Q5M PRN chest 06/16/23 09/18/23 Rx tablet (Nitrostat) pain #30 tabs ondansetron HCl 4 mg tablet 4 mg PO TID PRN NAUSEA/VOMITING 09/18/23 09/18/23 History Past Med/Surg History Medical History Insomnia Seasonal allergies Spontaneous [facility] delivery [facility] 08[facility]07/2007 [facility] 11[facility]08[facility] Encounter for pre-operative examination Herniated disc, cervical Surgical History H/O abdominoplasty 2010 History of breast augmentation 2010 [place] teeth extracted 2020 History of appendectomy 2009 Social History Smoking Status: Never smoker Tobacco Type: Cigarettes Second Hand Exposure: No; Hx Alcohol Use: No Hx Substance Use: No Preferred Language: Brazilian Communication Ability: Effective Biopsychologist Required: No Beliefs That Will Affect Care: None marital status: marital status details: Alber Hughes Current Living Situation: Spouse Current Living Situation Comment: , her 4 children , Alber's 3 children current occupational status: unemployed Feels Safe at Home: Yes Safety Concerns: Feels Safe At This Time Assistive Devices: None Review of Systems Review of Systems: All systems reviewed & are unremarkable except as noted in HPI & below Physical Exam Physical Exam: General: Alert, oriented. Skin: No noted rashes or bruises Psych: Appropriate mood and affect Neuro: No gross deficits HEENT: NC/AT Chest: Nontender to palpation. CV: RRR Resp: Breath sounds with wheezing bilaterally, no increased effort of breathing. Abdomen: Soft, nontender, nondistended. Extremities: No edema in lower extremities bilaterally. Results & Data Results & Data Vital Signs (Past 12 Hours) Vital Signs Temp Pulse Pulse Resp BP BP Pulse Ox 09/18/23 21:40 91 H 09/18/23 20:14 102 H 14 94/66 L 97 09/18/23 16:06 36.8 C 99 H 18 126/76 99 O2 Del Method 09/18/23 21:40 09/18/23 20:14 Room Air 09/18/23 16:06 Room Air Diagnostic Findings Chest X-Ray 09/18/23 16:11 XR chest 1V not portable CLINICAL HISTORY: Chest pain, nonspecific. COMPARISON STUDY: Chest CT September 08, 2021. Chest radiograph June 13, 2023. FINDINGS: Lung volumes are normal. Lungs are clear. There is no pneumothorax or pleural effusion. Cardiac size is normal. Mediastinal contours are normal. There is no evidence for pulmonary edema. IMPRESSION: No acute cardiopulmonary findings. ACT 112: Negative or not required by law. Electronically signed by: Inderjit Ramos M.D. 09/18/2023 4:39 PM Chest CTA 09/18/23 20:05 Exam(s): CTA CHEST IV Amt: 116ml EXAM: CT Angiography Chest With Intravenous Contrast CLINICAL HISTORY: Reason for exam: PE. TECHNIQUE: Axial computed tomographic angiography images of the chest with intravenous contrast. CTDI is 18.14 mGy and DLP is 519.91 mGy-cm. Automated exposure control was utilized for the study. A dose lowering technique was utilized adhering to the principles of ALARA. MIP reconstructed images were created and reviewed. COMPARISON: No relevant prior studies available. FINDINGS: Pulmonary arteries: Unremarkable. No acute pulmonary embolism. Aorta: No acute findings. No thoracic aortic aneurysm. Lungs: Unremarkable. No mass. No consolidation. Pleural space: Unremarkable. No focal infiltrate, pleural effusion, or pneumothorax. Heart: Cardiomegaly. No significant pericardial effusion. No evidence of RV dysfunction. Bones/joints: No acute fracture. No dislocation. Soft tissues: Bilateral breast implants. Lymph nodes: Unremarkable. No enlarged lymph nodes. Liver: Hypervascular lesion in the posterior RIGHT hepatic lobe measures approximately 2.4 x 1.9 cm. Recommend nonemergent hepatic MRI. IMPRESSION: 1. No acute pulmonary embolism. 2. No focal infiltrate, pleural effusion, or pneumothorax. 3. Hypervascular lesion in the posterior RIGHT hepatic lobe measures approximately 2.4 x 1.9 cm. Recommend nonemergent hepatic MRI. Electronically signed by: Ronnie Michaud MD 09/18/23 21:34 PM (2) Chest pain Chest pain type: unspecified Qualified Code(s): R07.9 - Chest pain, unspecified
[2023-09-18] MEDS: SODIUM CHLORIDE 0.9% 1,000 ML IV SCH (23:00)
[2023-09-19] MEDS: ACETAMINOPHEN 500 MG TAB PO PRN ×3 (00:13→18:13)
[2023-09-19] MEDS ORDERED: traZODone HCL 50 MG TAB PO ONE (00:57)
[2023-09-19] MEDS: ONDANSETRON 4 MG OD TAB PO PRN (02:12)
[2023-09-19] MEDS ORDERED: ALBUTEROL HFA 8 GM INHALER INH PRN (04:28)
[2023-09-19 05:13] LABS: Hematocrit (blood only) 34.6 % (37.0-47.0); Hemoglobin 11.6 g/dl (12.0-16.0); Mean Corpuscular Hemoglobin 29.6 pg (25.0-34.0); Mean Corpuscular Hgb Conc 33.5 g/dL (32.0-36.0); Mean Corpuscular Volume 88.3 fL (80.0-100.0); Mean Platelet Volume 9.7 fL (9.4-12.4); Platelet Count 162 K/uL (130-400); RDW Standard Deviation 41.8 fL (36.4-46.3); Red Blood Count 3.92 M/uL (4.20-5.40)
[2023-09-19 05:22] LABS: BUN Creatinine Ratio 14.3 (10-20); Calcium 7.9 mg/dl (8.6-10.3); Creatinine Clr Calc Pharmacy 106.6 ml/min; Est GFR (African American) 133.7 ml/min; Est GFR (Non-African American) 115.4 ml/min; Magnesium 1.9 mg/dl (1.7-2.4); Phosphorus 3.6 mg/dl (2.5-4.9); Potassium 3.4 mmol/L (3.5-5.1)
--- NOTE | 2023-09-19 08:51 | Cardiology Consultation ---
Date of Consultation September 19, 2023 Assessment & Plan (1) Chest pain: (2) Elevated troponin I level: (3) : (4) COVID-19 virus infection: (5) RSV (respiratory syncytial virus infection): Plan Assessment: 38 year-old female with acute admission for 1. Chest pain with troponin elevation 2. , 12 weeks 3. Covid 19 virus infection 4. RSV Plan: 1. Chest pain 2. Elevated Tropnonin I -Patient with persistent chest pressure and associated palpitations, ongoing and appear exacerbated by her acute URI course. -Troponin elevation with most recent 35.7pg/ml. Known chronic troponin elevation. - Continue to trend to peak. -EKG demonstrates NSR with no acute St-T wave changes and no ectopy, continue to monitor on telemetry during course of hospitalization. -Recent negative exercise stress and cardiac catheterization for acute ischemic concern. Known coronary vasospasm with recent discontinuation of her Imdur. -While use of SL NTG and/or NTG paste is not contraindicated in the setting of , but would not initiate unless symptoms progress -Obtain echocardiogram to assess LVEF and for any wall motion abnormality in the setting of troponin elevation and symptom presentation. 3. : -Approx 12 weeks gestation -Continued management per primary team and OB as appropriate. 4. Covid 19 5. RSV -PCR detection positive for both infectious processes. -Continued management with supportive care as appropriate per primary team. -Ensure Fever reduction if indicated and adequate hydration which will offset elevated heart rates in the setting of acute infection. Case has been discussed with Dr. Hernandez. Further recommendations regarding plan of care as per his assessment. I spent a total of 30 minutes on the date of service in preparation, delivery, documentation of the care provided to the patient excluding any time spent in the performance of separately billed services. [facility] Cardiology [facility] Supervising Physician Co-Signing Physician Notes Patient was seen and personally examined current and prior records fully reviewed 38-year-old female with acute viral syndrome COVID, RSV with significant upper respiratory infection symptoms cough congestion rhinorrhea Past medical history notable for chronic chest pain and troponin elevation with a diagnostic evaluation including coronary angiography previously performed. Has been treated with oral nitrates and topical nitrates for vasospastic disease. Recent nitrate use discontinued due to Echocardiogram with preserved wall motion and no pericardial effusion, normal LV function EKG without acute changes with normal tracing Exam: Heart rate 72 blood pressure 102/57 Marked nasal and sinus and upper respiratory congestion Cardiovascular Nathan regular without murmur gallop or rub EXTR without edema Recommendations: Treat underlying viral syndrome. Would not add additional medications at this time. If chest pain becomes progressive could consider reinstituting nitrates but ultimately would wish to hold till second or third trimester if possible. History of Present Illness Reason for Consultation: Chest pain; elevated tropnins Requesting Physician: [facility] Attending Physician: Luciana Matias, History of Present Illness Patient is a 38 year-old female with PMHx significant for coronary vasospasm that presented to the ER with multiple complaints. Patient states that she is currently 12 weeks and had been feeling her usual state of health until yesterday morning. She states that She woke yesterday morning 09/18/23 feeling extreme fatigue, congestion, runny nose, watery eyes, dry non-productive cough and had chills. No documented fever. She also endorsed feelings of chest pressure described as a squeezing sensation of her chest, persistent in nature, worse with minimal exertion as well as associated sharp stabbing "jabs" that are in her left anterior chest wall and push through to her back. She feels short of breath, but relates that to her current URI symptoms. Denies any active vomiting or diarrhea. Pressure remains constant, worse with exertion, but does not change in intensity with position change. Of note, patient has a history of coronary vasospasm. She had undergone an exercise stress test which was negative for inducible ischemia and there were no exercise induced arrhythmias (07/28/23), Wore a ZIO monitor in 06/2023 that demonstrated predominant NSR, ST, but no ectopy or dysrhythmia. This was ordered by OBGYN after stopping Imdur and complaints of worsening palpitations early on in . She also had undergone a cardiac catheterization 06/14/[address] Antony Garcia Summary as follows: Summary: 1. Angiographically normal major epicardial coronary arteries 2. Vasospasm versus mild diffuse disease in very small distal nondominant RCA 3. Normal intracardiac filling pressure Recommendations: Trial of coronary vasodilators for possible coronary spasm. Continued ASCVD risk factor modification patient had been placed on Imdur as a result of her cath findings. This was discontinued in sight of ; however, patient reports that she was still using a significant amount of SL NTG in addition to the Imdur to treat her symptoms. Allergies Allergy/AdvReac Type Severity Reaction Status Date / Time amoxicillin Allergy Intermediate Hives Verified 09/18/23 20:26 pollen extracts Allergy Intermediate ITCHY Verified 09/18/23 20:26 EYES, SNEEZING, CONGESTION Home Medications Medication Instructions Recorded Confirmed Type montelukast 10 mg tablet 10 mg PO DAILY 06/13/23 09/18/23 History (Singulair) trazodone 50 mg tablet 75 mg PO HS 06/13/23 09/18/23 History nitroglycerin 0.4 mg sublingual 0.4 mg sublingual Q5M PRN chest 06/16/23 09/18/23 Rx tablet (Nitrostat) pain #30 tabs ondansetron HCl 4 mg tablet 4 mg PO TID PRN NAUSEA/VOMITING 09/18/23 09/18/23 History Patient History Medical History Insomnia Seasonal allergies Spontaneous vaginal delivery [facility] 08/07/2007 [facility] 04/13/2010 [facility] 08/23/2015 [facility] 11/08/21 Encounter for pre-operative examination Herniated disc, cervical Surgical History H/O abdominoplasty 2010 History of breast augmentation 2010 [place] teeth extracted 2020 History of appendectomy 2009 Social History Smoking Status: Never smoker Tobacco Type: Cigarettes Second Hand Exposure: No; Hx Alcohol Use: No Hx Substance Use: No Preferred Language: Armenian Communication Ability: Effective Workforce Staffing Advisor Required: No Beliefs That Will Affect Care: None marital status: marital status details: Alber Hughes Current Living Situation: Spouse Current Living Situation Comment: , her 4 children , Alber's 3 children current occupational status: unemployed Feels Safe at Home: Yes Safety Concerns: Feels Safe At This Time Assistive Devices: None Review of Systems Review of Systems: All systems reviewed & are unremarkable except as noted in HPI & below Cardiovascular: + chest pain and + palpitations; no sync ope Physical Exam Constitutional: well developed, well nourished and + ill appearing Eyes: PERRL, conjunctivae normal, anicteric sclerae Neck: normal visual inspection and trachea midline Respiratory: normal respiratory effort, lungs clear to auscultation Cardiovascular: RRR, no murmur, no edema Vessels: dorsalis pedis pulses present Skin: no rashes, warm and dry Psychiatric: A+Ox3, euthymic affect Results & Data Vital Signs (Past 12 Hours) Vital Signs Temp Pulse Pulse Resp BP Pulse Ox O2 Del Method 09/19/23 07:02 75 09/19/23 04:22 72 18 111/68 96 Room Air 09/19/23 02:22 Room Air 09/19/23 02:22 36.8 C 74 16 100/66 95 Room Air 09/19/23 02:22 Room Air 09/18/23 22:00 94 H 18 98/69 L 98 Room Air 09/18/23 21:40 91 H Laboratory Results Cardiac Enzymes 09/18/23 09/18/23 Range/Units 16:16 19:00 AST 16 (13-39) U/L Troponin I High Sens 20.7 H 35.7 H D (0-14) pg/ml Coagulation 09/18/23 Range/Units 16:16 PT 10.3 (9.0-12.0) Seconds APTT 27 (21-31) Seconds CBC 09/18/23 09/19/23 Range/Units 16:16 04:39 WBC 6.84 4.80 (4.8-10.8) K/ul RBC 4.57 3.92 L (4.20-5.40) M/uL Hgb 13.7 11.6 L (12.0-16.0) g/dl Hct 40.4 34.6 L (37.0-47.0) % Plt Count 193 162 (130-400) K/uL Neut # (Auto) 5.92 (1.40-6.50) K/uL Lymph # (Auto) 0.42 L (1.20-3.40) K/uL [place] # (Auto) 0.41 (0.11-0.59) K/uL Eos # (Auto) 0.02 (0.00-0.50) K/uL Baso # (Auto) 0.02 (0.00-0.20) K/uL Comprehensive Metabolic Panel 09/18/23 09/19/23 Range/Units 16:16 04:39 Sodium 133 L 136 (136-145) mmol/L Potassium 3.9 3.4 L (3.5-5.1) mmol/L Chloride 102 108 H (98-107) mmol/L Carbon Dioxide 22 22 (21-32) mmol/L BUN 9 9 (6-23) mg/dl Creatinine 0.53 L 0.63 (0.6-1.2) mg/dl Glucose 88 101 H (70-99(Fasting)) mg/dl Calcium 9.4 7.9 L (8.6-10.3) mg/dl AST 16 (13-39) U/L ALT 14 (7-52) U/L Alkaline Phosphatase 40 (34-104) U/L Total Protein 7.7 (6.0-8.3) gm/dl Albumin 4.4 (3.4-5.0) gm/dl Intake and Output 09/18/23 09/19/23 09/19/23 22:59 06:59 14:59 Intake Total 1100 / 1100 Balance 1100 / 1100 Intake: IV 1100 / 1100 Acetaminophen 1,000 mg In 100 100 / 100 ml @ 400 mls/hr IV NOW STA Rx#: [id number] Sodium Chloride 0.9% 1,000 ml @ 1000 / 1000 999 mls/hr IV .Q1H1M ONE Rx#: [id number] Other: Weight 64.1 kg 64.6 kg Weight Measurement Method Chair Scale Built in [facility] Diagnostic Findings Echocardiogram 06/13/23 Normal Left ventricular wall thickness No regional wall motion abnormalities LVEF 55-60% LV diastolic function is normal No significant valvular disease. Cardiac catheterization 06/14/23 Summary: 1. Angiographically normal major epicardial coronary arteries 2. Vasospasm versus mild diffuse disease in very small distal nondominant RCA 3. Normal intracardiac filling pressure Recommendations: Trial of coronary vasodilators for possible coronary spasm. Continued ASCVD risk factor modification Exercise stress test 07/28/23 Summary: 1. Negative stress ECG for ischemia at 88 % MPHR 2. Average functional capacity. 3. Mild non-limiting chest pain. Normal hemodynamic response to exercise. EKG 09/18/2023 Normal Sinus Rhythm Rate 95 bpm. (1) Chest pain Chest pain type: unspecified Qualified Code(s): R07.9 - Chest pain, unspecified (3) Weeks of gestation: 12 weeks Qualified Code(s): Z3A.12 - 12 weeks gestation of
[2023-09-19] MEDS: MONTELUKAST SODIUM 10 MG TABLET PO SCH (08:58)
[2023-09-19] MEDS ORDERED: SODIUM CHLORIDE 0.65% NA SOLN 45 ML (OCEAN) NAE PRN (09:12)
[2023-09-19] MEDS: CHLORASEPTIC (PHENOL) 1.4% SOLN 180 ML BTL MT PRN ×2 (09:48→15:54)
--- NOTE | 2023-09-19 10:48 | Electrocardiogram Report ---
Test Reason : Blood Pressure : / mmHG Vent. Rate : 095 BPM Atrial Rate : 095 BPM P-R Int : 140 ms QRS Dur : 080 ms QT Int : 338 ms P-R-T Axes : 046 078 060 degrees QTc Int : 424 ms Normal sinus rhythm Normal ECG When compared with ECG of 15-JUN-2023 11:39, Vent. rate has increased BY 33 BPM Confirmed by Mick Tomas ([id number]) on 09/19/2023 10:48:27 AM Referred By: REFERRED SELF Confirmed By:Mick Tomas
[2023-09-19] MEDS: SODIUM CHLORIDE 0.9% 1,000 ML IV SCH (12:24)
--- NOTE | 2023-09-19 14:59 | Hospitalist Progress Note ---
Date of Service September 19, 2023 Assessment & Plan (1) Elevated troponin I level: (2) Chest pain: (3) RSV (respiratory syncytial virus infection): (4) COVID-19 virus infection: (5) : Plan Pt is a 38yoF with PMhx significant for seasonal allergies, insomnia, and recurr ent chest pain admitted with chest pain once more, currently 11 weeks . Chest pain Pt states that she has been having chest pressure that started the day before arrival. Sharp and radiates to the back--likey related to her coughing, improving. Positive for both covid and RSV Has had extensive workup recently with cardiac cath and recent stress test, without significant findings Repeat echo ordered CTA chest with no PE States that her isosorbide was discontinued due to the Per cardiology she is likely having an exacerbation of chronic issues 2/2 viral illness. Recommend avoiding nitroglycerin unless symptoms progress. RSV infection Covid infection Noted on biofire Not requiring oxygen supplementation Chest CTA with no PE or pneumonia IV fluids, antiemetics, antipyretics as needed. Chloroseptic throat spray, Nasal saline spray, Robitussin AC, avoid NSAIDs. R hepatic lobe lesion Noted on CTA chest Radiology advising nonemergent MRI for vascular lesion Gravid uterus feeling well overall CODE STATUS: Full code DVT prophylaxis: Ambulation as tolerated Diet: HH Dispo: Med/Surg with tele Luciana Matias DO [facility] Hospitalist Admission and Anticipated Discharge Date Admission Date: September 18, 2023 Subjective 38-year-old female presents with symptoms of COVID and RSV for which she is positive for both. She reports a persistent scratchy throat but Chloraseptic is helping this. She does report coughing and has been given Robitussin AC. We discussed that she should avoid NSAIDs given her . Tylenol is also fine for pain. She is slightly nauseous. Otherwise doing okay. Physical Exam Physical Exam: CONSTITUTIONAL: WNWD, vitals as above, generally ill appearing, NAD EYES: normal conjunctivae, no scleral icterus ENT: external ear and nose normal, oropharynx clear NECK: trachea midline RESPIRATORY: clear to auscultation bilaterally, no crackles, rales or wheezes, normal respiratory effort CARDIOVASCULAR: regular rate and rhythm, S1 and 2 heard without murmurs, gallops or rubs, no JVD, no peripheral edema CHEST: inspection of chest was normal GASTROINTESTINAL: soft, nontender, ND, no guarding MUSCULOSKELETAL: strength 5/5 throughout, head is normocephalic and atraumatic SKIN: warm and dry NEUROLOGIC: CN 2-12 grossly intact, no sensory deficit, normal cognition, normal speech, no tremor PSYCHIATRIC: alert cooperative and oriented to person, place and time. Euthymic mood, makes good eye contact, language grossly intact, recent and remote memory grossly intact. Results & Data Results & Data Vital Signs (Past 12 Hours) Vital Signs Pulse Pulse Resp BP BP Pulse Ox O2 Del Method 09/19/23 12:00 72 17 97 09/19/23 11:00 68 16 97 09/19/23 10:00 83 16 98 09/19/23 09:30 82 13 95 09/19/23 09:30 76 19 102/57 L 98 09/19/23 07:02 75 09/19/23 04:22 72 18 111/68 96 Room Air Laboratory Results Short CBC 09/18/23 09/19/23 Range/Units 16:16 04:39 WBC 6.84 4.80 (4.8-10.8) K/ul Hgb 13.7 11.6 L (12.0-16.0) g/dl Hct 40.4 34.6 L (37.0-47.0) % Plt Count 193 162 (130-400) K/uL BMP 09/18/23 09/19/23 16:16 04:39 Sodium 133 L 136 Potassium 3.9 3.4 L Chloride 102 108 H Carbon Dioxide 22 22 BUN 9 9 Creatinine 0.53 L 0.63 Glucose 88 101 H Calcium 9.4 7.9 L Liver Function 09/18/23 Range/Units 16:16 Total Bilirubin 0.3 (0.2-1.0) mg/dl AST 16 (13-39) U/L ALT 14 (7-52) U/L Alkaline Phosphatase 40 (34-104) U/L Albumin 4.4 (3.4-5.0) gm/dl Medications Administered Current Inpatient Medications Acetaminophen (Acetaminophen 500 Mg Tab) 1,000 mg PO Q8H PRN PRN Reason: pain, headache or fever Stop: 10/18/23 23:03 Last Admin: 09/19/23 09:01 Dose: 1,000 mg Albuterol (Albuterol Hfa 8 Gm Inhaler) 2 puffs INH Q6H PRN PRN Reason: Shortness Of Breath Or Wheezin Stop: 10/19/23 04:29 Guaifenesin/Codeine Phosphate (Guaifenesin/Codeine 200mg/20mg 10ml Udc) 10 ml PO Q6H PRN PRN Reason: Cough Stop: 10/19/23 09:12 Last Admin: 09/19/23 09:47 Dose: 10 ml Sodium Chloride (Nss) 1,000 mls @ 80 mls/hr IV .[id number] [facility] Stop: 10/18/23 23:03 Last Admin: 09/19/23 12:24 Dose: 80 mls/hr Montelukast Sodium (Montelukast Sodium 10 Mg Tablet) 10 mg PO DAILY [facility] Stop: 10/19/23 08:59 Last Admin: 09/19/23 08:58 Dose: 10 mg Ondansetron HCl (Ondansetron 4 Mg Od Tab) 4 mg PO TID PRN PRN Reason: Nausea And Vomiting Stop: 10/18/23 23:55 Last Admin: 09/19/23 02:12 Dose: 4 mg Phenol (Chloraseptic (Phenol) 1.4% Soln 180 Ml Btl) 2 sprays MT Q4H PRN PRN Reason: Sore Throat Stop: 10/19/23 09:11 Last Admin: 09/19/23 15:54 Dose: 2 sprays Sodium Chloride (Sodium Chloride 0.65% Na Soln 45 Ml ([place])) 2 sprays DEBBIE Q4H PRN PRN Reason: nasal congestion or irritation Stop: 10/19/23 09:11 Last Admin: 09/19/23 09:47 Dose: 2 sprays Trazodone HCl (Trazodone Hcl 50 Mg Tab) 75 mg PO HS [facility] Stop: 10/19/23 20:59 (2) Chest pain Chest pain type: unspecified Qualified Code(s): R07.9 - Chest pain, unspecified (5) Weeks of gestation: 12 weeks Qualified Code(s): Z3A.12 - 12 weeks gestation of
[2023-09-19] MEDS: traZODone HCL 50 MG TAB PO SCH (22:23)
[2023-09-20] MEDS: SODIUM CHLORIDE 0.9% 1,000 ML IV SCH ×2 (02:00→13:29)
[2023-09-20] MEDS: ACETAMINOPHEN 500 MG TAB PO PRN ×2 (06:05→17:03)
[2023-09-20 06:23] LABS: Hematocrit (blood only) 35.1 % (37.0-47.0); Hemoglobin 11.7 g/dl (12.0-16.0); Mean Corpuscular Hemoglobin 29.5 pg (25.0-34.0); Mean Corpuscular Hgb Conc 33.3 g/dL (32.0-36.0); Mean Corpuscular Volume 88.4 fL (80.0-100.0); Platelet Count 154 K/uL (130-400); RDW Standard Deviation 42.4 fL (36.4-46.3); Red Blood Count 3.97 M/uL (4.20-5.40); White Blood Count 3.75 K/ul (4.8-10.8)
[2023-09-20 06:36] LABS: BUN Creatinine Ratio 8.8 (10-20); Creatinine Clr Calc Pharmacy 117.8 ml/min; Est GFR (African American) 138.2 ml/min; Est GFR (Non-African American) 119.3 ml/min; Magnesium 1.6 mg/dl (1.7-2.4); Potassium 3.2 mmol/L (3.5-5.1)
[2023-09-20] MEDS: MONTELUKAST SODIUM 10 MG TABLET PO SCH (08:53)
[2023-09-20] MEDS ORDERED: POTASSIUM CHLORIDE CRTAB 20 MEQ TABCR PO STA (09:04)
--- NOTE | 2023-09-20 09:08 | Hospitalist Progress Note ---
Date of Service September 20, 2023 Assessment & Plan (1) Elevated troponin I level: (2) Chest pain: (3) RSV (respiratory syncytial virus infection): (4) COVID-19 virus infection: (5) : Plan Pt is a 38 yoF with PMhx significant for seasonal allergies, insomnia, and recu rrent chest pain admitted with chest pain, currently 11 -12 weeks . Chest pain Pt states that she has been having chest pressure that started the day before arrival. Sharp and radiates to the back--likey related to her coughing, now chest pain resolved Positive for both Covid and RSV Has had extensive workup recently with cardiac cath and recent stress test, without significant findings Repeat echo obtained CTA chest with no PE or pna States that her isosorbide was discontinued due to the Per cardiology she is likely having an exacerbation of chronic issues 2/2 viral illness. Recommend avoiding nitroglycerin unless symptoms progress. RSV infection Covid infection Noted on biofire Not requiring oxygen supplementation Chest CTA with no PE or pneumonia IV fluids, antiemetics, antipyretics as needed. Chloroseptic throat spray, Nasal saline spray, Robitussin AC, avoid NSAIDs. R hepatic lobe lesion Noted on CTA chest Radiology advising nonemergent MRI for vascular lesion Gravid uterus feeling well overall CODE STATUS: Full code DVT prophylaxis: Ambulation as tolerated Diet: Dispo: Med/Surg with tele Admission and Anticipated Discharge Date Admission Date: September 19, 2023 Subjective 38 yo F presents with URI symptoms, + COVID and RSV. Presented w/ chest pain and troponin elev., seen by cardiology She reports a persistent scratchy throat but Chloraseptic is helping this. She does report coughing and has been given Robitussin AC. Discussed that she should avoid NSAIDs given her . Tylenol is also fine for pain. Today cont. to have cough, and headache, reports tylenol has not helped. Discussed w/ Dr. Hernandez (ob) safe options for BARBOSA in - started oxycodone. Today denies any more chest pain. Review of Systems Review of Systems: All systems reviewed & are unremarkable except as noted in Subjective Physical Exam Physical Exam: CONSTITUTIONAL: WNWD, young F in NAD EYES: normal conjunctivae, no scleral icterus ENT: external ear and nose normal, oropharynx clear NECK: supple RESPIRATORY: clear to auscultation bilaterally, no crackles, rales or wheezes, normal respiratory effort , + cough CARDIOVASCULAR: regular rate and rhythm, S1 and 2 heard without murmurs CHEST: inspection of chest normal GASTROINTESTINAL: soft, nontender, ND, no guarding MUSCULOSKELETAL: strength 5/5 throughout, head is normocephalic and atraumatic SKIN: warm and dry NEURO/PSYCH: awake, alert, oriented, answers appropriately, speech fluent, no facial asymmetry, moves extremities Results & Data Results & Data Vital Signs (Past 12 Hours) Vital Signs Temp Pulse Pulse Resp BP Pulse Ox O2 Del Method 09/20/23 09:03 77 09/20/23 00:31 82 09/19/23 22:43 37.6 C H 76 16 128/85 98 Room Air 09/19/23 22:00 Room Air Laboratory Results 09/20/23 Range/Units 05:47 WBC 3.75 L (4.8-10.8) K/ul RBC 3.97 L (4.20-5.40) M/uL Hgb 11.7 L (12.0-16.0) g/dl Hct 35.1 L (37.0-47.0) % MCV 88.4 (80.0-100.0) fL MCH 29.5 (25.0-34.0) pg MCHC 33.3 (32.0-36.0) g/dL RDW Std Deviation 42.4 (36.4-46.3) fL RDW Coeff of Jerm[place] 13.0 (11.5-14.5) % Plt Count 154 (130-400) K/uL MPV 10.0 (9.4-12.4) fL Sodium 136 (136-145) mmol/L Potassium 3.2 L (3.5-5.1) mmol/L Chloride 107 (98-107) mmol/L Carbon Dioxide 21 (21-32) mmol/L Anion Gap 8 (3-11) BUN 5 L (6-23) mg/dl Creatinine 0.57 L (0.6-1.2) mg/dl Est Cr Clr Drug Dosing 117.8 ml/min Est GFR ( Amer) 138.2 ml/min Est GFR (Non-Af Amer) 119.3 ml/min BUN/Creatinine Ratio 8.8 L (10-20) Glucose 95 (70-99(Fasting)) mg/dl Calcium 8.0 L (8.6-10.3) mg/dl Magnesium 1.6 L (1.7-2.4) mg/dl Medications Administered Current Inpatient Medications Acetaminophen (Acetaminophen 500 Mg Tab) 1,000 mg PO Q8H PRN PRN Reason: pain, headache or fever Stop: 10/18/23 23:03 Last Admin: 09/20/23 06:05 Dose: 1,000 mg Albuterol (Albuterol Hfa 8 Gm Inhaler) 2 puffs INH Q6H PRN PRN Reason: Shortness Of Breath Or Wheezin Stop: 10/19/23 04:29 Guaifenesin/Codeine Phosphate (Guaifenesin/Codeine 200mg/20mg 10ml Udc) 10 ml PO Q6H PRN PRN Reason: Cough Stop: 10/19/23 09:12 Last Admin: 09/20/23 06:08 Dose: 10 ml Sodium Chloride (Nss) 1,000 mls @ 80 mls/hr IV .[id number] [facility] Stop: 10/18/23 23:03 Last Admin: 09/20/23 02:00 Dose: 80 mls/hr Magnesium Oxide (Magnesium Oxide 400 Mg Tab) 400 mg PO BID [facility] Stop: 10/20/23 09:14 Montelukast Sodium (Montelukast Sodium 10 Mg Tablet) 10 mg PO DAILY [facility] Stop: 10/19/23 08:59 Last Admin: 09/20/23 08:53 Dose: 10 mg Ondansetron HCl (Ondansetron 4 Mg Od Tab) 4 mg PO TID PRN PRN Reason: Nausea And Vomiting Stop: 10/18/23 23:55 Last Admin: 09/19/23 02:12 Dose: 4 mg Phenol (Chloraseptic (Phenol) 1.4% Soln 180 Ml Btl) 2 sprays MT Q4H PRN PRN Reason: Sore Throat Stop: 10/19/23 09:11 Last Admin: 09/19/23 15:54 Dose: 2 sprays Sodium Chloride (Sodium Chloride 0.65% Na Soln 45 Ml ([place])) 2 sprays DEBBIE Q4H PRN PRN Reason: nasal congestion or irritation Stop: 10/19/23 09:11 Last Admin: 09/19/23 09:47 Dose: 2 sprays Trazodone HCl (Trazodone Hcl 50 Mg Tab) 75 mg PO HS NGOC Stop: 10/19/23 20:59 Last Admin: 09/19/23 22:23 Dose: 75 mg (2) Chest pain Chest pain type: unspecified Qualified Code(s): R07.9 - Chest pain, unspecified (5) Weeks of gestation: 12 weeks Qualified Code(s): Z3A.12 - 12 weeks gestation of
[2023-09-20] MEDS: MAGNESIUM OXIDE 400 MG TAB PO SCH ×2 (10:11→20:33)
[2023-09-20] MEDS: PRENATAL VITAMIN 1 TAB PO SCH (14:29)
[2023-09-20] MEDS: oxyCODONE HCL IR 5 MG TAB (IMMEDIATE RELEASE) PO PRN ×2 (14:29→20:31)
--- NOTE | 2023-09-20 16:53 | Cardiology Progress Note ---
Date of Service September 20, 2023 Assessment & Plan (1) Chest pain: (2) Elevated troponin I level: (3) : (4) COVID-19 virus infection: (5) RSV (respiratory syncytial virus infection): Plan Assessment: 38 year-old female with acute admission for 1. Chest pain with troponin elevation 2. , 12 weeks 3. Covid 19 virus infection 4. RSV Plan: 1. Chest pain 2. Elevated Tropnonin I -Patient with persistent chest pressure and associated palpitations, ongoing and appear exacerbated by her acute URI course. -Troponin elevation with most recent 35.7pg/ml. Known chronic troponin elevation. - Continue to trend to peak. -EKG demonstrates NSR with no acute St-T wave changes and no ectopy, continue to monitor on telemetry during course of hospitalization. -Recent negative exercise stress and cardiac catheterization for acute ischemic concern. Known coronary vasospasm with recent discontinuation of her Imdur. -While use of SL NTG and/or NTG paste is not contraindicated in the setting of , but would not initiate unless symptoms progress -Obtain echocardiogram to assess LVEF and for any wall motion abnormality in the setting of troponin elevation and symptom presentation. 3. : -Approx 12 weeks gestation -Continued management per primary team and OB as appropriate. 4. Covid 19 5. RSV -PCR detection positive for both infectious processes. -Continued management with supportive care as appropriate per primary team. -Ensure Fever reduction if indicated and adequate hydration which will offset elevated heart rates in the setting of acute infection. 09/20/2023 Stable from cardiac standpoint. Mild residual troponin elevation but not rising Current issues are acute RSV and COVID infection, febrile respiratory illness Admission and Anticipated Discharge Date Admission Date: September 19, 2023 Subjective Patient was seen and care discussed personally with patient. Physical examination not performed Results & Data Vital Signs (Past 12 Hours) Vital Signs Pulse O2 Del Method 09/20/23 09:29 Room Air 09/20/23 09:03 77 Laboratory Results Laboratory Results - last 24 hr 09/20/23 09/20/23 05:47 11:34 WBC 3.75 L RBC 3.97 L Hgb 11.7 L Hct 35.1 L MCV 88.4 MCH 29.5 MCHC 33.3 RDW Std Deviation 42.4 RDW Coeff of Jermain 13.0 Plt Count 154 MPV 10.0 Sodium 136 Potassium 3.2 L Chloride 107 Carbon Dioxide 21 Anion Gap 8 BUN 5 L Creatinine 0.57 L Est Cr Clr Drug Dosing 117.8 Est GFR ( Amer) 138.2 Est GFR (Non-Af Amer) 119.3 BUN/Creatinine Ratio 8.8 L Glucose 95 Calcium 8.0 L Magnesium 1.6 L Troponin I High Sens 22.2 H D (1) Chest pain Chest pain type: unspecified Qualified Code(s): R07.9 - Chest pain, unspecified (3) Weeks of gestation: 12 weeks Qualified Code(s): Z3A.12 - 12 weeks gestation of
[2023-09-20] MEDS: traZODone HCL 50 MG TAB PO SCH (20:33)
[2023-09-20] MEDS: ONDANSETRON 4 MG OD TAB PO PRN (20:33)
[2023-09-21] MEDS: SODIUM CHLORIDE 0.9% 1,000 ML IV SCH ×2 (03:49→13:39)
[2023-09-21] MEDS: oxyCODONE HCL IR 5 MG TAB (IMMEDIATE RELEASE) PO PRN ×3 (04:12→17:18)
[2023-09-21 06:36] LABS: Hematocrit (blood only) 35.8 % (37.0-47.0); Mean Corpuscular Hemoglobin 29.6 pg (25.0-34.0); Mean Corpuscular Hgb Conc 33.5 g/dL (32.0-36.0); Mean Corpuscular Volume 88.2 fL (80.0-100.0); Mean Platelet Volume 9.8 fL (9.4-12.4); Platelet Count 163 K/uL (130-400); RDW Standard Deviation 41.9 fL (36.4-46.3); Red Blood Count 4.06 M/uL (4.20-5.40)
[2023-09-21 06:57] LABS: Creatinine Clr Calc Pharmacy 149.2 ml/min; Est GFR (African American) 149.4 ml/min; Est GFR (Non-African American) 128.9 ml/min; Magnesium 1.7 mg/dl (1.7-2.4); Phosphorus 3.8 mg/dl (2.5-4.9); Potassium 3.6 mmol/L (3.5-5.1)
--- NOTE | 2023-09-21 08:53 | Hospitalist Progress Note ---
Date of Service September 21, 2023 Assessment & Plan (1) Elevated troponin I level: (2) Chest pain: (3) RSV (respiratory syncytial virus infection): (4) COVID-19 virus infection: (5) : Plan Pt is a 38 yoF with PMhx significant for seasonal allergies, insomnia, and recu rrent chest pain admitted with chest pain, currently 11 -12 weeks . Chest pain Pt states that she has been having chest pressure that started the day before arrival. Sharp and radiates to the back--likey related to her coughing, now chest pain resolved Positive for both Covid and RSV Has had extensive workup recently with cardiac cath and recent stress test, without significant findings Repeat echo obtained CTA chest with no PE or pna States that her isosorbide was discontinued due to the Per cardiology she is likely having an exacerbation of chronic issues 2/2 viral illness. Recommend avoiding nitroglycerin unless symptoms progress. RSV infection Covid infection Noted on biofire Not requiring oxygen supplementation Chest CTA with no PE or pneumonia IV fluids, antiemetics, antipyretics as needed. Chloroseptic throat spray, Nasal saline spray, Robitussin AC, avoid NSAIDs. 09/21 Pt reported some hemoptysis - consulted w/ pulm. medicine - believe she is doing better and no need for antibiotics at this time, repeat cxr cancelled after discussing w/ pulm. R hepatic lobe lesion Noted on CTA chest Radiology advising nonemergent MRI for vascular lesion Gravid uterus feeling well overall CODE STATUS: Full code DVT prophylaxis: Ambulation as tolerated Diet: Dispo: Med/Surg with tele Admission and Anticipated Discharge Date Admission Date: September 19, 2023 Subjective 38 yo F presents with URI symptoms, + COVID and RSV. Presented w/ chest pain and troponin elev., seen by cardiology +coughing, congestion, today reports some hemoptysis as well. headache improved compared to yesterday. nausea and vomiting earlier this AM Discussed w/ cardiology - concern for VT overnight - this was documented in error Given her hemoptysis, planned to repeat cxr, ordered procal and planned to start abx (discussed abx options w/ pharmacy and Dr. 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 Consulted pulm. medicine - believe she is doing better and no need for abx, cxr cancelled after discussing w/ pulm. Review of Systems Review of Systems: All systems reviewed & are unremarkable except as noted in Subjective Physical Exam Physical Exam: CONSTITUTIONAL: WNWD, young F in NAD EYES: normal conjunctivae, no scleral icterus ENT: external ear and nose normal, oropharynx clear NECK: supple RESPIRATORY: clear to auscultation bilaterally, no crackles, rales or wheezes, normal respiratory effort , + cough CARDIOVASCULAR: regular rate and rhythm, S1 and 2 heard without murmurs CHEST: inspection of chest normal GASTROINTESTINAL: soft, nontender, ND, no guarding MUSCULOSKELETAL: strength 5/5 throughout, head is normocephalic and atraumatic SKIN: warm and dry NEURO/PSYCH: awake, alert, oriented, answers appropriately, speech fluent, no facial asymmetry, moves extremities Results & Data Results & Data Vital Signs (Past 12 Hours) Vital Signs Temp Pulse Pulse Resp BP Pulse Ox O2 Del Method 09/21/23 08:03 36.7 C 67 18 108/65 98 Room Air 09/21/23 04:25 37.5 C 79 18 118/68 95 Room Air 09/20/23 22:00 64 Laboratory Results 09/21/23 09/20/23 Range/Units 06:05 11:34 WBC 4.10 L (4.8-10.8) K/ul RBC 4.06 L (4.20-5.40) M/uL Hgb 12.0 (12.0-16.0) g/dl Hct 35.8 L (37.0-47.0) % MCV 88.2 (80.0-100.0) fL MCH 29.6 (25.0-34.0) pg MCHC 33.5 (32.0-36.0) g/dL RDW Std Deviation 41.9 (36.4-46.3) fL RDW Coeff of Jermain 13.0 (11.5-14.5) % Plt Count 163 (130-400) K/uL MPV 9.8 (9.4-12.4) fL Sodium 134 L (136-145) mmol/L Potassium 3.6 (3.5-5.1) mmol/L Chloride 107 (98-107) mmol/L Carbon Dioxide 21 (21-32) mmol/L Anion Gap 6 (3-11) BUN 9 (6-23) mg/dl Creatinine 0.45 L (0.6-1.2) mg/dl Est Cr Clr Drug Dosing 149.2 ml/min Est GFR ( Amer) 149.4 ml/min Est GFR (Non-Af Amer) 128.9 ml/min BUN/Creatinine Ratio 20.0 (10-20) Glucose 82 (70-99(Fasting)) mg/dl Calcium 8.0 L (8.6-10.3) mg/dl Phosphorus 3.8 (2.5-4.9) mg/dl Magnesium 1.7 (1.7-2.4) mg/dl Troponin I High Sens 22.2 H D (0-14) pg/ml Medications Administered Current Inpatient Medications Acetaminophen (Acetaminophen 500 Mg Tab) 1,000 mg PO Q8H PRN PRN Reason: pain, headache or fever Stop: 10/18/23 23:03 Last Admin: 09/20/23 17:03 Dose: 1,000 mg Albuterol (Albuterol Hfa 8 Gm Inhaler) 2 puffs INH Q6H PRN PRN Reason: Shortness Of Breath Or Wheezin Stop: 10/19/23 04:29 Guaifenesin/Codeine Phosphate (Guaifenesin/Codeine 200mg/20mg 10ml Udc) 10 ml PO Q6H PRN PRN Reason: Cough Stop: 10/19/23 09:12 Last Admin: 09/21/23 08:35 Dose: 10 ml Sodium Chloride (Nss) 1,000 mls @ 80 mls/hr IV .[id number] [facility] Stop: 10/18/23 23:03 Last Admin: 09/21/23 03:49 Dose: 80 mls/hr Magnesium Oxide (Magnesium Oxide 400 Mg Tab) 400 mg PO BID [facility] Stop: 10/20/23 09:29 Last Admin: 09/20/23 20:33 Dose: 400 mg Montelukast Sodium (Montelukast Sodium 10 Mg Tablet) 10 mg PO DAILY [facility] Stop: 10/19/23 08:59 Last Admin: 09/20/23 08:53 Dose: 10 mg Ondansetron HCl (Ondansetron 4 Mg Od Tab) 4 mg PO TID PRN PRN Reason: Nausea And Vomiting Stop: 10/18/23 23:55 Last Admin: 09/20/23 20:33 Dose: 4 mg Oxycodone HCl (Oxycodone Hcl Ir 5 Mg Tab (Immediate Release)) 5 mg PO Q4H PRN PRN Reason: Pain Stop: 10/04/23 13:54 Last Admin: 09/21/23 08:34 Dose: 5 mg Phenol (Chloraseptic (Phenol) 1.4% Soln 180 Ml Btl) 2 sprays MT Q4H PRN PRN Reason: Sore Throat Stop: 10/19/23 09:11 Last Admin: 09/19/23 15:54 Dose: 2 sprays Prenat Multivit/Head Of Insight/Iron/Folic Ac ( Vitamin 1 Tab) 1 tab PO QAM NGOC Stop: 10/20/23 13:14 Last Admin: 09/20/23 14:29 Dose: 1 tab Sodium Chloride (Sodium Chloride 0.65% Na Soln 45 Ml (Sandoval)) 2 sprays DEBBIE Q4H PRN PRN Reason: nasal congestion or irritation Stop: 10/19/23 09:11 Last Admin: 09/19/23 09:47 Dose: 2 sprays Trazodone HCl (Trazodone Hcl 50 Mg Tab) 75 mg PO [facility] Stop: 10/19/23 20:59 Last Admin: 09/20/23 20:33 Dose: 75 mg (2) Chest pain Chest pain type: unspecified Qualified Code(s): R07.9 - Chest pain, unspecified (5) Weeks of gestation: 12 weeks Qualified Code(s): Z3A.12 - 12 weeks gestation of
[2023-09-21] MEDS: MONTELUKAST SODIUM 10 MG TABLET PO SCH (09:47)
[2023-09-21] MEDS: PRENATAL VITAMIN 1 TAB PO SCH (09:47)
[2023-09-21] MEDS: MAGNESIUM OXIDE 400 MG TAB PO SCH ×2 (09:47→21:01)
[2023-09-21] MEDS: ONDANSETRON 4 MG OD TAB PO PRN ×2 (09:49→21:03)
[2023-09-21] MEDS ORDERED: COUGH DROP (SUGAR FREE) LOZ 24 LOZ/1 BOX BUCCAL PRN (12:41)
--- NOTE | 2023-09-21 14:23 | Cardiology Progress Note ---
Date of Service September 21, 2023 Assessment & Plan (1) Chest pain: (2) Elevated troponin I level: (3) : (4) COVID-19 virus infection: (5) RSV (respiratory syncytial virus infection): Plan Assessment: 38 year-old female with acute admission for 1. Chest pain with troponin elevation 2. , 12 weeks 3. Covid 19 virus infection 4. RSV Plan: 1. Chest pain 2. Elevated Tropnonin I -EKG demonstrates NSR with no acute St-T wave changes and no ectopy, continue to monitor on telemetry during course of hospitalization. -Recent negative exercise stress and cardiac catheterization for acute ischemic concern. Known coronary vasospasm with recent discontinuation of her Imdur. -While use of SL NTG and/or NTG paste is not contraindicated in the setting of , but would not initiate unless symptoms develop 3. : -Approx 12 weeks gestation -Continued management per primary team and OB as appropriate. 4. Covid 19 5. RSV -PCR detection positive for both infectious processes. -Continued management with supportive care as appropriate per primary team. -Ensure Fever reduction if indicated and adequate hydration which will offset elevated heart rates in the setting of acute infection. 09/21/2023 Assessment as above Patient still remains ill possibly worsening from a URI symptomatic status cough, nausea and emesis Still receiving IV fluid Brief run of nonsustained VT as noted If recurs would add low-dose beta-juan carlos to her regimen metoprolol tartrate. Labetalol also possible option. Discussed risk benefits no indications for giving at this time unless arrhythmias progress. Medications are associated with lower weights We will add potassium supplement 10 mg once daily Admission and Anticipated Discharge Date Admission Date: September 19, 2023 Subjective Patient was seen and personally examined Continues to feel ill coughing nausea, emesis No dizziness or lightheadedness no chest pain Telemetry sinus and sinus tachycardia with one 8 beat run of nonsustained ventricular tachycardia Review of Systems Review of Systems: All systems reviewed & are unremarkable except as noted in Subjective Physical Exam Constitutional: well developed, well nourished and + ill appearing Eyes: PERRL, conjunctivae normal, anicteric sclerae Neck: normal visual inspection and trachea midline Respiratory: + cough Auscultation: + rhonchi (Righ t chest) and + wheezes Cardiovascular: RRR, no murmur, no edema Gastrointestinal (Abdomen): normal bowel sounds, soft, nontender, no hepatosplenomegaly Skin: no rashes, warm and dry Psychiatric: A+Ox3, euthymic affect Results & Data Vital Signs (Past 12 Hours) Vital Signs Temp Pulse Pulse Resp BP Pulse Ox O2 Del Method 09/21/23 11:53 36.7 C 63 18 115/65 96 Room Air 09/21/23 08:03 36.7 C 67 18 108/65 98 Room Air 09/21/23 08:00 66 09/21/23 08:00 Room Air 09/21/23 04:25 37.5 C 79 18 118/68 95 Room Air Laboratory Results Laboratory Results - last 24 hr 09/21/23 06:05 WBC 4.10 L RBC 4.06 L Hgb 12.0 Hct 35.8 L MCV 88.2 MCH 29.6 MCHC 33.5 RDW Std Deviation 41.9 RDW Coeff of Jermain 13.0 Plt Count 163 MPV 9.8 Sodium 134 L Potassium 3.6 Chloride 107 Carbon Dioxide 21 Anion Gap 6 BUN 9 Creatinine 0.45 L Est Cr Clr Drug Dosing 149.2 Est GFR ( Amer) 149.4 Est GFR (Non-Af Amer) 128.9 BUN/Creatinine Ratio 20.0 Glucose 82 Calcium 8.0 L Phosphorus 3.8 Magnesium 1.7 (1) Chest pain Chest pain type: unspecified Qualified Code(s): R07.9 - Chest pain, unspecified (3) Weeks of gestation: 12 weeks Qualified Code(s): Z3A.12 - 12 weeks gestation of
[2023-09-21] MEDS ORDERED: MAGNESIUM SULFATE / D5W 1 GM/100 ML BAG IV ONE (15:27)
[2023-09-21] MEDS ORDERED: cefTRIAXone SODIUM 1,000 MG in DEXTROSE 5 % MINI-B 50 ML IV SCH (16:00)
--- NOTE | 2023-09-21 16:56 | Pulmonary Consultation ---
Date of Consultation September 21, 2023 Assessment & Plan (1) Acute viral bronchitis: The patient tested positive for RSV and COVID-19. She is currently on room air. She has a cough which appears to be improving this afternoon. She did have some scant hemoptysis earlier this afternoon likely related to mild mucosal injury of the airways from repetitive coughing. I reviewed her imaging, vital signs and labs. I do not think that she has a superimposed bacterial pneumonia. I would not start antibiotics at this time unless she spikes a fever. Her procalcitonin is less than 0.05 indicating that bacterial pneumonia is highly unlikely. Recommend continued supportive care with bronchodilators as needed. The patient is stable for discharge home at this time. Case discussed with the hospitalist service and bedside nurse. Thank you for the consultation. Please call with questions. History of Present Illness Reason for Consultation: Viral bronchitis Attending Physician: De Fernandes MD History of Present Illness 38-year-old female wh is currently 11 weeks presenting to the ER with headache, sore throat and significant cough. She was found to be RSV and COVID- 19 positive on admission. She had a chest CTA completed 09/18/2023 which did not reveal any acute or chronic pulmonary findings. She did have a hypervascular lesion in posterior right hepatic lobe measuring 2.4 cm. Pulmonary was consulted due to cough and scant hemoptysis that was noted this morning. Patient notes that overall her symptoms seem to be improving this afternoon compared to this morning. She has not had any hemoptysis in several hours. She notes that she had some blood-streaked sputum earlier in the day. When she woke up she was quite congested and had some increased sputum. Lately her cough has been mostly dry this afternoon. She also has been experiencing some chest pain which was thought to be possible coronary artery vasospasm and musculoskeletal related to her coughing. Patient also notes that she had some mild nausea and a bout of emesis this morning which is since resolved. She is currently saturating in the high 90s on room air. She appears comfortable denies any shortness of breath at present. She notes a history of allergies and mild intermittent asthma for which she uses an occasional albuterol inhaler for. Allergies Allergy/AdvReac Type Severity Reaction Status Date / Time amoxicillin Allergy Intermediate Hives Verified 09/18/23 20:26 pollen extracts Allergy Intermediate ITCHY Verified 09/18/23 20:26 EYES, SNEEZING, CONGESTION Home Medications Medication Instructions Recorded Confirmed Type montelukast 10 mg tablet 10 mg PO DAILY 06/13/23 09/18/23 History (Singulair) trazodone 50 mg tablet 75 mg PO HS 06/13/23 09/18/23 History nitroglycerin 0.4 mg sublingual 0.4 mg sublingual Q5M PRN chest 06/16/23 09/18/23 Rx tablet (Nitrostat) pain #30 tabs ondansetron HCl 4 mg tablet 4 mg PO TID PRN NAUSEA/VOMITING 09/18/23 09/18/23 History Patient History Medical History (Updated 09/21/23 @ 16:52 by Grzegorz Cordero MD) Acute viral bronchitis Insomnia Seasonal allergies Spontaneous vaginal delivery [facility] 08/07/2007 [facility] 04[facility]2010 [facility] 08/23/2015 [facility] 11/08/21 Encounter for pre-operative examination Herniated disc, cervical Surgical History H/O abdominoplasty 2010 History of breast augmentation 2010 [place] teeth extracted 2020 History of appendectomy 2009 Social History Smoking Status: Never smoker Tobacco Type: Cigarettes Second Hand Exposure: No; Hx Alcohol Use: No Hx Substance Use: No Preferred Language: Bengali Communication Ability: Effective It Support Consultant Required: No Beliefs That Will Affect Care: None marital status: marital status details: Alber Hughes Current Living Situation: Spouse Current Living Situation Comment: , her 4 children , Alber's 3 children current occupational status: unemployed Feels Safe at Home: Yes Safety Concerns: Feels Safe At This Time Assistive Devices: None Review of Systems Review of Systems: All systems reviewed & are unremarkable except as noted in HPI & below Physical Exam Physical Exam: Constitutional: Patient appears to be of their stated age. Patient is in no apparent distress. Patient is well-developed. Eyes: Pupils are equal round and reactive to light. Conjunctivae are normal. Anicteric sclera. Ears nose, mouth and throat: Deferred Neck: Trachea is midline. Visual inspection is normal. Respiratory: Clear to auscultation bilaterally. No use of accessory muscles. No significant clubbing noted. Cardiovascular: Regular rate and rhythm. No murmurs. No edema. Gastrointestinal: Normal bowel sounds, soft, nontender and nondistended. No hepatosplenomegaly noted. Musculoskeletal: No cyanosis. Patient is able to move all extremities. Strength is 5 out of 5 in the upper and lower extremities. Skin: No rashes, warm dry and intact. Neurologic: No obvious focal neurological deficits seen. Psychiatric: Alert and oriented x3 with a euthymic affect. Results & Data Results & Data Vital Signs (Past 12 Hours) Vital Signs Temp Pulse Pulse Resp BP Pulse Ox O2 Del Method 09/21/23 15:00 37.2 C 69 18 114/74 97 Room Air 09/21/23 11:53 36.7 C 63 18 115/65 96 Room Air 09/21/23 08:03 36.7 C 67 18 108/65 98 Room Air 09/21/23 08:00 66 09/21/23 08:00 Room Air 09/21/23 04:25 37.5 C 79 18 118/68 95 Room Air PG Care Time/CCT Total # of Minutes Spent Total Time Spent with Patient: Total time spent is greater than 50% in coordination of care (as documented) at patient's floor/unit and/or counseling patient: Coding Level of Care Code 64961 IN/OBS CONSULT LVL 3,45M Diagnoses Acute viral bronchitis J20.8
--- NOTE | 2023-09-21 17:21 | Communication Note ---
Date of Service: September 21, 2023 Please note as an addendum and correction to medical record Telemetry records reviewed Previously reported ventricular tachycardia NOT present (crossover from alternate patient) Continue therapies as ordered
[2023-09-21] MEDS: POTASSIUM CHLORIDE 10 MEQ TABCR PO SCH (17:27)
[2023-09-21] MEDS: traZODone HCL 50 MG TAB PO SCH (21:01)
[2023-09-22 06:21] LABS: Hematocrit (blood only) 36.2 % (37.0-47.0); Hemoglobin 12.4 g/dl (12.0-16.0); Mean Corpuscular Hgb Conc 34.3 g/dL (32.0-36.0); Mean Corpuscular Volume 87.7 fL (80.0-100.0); Mean Platelet Volume 9.7 fL (9.4-12.4); Platelet Count 176 K/uL (130-400); RDW Coefficient of Variation 12.8 % (11.5-14.5); RDW Standard Deviation 40.7 fL (36.4-46.3); Red Blood Count 4.13 M/uL (4.20-5.40); White Blood Count 4.21 K/ul (4.8-10.8)
[2023-09-22 06:51] LABS: Calcium 8.3 mg/dl (8.6-10.3); Creatinine Clr Calc Pharmacy 134.3 ml/min; Est GFR (African American) 144.3 ml/min; Est GFR (Non-African American) 124.5 ml/min; Phosphorus 3.6 mg/dl (2.5-4.9); Potassium 3.7 mmol/L (3.5-5.1)
[2023-09-22] MEDS: SODIUM CHLORIDE 0.9% 1,000 ML IV SCH ×2 (08:00→15:43)
[2023-09-22] MEDS: MAGNESIUM OXIDE 400 MG TAB PO SCH (09:00)
[2023-09-22] MEDS: POTASSIUM CHLORIDE 10 MEQ TABCR PO SCH (10:07)
[2023-09-22] MEDS: MONTELUKAST SODIUM 10 MG TABLET PO SCH (10:11)
[2023-09-22] MEDS: PRENATAL VITAMIN 1 TAB PO SCH (10:11)
--- NOTE | 2023-09-22 12:32 | Cardiology Progress Note ---
Date of Service September 22, 2023 Assessment & Plan (1) Chest pain: (2) Elevated troponin I level: (3) : (4) COVID-19 virus infection: (5) RSV (respiratory syncytial virus infection): Plan Assessment: 38 year-old female with acute admission for 1. Chest pain with troponin elevation 2. , 12 weeks 3. Covid 19 virus infection 4. RSV Plan: 1. Chest pain 2. Elevated Tropnonin I -EKG demonstrates NSR with no acute St-T wave changes and no ectopy, continue to monitor on telemetry during course of hospitalization. -Recent negative exercise stress and cardiac catheterization for acute ischemic concern. Known coronary vasospasm with recent discontinuation of her Imdur. -While use of SL NTG and/or NTG paste is not contraindicated in the setting of , but would not initiate unless symptoms develop 3. : -Approx 12 weeks gestation -Continued management per primary team and OB as appropriate. 4. Covid 19 5. RSV -PCR detection positive for both infectious processes. -Continued management with supportive care as appropriate per primary team. -Ensure Fever reduction if indicated and adequate hydration which will offset elevated heart rates in the setting of acute infection. 09/22/2023 Patient clinically improving. Records reviewed and telemetry reviewed no arrhythmias. Previously reported ventricular arrhythmia was not on this patient Appears much more comfortable today No current cardiac complaint Admission and Anticipated Discharge Date Admission Date: September 19, 2023 Subjective Patient seen and examined, chart, medications, telemetry reviewed Clinically appears much improved today less rhonchorous cough, less nausea no emesis No arrhythmias on No chest pains or dizziness Now taking p.o. Review of Systems Review of Systems: All systems reviewed & are unremarkable except as noted in Subjective Physical Exam Constitutional: well developed and well nourished Eyes: PERRL, conjunctivae normal, anicteric sclerae Neck: normal visual inspection and trachea midline Respiratory: + cough (Without rhonchi) Auscultatio n: + rhonchi (Right chest) and + wheezes Cardiovascular: RRR, no murmur, no edema Vessels: dorsalis pedis pulses present Gastrointestinal (Abdomen): normal bowel sounds, soft, nontender, no hepatosplenomegaly Skin: no rashes, warm and dry Psychiatric: A+Ox3, euthymic affect Results & Data Vital Signs (Past 12 Hours) Vital Signs Temp Pulse Pulse Resp BP Pulse Ox O2 Del Method 09/22/23 11:43 36.8 C 56 L 18 96/58 L 96 Room Air 09/22/23 08:00 58 L 09/22/23 08:00 Room Air 09/22/23 07:33 37.2 C 63 16 100/67 96 Room Air 09/22/23 03:00 37.1 C 67 14 93/59 L 94 Room Air Laboratory Results Laboratory Results - last 24 hr 09/21/23 09/22/23 15:29 05:38 WBC 4.21 L RBC 4.13 L Hgb 12.4 Hct 36.2 L MCV 87.7 MCH 30.0 MCHC 34.3 RDW Std Deviation 40.7 RDW Coeff of Jermain 12.8 Plt Count 176 MPV 9.7 Sodium 135 L Potassium 3.7 Chloride 107 Carbon Dioxide 22 Anion Gap 6 BUN 9 Creatinine 0.50 L Est Cr Clr Drug Dosing 134.3 Est GFR ( Amer) 144.3 Est GFR (Non-Af Amer) 124.5 BUN/Creatinine Ratio 18.0 Glucose 80 Calcium 8.3 L Phosphorus 3.6 Magnesium 2.0 Procalcitonin < 0.05 (1) Chest pain Chest pain type: unspecified Qualified Code(s): R07.9 - Chest pain, unspecified (3) Weeks of gestation: 12 weeks Qualified Code(s): Z3A.12 - 12 weeks gestation of
--- NOTE | 2023-09-22 13:35 | Discharge Summary ---
Date of Service September 22, 2023 Admission HPI Per Admitting Provider Pt is a 38yoF with PMhx significant for seasonal allergies, insomnia, and recurrent chest pain admitted with chest pain once more, currently 11 weeks . States that she started with URI symptoms the day before. Started having chest pressure the day of admission, describes occasional sharp shooting pain to her back. Currently 11 weeks , asking to eat. States that she was told she can take her home trazodone and singulair but to stop taking her home isosorbide. Has not been able to stay hydrated. States she feels tired. Admission Exam Per Admitting Provider General: Alert, oriented. Skin: No noted rashes or bruises Psych: Appropriate mood and affect Neuro: No gross deficits HEENT: NC/AT Chest: Nontender to palpation. CV: RRR Resp: Breath sounds with wheezing bilaterally, no increased effort of breathing. Abdomen: Soft, nontender, nondistended. Extremities: No edema in lower extremities bilaterally. Principal Diagnosis + Covid 19, + RSV Chest pain Discharge Exam CONSTITUTIONAL: WNWD, young F in NAD EYES: normal conjunctivae, no scleral icterus ENT: external ear and nose normal, oropharynx clear NECK: supple RESPIRATORY: normal respiratory effort , + cough, + minimal rhonchi, + minimal wheezes CARDIOVASCULAR: regular rate and rhythm, S1 and 2 heard without murmurs CHEST: inspection of chest normal GASTROINTESTINAL: soft, nontender, ND, no guarding MUSCULOSKELETAL: strength 5/5 throughout, head is normocephalic and atraumatic SKIN: warm and dry NEURO/PSYCH: awake, alert, oriented, answers appropriately, speech fluent, no facial asymmetry, moves extremities Discharge Data Allergies Allergy/AdvReac Type Severity Reaction Status Date / Time amoxicillin Allergy Intermediate Hives Verified 09/18/23 20:26 pollen extracts Allergy Intermediate ITCHY Verified 09/18/23 20:26 EYES, SNEEZING, CONGESTION Consultations 09/18/23 22:44 ED Decision to Admit Stat 09/18/23 23:04 Consult Cardiology Routine 09/21/23 15:35 Consult Pulmonology Routine Ordered Studies 09/18/23 20:05 CT angio chest PE protocol Stat FINDINGS: Pulmonary arteries: Unremarkable. No acute pulmonary embolism. Aorta: No acute findings. No thoracic aortic aneurysm. Lungs: Unremarkable. No mass. No consolidation. Pleural space: Unremarkable. No focal infiltrate, pleural effusion, or pneumothorax. Heart: Cardiomegaly. No significant pericardial effusion. No evidence of RV dysfunction. Bones/joints: No acute fracture. No dislocation. Soft tissues: Bilateral breast implants. Lymph nodes: Unremarkable. No enlarged lymph nodes. Liver: Hypervascular lesion in the posterior RIGHT hepatic lobe measures approximately 2.4 x 1.9 cm. Recommend nonemergent hepatic MRI. IMPRESSION: 1. No acute pulmonary embolism. 2. No focal infiltrate, pleural effusion, or pneumothorax. 3. Hypervascular lesion in the posterior RIGHT hepatic lobe measures approximately 2.4 x 1.9 cm. Recommend nonemergent hepatic MRI. Hospital Course (1) Elevated troponin I level: (2) Chest pain: (3) RSV (respiratory syncytial virus infection): (4) COVID-19 virus infection: (5) : Plan Pt is a 38 yoF with PMhx significant for seasonal allergies, insomnia, and recurrent chest pain admitted with chest pain, currently 11 -12 weeks . Chest pain Pt states that she has been having chest pressure that started the day before arrival. Sharp and radiates to the back--likey related to her coughing, now chest pain r esolved Positive for both Covid and RSV Has had extensive workup recently with cardiac cath and recent stress test, without significant findings Repeat echo obtained CTA chest with no PE or pna States that her isosorbide was discontinued due to the Per cardiology she is likely having an exacerbation of chronic issues 2/2 viral illness. Recommend avoiding nitroglycerin unless symptoms progress. RSV infection Covid infection Noted on biofire Not requiring oxygen supplementation Chest CTA with no PE or pneumonia IV fluids, antiemetics, antipyretics as needed. Chloroseptic throat spray, Nasal saline spray, Robitussin AC, avoid NSAIDs. / Pt reported some hemoptysis - consulted w/ pulm. medicine - believe she is doing better and no need for antibiotics at this time, repeat cxr cancelled after discussing w/ pulm. 09/22 Pt feels improved overall, cough improved, inquiring about dc home R hepatic lobe lesion Noted on CTA chest Radiology advising nonemergent MRI for vascular lesion Gravid uterus feeling well overall Total Time Total Time Spent Total Time Spent (In Minutes): 40 Discharge Plan Discharge Items Patient Disposition: Home - Self-Care Reason For Visit: CHEST PAIN Discharge Diagnosis: + Covid 19, + RSV Chest pain Activity: Per Instructions section Non-emergency contact: Primary Care Provider and Field Laborer Call non-emergency contact if: you have any medication questions and your symptoms worsen Follow-up/Referrals: Nickie Tolentino DO [Primary Care Provider] - (Date & Time 09/28/2023 3:00 PM Provider Nickie Tolentino DO Department [facility] ) Diet: Heart Healthy Add Attending Provider Instructions: Follow up with your primary care physician and your MECHANICAL METER TESTER doctor. The appointment with your primary care doctor was scheduled for you for 09/28/2022. Continue taking guaifenesin as prescribed. Continue using nasal spray, humidifier, throat lozenges as needed. You can take tylenol 1000 mg three times a day, max daily dose is 3,000 mg. Addtl General Partner Provider Instructions: Coronavirus disease 2019 (COVID-19) is a virus that causes a respiratory illness. It is caused by a coronavirus called 2019 novel coronavirus (2019- nCoV). There are many types of coronavirus. Coronaviruses are a very common cause of bronchitis. They may sometimes cause lung infection(pneumonia). Symptoms can range from mild to severe respiratory illness. These viruses are also foundin some animals. COVID-19 was first found in people in [facility], in late 2019. In 2020, several cases of COVID-19 have been confirmed in the [place] Public health officials are working to find the source. How the virus spreads is not yet fully known. It may be spread through droplets of fluid that a person coughs or sneezes into the air. It may be spread if you touch a surface with virus on it, such as a handle or object, and then touch your mouth. What are the symptoms of COVID-19? Some people have no symptoms or mild symptoms. Symptoms may appear 2 to 14 days after contact with the virus. Symptoms can include: Fever Coughing Trouble breathing What are possible complications from COVID-19? In many cases, this virus can cause infection (pneumonia) in both lungs. In some cases, this can cause . How is COVID-19 diagnosed? Your healthcare provider will ask about your symptoms. He or she will also ask about your recent travel and contact with sick people. Testing for the virus is only done through the CDC. If yourhealthcare provider thinks you may have COVID- 19, he or she will work with your local health department and the CDC on testing. Follow all instructions from your healthcare provider. COVID-19 is diagnosed by: Nasal and throat swab. A cotton-tipped swab is wiped inside your nose or throat. This is done to check for viruses in your nasal mucus. Sputum culture. A small sample of mucus coughed from your lungs (sputum) is collected if you have a cough. It is checked for the virus. How is COVID-19 treated? There is currently no medicine to treat the virus. Treatment is done to help your body while it fights the virus. This is known as supportive care. Supportive care may include: Pain medicine. These include acetaminophen and ibuprofen. They are used to help ease pain and reduce fever. Bed rest. This helps your body fight the illness. For severe illness, you may need to stay in the hospital. Care during severe illness may include: IV (intravenous) fluids.These are given through a vein to help keep your body hydrated. Oxygen. Supplemental oxygen or ventilation with a breathing machine (ventilator) may be given. This is done to keep enough oxygen in your body. Are you at risk for COVID-19? If youve been to a place where people have been sick with this virus, you are at risk for infection. You are at risk if you: Recently traveled to an affected area Had contact with a sick person who recently traveled to this area Had contact with a person who was diagnosed with COVID-19 How can COVID-19 be prevented? There is no vaccine yet. The best prevention is to not have contact with the virus. The CDC advises that people should not travel to areas where there are COVID-19 outbreaks right now for any reason that is not urgent. To help prevent spreading the infection, wash your hands often, or use an alcohol-basedhand rubber tire curer. If you are in an area with COVID-19: Wash your hands often. Or use an alcohol-based hand rubber tire curer often. Only touch your eyes, nose, or mouth with clean hands. Dont have contact with people who are sick. Follow local instructions about being in public. For example, you may be told to not use public transport for a period of time. Stay away from markets that have live or animals. Wash your hands after touching any animals. Don't touch animals that may be sick. Dont share eating or drinking tools with sick people. Dont kiss someone who is sick. Clean surfaces often with disinfectant. If you were in an area with COVID-19 in the last 14 days: Call your healthcare provider. He or she can talk with local health staff to see what action may be needed. Follow all instructions from your provider. Take your temperature every morning and evening for at least 14 days. This is to check for fever. Keep a record of the readings. Keep watch for symptoms of the virus. Tell your provider right away if you have symptoms. If you were in an area with COVID-19 and have a fever or other symptoms: Dont panic. Keep in mind that other illnesses can cause similar symptoms. Stay away from work, school, and public places. Limit physical contact with family members. Don't kiss anyone or share eating or drinking utensils. Clean surfaces you touch with disinfectant. This is to help prevent the virus from spreading. Call your healthcare provider. Explain that you have been exposed to COVID-19 and have symptoms. Do this before going to any hospital. Wait for instructions. Keep in mind that healthcare staff may wear protective equipment such as masks, gowns, gloves, and eye protection. You may be put in a separate room. This is to prevent the possible virus from spreading. Tell the healthcare staff about recent travel. This includes local travel on public transport. Staff may need to find other people you have been in contact with. Follow all instructions the healthcare staff give you. If you have been diagnosed with COVID-19 Follow all instructions from your healthcare provider. Dont leave your home, except to get medical care. Call your healthcare providers office before going. They can prepare and give you instructions. This will help prevent the virus from spreading. Dont go to work, school, or public areas. Dont use public transport or taxis. Stay away from other people in your home. Have them wear face masks around you. Dont share household items or food. Wear a face mask if you can. This includes at home or in a medical facility. Cover your face with a tissue when you cough or sneeze. Throw the tissue away. Wash your hands. Wash your hands often. Caregivers should: Follow all instructions from healthcare staff. Wear a face mask and protective clothing as advised. Wash hands often. Keep track of the sick persons symptoms. Clean surfaces, fabrics, and laundry thoroughly. Keep other people away from the sick person. When to call your healthcare provider Call your healthcare provider: If youve recently traveled and have symptoms If you have been diagnosed with COVID-19 and your symptoms are worse To learn more To find out more about COVID-19, visit the CDC website at www.cdc.gov/coronavirus/2019-ncov/index.html. [employer]. [address] [place] [address]. All rights reserved. This information is not intended as a substitute for professional medical care. Always follow your healthcare professional's instructions. This information has been adapted from [employer] Home Isolation COVID-19 Instructions The following information about Home Isolation is from the CDC Website: https://www.cdc.gov/coronavirus/2019-ncov/hcp/nxtzgcix-ykkrnqw-opvica.html Stay home except to get medical care People who are mildly ill with COVID-19 are able to isolate at home during their illness. You should restrict activities outside your home, except for getting medical care. Do not go to work, school, or public areas. Avoid using public transportation, ride-sharing, or taxis. Separate yourself from other people and animals in your home People: As much as possible, you should stay in a specific room and away from other people in your home. Also, you should use a separate bathroom, if available. Animals: You should restrict contact with pets and other animals while you are sick with COVID-19, just like you would around other people. Although there have not been reports of pets or other animals becoming sick with COVID-19, it is still recommended that people sick with COVID-19 limit contact with animals until more information is known about the virus. When possible, have another member of your household care for your animals while you are sick. If you are sick with COVID-19, avoid contact with your pet, including petting, snuggling, being kissed or licked, and sharing food. If you must care for your pet or be around animals while you are sick, wash your hands before and after you interact with pets and wear a face mask. Call ahead before visiting your doctor If you have a medical appointment, call the healthcare provider and tell them that you have or may have COVID-19. This will help the healthcare providers office take steps to keep other people from getting infected or exposed. Wear a face mask You should wear a face mask when you are around other people (e.g., sharing a room or vehicle) or pets and before you enter a healthcare providers office. If you are not able to wear a face mask (for example, because it causes trouble breathing), then people who live with you should not stay in the same room with you, or they should wear a face mask if they enter your room. Cover your coughs and sneezes Cover your mouth and nose with a tissue when you cough or sneeze. Throw used tissues in a lined trash can. Immediately wash your hands with soap and water for at least 20 seconds or, if soap and water are not available, clean your hands with an alcohol-based hand rubber tire curer that contains at least 60% alcohol. Clean your hands often Wash your hands often with soap and water for at least 20 seconds, especially after blowing your nose, coughing, or sneezing; going to the bathroom; and before eating or preparing food. If soap and water are not readily available, use an alcohol-based hand rubber tire curer with at least 60% alcohol, covering all surfaces of your hands and rubbing them together until they feel dry. Soap and water are the best option if hands are visibly dirty. Avoid touching your eyes, nose, and mouth with unwashed hands. Avoid sharing personal household items You should not share dishes, drinking glasses, cups, eating utensils, towels, or bedding with other people or pets in your home. After using these items, they should be washed thoroughly with soap and water. Clean all high-touch surfaces everyday High touch surfaces include counters, tabletops, doorknobs, bathroom fixtures, toilets, phones, keyboards, tablets, and bedside tables. Also, clean any surfaces that may have blood, stool, or body fluids on them. Use a household cleaning spray or wipe, according to the label instructions. Labels contain instructions for safe and effective use of the cleaning product including precautions you should take when applying the product, such as wearing gloves and making sure you have good ventilation during use of the product. Monitor your symptoms Seek prompt medical attention if your illness is worsening (e.g., difficulty breathing).Beforeseeking care, call your healthcare provider and tell them that you have, or are being evaluated for, COVID-19. Put on a face mask before you enter the facility. These steps will help the healthcare providers office to keep other people in the office or waiting room from getting infected or exposed. Ask your healthcare provider to call the local or state health department. Persons who are placed under active monitoring or facilitated self- monitoring should follow instructions provided by their local health department or occupational health professionals, as appropriate. When working with your local health department check their available hours. If you have a medical emergency and need to call 911, notify the dispatch personnel that you have, or are being evaluated for COVID-19. If possible, put on a face mask before emergency medical services arrive. Discontinuing home isolation Patients with confirmed COVID-19 should remain under home isolation precautions until the risk of secondary transmission to others is thought to be low. The decision to discontinue home isolation precautions should be made on a [id number] basis, in consultation with healthcare providers and [facility] and [facility] health departments. Pending Studies at Discharge: No Stand-Alone Forms: [employer], Smoking Cessation Medications and DC Order Prescriptions: New guaifenesin 600 mg tablet extended release 12hr 600 mg PO BID 7 Days Qty: 14 0RF potassium chloride 10 mEq Tablet,Er Particles/Crystals 10 meq PO DAILY Qty: 14 0RF Continued ondansetron HCl 4 mg tablet 4 mg PO TID PRN (Reason: NAUSEA/VOMITING) trazodone 50 mg tablet 75 mg PO HS montelukast [Singulair] 10 mg Tablet 10 mg PO DAILY nitroglycerin [Nitrostat] 0.4 mg Tablet, Sublingual 0.4 mg sublingual Q5M PRN (Reason: chest pain) Qty: 30 0RF Discharge Orders: Discharge Order (Routine); Ordered 09/22/23 Ordered By: De Fernandes Admission Data Admit Date/Time: 09/19/23 21:03 Attending Provider: De Fernandes Admit Provider: Luciana Matias Primary Care Provider: Nickie Tolentino Other Providers: Leslie Griffiths; Perry Hernandez; Luciana Matias; Grzegorz Cordero
[2023-09-22] MEDS: oxyCODONE HCL IR 5 MG TAB (IMMEDIATE RELEASE) PO PRN (15:52)
== END 2023-09-22 16:15 | disposition home or self-care (01) | DRG 831 ==
LOC: ED 15:47 → EDINP 15:47 → SUATTDRO 22:07 → 2E 09-19 21:42 → SUATTDRO 09-19 21:43 → 2E 09-19 23:05

== ENCOUNTER 2024-03-20 01:43 | Inpatient (IN) ==
[2024-03-20] MEDS ORDERED: SODIUM CHLORIDE 0.9% 250 ML IV PRN (02:04)
--- NOTE | 2024-03-20 02:19 | History & Physical Report ---
Date of Service March 20, 2024 Assessment & Plan (1) Grand multiparity: (2) History of low transverse section: (3) Vaginal bleeding during : (4) Placental abruption: Plan: Patient is a 39-year-old G6, P4 P4-1-0-7 at 37 weeks and 5 days of gestation presenting today with active vaginal bleeding, h/o prior C section in 2022, frequent contractions, remote from delivery, suggesting placental abruption VSS, Afebrile FHR reassuring Recommended delivery via emergent Repeat Csection Understands the risks and benefits and signed an informed consent. Plan to admit, monitor, labs and to OR All team, anestesia/ peds informed History of Present Illness Chief Complaint: Vaginal bleeding Primary Care Provider: Nickie Tolentino DO Patient is a 39-year-old G6, P4 P4-1-0-7 at 37 weeks and 5 days of gestation who has been feeling contractions since 11 pm last night. They were about every 4 minutes and she went to bed, she woke up with gush of blood coming out of her vagina. She had orange sized clotsx2 and more cloths in toilet. She called ambulance and they brought up here with IV in. Contractions now very 1-3 min. Not sure she had leaking fluids either. She reports good movements. Her has been complicated by, 1. AMA, NIPT is low risk, 2. 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 history of prior , desires TOLAC/, understand risks and benefits and signed informed consent. I reviewed them again, the risks of uterine rupture, hypoxia/asphyxia, injury, even , intra-abdominal bleeding, hysterectomy, blood transfusion. 4. close interval, 5. anemia, status post IV iron infusions, Allergies Allergy/AdvReac Type Severity Reaction Status Date / Time amoxicillin Allergy Intermediate Hives Verified 09/18/23 20:26 pollen extracts Allergy Intermediate ITCHY Verified 09/18/23 20:26 EYES, SNEEZING, CONGESTION Home Medications Medication Instructions Recorded Confirmed Type montelukast 10 mg tablet 10 mg PO DAILY 06/13/23 02/11/24 History (Singulair) trazodone 50 mg tablet 75 mg PO HS 06/13/23 02/11/24 History nitroglycerin 0.4 mg sublingual 0.4 mg sublingual Q5M PRN chest 06/16/23 02/11/24 Rx tablet (Nitrostat) pain #30 tabs 500 mg PO DAILY 02/11/24 02/11/24 History omeprazole 20 mg PO DAILY 02/11/24 02/11/24 History Patient History Medical History Insomnia Seasonal allergies Spontaneous vaginal delivery [facility] 08/07/2007 [facility] 04/13/2010 [facility] 08/23/2015 [facility] 11/08/21 Encounter for pre-operative examination Herniated disc, cervical Surgical History H/O abdominoplasty 2010 History of breast augmentation 2010 [place] teeth extracted 2020 History of appendectomy 2009 Family History Grandmother (Maternal) Diabetes Brother Diabetes Social History Smoking Status: Never smoker Tobacco Type: Cigarettes Second Hand Exposure: No; Hx Alcohol Use: No Hx Substance Use: No Preferred Language: Kyrgyz Communication Ability: Effective Talent Acquisition Relationship Manager Required: No Beliefs That Will Affect Care: None marital status: marital status details: Alber Hughes Current Living Situation: Family Current Living Situation Comment: spouse, 7 children current occupational status: unemployed Feels Safe at Home: Yes Assistive Devices: None Review of Systems as per Subjective / HPI Physical Exam Constitutional: WD/WN, vitals as above well developed, well nourished and + acute distress (anxious) Gastrointestinal (Abdomen): normal bowel sounds, soft, nontender, no hepatosplenomegaly Genitourinary: normal external appearance (blood on her perineum and legs) Speculum/Bimanual Exam: + abnormal vaginal discharge (dark blood in vagina, cleaned) OB Exam Abdomen: + vertex Manual OB Exam: + cervical dilation 2 cm, + cervical effacement 20% and + station high (-3) OB Exam Monitor Tracing: + external uterine monitor used (ctxs q 1-3 min) and + category I Bed side US: vertex, placenta appears enlarged, on right side of pelvis, close to head, abruption? Results & Data Vital Signs (Past 12 Hours) Vital Signs Pulse BP 03/20/24 01:47 72 148/95 H (4) Placental abruption Trimester: third trimester Qualified Code(s): O45.93 - Premature separation of placenta, unspecified, third trimester
[2024-03-20] MEDS ORDERED: KETOROLAC 30 MG/ML VIAL ONE (02:25)
[2024-03-20] MEDS ORDERED: ONDANSETRON INJ 2 MG/ML 2 ML VIAL ONE (02:25)
[2024-03-20] MEDS ORDERED: PHENYLEPHRINE 100MCG/ML 10ML SYR IV ONE (02:25)
[2024-03-20] MEDS ORDERED: DEXAMETHASONE SOD INJ 4 MG/ML VIAL ONE (02:25)
[2024-03-20] MEDS ORDERED: ePHEDrine sulfate 50 MG/5 ML SYR ONE (02:25)
[2024-03-20] MEDS ORDERED: fentaNYL citrate PF 100 MCG/2 ML VIAL ONE (02:26)
[2024-03-20] MEDS ORDERED: MoRPHine SULFATE PF 1 MG/ML 10 ML AMP/VIAL ONE (02:26)
--- NOTE | 2024-03-20 02:30 | Anesthesiology Consultation ---
Date of Service March 20, 2024 Assessment & Plan (1) Encounter for pre-operative examination: Chart Review Chart Review: Acceptable Risk for Surgery and Patient NOT seen in Pre Admission Testing Consults Requested none History Surgery Operation Date: 03/20/24 02:10 Proposed Procedures p Section in LD - Alis Zepeda MD Height/Weight Height: 5 ft 1 in Weight: 73.028 kg Allergies Allergy/AdvReac Type Severity Reaction Status Date / Time amoxicillin Allergy Intermediate Hives Verified 09/18/23 20:26 pollen extracts Allergy Intermediate ITCHY Verified 09/18/23 20:26 EYES, SNEEZING, CONGESTION Medications Home Medications Medication Instructions Recorded Confirmed Last Taken montelukast 10 mg tablet 10 mg PO DAILY 06/13/23 02/11/24 02/10/24 21:00 (Singulair) trazodone 50 mg tablet 75 mg PO HS 06/13/23 02/11/24 02/10/24 21:00 nitroglycerin 0.4 mg sublingual 0.4 mg sublingual Q5M PRN chest 06/16/23 02/11/24 Unknown tablet (Nitrostat) pain #30 tabs 500 mg PO DAILY 02/11/24 02/11/24 Unknown omeprazole 20 mg PO DAILY 02/11/24 02/11/24 02/10/24 21:00 Past Medical History Medical History (Updated 03/20/24 @ 02:31 by Phu Andres MD) Placental abruption Vaginal bleeding during Grand multiparity Insomnia Seasonal allergies Spontaneous vaginal delivery LM 08/07/2007 LM 04/13/2010 LM 08/23/2015 [facility] [place] Encounter for pre-operative examination Herniated disc, cervical Exercise / Class Metabolic Activity II 4-5 Yardwork/Stairs/Walk up hill Past Family History Family History Grandmother (Maternal) Diabetes Brother Diabetes Past Surgical History Surgical History (Updated 03/20/24 @ 02:31 by Phu Andres MD) History of low transverse section H/O abdominoplasty 2010 History of breast augmentation 2010 Flushing teeth extracted 2020 History of appendectomy 2009 Past Anesthesia History No Hx of Anesthesia Complications and No Family Hx of Anesthesia Complications History of PONV No Hx of PONV and No Hx of Motion Sickness Social History Smoking Status: Never smoker tobacco type: cigarettes Hx Alcohol Use: No Hx Substance Use: No substance use type: does not use Physical Exam Vital Signs Last Vital Signs Temp 37.2 C 03/20/24 01:47 Pulse 72 03/20/24 01:47 Resp 18 03/20/24 01:47 BP 148/95 H 03/20/24 01:47 Testing Laboratory Results 03/20/24 02:15 03/20/24 02:15 Blood Type O Positive 03/20/24 02:15 Antibody Screen NEGATIVE 03/20/24 02:15 plt count 157 on 03/17/24
[2024-03-20 02:34] LABS: Basophils # (auto) 0.02 K/uL (0.00-0.20); Basophils % (auto) 0.3 %; Eosinophils # (auto) 0.09 K/uL (0.00-0.50); Eosinophils % (auto) 1.3 %; Hematocrit (blood only) 36.5 % (37.0-47.0); Hemoglobin 12.2 g/dl (12.0-16.0); Immature Granulocytes # (auto) 0.07 K/uL (0.01-0.20); Lymphocytes # (auto) 1.54 K/uL (1.20-3.40); Lymphocytes % (auto) 22.3 %; Mean Corpuscular Hemoglobin 29.5 pg (25.0-34.0); Mean Corpuscular Hgb Conc 33.4 g/dL (32.0-36.0); Mean Corpuscular Volume 88.2 fL (80.0-100.0); Mean Platelet Volume 10.7 fL (9.4-12.4); Monocytes # (auto) 0.42 K/uL (0.11-0.59); Monocytes % (auto) 6.1 %; Neutrophils # (auto) 4.76 K/uL (1.40-6.50); Platelet Count 146 K/uL (130-400); RDW Coefficient of Variation 16.2 % (11.5-14.5); RDW Standard Deviation 52.2 fL (36.4-46.3); Red Blood Count 4.14 M/uL (4.20-5.40)
[2024-03-20] MEDS: ceFAZolin 2000MG 2,000 MG/15 ML SYR IV STA (02:39)
[2024-03-20 02:46] LABS: Alanine Aminotransferase 28 U/L (7-52); Albumin Globulin Ratio 1.3 (0.9-2); Albumin Level 3.4 gm/dl (3.4-5.0); Alkaline Phosphatase 172 U/L (34-104); Anion Gap 8 (3-11); Aspartate Aminotransferase 28 U/L (13-39); BUN Creatinine Ratio 15.7 (10-20); Bilirubin,Total 0.3 mg/dl (0.2-1.0); Blood Urea Nitrogen 8 mg/dl (6-23); Calcium 8.8 mg/dl (8.6-10.3); Carbon Dioxide 18 mmol/L (21-32); Chloride 108 mmol/L (98-107); Est GFR (African American) 142.4 ml/min; Est GFR (Non-African American) 122.8 ml/min; Globulin 2.7 gm/dl (2.5-4.0); Glucose 97 mg/dl (70-99(Fasting)); Potassium 3.5 mmol/L (3.5-5.1); Sodium 134 mmol/L (136-145); Total Protein 6.1 gm/dl (6.0-8.3)
[2024-03-20] MEDS ORDERED: NALOXONE HCL 1 MG in SODIUM CHLORIDE 0.9% 1,000 ML IV PRN (03:18)
[2024-03-20] MEDS ORDERED: PROMETHAZINE HCL 6.25 MG in SODIUM CHLORIDE 0.9% 50 ML IV PRN (03:18)
[2024-03-20] MEDS ORDERED: LACTATED RINGER'S 500 ML IV PRN (03:18)
[2024-03-20] MEDS ORDERED: NALOXONE HCL 0.4 MG/1 ML VIAL/CARP IV PRN (03:18)
[2024-03-20] MEDS ORDERED: ONDANSETRON INJ 2 MG/ML 2 ML VIAL IV PRN ×2 (03:18→21:21)
[2024-03-20] MEDS ORDERED: NALOXONE HCL 0.08 MG in SYRINGE 1.8 ML IV PRN (03:18)
[2024-03-20] MEDS ORDERED: diphenhydrAMINE 50 MG/ML VIAL IV PRN ×2 (03:18→21:21)
[2024-03-20] MEDS ORDERED: ePHEDrine sulfate 50 MG/ML AMP IV PRN (03:18)
[2024-03-20] MEDS ORDERED: PHENYLEPHRINE HCL 25 MG/250 ML NSS IV ONE (03:20)
[2024-03-20 03:26] LABS: Rubella IgG Ab Immune (Immune); Rubella IgG Qnt 18.8 IU/mL
[2024-03-20] MEDS ORDERED: NO NARCOTICS OR SEDATIVES SCH (03:30)
[2024-03-20] MEDS ORDERED: DC INTRASPINAL MORPHINE SCH (03:30)
[2024-03-20 04:01] LABS: Amphetamines+Metham, Urine Neg (Neg); Barbiturates, Urine Neg (Neg); Benzodiazepine, Urine Neg (Neg); Cocaine, Urine Neg (Neg); Fentanyl, Urine Neg (Neg); MDMA (Ecstacy), Urine Neg (Neg); Marijuana, Urine Neg (Neg); Methadone, Urine Neg (Neg); Opiate, Urine Neg (Neg); Phencyclidine, Urine Neg (Neg)
[2024-03-20] MEDS ORDERED: BENZOCAINE 20% SPRY 85 APPLN/85 GM CAN EXT PRN (04:06)
[2024-03-20] MEDS ORDERED: HYDROCORTISONE ACETATE 25 MG SUPP PR PRN (04:06)
[2024-03-20] MEDS ORDERED: MAGNESIUM HYDROXIDE SUSP 30 ML UDC PO PRN (04:06)
[2024-03-20] MEDS ORDERED: SENNA 8.6 MG TAB PO PRN (04:06)
[2024-03-20 04:14] LABS: HepB Surface Ag with confirm Negative (Negative)
[2024-03-20] MEDS ORDERED: OXYTOCIN 20 UNITS/LR 1,002 ML IV SCH (04:15)
[2024-03-20 04:19] LABS: HepC Ab Rflx HepCQuant RNA Negative (Negative)
--- NOTE | 2024-03-20 04:19 | Operative Report ---
Post Operative Report Pre & Post Diagnosis Operation Date: 03/20/24 02:10 Pre-Op Diagnosis: (1) Grand multiparity: (2) History of low transverse section: (3) Vaginal bleeding during : (4) Placental abruption: Post-Op Diagnosis: Same as pre op I identified the patient and participated in the time-out.: Yes Procedure Operation Date: 03/20/24 02:10 Actual Procedures p Repeat Section for the of a live female child at 0312. - Alis Zepeda MD Surgeon Alis Zepeda MD [employer]p Packaging AMIRAH Choudhury Estimated Blood Loss 800 Findings Consistent with Post-Op Diagnosis Baby was a viable female , delivered in cephalic presentation at 03:12 a.m. Apgars were 8/9 and weight is 3095 g. Maternal findings, and large multiple hours uterus, thick lower segment where the prior uterine scar is, bladder flap was attached to the incision, placenta right low-lying with partial abruption Specimens placenta Drains Shah catheter drained 200 mL of clear urine Anesthesia Type Spinal Complications none Indications patient is a 39-year-old at 37 weeks and 5 days gestation with a history of prior in 2022 for triplets, presenting today with heavy vaginal bleeding, frequent uterine contractions, suggesting placental abruption, remote from delivery Description of Procedure Patient was taken to operating room where a spinal anesthesia was given without difficulty. She was placed in dorsal supine position with a leftward tilt. She was prepared and draped in usual sterile fashion. A financial skin incision was made from old scar where abdominoplasty and prior was done in the past and carried through to the underlying layer of fascia with the Bovie. Fascia was incised in the midline and incision was extended laterally with the help of Rachel scissors. Then the upper aspect of the fascial incision was grasped with 2 Stevie clamps elevated the underlying rectus muscles were dissected off sharply with Rachel scissors. Same thing was done on the lower incision. Then the muscles were in the midline, peritoneum was identified grasped with 2 pickups and entered sharply with Metzenbaum scissors. Peritoneal incision was extended superior and inferiorly with good visualization of the bladder. The bladder blade was inserted. Vesicouterine peritoneum was attached to the anterior uterine wall noted to prior scar incision was present, it was identified, grasped with pickups and entered sharply with Metzenbaum scissors, bladder flap was created digitally and bladder blade was reinserted. bladder was pushed down with sponge on a stick to prevent coming to the incision. The prior incision was noted to be about 2 cm higher than usual expected lower transverse incision would be, and uterine wall was noted to be thickened in this area. Uterus was incised in the same spot in transverse fashion, incision was extended laterally with bandage scissors, membranes were ruptured and bloody fluid was obtained. Baby's head was mobile moving up and then presenting with shoulder, head was held in the middle of the uterus and brought to the incision and then with fundal pressure it was delivered without difficulty, followed by shoulders with minimal traction. Baby was covered with blood. Mouth and nose were suctioned, cord was clamped times and cut at and then the infant was handed off to the pediatric team With Dr. Mcgarry. Then the placenta was delivered manually as intact and complete. placenta appeared to be posterior right lower close to the incision and the lower edge was already and bloody rest of the placenta appeared to be normal. Uterus was externalized and cleared of all clots and debris's. Uterine incision was repaired with 0 Vicryl in a running locked fashion, second umbricating layer was placed with the same suture in running locked fashion. Excellent hemostasis achieved. Cul-de-sac and the pelvis was irrigated with warm normal saline and suctioned. Incision was checked of anesthetic again. Uterus was returned to the abdomen, parietal peritoneum was reapproximated with 3-0 Vicryl in a running fashion and the muscles were reapproximated in the same suture in a running fashion. All of the fascia and rectus muscles were hemostatic. Rectus fascia was reapproximated with 0 Vicryl starting from both columns meeting in the midline. Subcuticular fat tissue was brought together with 2-0 Vicryl in a running fashion, skin was closed with 4-0 Monocryl in a subcuticular cuticular fashion. The mom and baby tolerated procedure well. Sponge needle instrument count was correct x3. No complications happened, I was present during whole procedure. she was given 2 g of cefazolin before surgery. She was taken to recovery room in stable condition. My merchandising assistant was needed for retraction, hemostasis and aid during delivery of infant. I attest to the content of the Intraoperative Record and any orders documented therein. Any exceptions are noted below.
--- NOTE | 2024-03-20 04:21 | Anesthesiology Progress Note ---
Date of Service March 20, 2024 Anesthesia Post Procedure Vital Signs Vital Signs: Temp Pulse Resp BP Pulse Ox 03/20/24 04:18 96 03/20/24 04:18 82 03/20/24 04:13 95 03/20/24 04:13 68 03/20/24 04:13 118/65 03/20/24 01:47 37.2 C 72 18 148/95 H Transfer of Care Handoff Completed per policy Notes Mental Status: alert / awake / arousable and participated in evaluation Patient Amnestic to Procedure: No Nausea / Vomiting: adequately controlled Pain: adequately controlled Airway Patency, RR, SpO2: stable & adequate BP & HR: stable & adequate Hydration State: stable & adequate Neuraxial Anesthesia: was administered and sensory block is resolving Anesthetic Complications: no major complications apparent and Pt Satisfied with anesthetic care
[2024-03-20] MEDS: CITRIC ACID/SODIUM CITRATE 15 ML UDC PO STA (05:07)
[2024-03-20] MEDS: DIPHTHER/TETAN/PERTUS Vaccine (Tdap, Adol/Adult) 0.5mL IM ONE (05:08)
[2024-03-20] MEDS: MEASLES, MUMPS & RUBELLA VIRUS VACCINE (MMR) 0.5ML VIAL SQ ONE (05:09)
[2024-03-20] MEDS: HYDROmorphone INJ 0.5 MG/0.5 ML SYR IV PRN (05:25)
[2024-03-20] MEDS: OXYTOCIN 30 UNITS/LR 1,003 ML IV SCH (06:55)
[2024-03-20 06:56] LABS: Basophils # (auto) 0.02 K/uL (0.00-0.20); Basophils % (auto) 0.2 %; Eosinophils # (auto) 0.02 K/uL (0.00-0.50); Eosinophils % (auto) 0.2 %; Hematocrit (blood only) 33.8 % (37.0-47.0); Lymphocytes # (auto) 0.69 K/uL (1.20-3.40); Lymphocytes % (auto) 6.6 %; Mean Corpuscular Hemoglobin 29.3 pg (25.0-34.0); Mean Corpuscular Hgb Conc 32.5 g/dL (32.0-36.0); Mean Corpuscular Volume 89.9 fL (80.0-100.0); Mean Platelet Volume 10.6 fL (9.4-12.4); Monocytes # (auto) 0.29 K/uL (0.11-0.59); Monocytes % (auto) 2.8 %; Neutrophils # (auto) 9.35 K/uL (1.40-6.50); Neutrophils % (auto) 89.2 %; Platelet Count 138 K/uL (130-400); RDW Coefficient of Variation 16.1 % (11.5-14.5); RDW Standard Deviation 53.4 fL (36.4-46.3); Red Blood Count 3.76 M/uL (4.20-5.40); White Blood Count 10.47 K/ul (4.8-10.8)
[2024-03-20] MEDS: SIMETHICONE 80 MG CHEW PO SCH (08:24)
[2024-03-20] MEDS: FERROUS SULFATE 325 MG TAB PO SCH (08:24)
[2024-03-20] MEDS: PRENATAL VITAMIN 1 TAB PO SCH (08:24)
[2024-03-20] MEDS: KETOROLAC 30 MG/ML VIAL IV PRN (08:24)
[2024-03-20] MEDS: DOCUSATE SODIUM 100 MG CAP PO SCH (08:24)
[2024-03-20] MEDS: NALBUPHINE HCL 5 MG in SYRINGE 0 ML IV PRN (08:59)
--- OUTSIDE RECORDS SUMMARY | 2024-03-20 15:16 | External Medical Summary | Summary of Care ---
Author Name Unknown Organization [facility] Address [address] [place] [address] Phone [phone] Care Team Providers Care Finished Cloth Examiner Name Role Phone Penny Roper MD Primary Care Provider [phone] Encounter Details Date Type Department Care Team ([facility] st Contact Info) Description 03/17/2024 Result Scan Unspecified Department <No scans attached> Allergies Active Allergy Reactions Criticality Noted Date Comments Amoxicillin-Pot Clavulanate Rash 06/29/20 17 Pollen Hives High 02/28/2017 Dust,ragweed,mold,dog and cat dander. documented as of this encounter (statuses as of 03/18/2024) Medications Medication Sig Dispensed Refills Start Date [...] 1 Tablet by mouth daily at noon. Active Fluticasone Propionate 50 MCG/ACT Nasal Suspension (Flonase) Administer 2 Sprays into each nostril in the morning. 16 mL 10/23/2023 Active Omeprazole 20 MG Oral Capsule Delayed Release (PriLOSEC) Take 1 Capsule by mouth in the morning. Active Breast Pump Use as recommended 1 Each 03/06/2024 Active documented as of this encounter (statuses as of 03/18/2024) Active Problems Problem Noted Date Diagnosed Date Iron deficiency anemia 01/24/2024 Iron deficiency anemia 01/24/2024 Polyhydramnios 01/17/2024 Overview: MAE 25.7 cm at 28w5d Low risk NIPT History of cardiac catheterization 01/13/2024 High-risk 11/06/2023 Medication exposure during first trimester of pr [...] cffDNA screening, and testing was coordinated by [facility]. In addition to the risk of chromosomal abnormalities, there is an increased risk of congenital/structural anomalies. RECOMMENDATIONS: Recommend MFM anatomy ultrasound at 19-20 weeks gestation. H/O [...] delivery at 36-37 weeks without amniocentesis per [employer]. Every effort should be made by patient s primary OB provider to obtain prior operative reports. 2. As per [employer]'s 2010 practice [...] Diagnosed in May 2023 after evaluation at [facility] for chest pain. Suspected during evaluation with [...] consider repeat evaluation with [facility]. Hypokalemia 07/04/2023 AMA (advanced maternal age) multigravida 35+ 10/2021 Last Assessment & Plan: We reviewed the [...] and anatomy ultrasound at 19-20 weeks gestation. Antepartum anemia complicating 021 Overview: Hgb 10.8 at 28 weeks, IV iron recommend per protocol. Estimated Date of Delivery Comme nts Yes 04/05/2024 Based on Ultraso und documented as of this encounter (statuses as of 03/18/2024) Resolved Problems Problem Noted Date Diagnosed Date Resolved Date Liveborn infant, of triplet , born in hospital by delivery 01/24/2023 023 Hypokalemia 12/23/2022 05/29/2023 Abnormal GTT (glucose tolerance test) 12/23/2022 01/17/2024 Health counseling 09/28/2022 01/22/2023 Overview: Problem Action [...] education given 03/06/2023 Chica Fountain RN 03/06/2023 Problem Action Taken Date entered Entered by Date resolved Current needs or questions Patient denies having any current needs or questions 11/06/2023 Chica Fountain RN 11/06/2023 Problem Action Taken Date entered Entered by Date resolved Current needs or questions Patient denies having any current needs or questions 12/06/2023 Chica Fountain RN 12/06/2023 Problem Action Taken Date entered Entered by Date resolved Current needs or questions Patient denies having any current needs or questions 01/01/2024 Jennifer Lee RN 01/01/2024 Problem Action Taken Date entered Entered by Date resolved Current needs or questions Discussed normal pain (back and leg) Patient denies having any current needs or questions 01/17/2024 Jennifer Lee RN 01/17/2024 Problem Action Taken Date entered Entered by Date resolved Current needs or questions headaches Patient denies having any current needs or questions 01/30/2024 Jennifer Lee RN Problem Action Taken Date entered Entered by Date resolved Current needs or questions Patient denies having any current needs or questions 02/21/2024 Jennifer Lee RN 02/21/2024 Problem Action Taken Date entered Entered by Date resolved Current needs or questions Patient denies having any current needs or questions 03/06/2024 Jennifer Lee RN 03/06/2024 Problem Action Taken Date entered Entered by Date resolved Current needs or questions Patient denies having any current needs or questions 03/15/2024 Chica Fountain RN 03/15/2024 Anxiety disorder affecting p regnancy, antepartum 08/21/2022 [...] aspirin allergic) should be used with caution. Short interval between pregn ancies complicating , [...] resolved Nutrition Due date letter given for [facility] 08/04/2022 Jennifer Lee RN 08/04/2022 Triplet gestation, with two or more monochorionic fetuses 08/04/2022 03/06/2023 Overview: Spontaneous [id number] [on outside scan, to be confirmed by [...] for complications regarding her monochorionic triplet gestation.. Allergic conjunctivitis, bilateral 02/24/2021 08/21/2022 Intermittent asthma [...] as of this encounter (statuses as of 03/18/2024) Immunizations Name Administration Dates Next Due COVID-19 mRNA, LNP-s, No Pre serve, 2-Dose Series (Next Big Sound) 01/06/2021,12/02/2020 DTaP Dipth/Tet/Acell Pertussis (Infanrix), Peds 08/23/2015 MMR - Measles/Mumps/Rubella Vaccine 08/24/2015 PPD 05/25/2018 Seasonal Influenza, PF, 6 M & above, IM , (FluLaval or Fluzone) 06/20/2023,08/31/2022,07/01/2021, 021,07/26/2018() Seasonal Influenza, Split, I IV3, With Preserve, Inj 08/07/2017 TDAP (age 10 and older)(Boostrix) 01/17/2024,04/2021 documented as of this encounter Social History Tobacco Use Types Packs/Day Years Used Date Smoking Tobacco: Former Cigarettes 0.5 8 0 01/16/2009 - 01/16/2017 Smokeless Tobacco: Former Quit: 03/08/2017 Comments:No [...] occasion? Never 10/28/2020 PHQ-2 Answer Date Recorded PHQ Adult Total Score 0 01/01/2024 [facility] - Occupational [...] the money to buy more. Never true 03/15/20 24 Within the past 12 months, t he food you bought just didn't last and you didn't have money to get more. Never true 03/15/2024 [place] Depression Scale Answer Date Recorded [place] Depression Scale Total 2 03/15/2024 The thought of harming myself has occurred to me . Never 03/15/2024 Childcare Answer Date Recorded Do you feel overwhelmed with taking care of a child, family member or friend? No 03/15/2024 Does your family need help f inding childcare? (Household - for ages 0-17 years) Not on file 03/15/2024 Clothing Answer Date Recorded Have you been unable to get clothing when it was really needed? No 03/15/2024 Is your family able to get c lothes or diapers when needed? (Household - for ages 0-17 years) Not on file 03/15/2024 Personal Safety Answer Date Recorded Do you feel unsafe or have concerns for your saf ety? No 03/15/2024 Do you have concerns for you r family's safety? (Household - for ages 0-17 years) Not on file 03/15/2024 Utilities Answer Date Recorded Do you have trouble paying y our heating, water, or electric bill? No 03/15/2024 Is your family able to pay t he heat, water, or electric bill? (Household - for ages 0-17 years) Not on file 03/15/2024 Does your family have access to good internet? (Household - for ages 0-17 years) Not on file 03/15/2024 Employment Status Answer Date Recorded Are you unemployed or without regular income? No 03/15/2024 Does the household have a re lar source of income? (Household - for ages 0-17 years) Not on file 03/15/2024 Social Connections Answer Date Recorded How often do you feel lonely or isolated from th ose around you? Never 03/15/2024 Financial Resource Strain Answer Date R ecorded Do you have any trouble payi ng for your medications, or do you think you might in the future? No 03/15/2024 Does your family have troubl e paying for medicine? (Household - for ages 0-17 years) Not on file 03/15/2024 Transportation Needs Answer Date Record ed Do you have trouble getting a ride to medical visits or work? (Adult - for ages 18 years and over) Not on file 03/15/2024 Does your family have a hard time getting a ride to doctors visits? (Household - for ages 0-17 years) Not on file 03/15/2024 Has lack of transportation k ept you from medical appointments, meetings, work, or from getting things needed for daily living? Check all that apply. Yes, it has kept me from non-medical meetings, appointments, work, or from getting things that I need 03/15/2024 Do you (or your family) have trouble finding or paying for a ride (transportation)? (Household - for ages 0-17 years) Not on file 03/15/2024 Housing Stability Answer Date Recorded Do you currently live in a s helter or have no steady place to sleep at night? No 03/15/2024 Do you think you are at risk of becoming homeless? (Adult - for ages 18 years and over) Not on file 03/15/2024 Does your family worry about paying for your home or becoming homeless? (Household - for ages 0-17 years) Not on file 0 03/15/2024 Are you homeless or worried that you might be in the future? No 03/15/2024 Are you (or your family) wanda eless or worried that you might be in the future? (Household - for ages 0-17 years) Not on file Food Insecurity Answer Date Recorded Do you need food for this week? No 03/15/2024 Are you able to get enough f ood for your family? (Household - for ages 0-17 years) Not on file 03/15/2024 Does your family need food t his week? (Household - for ages 0-17 years) Not on file 03/15/2024 Do you always have enough fo od for your family? (Household - for ages 0-17 years) Not on file 03/15/2024 Estimated Date of Delivery Comme nts Yes [...] Care Team (Late st Contact Info) Description 03/18/2024 9:30 AM EDT Pharmacy Pharmacy, [address] [place] [address] Clinic, [place] [address] [place] [address] Health Maintenance Due Date Last Done Comments Hepatitis B (1 of 3 - 19+ 3-dose series) 2006 HPV/Co-Test 2017 COVID-19 Vaccine (2022-24 season) 2023 08/26/2021, 01/06/2021, 12/02/2020 Cervical Cancer Screening 01/20/2024 Pap Smear 01/20/2024 01/19/2021 Influenza Vaccine (FLU shot) (#1) 2024 06/20/2023, 08/31/2022, 07/01/2021, Additional history exists Depression Screening 12/31/2024 01/01/2024 Diabetes Screening 01/30/2027 01/31/2024, 1 , 12/22/2022, Additional history exists DTaP,Tdap,and Td Vaccines (4 - Td or Tdap) 01/16/2034 01/17/2024, 08/25/2021, 08/23/2015 GARDASIL-HPV IMMUNIZATION SERIES Aged Out No longer eligible based on patient's age to complete this topic MENINGOCOCCAL (MENACTRA/MENVEO) Aged Out No longer eligible based on patient's age to complete this topic Pneumococcal Vaccine: Pediatrics (0 to 5 Years) and At-Risk Patients (6 to 64 Years) Aged Out No longer eligible based on patient's age to complete this topic documented as of this encounter Medical Devices Not on filedocumented as of this encounter Procedures Procedure Name Priority Date/Time Associated Diagnosis Comments OUTSIDE LAB RESULTS 03/17/2024 documented in this encounter Results * OUTSIDE LAB RESULTS (03/17/2024) 03/17/2024 No Physician Data Unknown LABORATORY documented in this encounter Advance Directives * Full Code (Latest Code Status on File) Date Activated Date Inactivated Comments 01/21/2023 12:29 AM 01/25/2023 4:50 PM This order r eflects the patients wishes and were consensually agreed upon. Question Answer Comments Discussion of Advance Direct tricia occurred with: Not Discussed due to patient's condition * Full Code Date Activated Date Inactivated Comments 07/24/2018 11:50 AM 07/27/2018 4:40 PM This order reflects the patients wishes and were consensually agreed upon. Question Answer Comments Discussion of Advance Directives occurred with: Patient Does the patient have a Living Will? No Does the patient have Health Care Power of Attor nely? No Care Teams Finished Cloth Examiner Relationship Specialty Start Date End Date Penny Roper MD [address] [place] [address] PCP - General Family Medicine 08/30/22 documented as of this encounter
[2024-03-20] MEDS ORDERED: MEPERIDINE HCL 50 MG/ML CARP IV PRN (21:21)
[2024-03-20] MEDS ORDERED: diphenhydrAMINE Capsule 25 MG CAP PO PRN (21:21)
[2024-03-20] MEDS ORDERED: KETOROLAC 30 MG/ML VIAL IV PRN (21:21)
[2024-03-20] MEDS ORDERED: PROMETHAZINE HCL 25 MG in SODIUM CHLORIDE 0.9% 50 ML IV PRN (21:21)
[2024-03-20] MEDS: oxyCODONE/ACETAMINOPHEN 5mg/325mg TAB PO PRN (21:27)
[2024-03-20] MEDS: IBUPROFEN 600 MG TAB PO PRN (21:28)
[2024-03-20] MEDS: traZODone HCL 50 MG TAB PO SCH (23:23)
[2024-03-21 07:37] LABS: Basophils # (auto) 0.03 K/uL (0.00-0.20); Basophils % (auto) 0.4 %; Eosinophils # (auto) 0.06 K/uL (0.00-0.50); Eosinophils % (auto) 0.7 %; Hemoglobin 8.1 g/dl (12.0-16.0); Immature Granulocytes # (auto) 0.05 K/uL (0.01-0.20); Immature Granulocytes % (auto) 0.6 %; Lymphocytes % (auto) 19.8 %; Mean Corpuscular Hgb Conc 32.4 g/dL (32.0-36.0); Mean Corpuscular Volume 89.6 fL (80.0-100.0); Mean Platelet Volume 10.8 fL (9.4-12.4); Monocytes # (auto) 0.55 K/uL (0.11-0.59); Monocytes % (auto) 6.8 %; Neutrophils % (auto) 71.7 %; Platelet Count 137 K/uL (130-400); RDW Coefficient of Variation 16.5 % (11.5-14.5); RDW Standard Deviation 53.8 fL (36.4-46.3); Red Blood Count 2.79 M/uL (4.20-5.40); White Blood Count 8.09 K/ul (4.8-10.8)
[2024-03-21] MEDS: IRON SUCROSE 200 MG in 0.9 % SODIUM CHLORIDE 100 ML IV ONE (09:03)
--- NOTE | 2024-03-21 09:53 | Obstetrical Progress Note ---
Date of Service March 21, 2024 Assessment & Plan Admission and Anticipated Discharge Date Admission Date: March 20, 2024 Subjective Patient is seen and examined. She feels well, no complaints. Pain is under control with oral meds. Ambulating without dizziness Voiding without difficulty Tolerating regular diet with out N&V Flatus + Bleeding is minimal No fever/ chills/ CP/ SOB/ N&V/ Leg pain Breast feeding without problems Vital Signs Temp Pulse Resp BP Pulse Ox O2 Del Method 03/21/24 07:25 36.7 C 73 18 103/67 98 Room Air 03/21/24 04:15 36.6 C 64 16 103/65 97 Room Air 03/20/24 23:30 Room Air 03/20/24 22:28 37.1 C 82 18 115/75 96 Room Air Lab Results 03/20/24 03/20/24 03/20/24 Range/Units 02:15 02:23 06:08 WBC 6.90 10.47 (4.8-10.8) K/ul RBC 4.14 L 3.76 L (4.20-5.40) M/uL Hgb 12.2 11.0 L (12.0-16.0) g/dl Hct 36.5 L 33.8 L (37.0-47.0) % MCV 88.2 89.9 (80.0-100.0) fL MCH 29.5 29.3 (25.0-34.0) pg MCHC 33.4 32.5 (32.0-36.0) g/dL RDW Std Deviation 52.2 H 53.4 H (36.4-46.3) fL RDW Coeff of Jermain 16.2 H 16.1 H (11.5-14.5) % Plt Count 146 138 (130-400) K/uL MPV 10.7 10.6 (9.4-12.4) fL Immature Gran % (Auto) 1.0 1.0 % Neut % (Auto) 69.0 89.2 % Lymph % (Auto) 22.3 6.6 % [place] % (Auto) 6.1 2.8 % Eos % (Auto) 1.3 0.2 % Baso % (Auto) 0.3 0.2 % Neut # (Auto) 4.76 9.35 H (1.40-6.50) K/uL Lymph # (Auto) 1.54 0.69 L (1.20-3.40) K/uL [place] # (Auto) 0.42 0.29 (0.11-0.59) K/uL Eos # (Auto) 0.09 0.02 (0.00-0.50) K/uL Baso # (Auto) 0.02 0.02 (0.00-0.20) K/uL Immature Gran # (Auto) 0.07 0.10 (0.01-0.20) K/uL Sodium 134 L (136-145) mmol/L Potassium 3.5 (3.5-5.1) mmol/L Chloride 108 H (98-107) mmol/L Carbon Dioxide 18 L (21-32) mmol/L Anion Gap 8 (3-11) BUN 8 (6-23) mg/dl Creatinine 0.51 L (0.6-1.2) mg/dl Est Cr Clr Drug Dosing Not Reportable Est GFR ( Amer) 142.4 ml/min Est GFR (Non-Af Amer) 122.8 ml/min BUN/Creatinine Ratio 15.7 (10-20) Glucose 97 (70-99(Fasting)) mg/dl Calcium 8.8 (8.6-10.3) mg/dl Total Bilirubin 0.3 (0.2-1.0) mg/dl AST 28 (13-39) U/L ALT 28 (7-52) U/L Alkaline Phosphatase 172 H (34-104) U/L Total Protein 6.1 (6.0-8.3) gm/dl Albumin 3.4 (3.4-5.0) gm/dl Globulin 2.7 (2.5-4.0) gm/dl Albumin/Globulin Ratio 1.3 (0.9-2) Urine Opiates Screen Neg (Neg) Ur Methadone, Qual Neg (Neg) Urine Fentanyl Screen Neg (Neg) Urine Barbiturates Neg (Neg) Ur Phencyclidine (PCP) Neg (Neg) U Amphetamin/Meth Scrn Neg (Neg) MDMA (Ecstasy) Screen Neg (Neg) U Benzodiazepines Scrn Neg (Neg) Ur Cocaine Metabolite Neg (Neg) U Marijuana (THC) Screen Neg (Neg) Hep Bs Antigen Negative (Negative) Hepatitis C Antibody Negative (Negative) HIV 1&2 Ab/P24 Ag 4thGn Negative (Negative) Rubella IgG Antibody Immune (Immune) Rubella IgG Ab Index 18.8 IU/mL Blood Type O Positive Antibody Screen NEGATIVE Crossmatch See Detail 03/21/24 Range/Units 06:40 WBC 8.09 (4.8-10.8) K/ul RBC 2.79 L (4.20-5.40) M/uL Hgb 8.1 L D (12.0-16.0) g/dl Hct 25.0 L (37.0-47.0) % MCV 89.6 (80.0-100.0) fL MCH 29.0 (25.0-34.0) pg MCHC 32.4 (32.0-36.0) g/dL RDW Std Deviation 53.8 H (36.4-46.3) fL RDW Coeff of Jermain 16.5 H (11.5-14.5) % Plt Count 137 (130-400) K/uL MPV 10.8 (9.4-12.4) fL Immature Gran % (Auto) 0.6 % Neut % (Auto) 71.7 % Lymph % (Auto) 19.8 % [place] % (Auto) 6.8 % Eos % (Auto) 0.7 % Baso % (Auto) 0.4 % Neut # (Auto) 5.80 (1.40-6.50) K/uL Lymph # (Auto) 1.60 (1.20-3.40) K/uL [place] # (Auto) 0.55 (0.11-0.59) K/uL Eos # (Auto) 0.06 (0.00-0.50) K/uL Baso # (Auto) 0.03 (0.00-0.20) K/uL Immature Gran # (Auto) 0.05 (0.01-0.20) K/uL Sodium (136-145) mmol/L Potassium (3.5-5.1) mmol/L Chloride (98-107) mmol/L Carbon Dioxide (21-32) mmol/L Anion Gap (3-11) BUN (6-23) mg/dl Creatinine (0.6-1.2) mg/dl Est Cr Clr Drug Dosing Est GFR ( Amer) ml/min Est GFR (Non-Af Amer) ml/min BUN/Creatinine Ratio (10-20) Glucose (70-99(Fasting)) mg/dl Calcium (8.6-10.3) mg/dl Total Bilirubin (0.2-1.0) mg/dl AST (13-39) U/L ALT (7-52) U/L Alkaline Phosphatase (34-104) U/L Total Protein (6.0-8.3) gm/dl Albumin (3.4-5.0) gm/dl Globulin (2.5-4.0) gm/dl Albumin/Globulin Ratio (0.9-2) Urine Opiates Screen (Neg) Ur Methadone, Qual (Neg) Urine Fentanyl Screen (Neg) Urine Barbiturates (Neg) Ur Phencyclidine (PCP) (Neg) U Amphetamin/Meth Scrn (Neg) MDMA (Ecstasy) Screen (Neg) U Benzodiazepines Scrn (Neg) Ur Cocaine Metabolite (Neg) U Marijuana (THC) Screen (Neg) Hep Bs Antigen (Negative) Hepatitis C Antibody (Negative) HIV 1&2 Ab/P24 Ag 4thGn (Negative) Rubella IgG Antibody (Immune) Rubella IgG Ab Index IU/mL Blood Type Antibody Screen Crossmatch PE: General: Alert, orientedx3, NAD CVS: S1S2 RRR Lungs; CTAB Abd: soft, NT, ND, BS+, fundus firm, below Umbilicus Incision: Clean, dry, intact Perineum intact, Lochia rubra minimal Ext; NT, no edema AP: 39 yo s/p Repeat C Section for placental abruption, pod# 1 VSS Afebrile doing well Continue routine postop care Encourage ambulation, PO intake All questions were answered D/C home tomorrow Results & Data Vital Signs (Past 12 Hours) Vital Signs Temp Pulse Resp BP Pulse Ox O2 Del Method 03/21/24 07:25 36.7 C 73 18 103/67 98 Room Air 03/21/24 04:15 36.6 C 64 16 103/65 97 Room Air 03/20/24 23:30 Room Air 03/20/24 22:28 37.1 C 82 18 115/75 96 Room Air
[2024-03-21] MEDS ORDERED: NITROGLYCERIN SL 0.4 MG/TAB TAB SL PRN (09:55)
[2024-03-21] MEDS: PANTOprazole 40 MG TAB PO SCH (10:44)
[2024-03-21] MEDS: MONTELUKAST SODIUM 10 MG TABLET PO SCH (10:44)
[2024-03-21] MEDS: bisacodyL 5 MG TABEC PO SCH (19:52)
[2024-03-21] MEDS ORDERED: traZODone HCL 50 MG TAB PO SCH (21:00)
[2024-03-21] MEDS: LACTATED RINGER'S 1,000 ML IV SCH ×3 (22:45→22:48)
[2024-03-21] MEDS: MoRPHine SULFATE PF 1 MG/ML 10 ML AMP/VIAL INT SPINAL ONE (22:47)
[2024-03-21] MEDS: SODIUM CHLORIDE 0.9% 1,000 ML IV SCH (22:48)
[2024-03-22] MEDS ORDERED: bisacodyL 10 MG SUPP PR PRN (04:06)
[2024-03-22 06:11] LABS: Hematocrit (blood only) 26.7 % (37.0-47.0); Hemoglobin 8.6 g/dl (12.0-16.0)
[2024-03-22] MEDS ORDERED: PRENATAL VITAMIN 1 TAB PO SCH (09:00)
--- NOTE | 2024-03-22 09:16 | Obstetrical Progress Note ---
Date of Service March 22, 2024 Assessment & Plan Admission and Anticipated Discharge Date Admission Date: March 20, 2024 OB Progress Note abdomen soft and non tender bandage removed incision is clean and dry passing flatus tolerating regular diet no calf tenderness ambulating well vaginal bleeding scant hgb 8.6 Results & Data Vital Signs (Past 12 Hours) Vital Signs Temp Pulse Resp BP Pulse Ox O2 Del Method 03/22/24 07:27 36.9 C 75 14 114/74 100 Room Air 03/22/24 00:15 36.6 C 72 16 102/61 96 Room Air
--- NOTE | 2024-03-22 09:37 | Discharge Summary ---
Date of Service March 22, 2024 Admission HPI Per Admitting Provider Patient is a 39-year-old G6, P4 P4-1-0-7 at 37 weeks and 5 days of gestation who has been feeling contractions since 11 pm last night. They were about every 4 minutes and she went to bed, she woke up with gush of blood coming out of her vagina. She had orange sized clotsx2 and more cloths in toilet. She called ambulance and they brought up here with IV in. Contractions now very 1-3 min. Not sure she had leaking fluids either. She reports good movements. Her has been complicated by, 1. AMA, NIPT is low risk, 2. 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 history of prior , desires TOLAC/, understand risks and benefits and signed informed consent. I reviewed them again, the risks of uterine rupture, hypoxia/asphyxia, injury, even , intra-abdominal bleeding, hysterectomy, blood transfusion. 4. close interval, 5. anemia, status post IV iron infusions, Discharge Data Consultations 03/20/24 02:02 Consult Anesthesiology Stat Procedures Performed Operation Date: 03/20/24 02:10 Actual Procedures p Repeat Section for the of a live female child at 0312. - Alis Zepeda MD Hospital Course (1) Delivery by section using transverse incision of lower segment of uterus: (2) Placental abruption: Plan Patient was admitted to the hospital via the emergency by ambulance. She was 37 weeks 5 days gestation with episode of heavy vaginal bleeding and clotting. She previously delivered identical triplets at [facility]. The a stat for bleeding. She was diagnosed with abruption on admission to the hospital. And she underwent repeat low segment section. Station at this time was 37 weeks 5 days. Infant was delivered in good condition. Her preoperative hemoglobin was 11. Postoperatively the hemoglobin dropped to 8.1. She was then treated with IV iron. At the time of discharge her hemoglobin was 8.6. The day of discharge she requested discharge from the hospital. Her pain was well- controlled with a combination of Percocet nonnarcotic pain relievers. Incision at this time was clean and dry. She was given usual instructions to return to the office in about 3 weeks for follow-up.
--- NOTE | 2024-03-25 07:43 | Coding Query ---
ANEMIA To promote full compliance with coding requirements relating to patient care, physician participation is requested in all cases of social studies department chair uncertainty. Please assist us with the question(s) below: Coding Question(s): The record reflects the following clinical findings:Pt with abruption placenta adm with vaginal bleed. H/P- anemia s/p iron infusions. DS: postop hgb dropped to 8.1. FE infusion given. If these findings are indicative of anemia, please specify the known or suspected type by placing an "X" within the parenthesis (x). If other, please document type. Examples are: ( x) Acute blood loss anemia ( ) Acute Postoperative blood loss anemia ( ) Acute postoperative anemia due to dilutional fluids ( ) Chronic blood loss anemia ( ) Anemia of chronic disease ( ) Aplastic anemia ( ) Anemia due to renal disease ( ) Anemia in neoplastic disease ( ) Iron deficient anemia ( ) Anemia, unspecified or other ( ) Other: (please specify) Thank you KENNEDI Ashraf CCS
== END 2024-03-22 12:17 | disposition home or self-care (01) | DRG 787 ==
LOC: OPB 01:43 → 4S1 01:45 → 4E2 06:50

== ENCOUNTER 2024-09-15 16:34 | Observation (INO) ==
--- OUTSIDE RECORDS SUMMARY | 2024-09-15 16:42 | External Medical Summary | Summary of Care ---
Author Name Unknown Organization [facility] Address [address] [place] [address] Phone [phone] Care Team Providers Care Arch Pad Cementer Name Role Phone Alicia Bell Denise MALONE Primary Care Provider Encounter Details Date Type Department Care Team (Late st Contact Info) Description 08/30/[address] [facility] [address] [facility] [place] [id number] Anita Ramos PA-C [address] [place] [address] Abnormal nipple*; Cyst of right nipple Allergies Active Allergy Reactions Criticality Noted Date Comments Amoxicillin-Pot Clavulanate Rash 06/29/20 17 Pollen Hives High 02/28/2017 Dust,ragweed,mold,dog and cat dander. documented as of this encounter (statuses as of 08/30/2024) Medications Montelukast Sodium 10 MG Oral Tablet (Singulair) Take 1 Tab by mouth every evening. 30 Tab 5 1 Active Acetaminophen 325 MG Oral Tablet (Tylenol) Take 3 Tablets by mouth in the morning and 3 Tablets at noon and 3 Tablets in the evening and 3 Tablets before bedtime. 30 Tablet 5 01/25/2023 9:44 AM EDT 3 Active Fluticasone Propionate 50 MCG/ACT Nasal Suspension (Flonase) Administer 2 Sprays into each nostril in the morning. 16 mL 4 Active Nitroglycerin 0.4 MG Sublingual Tablet Sublingual (Nitrostat) Place 1 Tablet under the tongue every 5 minutes as needed for Pain, Chest. 25 Tablet 1 4 Active Ibuprofen 800 MG Oral Tablet (Motrin) Take 1 Tablet by mouth every 8 hours as needed for Pain, Severe. with food for pain 30 Tablet 1 4 Active traZODone HCl 50 MG Oral Tablet (Desyrel)Indica tions:Primary insomnia TAKE 1 & 1/2 (ONE & ONE-HALF) TABLETS BY MOUTH AT BEDTIME 135 Tablet 4 Active Ventolin HFA 108 (90 Base) MCG/ACT Inhalation Aerosol SolutionIndicat ions:Atypical pneumonia,Wheez ing Inhale 2 Puffs by mouth every 4 hours as needed for Wheezing. 18 g 2 4 Active documented as of this encounter (statuses as of 08/30/2024) Active Problems Problem Noted Date Diagnosed Date Overweight (BMI 25.0-29.9) 08/09/2024 Gastroesophageal reflux disease without esophagi tis 08/09/2024 Iron deficiency anemia 01/24/2024 Coronary vasospasm 08/24/2023 Overview (08/30/2023): Diagnosed in May 2023 after evaluation at [facility] for chest pain. Suspected during evaluation with heart cath. Her chest pain also responds to nitroglycerine. S/p stress echo which was unremarkable. Continues to follow with Cardiology (notes in scanned records). Taking nitroglycerine prn. Stopped Imdur with . Also experiences palpitations with normal Zio Patch. Assessment & Plan (08/30/2023 4:51 PM EST): DISCUSSION: Discussed reassuring findings of normal stress [...] persist may consider repeat evaluation with Ziopatch. Chronic insomnia 03/03/2017 documented as of this encounter (statuses as of 08/30/2024) Resolved Problems Problem Noted Date Diagnosed Date Resolved Date High serum bile acid 04/09/2024 024 Pruritus 04/09/2024 08/09/2024 Rupture of operation wound 04/09/2024 1 10/09/2023 Cryptic tonsil 04/09/2024 08/09/2024 History of placental abruption 03/29/2024 08/09/2024 Iron deficiency anemia 01/24/202408/09 Polyhydramnios 01/17/2024 08/09/2024 Overview (01/17/2024): MAE 25.7 cm at 28w5d Low risk NIPT History of cardiac catheterization 01/13/2024 08/09/2024 High-risk 11/06/2023 08/09/20 24 Medication exposure during f irst trimester of 08/30/2023 08/09/2024 Assessment & Plan (08/30/2023 4:55 PM EST): Trazodone - Based on experimental animal studies and limited experience in human pregnancies, is not expected to increase incident of congenital anomalies. Family history of DVT 08/30/20232023 Overview (08/30/2023): Mother with hx of VTE. Patient unsure what etiology was. Assessment & Plan (08/30/2023 4:57 PM EST): Encouraged patient to ask her mother if VTE related to inherited thrombophilia. If yes, recommend testing patient for inherited thrombophilias as may affect management. Antepartum multigravida of a dvanced maternal age 1208/24/2023 08/09/2024 Assessment & Plan (08/30/2023 4:54 PM EST): CONSIDERATIONS: We reviewed the most pertinent aspects of the following: Advanced maternal age (AMA) refers to a woman with a giron who will be at the age of 35 or older at the estimated time of delivery and may be associated with increased morbidity. After discussion of the genetic screening/testing options, the patient desires cffDNA screening, and testing was coordinated by [facility]. In addition to the risk of chromosomal abnormalities, there is an increased risk of congenital/structural anomalies. RECOMMENDATIONS: Recommend [facility] anatomy ultrasound at 19-20 weeks gestation. H/O section 08/24/2023 024 Overview (08/30/2023): Desired TOLAC Assessment & Plan (08/30/2023 4:54 PM EST): DISCUSSION: 1. Reviewed that patients with a [...] delivery at 36-37 weeks without amniocentesis per [employer]. Every effort should be made by patient s primary OB provider to obtain prior operative reports. 2. As per [employer]'s 2010 practice [...] ripening or induction of labor. Supervision of wit h grand multiparity, antepartum 08/24/2023 08/09/2024 Hypokalemia 07/04/2023 04/09/2024 Liveborn infant, of triplet , born in hospital by delivery 01/24/2023 023 Hypokalemia 12/23/2022 05/29/2023 Abnormal GTT (glucose tolerance test) 12/23/2022 01/17/2024 Health counseling 09/28/2022 01/22/2023 Overview (03/15/2024): Problem Action Taken Date entered Entered by [...] any current needs or questions 12/22/2022 Chica Fountain, AMIRAH 12/22/2022 Problem Action Taken Date entered Entered by Date resolved Current needs or questions Patient denies having any current needs or questions 01/04/2023 Chica Fountain, AMIRAH 01/04/2023 Problem Action Taken Date entered Entered by Date resolved Need for baby supplies Distribute cribs letter 03/06/2023 Chica Fountain, AMIRAH 03/06/2023 Problem Action Taken Date entered Entered by Date resolved PP education given 03/06/2023 Chica Fountain RN 03/06/2023 Problem Action Taken Date entered Entered by Date resolved Current needs or questions Patient denies having any current needs or questions 11/06/2023 Chica Fountain, AMIRAH 11/06/2023 Problem Action Taken Date entered Entered by Date resolved Current needs or questions Patient denies having any current needs or questions 12/06/2023 Chica Fountain, AMIRAH 12/06/2023 Problem Action Taken Date entered Entered [...] disorder affecting p regnancy, antepartum 08/21/2022 03/06/2023 Overview (08/22/2022): -Mood stable. Assessment & Plan (08/21/2022 9:31 AM EST): -Risks and benefits of anti-anxiety medications in [...] medication use in . Headache in 08/21/20222022 Assessment & Plan (08/21/2022 9:32 AM EST): Considerations: Reviewed relief measures for headaches in [...] . Asthma affecting in third trimester 08/21/2003/06/2023 Assessment & Plan (08/21/2022 9:32 AM EST): CONSIDERATIONS: Asthma symptoms may improve, worsen or [...] aspirin allergic) should be used with caution. AMA (advanced maternal age) multigravida 35+ 08/09/2024 Assessment & Plan (08/22/2022 3:47 PM EST): We reviewed the most pertinent aspects of [...] between pregn ancies complicating , antepartum 08/19/202203/06 Overview (08/24/2023): Triplets delivered via c/s 01/2023 Assessment & Plan (08/21/2022 9:31 AM EST): DISCUSSION: Reviewed that a short Inter- Interval [...] as placental abruption. Health counseling 08/04/2022 08/21/2022 Assessment & Plan (08/04/2022 2:49 PM EST): Problem Action Taken Date entered Entered by Date resolved Triplet Provider eval 08/04/2022 Jennifer Lee RN 08/04/2022 Problem Action Taken Date entered Entered by Date resolved Nutrition Due date letter given for [facility] 08/04/2022 Jennifer Lee RN 08/04/2022 Triplet gestation, with two or more monochorionic fetuses 08/04/2022 03/06/2023 Overview (08/23/2022): Spontaneous [id number] [on outside scan, to be confirmed by [...] screening and repeat 26-28 weeks if normal. Assessment & Plan (01/12/2023 3:34 PM EDT): She presents for follow-up of triplet growth [...] for complications regarding her monochorionic triplet gestation.. Assessment & Plan (12/15/2022 3:37 PM EDT): Discussed plan for third trimester management to include continued TTTS check every 2 weeks and begin weekly BPP due to triplets at around 30 weeks. We will try to schedule this with MFM at the [facility] if we are able, with the alternative being local radiology with continued MFM follow-up q2 weeks. Delivery currently recommend at 35 weeks, however, with this being a mono-tri triplet delivery timing is unclear. It may be reasonable to plan closer to 34 weeks due to the monochorionic placenta. There is a lack of evidence/guidelines to dictate the approach. Couple aware that it is likely there will be an indication for delivery or hospitalization prior to this time, so will defer finally plan until closer to the EDC. Yakelin asked about vaginal . The general consensus is that c/s is a safer mode of delivery in triplet pregnancies and particularly in monochorionic triplets, there is a higher risk for intrapartum complications at the time of co-triplet delivery that could cause neurologic damage to the in utero fetus(es) or require urgent c/s. Recommend c/s in this case. MDC is scheduled for next week so that Yakelin can meet with NICU staff to further discuss delivery expectations. Precautions reviewed; if there is an emergency couple is to present to the nearest hospital for evaluation/transfer; if Yakelin is having contractions that are regular, painful, and at least every 10 minutes x 1 hour, they should call and likely present to [facility]. Assessment & Plan (11/17/2022 1:34 PM EST): She presents for follow-up of triplet growth and TTTS surveillance. This is a monochorionic triamniotic triplet gestation. We reviewed the results of today's ultrasound. A monochorionic triamniotic triplet gestation is noted. The estimated weight for all three fetuses is appropriate for gestational age. Triplet B is at the 10th percentile (previously 12th percentile) with a normal AC measurement. The inter-triplet discordance is normal. The visualized anatomy is unremarkable in appearance. The maximum vertical pockets of amniotic fluid are normal. There is no evidence of twin to twin transfusion syndrome. We discussed the growth patterns, which overall have demonstrated appropriate interval growth. Triplet B is measuring at the lower range of normal. We discussed ongoing evaluation over time to screen for evidence of selective growth restriction. Assessment & Plan (10/19/2022 3:09 PM EST): She presents for anatomy and echocardiography and TTTS surveillance. This is a monochorionic triamniotic triplet gestation. We reviewed the results of today's ultrasound. A monochorionic triamniotic triplet gestation is noted. The estimated weight for all three fetuses is appropriate for gestational age. The inter-triplet discordance is normal. Normal anatomy x 3 Normal echocardiography x 3 The maximum vertical pockets of amniotic fluid are normal. There is no evidence of twin to twin transfusion syndrome. We discussed the plan of care for ultrasound monitoring moving forward. We discussed increased dietary requirements for triplet gestation. We discussed the risk of delivery. We discussed labor precautions and calling guidelines. -Recommend delivery of uncomplicated triplet via section at 35w0d to 35w6d. -Weight gain: 54lbs -Supplement 1mg folic acid and daily Fe -Recommend early GDM screening and repeat 26-28 weeks if normal. Assessment & Plan (09/29/2022 11:34 AM EST): She presents for an early evaluation and TTTS surveillance. This is a monochorionic triamniotic triplet gestation. We reviewed the results of today's ultrasound. A monochorionic triamniotic triplet gestation is noted. The estimated weight for all three fetuses is appropriate for gestational age. The inter-triplet discordance is normal. The visualized early anatomy is unremarkable in appearance. The maximum vertical pockets of amniotic fluid are normal. There is no evidence of twin to twin transfusion syndrome. We discussed the plan of care for ultrasound monitoring moving forward. Assessment & Plan (08/30/2022 10:10 AM EST): Reviewed plan for follow-up for mono-tri triplet , which will include TTTS fluid checks every 2 weeks beginning at 16 weeks; these will alternate with growth evaluation. 2x weekly surveillance should begin at 30 weeks per [facility] protocol for di-tri triplets. Yakelin is taking extra folate and iron and will order her vitamin from [employer]. We also discussed nausea and vomiting as Yakelin is currently only taking unisom. She can add Vit B6 25 mg tid; often helpful in the form of a lollipop which can also be ordered via [employer]. Sniffing and alcohol wipe is also a medication free way to reduce nausea. If these measures do not help, would offer Zofran at her next OB visit. Zofran has been shown to be safe after use in thousands of patients. There is a possible extremely small increase in risk for cleft palate or cardiac defect in patients taking it which may or may not be caused by Zofran. (See https://mothertobaby.org/fact-sheets/xnbtqheyvos-arwloh-pzzflifoo/). Use should not be discouraged in patients who find this therapy effective for nausea and vomiting of . Assessment & Plan (08/22/2022 3:53 PM EST): Discussion: -Explained that triplet (or greater) gestations have an increased risk over that of singletons or twins for congenital malformations, labor, premature rupture of amniotic membranes, pre-eclampsia, gestational diabetes, anemia, and hemorrhage. -Explained that the risk of premature delivery increases with the number of fetuses in utero and therefore the complications of prematurity including cerebral palsy increase with multiple gestations. -explained risks to surviving twins in setting of a demise of single triplet in regards to morbidity and mortality. -The average gestational age of delivery for triplets is approximately 32 weeks. -One fifth of triplet pregnancies result in at least one child with a major extermination supervisor handicap related to prematurity, including cerebral palsy. -Discussed the option of selective reduction with patient: -Multifetal reduction aims to lower number to decrease morbidity.mortlaity in remaining fetuses. -Selective reduction focuses on a fetus with an anomaly or health risk. -Risks include: risks include loss (all or 1 fetus), retention of the wrong fetus,damage without to a fetus, labor, discordant or growth restriction, and maternal complications. With reduction procedures, uncommon potential complications are infection, hemorrhage, or disseminated intravascular coagulopathy because of retained products of conception. - Severe prematurity (25-28 weeks gestation) occurs in 25% of triplets versus 4.9% of triplets selectively reduced to twins. The risk of loss of with selective reduction is 11.7%. Patient declines reduction. RECOMMENDATIONS: -Pt desires to continue with as triplet gestation. -Dating performed using standard obstetric recommendations, including use of largest CRL when indicated. -Chorionicity ideally determined between 8-13 weeks. -Genetic counseling: declined meeting with GC's. At this time cffDNA is not offered to higher order multiple gestations. There are additional limitations in the accuracy of a first trimester screen and QUAD screen. A nuchal translucency (scheduled) and Detailed ultrasound in the 2nd trimester is recommended; and invasive diagnostic testing was discussed and declined. -Recommend high order multiples be managed as per the highest risk twin pair. The highest risk twin pair for this refers to all three fetuses as this is a monochorionic tri-amniotic gestation (to be confirmed by MFM). -Any multiple gestation with a shared chorionic [...] screening and repeat 26-28 weeks if normal. Antepartum anemia complicating 09/08/2021 08/09/2024 Overview (01/18/2024): Hgb 10.8 at 28 weeks, IV iron recommend per protocol. Allergic conjunctivitis, bilateral 02/24/2021 08/21/2022 Intermittent asthma with rel iever use up to twice per week, uncomplicated 02/24/2021 08/21/2022 Anxiety state 03/11/2020 08/21/2022 Paresthesias 07/27/2018 08/21/2022 Herniated disc, cervical 07/27/2018 Headache, unspecified headache type 07/27/2018 08/21/2022 Allergic rhinitis 09/08/2017 08/21/2022 Family history of hypercoagulable state 03/06/2023 Overview (08/22/2022): Mother with a provoked DVT/PE Unsure on thrombophilia work-up. Assessment & Plan (08/22/2022 3:49 PM EST): Recommend patient discuss with mother and encourage mother to pursue thrombophilia work up if not previously done. If positive, patient should also be tested. -Reassured patient that she has tolerated well x4 and that this is of low likelihood to provide any yield. -S/s of pulmonary embolism and DVT reviewed> calf swelling/tenderness/redness/ documented as of this encounter (statuses as of 08/30/2024) Immunizations Name Administration Dates Next Due COVID-19 mRNA, LNP-s, No Pre serve, 2-Dose Series ([email or web address].tv) 01/06/2021,12/02/2020 DTaP Dipth/Tet/Acell Pertussis (Infanrix), Peds 08/23/2015 MMR - Measles/Mumps/Rubella Vaccine 08/24/2015 PPD 05/25/2018 Seasonal Influenza Vac., MDV , IM, 0.5 mL (Fluzone) 08/07/2017 Seasonal Influenza, PF, 6 M & above, IM , (FluLaval or Fluzone) 06/20/2023,08/31/2022,07/01/2021, 021,07/26/2018() Seasonal Influenza, Trivalen t, (IIV3), PF, (Fluzone) 08/26/2024 TDAP (age 10 and older)(Boostrix) 01/17/2024,04/2021 documented [...] Recorded PHQ Adult Total Score 0 01/01/2024 [facility] - Occupational Stress [...] the money to buy more. Never true 06/18/20 24 Within the past 12 months, t he food you bought just didn't last and you didn't have money to get more. Never true 06/18/2024 [place] Depression Scale Answer Date Recorded [place] Depression Scale Total 2 03/15/2024 The thought of harming myself has occurred to me . Never 03/15/2024 Childcare Answer Date Recorded Do you feel overwhelmed with taking care of a child, family member or friend? No 06/18/2024 Does your family need help f inding childcare? (Household - for ages 0-17 years) Not on file 06/18/2024 Clothing Answer Date Recorded Have you been unable to get clothing when it was really needed? No 06/18/2024 Is your family able to get c lothes or diapers when needed? (Household - for ages 0-17 years) Not on file 06/18/2024 Personal Safety Answer Date Recorded Do you feel unsafe or have concerns for your saf ety? No 06/18/2024 Do you have concerns for you r family's safety? (Household - for ages 0-17 years) Not on file 06/18/2024 Utilities Answer Date Recorded Do you have trouble paying y our heating, water, or electric bill? No 06/18/2024 Is your family able to pay t he heat, water, or electric bill? (Household - for ages 0-17 years) Not on file 06/18/2024 Does your family have access to good internet? (Household - for ages 0-17 years) Not on file 06/18/2024 Employment Status Answer Date Recorded Are you unemployed or without regular income? No 06/18/2024 Does the household have a [facility] source [facility] income? (Household - for ages 0-17 years) Not on file 06/18/2024 Social Connections Answer Date Recorded How often do you feel lonely or isolated from th ose around you? Never 06/18/2024 Financial Resource Strain Answer Date R ecorded Do you have any trouble payi ng for your medications, or do you think you might in the future? No 06/18/2024 Does your family have troubl e paying for medicine? (Household - for ages 0-17 years) Not on file 06/18/2024 Transportation Needs Answer Date Record ed Do you have trouble getting a ride to medical visits or work? (Adult - for ages 18 years and over) Not on file 06/18/2024 Does your family have a hard time getting a ride to doctors visits? (Household - for ages 0-17 years) Not on file 06/18/2024 Has lack of transportation k ept you from medical appointments, meetings, work, or from getting things needed for daily living? Check all that apply. No 06/18/2024 Do you (or your family) have trouble finding or paying for a ride (transportation)? (Household - for ages 0-17 years) Not on file 06/18/2024 Housing Stability Answer Date Recorded Do you currently live in a s helter or have no steady place to sleep at night? No 06/18/2024 Do you think you are at risk of becoming homeless? (Adult - for ages 18 years and over) Not on file 06/18/2024 Does your family worry about paying for your home or becoming homeless? (Household - for ages 0-17 years) Not on file 1 Are you homeless or worried that you might be in the future? No 06/18/2024 Are you (or your family) wanda eless or worried that you might be in the future? (Household - for ages 0-17 years) Not on file Food Insecurity Answer Date Recorded Do you need food for this week? No 06/18/2024 Are you able to get enough f ood for your family? (Household - for ages 0-17 years) Not on file 06/18/2024 Does your family need food t his week? (Household - for ages 0-17 years) Not on file 06/18/2024 Do you always have enough fo od for your family? (Household - for ages 0-17 years) Not on file 06/18/2024 Comments Unknown Sex and Gender Information Value Date Recorded Sex Assigned at Female 04/21/2022 2:32 PM EDT Legal Sex Female 6:44 AM EST Gender Identity Not on file Sexual Orientation Straight 04/21/2022 2: 32 PM EDT documented as of this encounter Functional Status * Are you deaf or do you have serious difficulty hearing? Answer Date of Assessment Author No 07/24/2018 10:26 AM Macey Henry RN * Are you blind or do you have serious difficulty seeing, even when wearing glasses? Answer Date of Assessment Author No 07/24/2018 10:26 AM Macey Henry RN * Do you have serious difficulty walking or climbing stairs? (5 years old or older) Answer Date of Assessment Author No 07/24/2018 10:26 AM Macey Henry RN * Do you have difficulty dressing or bathing? (5 years old or older) Answer Date of Assessment Author No 07/24/2018 10:26 AM Macey Henry RN * Because of a physical, mental, or emotional condition, do you have difficulty doing errands alone such as visiting a doctors office or shopping? (15 years old or older) Answer Date of Assessment Author No 07/24/2018 10:26 AM Macey Henry RN documented as of this encounter Mental Status * Because of a physical, mental, or emotional condition, do you have serious difficulty concentrating, remembering, or making decisions? (5 years old or older) Answer Entry Date Author No 07/24/2018 10:26 AM EST Macey Foss RN documented in this encounter Plan of Treatment Upcoming Encounters Date Type Department Care Team (Late st Contact Info) Description 09/10/2024 8:00 AM EST Office Visit Gynecology/Obstetrics [facility] [address] [place] [id number] Hernán Scruggs MD [address] [place] [address] Scheduled Orders Name Type Priority Associated Diagnoses Orde r Schedule MAMMOGRAM DIAGNOSTIC RIGHT Medical Imaging Routine Abnormal nipple Cyst of right nipple Expected: 02/28/2025, Expires: 09/30/2025 Health Maintenance Due Date Last Done Comments Hepatitis B Vaccine (1 of 3 - 19+ 3-dose series) 2006 COVID-19 Vaccine (2023- season) 2024 08/26/2021, 01/06/2021, 12/02/2020 Depression Screening 12/31/2024 01/01/2024 Pap Smear 05/02/2027 05/02/2024, 01/19/2021 Diabetes Screening 08/09/2027 08/09/2024, 0 06/11/2024, 03/29/2024, Additional history exists Cervical Cancer Screening 05/02/2029 HPV/Co-Test 05/02/2029 05/02/2024 DTap/Tdap Vaccines (4 - Td or Tdap) 01/16/2034 01/17/2024, 08/25/2021, 08/23/2015 Influenza Vaccine (FLU shot) Completed 05/2024, 06/20/2023, 08/31/2022, Additional history exists HPV (Gardasil) Vaccine Aged Out No lo nger eligible based on patient's age to complete [...] DVT Family history of other cardiovascular diseases Abnormal nipple- Primary Unspecified breast disorder Cyst of right nipple documented in this encounter Advance Directives * [...] Power of Attor nely? No Care Teams Arch Pad Cementer Relationship Specialty Start Date End Date lAicia Bell CRNP [address] [address] PCP - General Nurse Practitioner 05/28/24 documented as of this encounter
--- OUTSIDE RECORDS SUMMARY | 2024-09-15 16:42 | External Medical Summary | Summary of Care ---
Author Name Unknown Organization [facility] Address [address] [place] [address] Phone [phone] Care Team Providers Care Director Of Agronomy Name Role Phone Ray Alicia Denise MALONE Primary Care Provider Reason for Visit * Reason Onset Date Comments Referral 08/26/2024 Breast Clinic Encounter Details Date Type Department Care Team ([facility] Contact Info) Description 08/26/2024 Telephone General Surgery, [place] [address] [place] [address] Services, [facility] [address] [place] [address] Referral (Breast Clinic) Allergies Active Allergy Reactions Criticality Noted Date Comments Amoxicillin-Pot Clavulanate Rash 06/29/20 17 Pollen Hives High 02/28/2017 Dust,ragweed,mold,dog and cat dander. documented as of this encounter (statuses as of 09/06/2024) Medications Montelukast Sodium 10 MG Oral Tablet [...] as of this encounter (statuses as of 09/06/2024) Active Problems Problem Noted Date Diagnosed Date Overweight (BMI 25.0-29.9) 08/09/2024 Gastroesophageal reflux disease without esophagi tis 08/09/2024 Iron deficiency anemia 01/24/2024 Coronary vasospasm 08/24/2023 Overview (08/30/2023): Diagnosed in May 2023 after evaluation at [facility] for chest pain. Suspected during [...] as of this encounter (statuses as of 09/06/2024) Resolved Problems Problem Noted Date Diagnosed Date [...] cffDNA screening, and testing was coordinated by [facility]. In addition to the risk of chromosomal abnormalities, there is an increased risk of congenital/structural anomalies. RECOMMENDATIONS: Recommend [facility] anatomy ultrasound at 19-20 weeks gestation. [...] delivery at 36-37 weeks without amniocentesis per [employer]. Every effort should be made by patient s primary OB provider to obtain prior operative reports. 2. As per [employer]'s 2010 practice [...] antepartum 08/24/2023 08/09/2024 Hypokalemia 07/04/2023 04/09/2024 Liveborn , of triplet , born in hospital by delivery 01/24/2023 023 Hypokalemia 12/23/2022 05/29/2023 Abnormal GTT (glucose tolerance test) 12/23/2022 01/17/2024 Health counseling 09/28/2022 01/22/2023 Overview (03/15/2024): Problem Action Taken Date entered Entered by Date resolved Education 2nd trimester education 09/28/2022 Chica Fountain, AMIRAH 09/28/2022 Problem Action Taken Date entered Entered by Date resolved Need for food assistance Due date letter given for Assistance office 09/28/2022 Chica Fountain, AMIRAH 09/28/2022 Problem Action Taken Date entered Entered [...] any current needs or questions 01/04/2023 Chiac Fountain, AMIRAH 01/04/2023 Problem Action Taken Date [...] resolved Nutrition Due date letter given for [facility] 08/04/2022 Jennifer Lee RN 08/04/2022 Triplet gestation, with two or more monochorionic fetuses 08/04/2022 03/06/2023 Overview (08/23/2022): Spontaneous tkqorrtctsulz-mdp-lpsoueys [on outside scan, to be confirmed by [...] to schedule this with MFM at the [facility] if we are able, with the [...] they should call and likely present to [facility]. Assessment & Plan (11/17/2022 1:34 PM EST): [...] surveillance should begin at 30 weeks per [facility] protocol for di-tri triplets. Yakelin is taking extra folate and iron and will order her vitamin from [employer]. We also discussed nausea and vomiting as Yakelin is currently only taking unisom. She can add Vit B6 25 mg tid; often helpful in the form of a lollipop which can also be ordered via [employer]. Sniffing and alcohol wipe is also a [...] may not be caused by Zofran. (See https://mothertobaby.org/fact-sheets/pnifvegswhj-mmdprm-mnudwmxyo/). Use should not be discouraged in patients [...] at least one child with a major prison handicap related to prematurity, including cerebral palsy. [...] as of this encounter (statuses as of 09/06/2024) Immunizations Name Administration Dates Next Due COVID-19 [...] Recorded PHQ Adult Total Score 0 01/01/2024 [facility] - Occupational Stress Questionnaire Answer Date Recorded [...] money to get more. Never true 06/18/2024 [place] Depression Scale Answer Date Recorded [place] Depression Scale Total 2 03/15/2024 The thought [...] No 06/18/2024 Does the household have a re gular source of income? (Household - for ages [...] Macey Foss RN documented in this encounter Miscellaneous Notes * Addendum Note - Vane Ramos PA-C - 08/26/2024 12:53 PM EST Addended by: VANE RAMOS on: 08/26/2024 12:53 PM Modules accepted: Orders * Telephone Encounter - Vane Ramos PA-C - 08/26/2024 12:52 PM EST Diagnostic mammo ordered. * Telephone Encounter - Penny Silva LPN - 08/26/2024 12:36 PM EST Pt contacted [facility] via phone at [phone] asking to schedule. Advised patient of need for imaging prior to being referred to or scheduling with the Breast Surgery Clinic, and that I will continue to monitor chart until imaging and any subsequent testing is completed and the patient is able to schedule. Pt voiced understanding, will await imaging orders and contact from Radiology. Pt has my direct line for contact if she needs any updates or has any questions. Tiffany Silva LPN Intake Nurse Navigator General Surgery and Breast Clinic [facility] * Telephone Encounter - Penny Silva LPN - 08/26/2024 12:26 PM EST Referral from: [facility] Consult: Breast Surgery For: abnormal nipple Referral received as detailed above. Prerequisite imaging has not been ordered/completed. Will request from referring provider. Tiffany Silva LPN Intake Nurse Navigator General Surgery and Breast Clinic [facility] Breast Imaging: Short-Term Follow-Up & Biopsy recommendation BIRADS 4 & 5 Patient should be referred and scheduled to breast imaging to have follow-up and/or procedure completed. Outside breast imaging studies (mammography, breast ultrasound, breast MRI) and reports from the past 3 years are required prior to scheduled breast imaging appointment. After diagnosis, if surgical intervention is recommended, patients should then be referred to breast surgery by referring provider. If breast imaging is unable to obtain a needle biopsy and patient needs surgical intervention the patient will then be referred to breast surgery. Breast Surgery Referral Patients from outside the [facility] that has completed breast imaging and/or diagnosis must have a complete outside interpretation of their images by radiology - breast imaging before being seen in breast surgery. IOF order is entered by referring provider in preparation for breast surgery visit Breast imaging will need most recent imaging study including 3 years of prior imaging including mammograms, breast ultrasound, breast MRI, breast pathology and imaging reports. If patient has not hadconsecutive imaging than 5 years of prior imaging is required. Second opinion must be within one year of the initial breast imaging exam. If over a year repeat imaging will be needed. If recent imaging has poor image quality at the discretion of the radiologist, the IOF will be cancelled, and patient will need repeat imaging. documented in this encounter Plan of Treatment Upcoming Encounters Date Type Department Care Team (Late st Contact Info) Description 09/10/2024 8:00 AM EST Office [facility] [address] [address] Hernán Scruggs MD [address] [address] Health Maintenance Due Date Last Done Comments Hepatitis B Vaccine (1 of 3 - 19+ 3-dose series) 2006 COVID-19 Vaccine ( season) 2024 08/26/2021, 01/06/2021, 12/02/2020 Depression Screening [...] diseases Abnormal nipple- Primary Unspecified breast disorder documented in this encounter Advance Directives * [...] Power of Attor nely? No Care Teams Director Of Agronomy Relationship Specialty Start Date End Date Alicia Bell CRNP [address] [address] PCP - General Nurse Practitioner 05/28/24 documented as of this encounter
--- OUTSIDE RECORDS SUMMARY | 2024-09-15 16:42 | External Medical Summary | Summary of Care ---
Author Name Unknown Organization [facility] Address [address] [place] [address] Phone [phone] Care Team Providers Care Machine Ii Engraver Name Role Phone Ray Alicia Denise MALONE Primary Care Provider Reason for Visit * Reason Onset Date Comments Referral 08/26/2024 Breast Clinic Encounter Details Date Type Department Care Team ([facility] Contact Info) Description 08/26/2024 Telephone General Surgery, [place] [address] [place] [address] Services, [facility] [address] [place] [address] Referral (Breast Clinic) Allergies Active Allergy Reactions Criticality Noted Date Comments Amoxicillin-Pot Clavulanate Rash 06/29/20 17 Pollen Hives High 02/28/2017 Dust,ragweed,mold,dog and cat dander. documented as of this encounter (statuses as of 09/12/2024) Medications Montelukast Sodium 10 MG Oral Tablet [...] as of this encounter (statuses as of 09/12/2024) Active Problems Problem Noted Date Diagnosed Date Overweight (BMI 25.0-29.9) 08/09/2024 Gastroesophageal reflux disease without esophagi tis 08/09/2024 Iron deficiency anemia 01/24/2024 Coronary vasospasm 08/24/2023 Overview (08/30/2023): Diagnosed in May 2023 after evaluation at [facility] for chest pain. Suspected during evaluation [...] as of this encounter (statuses as of 09/12/2024) Resolved Problems Problem Noted Date Diagnosed Date [...] cffDNA screening, and testing was coordinated by [facility]. In addition to the risk of chromosomal abnormalities, there is an increased risk of congenital/structural anomalies. RECOMMENDATIONS: Recommend [facility] anatomy ultrasound at 19-20 weeks gestation. [...] delivery at 36-37 weeks without amniocentesis per [employer]. Every effort should be made by patient s primary OB provider to obtain prior operative reports. 2. As per [employer]'s 2010 practice [...] resolved Nutrition Due date letter given for [facility] 08/04/2022 Jennifer Lee RN 08/04/2022 Triplet gestation, with two or more monochorionic fetuses 08/04/2022 03/06/2023 Overview (08/23/2022): Spontaneous itctqkabwaqss-wea-lskqhgta [on outside scan, to be confirmed by [...] to schedule this with MFM at the [facility] if we are able, with the [...] they should call and likely present to [facility]. Assessment & Plan (11/17/2022 1:34 PM EST): [...] surveillance should begin at 30 weeks per [facility] protocol for di-tri triplets. Yakelin is taking extra folate and iron and will order her vitamin from [employer]. We also discussed nausea and vomiting as Yakelin is currently only taking unisom. She can add Vit B6 25 mg tid; often helpful in the form of a lollipop which can also be ordered via [employer]. Sniffing and alcohol wipe is also a [...] may not be caused by Zofran. (See https://mothertobaby.org/fact-sheets/yvmalitlyae-lfdryg-fmoqwwwsj/). Use should not be discouraged in patients [...] at least one child with a major skilled nursing handicap related to prematurity, including cerebral palsy. [...] as of this encounter (statuses as of 09/12/2024) Immunizations Name Administration Dates Next Due COVID-19 [...] Recorded PHQ Adult Total Score 0 01/01/2024 [facility] - Occupational Stress Questionnaire Answer Date [...] money to get more. Never true 06/18/2024 [place] Depression Scale Answer Date Recorded [place] Depression Scale Total 2 03/15/2024 The thought [...] documented in this encounter Miscellaneous Notes * Telephone Encounter - Penny Silva LPN - 09/12/2024 2:07 PM EST Noted that MyG was read on 09/09, patient has not responded. Tiffany Silva LPN Intake Nurse Navigator General Surgery and Breast Clinic 09/12/2024 * Addendum Note - Vane Ramos PA-C [...] Nurse Navigator General Surgery and Breast Clinic [facility] * Telephone Encounter - Penny Silva LPN - 08/26/2024 12:26 PM EST Referral from: [facility] Consult: Breast Surgery For: abnormal nipple Referral received as detailed above. Prerequisite imaging has not been ordered/completed. Will request from referring provider. Tiffany Silva LPN Intake Nurse Navigator General Surgery and Breast Clinic [facility] Breast Imaging: Short-Term Follow-Up & Biopsy recommendation [...] Breast Surgery Referral Patients from outside the [facility] that has completed breast imaging and/or [...] documented in this encounter Plan of Treatment Health Maintenance Due Date Last Done Comments [...] 5 Years) and At-Risk Patients (6 to 18 Years and 19+ Years) Aged Out No longer eligib le based on patient's age to complete this [...] Power of Attor nely? No Care Teams Machine Ii Engraver Relationship Specialty Start Date End Date Alicia Bell CRNP [address] [address] PCP - General Nurse Practitioner 05/28/24 documented as of this encounter
--- OUTSIDE RECORDS SUMMARY | 2024-09-15 16:42 | External Medical Summary | Summary of Care ---
Author Name Unknown Organization [facility] Address [address] [place] [address] Phone [phone] Care Team Providers Care Teacher Home Therapy Name Role Phone Alicia Bell Primary Care Provider Reason for Visit * Reason Onset Date Comments Advice 09/09/2024 Order Request 09/09/2024 Encounter Details Date Type Department Care Team ([facility] Contact Info) Description 09/09/2024 Telephone General Internal Medicine [facility] [address] [place] [address] Anita Ramos PA-C [address] [place] [address] Advice; Order Request Allergies Active Allergy Reactions Criticality Noted Date Comments Amoxicillin-Pot Clavulanate Rash 06/29/20 17 Pollen Hives High 02/28/2017 Dust,ragweed,mold,dog and cat dander. documented as of this encounter (statuses as of 09/13/2024) Medications Montelukast Sodium 10 MG Oral Tablet [...] as of this encounter (statuses as of 09/13/2024) Active Problems Problem Noted Date Diagnosed Date Overweight (BMI 25.0-29.9) 08/09/2024 Gastroesophageal reflux disease without esophagi tis 08/09/2024 Iron deficiency anemia 01/24/2024 Coronary vasospasm 08/24/2023 Overview (08/30/2023): Diagnosed in May 2023 after evaluation at [facility] for chest pain. Suspected during evaluation with [...] as of this encounter (statuses as of 09/13/2024) Resolved Problems Problem Noted Date Diagnosed Date [...] cffDNA screening, and testing was coordinated by [facility]. In addition to the risk of chromosomal abnormalities, there is an increased risk of congenital/structural anomalies. RECOMMENDATIONS: Recommend [facility] anatomy ultrasound at 19-20 weeks gestation. H/O [...] delivery at 36-37 weeks without amniocentesis per [employer]. Every effort should be made by patient s primary OB provider to obtain prior operative reports. 2. As per [employer]'s 2010 practice [...] of . Asthma affecting in third trimester 08/21/20 22 03/06/2023 Assessment & Plan (08/21/2022 9:32 AM EST): [...] monochorionic fetuses 08/04/2022 03/06/2023 Overview (08/23/2022): Spontaneous frjbngtyrzolj-faa-dkxojjei [on outside scan, to be confirmed by [...] to schedule this with MFM at the [facility] if we are able, with the alternative [...] they should call and likely present to [facility]. Assessment & Plan (11/17/2022 1:34 PM EST): [...] surveillance should begin at 30 weeks per [facility] protocol for di-tri triplets. Yakelin is taking extra folate and iron and will order her vitamin from [employer]. We also discussed nausea and vomiting as Yakelin is currently only taking unisom. She can add Vit B6 25 mg tid; often helpful in the form of a lollipop which can also be ordered via [employer]. Sniffing and alcohol wipe is also a [...] may not be caused by Zofran. (See https://mothertobaby.org/fact-sheets/spcehcttkhq-zaqhmf-uhsfawoxu/). Use should not be discouraged in patients [...] at least one child with a major senior planner handicap related to prematurity, including cerebral palsy. [...] as of this encounter (statuses as of 09/13/2024) Immunizations Name Administration Dates Next Due COVID-19 mRNA, LNP-s, No Pre serve, 2-Dose Series ([employer]) 01/06/2021,12/02/2020 DTaP Dipth/Tet/Acell Pertussis (Infanrix), Peds 08/23/2015 [...] Recorded PHQ Adult Total Score 0 01/01/2024 [facility] - Occupational Stress Questionnaire Answer Date [...] money to get more. Never true 06/18/2024 [place] Depression Scale Answer Date Recorded [place] Depression Scale Total 2 03/15/2024 The thought [...] 06/18/2024 Does the household have a re lar [...] Entry Date Author No 07/24/2018 10:26 AM Macey Henry RN documented in this encounter Miscellaneous Notes * Telephone Encounter - Guillermina Hughes LPN - 09/13/2024 4:05 PM EST Sent myG message * Telephone Encounter - Hillary Munoz OSA - 09/13/2024 3:15 PM EST Pt called to follow up on message below. Pt would like an order still for an MRI. Please advise. Thank you. * Telephone Encounter - Anita Ramos PA-C - 09/13/2024 1:02 PM EST Correct---diagnostic mammo with US if needed is recommended in 6 months. * Telephone Encounter - Guillermina Hughes LPN - 09/13/2024 12:25 PM EST Reviewed result notes and encounters, 6 month diagnostic mammo and US recommended and order placed.Patient read the myG message on 09/09 prior to calling below. The Breast clinic has attempted to contact the patient without reaching her or her calling back. Additional studies are not needed at this time, correct? * Telephone Encounter - Saeed Garcia OSA - 09/09/2024 3:29 PM EST An order was requested for this patient. Name of Requesting Provider: Yakelin Hughes Order Requested: MRI Diagnosis/Reason for Request: test results If order request is for Mammogram: Is the patient having any breast symptoms? N/A Is there a chance of ? N/A Has the patient had any breast problems in the past? NA What location AND department does the patient wish to have their order completed at? N/a Fax Number, if applicable: n/a If the caller is not a current patient, please advise the patient to call their current PCP to havethe order's prior to being seen in our office. The patient was informed that our providers would not order anything (medication, labs, etc.) prior to being seen. * Telephone Encounter - Saeed Garcia OSA - 09/09/2024 3:28 PM EST Yakelin Hughes would like to see about getting a MRI or further testing of the breast due to findings. Please advise documented in this encounter Plan of Treatment [...] filedocumented as of this encounter Advance Directives * Full Code [...] Power of Attor nely? No Care Teams Teacher Home Therapy Relationship Specialty Start Date End Date Alicia Bell CRNP [address] [address] PCP - General Nurse Practitioner 05/28/24 documented as of this encounter
--- OUTSIDE RECORDS SUMMARY | 2024-09-15 16:42 | External Medical Summary | Summary of Care ---
Author Name Unknown Organization [facility] Address [address] [place] [address] Phone [phone] Care Team Providers Care Mess Attendant Crew Name Role Phone Ray Alicia MALONE Primary Care Provider Reason for Visit * Reason Comments [employer] Return Encounter Details Date Type Department Care Team ([facility] st Contact Info) Description 09/10/2024 8:00 AM EST Office Visit Gynecology/Obstetric s Joyce Hoyts [address] [place] [address] Hernán Scruggs MD [address] [place] [place] [id number] Menorrhagia with regular cycle* Allergies Active Allergy Reactions Criticality Noted Date Comments Amoxicillin-Pot Clavulanate Rash 06/29/20 17 Pollen Hives High 02/28/2017 Dust,ragweed,mold,dog and cat dander. 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 Suspected during evaluation [...] as of this encounter (statuses as of 09/10/2024) Resolved Problems Problem Noted Date Diagnosed Date [...] cffDNA screening, and testing was coordinated by [facility]. In addition to the risk of chromosomal abnormalities, there is an increased risk of congenital/structural anomalies. RECOMMENDATIONS: Recommend [facility] anatomy ultrasound at 19-20 weeks gestation. [...] delivery at 36-37 weeks without amniocentesis per [employer]. Every effort should be made by patient s primary OB provider to obtain prior operative reports. 2. 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 Assessment & Plan (11/17/2022 1:34 PM EST): [...] surveillance should begin at 30 weeks per [facility] protocol for di-tri triplets. Yakelin is taking extra folate and iron and will order her vitamin from [employer]. We also discussed nausea and vomiting as Yakelin is currently only taking unisom. She can add Vit B6 25 mg tid; often helpful in the form of a lollipop which can also be ordered via [employer]. Sniffing and alcohol wipe is also a [...] may not be caused by Zofran. (See https://mothertobaby.org/fact-sheets/dzyoipjitpc-idfrvw-mjadlojlm/). Use should not be discouraged in patients [...] at least one child with a major care home handicap related to prematurity, including cerebral palsy. [...] as of this encounter (statuses as of 09/10/2024) Immunizations Name Administration Dates Next Due COVID-19 [...] Recorded PHQ Adult Total Score 0 [facility]/01[facility]2024 [facility]ational Stress Questionnaire Answer Date [...] money to get more. Never true 06/18/2024 [place] Depression Scale Answer Date Recorded [place] Depression Scale Total 2 03/15/2024 The thought [...] PM EDT documented as of this encounter Last Filed Vital Signs Vital Sign Reading Time Taken Comments Blood Pressure 108/68 09/10/2024 7:48 AM EST Pulse - - Temperature - - Respiratory Rate - - Oxygen Saturation - - Inhaled Oxygen Concentration - - Weight 65.3 kg (144 lb) 09/10/2024 7:48 AM EST Height 154.9 cm (5' 1") 09/10/2024 7:48 AM EST Body Mass Index 27.21 09/10/2024 7:48 AM EST documented in this encounter Functional Status * Are you [...] Macey Henry RN documented in this encounter Progress Notes * Hernán Scruggs MD - 09/10/2024 8:35 AM EST Procedure A ''time out'' was initiated by me prior to procedure.The patient was identified by name and date of . The correct procedure, and correct site identified. Correct positioning (as applicable). There is availability of necessary equipment. Patient states she not allergic to latex. Procedure : Indication: Menorrhagia A ''time out'' was initiated by me prior to procedure.The patient was identified by name and date of . The correct procedure, and correct site identified. Correct positioning (as applicable). There is availability of necessary equipment. Patient states she not allergic to latex. Patient consent discussed and obtained. No latex allergy Cervix visualized and prepped with Betadine. Anterior lip of the cervix grasped with single tooth tenaculum. Cervix dilated with os finder. Pipelle easily introduced into cervical canal and endometrial tissue amounts obtained and sent to pathology. Patient tolerated procedure well. Minimal bleeding noted at end of procedure. documented in this encounter Plan of Treatment Pending Results Name Type Priority Associated Diagnoses Date /Time SURGICAL PATHOLOGY Pathology Routine Menorrhagia with regular cycle 09/10/2024 11:06 AM EST Health Maintenance Due Date Last Done Comments Hepatitis B Vaccine (1 of 3 - 19+ 3-dose series) 2006 COVID-19 Vaccine ( - 2023- season) 2024 08/26/2021, 01/06/2021, 12/02/2020 Depression Screening [...] Procedure Name Priority Date/Time Associated Diagnosis Comments URINE SCREEN, POINT OF CARE (ENTER/EDIT) Routine 09/10/2024 Menorrhagia with regular cycle documented in this encounter Results * URINE SCREEN, POINT OF CARE (ENTER/EDIT) (09/10/2024) hCG Beta, Urine Negative Negative Procedural Control Valid? Yes Lot Number [id number] Expiration Date Urine 09/10/2024 Hernán Scruggs MD LAB POINT OF CARE TEST ENTER/ERAN T ORDERABLES Final Result documented in this encounter Visit Diagnoses Diagnosis Multigravida of advanced maternal age in first trimester- Primary Antepartum multigravida of advanced maternal age H/O section Other postprocedural status Supervision of with grand multiparity, antepartum Coronary vasospasm (HCC) Prinzmetal angina Medication exposure during first trimester of Supervision of other high-risk Family history of DVT Family history of other cardiovascular diseases Menorrhagia with regular cycle- Primary Excessive or frequent menstruation documented in this encounter Advance Directives * [...] Power of Attor nely? No Care Teams Mess Attendant Crew Relationship Specialty Start Date End Date Alicia Bell CRNP [address] [facility] [place] [address] PCP - General Nurse Practitioner 05/28/24 documented as of this encounter
--- OUTSIDE RECORDS SUMMARY | 2024-09-15 16:42 | External Medical Summary | Summary of Care ---
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 Suspected during evaluation with [...] cffDNA screening, and testing was coordinated by [facility]. In addition to the risk of chromosomal abnormalities, there is an increased risk of congenital/structural anomalies. RECOMMENDATIONS: Recommend [facility] anatomy ultrasound at 19-20 weeks gestation. [...] delivery at 36-37 weeks without amniocentesis per [employer]. Every effort should be made by patient s primary OB provider to obtain prior operative reports. 2. 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 Assessment & Plan (11/17/2022 1:34 PM EST): [...] surveillance should begin at 30 weeks per [facility] protocol for di-tri triplets. Yakelin is taking extra folate and iron and will order her vitamin from [employer]. We also discussed nausea and vomiting as Yakelin is currently only taking unisom. She can add Vit B6 25 mg tid; often helpful in the form of a lollipop which can also be ordered via [employer]. Sniffing and alcohol wipe is also a [...] may not be caused by Zofran. (See https://mothertobaby.org/fact-sheets/gixswrzgdcq-cxbbhz-mkcsblhjm/). Use should not be discouraged in patients [...] at least one child with a major fdc handicap related to prematurity, including cerebral palsy. [...] Recorded PHQ Adult Total Score 0 01/01/2024 [facility] - Occupational Stress Questionnaire Answer Date [...] money to get more. Never true 06/18/2024 [place] Depression Scale Answer Date Recorded [place] Depression Scale Total 2 03/15/2024 The thought [...] Power of Attor nely? No Care Teams Linux Server Administrator Relationship Specialty Start Date End Date Alicia Bell CRNP [address] [facility] [place] [address] PCP - General Nurse Practitioner 05/28/24 documented as of this encounter
--- OUTSIDE RECORDS SUMMARY | 2024-09-15 16:42 | External Medical Summary | Summary of Care ---
Author Name Unknown Organization [facility] Address [address] [place] [address] Phone [phone] Care Team Providers Care Channeler Name Role Phone Alicia Bell Denise MALONE Primary Care Provider Encounter Details Date Type Department Care Team (Late st Contact Info) Description 09/02/2024 Orders Only [facility] Research Department [address] [place] [address] Emily Rogers CHRA [employer] Other*[id number] Allergies Active Allergy Reactions Criticality Noted Date Comments Amoxicillin-Pot Clavulanate Rash 06/29/20 17 Pollen Hives High 02/28/2017 Dust,ragweed,mold,dog and cat dander. documented as of this encounter (statuses as of 09/02/2024) Medications Montelukast Sodium 10 MG Oral Tablet [...] as of this encounter (statuses as of 09/02/2024) Active Problems Problem Noted Date Diagnosed Date Overweight (BMI 25.0-29.9) 08/09/2024 Gastroesophageal reflux disease without esophagi tis 08/09/2024 Iron deficiency anemia 01/24/2024 Coronary vasospasm 08/24/2023 Overview (08/30/2023): Diagnosed in May 2023 after evaluation at [facility] for chest pain. Suspected during evaluation [...] as of this encounter (statuses as of 09/02/2024) Resolved Problems Problem Noted Date Diagnosed Date [...] cffDNA screening, and testing was coordinated by [facility]. In addition to the risk of chromosomal abnormalities, there is an increased risk of congenital/structural anomalies. RECOMMENDATIONS: Recommend [facility] anatomy ultrasound at 19-20 weeks gestation. [...] delivery at 36-37 weeks without amniocentesis per [employer]. Every effort should be made by patient s primary OB provider to obtain prior operative reports. 2. 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 Assessment & Plan (11/17/2022 1:34 PM EST): [...] surveillance should begin at 30 weeks per [facility] protocol for di-tri triplets. Yakelin is taking extra folate and iron and will order her vitamin from [employer]. We also discussed nausea and vomiting as Yakelin is currently only taking unisom. She can add Vit B6 25 mg tid; often helpful in the form of a lollipop which can also be ordered via [employer]. Sniffing and alcohol wipe is also a [...] may not be caused by Zofran. (See https://mothertobaby.org/fact-sheets/mtueqtjueqs-nsuakd-icdxsxehk/). Use should not be discouraged in patients [...] at least one child with a major retirement handicap related to prematurity, including cerebral palsy. [...] as of this encounter (statuses as of 09/02/2024) Immunizations Name Administration Dates Next Due COVID-19 mRNA, LNP-s, No Pre serve, 2-Dose Series ([employer]) 01/06/2021,12/02/2020 DTaP Dipth/Tet/Acell Pertussis (Infanrix), Peds 08/23/2015 [...] Total Score 0 01/01/2024 [facility] - Occupational Stress Questionnaire Answer Date Recorded [...] money to get more. Never true 06/18/2024 [place] Depression Scale Answer Date Recorded [place] Depression Scale Total 2 03/15/2024 The thought [...] Macey Henry RN documented in this encounter Plan of Treatment Upcoming Encounters Date Type Department Care Team (Late st Contact Info) Description 09/10/2024 8:00 AM EST Office Visit Gynecology/Obstetrics [facility] [address] [place] [address] Hernán Scruggs MD [address] [place] [address] Scheduled Orders Name Type Priority Associated Diagnoses Orde r Schedule [facility] SUBSEQUENT ADULT Lab Routine [employer] Other*[id number] Every 6 Months for 2 Occurrences starting 09/02/2024 until 09/22/2025 Health Maintenance Due Date Last Done Comments [...] DVT Family history of other cardiovascular diseases [employer] Other*[id number] documented in this encounter Advance Directives * [...] Power of Attor nely? No Care Teams Channeler Relationship Specialty Start Date End Date Alicia Bell CRNP [address] [place] [address] PCP - General Nurse Practitioner 05/28/24 documented as of this encounter
--- OUTSIDE RECORDS SUMMARY | 2024-09-15 16:43 | External Medical Summary | Summary of Care ---
Author Name Unknown Organization [facility] Address [address] [place] [address] Phone [phone] Care Team Providers Care Roving Changer Name Role Phone Ray Alicia MALONE Primary Care Provider Reason for Referral * Precert (Within 10 days (routine)) - Authorized Specialty Diagnoses / Procedures Referred By Contac t Referred To Contact Radiology Diagnoses Atypical chest pain Pleurisy Procedures CTA CHEST NON-CORONARY W CONTRAST Gallo Brar DO [address] [facility] [place] [address] Phone: tel: fax: Referral ID Status Reason Start Date Expiration Date V isits Requested Visits Authorized [id number] Authorized 08/12/2024 999 999 Reason for Visit * Reason Comments Acute Telemedicine for ivette st tightness, leg pain Encounter Details Date Type Department Care Team (Late st Contact Info) Description 08/12/2024 2:00 PM EST Telemedicine General Internal Medicine [facility] [address] [facility] [place] [address] Gallo Brar DO [address] [facility] [place] [address] Atypical chest pain*; Pleurisy; Atypical pneumonia; Coronary vasospasm (HCC) Allergies Active Allergy Reactions Criticality Noted Date Comments Amoxicillin-Pot Clavulanate Rash 06/29/20 17 Pollen Hives High 02/28/2017 Dust,ragweed,mold,dog and cat dander. documented as of this encounter (statuses as of 08/12/2024) Medications Montelukast Sodium 10 MG Oral Tablet [...] Pain, Chest. 25 Tablet 1 4 Active Dicyclomine HCl 10 MG Oral Capsule (Bentyl) Take 1 Capsule by mouth 4 times a day as needed (abdominal pain/cramping. ). For abdominal pain 120 Capsule 1 4 Active Omeprazole 20 MG Oral Capsule Delayed Release (PriLOSEC)Alice cations:Abdomi nal pain, epigastric Take 1 Capsule by mouth in the morning. 1 hour before the first meal of the day. 30 Capsule 11 4 Active Ibuprofen 800 MG Oral Tablet (Motrin) Take 1 Tablet by mouth every 8 hours as needed for Pain, Severe. with food for pain 30 Tablet 1 4 Active traZODone HCl 50 MG Oral Tablet (Desyrel)Indic ations:Primary insomnia TAKE 1 & 1/2 (ONE & ONE-HALF) TABLETS BY MOUTH AT BEDTIME 135 Tablet 4 Active Ventolin HFA 108 (90 Base) MCG/ACT Inhalation Aerosol SolutionIndica tions:Atypical pneumonia,Whee zing Inhale 2 Puffs by mouth every 4 hours as needed for Wheezing. 18 g 2 4 Active Doxycycline Hyclate 100 MG Oral CapsuleIndicat ions:Atypical pneumonia Take 1 Capsule by mouth in the morning and 1 Capsule before bedtime. Do all this for 10 days. Until gone.. 20 Capsule 4 08/16/20 24 Active Azithromycin 250 MG Oral Tablet (Zithromax Z-David) Take two tablets by mouth on first day, then 1 tablet daily until gone 6 Tablet 4 Active guaiFENesin-Co deine 100-10 MG/5ML Oral Solution (Robitussin AC)Indications :Atypical pneumonia Take 5 mL by mouth every 4 hours as needed for Cough. 120 mL 4 Active methylPREDNISo lone 4 MG Oral Tablet Therapy Pack (Medrol Dosepack)Indic ations:Atypica l chest pain,Pleurisy follow package directions 21 Tablet 4 Active predniSONE 10 MG Oral Tablet (Deltasone)Ind ications:Atypi markell pneumonia,Whee zing Take 5 tabs for 2 days, 4 tabs for 2 days, 3 tabs for 2 days, 2 tabs for 2 days 1 tab for 2 days 30 Tablet 4 08/12/20 24 Discontinu ed(Medicat ion/Dose Changed) documented as of this encounter (statuses as of 08/12/2024) Active Problems Problem Noted Date Diagnosed Date Overweight (BMI 25.0-29.9) 08/09/2024 Gastroesophageal reflux disease without esophagi tis 08/09/2024 Iron deficiency anemia 01/24/2024 Coronary vasospasm 08/24/2023 Overview (08/30/2023): Diagnosed in May 2023 after evaluation at [facility] for chest pain. Suspected during evaluation with [...] as of this encounter (statuses as of 08/12/2024) Resolved Problems Problem Noted Date Diagnosed Date [...] cffDNA screening, and testing was coordinated by [facility]. In addition to the risk of chromosomal abnormalities, there is an increased risk of congenital/structural anomalies. RECOMMENDATIONS: Recommend [facility] anatomy ultrasound at 19-20 weeks gestation. [...] delivery at 36-37 weeks without amniocentesis per [employer]. Every effort should be made by patient s primary OB provider to obtain prior operative reports. 2. As per [employer]'s 2010 practice [...] resolved Nutrition Due date letter given for [facility] 08/04/2022 Jennifer Lee RN 08/04/2022 Triplet gestation, with two or more monochorionic fetuses 08/04/2022 03/06/2023 Overview (08/23/2022): Spontaneous [id number] [on outside scan, to be confirmed by [...] to schedule this with MFM at the [facility] if we are able, with [...] they should call and likely present to [facility]. Assessment & Plan (11/17/2022 [...] surveillance should begin at 30 weeks per [facility] protocol for di-tri triplets. Yakelin is taking extra folate and iron and will order her vitamin from [employer]. We also discussed nausea and vomiting as Yakelin is currently only taking unisom. She can add Vit B6 25 mg tid; often helpful in the form of a lollipop which can also be ordered via [employer]. Sniffing and alcohol wipe is also a [...] may not be caused by Zofran. (See https://mothertobaby.org/fact-sheets/qirbziteyha-mqozbu-bffvkwqip/). Use should not be discouraged in patients [...] at least one child with a major residential handicap related to prematurity, including cerebral palsy. [...] as of this encounter (statuses as of 08/12/2024) Immunizations Name Administration Dates Next Due COVID-19 mRNA, LNP-s, No Pre serve, 2-Dose Series (Pfizer) 01/06/2021,12/02/2020 DTaP Dipth/Tet/Acell Pertussis (Infanrix), Peds 08/23/2015 MMR - Measles/Mumps/Rubella Vaccine 08/24/2015 PPD 05/25/2018 Seasonal Influenza Vac., MDV , IM, 0.5 mL (Fluzone) 08/07/2017 Seasonal Influenza, PF, 6 M & above, IM , (FluLaval or Fluzone) 06/20/2023,08/31/2022,07/01/2021, 021,07/26/2018() TDAP (age 10 and older)(Boostrix) 01/17/2024,04/2021 documented as of this encounter Social History Tobacco Use Types Packs/Day Years Used Date Smoking Tobacco: Former Cigarettes 0.5 8 0 01/16/2009 - 01/16/2017 Smokeless Tobacco: Former Quit: 03/08/2017 Tobacco [...] Recorded PHQ Adult Total Score 0 [facility]/01/2024 [facility]ational Stress Questionnaire Answer Date [...] money to get more. Never true 06/18/2024 [place] Depression Scale Answer Date Recorded [place] Depression Scale Total 2 03/15/2024 The thought [...] of Assessment Author No 07/24/2018 10:26 AM Mcaey Henry RN documented as of this encounter Mental Status * Because of a physical, mental, or emotional condition, do you have serious difficulty concentrating, remembering, or making decisions? (5 years old or older) Answer Entry Date Author No 07/24/2018 10:26 AM Macey Henry RN documented in this encounter Progress Notes * Gallo Brar, DO - 08/12/2024 1:56 PM EST Basilio Hughes is a 39 year old female. Chief Complaint Patient presents with Acute Telemedicine for Patient location: HOME. I was in a hospital or clinic location. After connecting through [employer], patient was verified with two unique identifiers. Patient (or authorized legal reimbursement representative) wasthen informed that this was a Telemedicine visit and being conducted confidentially over secure lines. Methods to assure confidentiality were taken. Patient acknowledged consent and understanding of privacy and security of the Telemedicine visit. The patient agreed to participate. HPI: Presents as telemedicine for chest pains. States began yesterday. Can be located on both sidesof her chest. Sometimes radiate to the left aspect of her back. Sometimes she feels pain radiating to the middle of her back. No obvious injuries or inciting events. Worried about her heart as she does have a history of coronary vasospasm. Typically takes nitroglycerin for this. States did take yesterday but did not help as much as usually does.Was diagnosed at [facility] in past. On reviewing recent notes was treated for possible atypical pneumonia with doxycycline, prednisone and then switch to azithromycin. States sometimes does note discomfort with deep breath. Sometimes feels like she is choking but denies any issues with swallowing, eating/drinking. No fever chills. Chest tightness is not affected by eating/drinking. No cough, wheezing. No swelling in her legs. Also notes pain in her legs. Coming go. No obvious injuries. States earlier today had some sorenessin both ankles. Does not note any calf tenderness. Pain not specific to ambulation. Again as mentioned above no obvious swelling in her legs. Does not note any increased back pain PMH: Patient Active Problem List Diagnosis Chronic insomnia Coronary vasospasm (HCC) Iron deficiency anemia Overweight (BMI 25.0-29.9) Gastroesophageal reflux disease without esophagitis Current Outpatient Medications Medication Sig Dispense Refill Montelukast Sodium 10 MG Oral Tablet (Singulair) Take 1 Tab by mouth every evening. 30 Tab 5 Acetaminophen 325 MG Oral Tablet (Tylenol) Take 3 Tablets by mouth in the morning and 3 Tablets at noon and 3 Tablets in the evening and 3 Tablets before bedtime. 30 Tablet 5 Fluticasone Propionate 50 MCG/ACT Nasal Suspension (Flonase) Administer 2 Sprays into each nostril in the morning. 16 mL 0 Nitroglycerin 0.4 MG Sublingual Tablet Sublingual (Nitrostat) Place 1 Tablet under the tongue every5 minutes as needed for Pain, Chest. 25 Tablet 1 Dicyclomine HCl 10 MG Oral Capsule (Bentyl) Take 1 Capsule by mouth 4 times a day as needed (abdominal pain/cramping.). For abdominal pain 120 Capsule 1 Omeprazole 20 MG Oral Capsule Delayed Release (PriLOSEC) Take 1 Capsule by mouth in the morning. 1 hour before the first meal of the day. 30 Capsule 11 Ibuprofen 800 MG Oral Tablet (Motrin) Take 1 Tablet by mouth every 8 hours as needed for Pain, Severe. with food for pain 30 Tablet 1 traZODone HCl 50 MG Oral Tablet (Desyrel) TAKE 1 & 1/2 (ONE & ONE-HALF) TABLETS BY MOUTH ATBEDTIME 135 Tablet 0 Ventolin HFA 108 (90 Base) MCG/ACT Inhalation Aerosol Solution Inhale 2 Puffs by mouth every 4 hours as needed for Wheezing. 18 g 2 predniSONE 10 MG Oral Tablet (Deltasone) Take 5 tabs for 2 days, 4 tabs for 2 days, 3 tabs for 2 days, 2 tabs for 2 days 1 tab for 2 days 30 Tablet 0 Doxycycline Hyclate 100 MG Oral Capsule Take 1 Capsule by mouth in the morning and 1 Capsule beforebedtime. Do all this for 10 days. Until gone.. 20 Capsule 0 Azithromycin 250 MG Oral Tablet (Zithromax Z-David) Take two tablets by mouth on first day, then 1 tablet daily until gone 6 Tablet 0 guaiFENesin-Codeine 100-10 MG/5ML Oral Solution (Robitussin AC) Take 5 mL by mouth every 4 hours asneeded for Cough. 120 mL 0 No current facility-administered medications for this visit. Past Medical History: Diagnosis Date Anxiety state 03/11/2020 Family history of hypercoagulable state mother with blood clots-provoked Gastroesophageal reflux disease without esophagitis 08/09/2024 Headache, unspecified headache type 07/27/2018 Herniated disc, cervical 07/27/2018 History of cardiac catheterization 01/13/2024 Hypertension Insomnia Overweight (BMI 25.0-29.9) 08/09/2024 Paresthesias 07/27/2018 Vasospasm (HCC) Past Surgical History: Procedure Laterality Date BREAST AUGMENTATION EDU CARDIAC CATHERIZATION.EDU 05/2023 [facility] Cardio DELIVERY ONLY W/ N/A 01/21/2023 DELIVERY AND CARE performed by Bay Long Jr., MD at [facility] DENTAL SURGERY PROCEDURE NEC 2021 INFORMATION history of tummy tuck [place] EXCISION EXCESSIVE SKIN & SUBQ TISSUE ABDOMEN N/A 2009 REMOVAL OF APPENDIX around age 27 Review of patient's allergies indicates: Allergen Reactions Environmental [Pollen] Hives Dust,ragweed,mold,dog and cat dander. Augmentin [Amoxicillin-Pot Clavulanate] Rash Family History Problem Relation Name Age of Onset Blood Disorder Mother hypercoagulable, hx of VTE (DVT, PE) Lung Disorder Mother PE Allergies Mother Nasal allergies No Known Problems Father Asthma Sister Allergies Sister Allergic rhinitis Diabetes Brother Allergies Brother Nasal and food allergies Glaucoma Brother Cataracts Brother No Known Problems Brother Diabetes Grandmother (Maternal) Other (unknown) Grandfather (Maternal) bowel disease Diabetes Grandmother (Paternal) Dementia Grandmother (Paternal) No Known Problems Grandfather (Paternal) No Known Problems Daughter Family Status Relation Status Mo Alive Fa Alive Sis Alive Bro Bro Alive Bro Alive MGMA Alive MGFA PGMA PGFA Son Alive Son Alive Son Alive Son Alive Son Alive Son Alive Other Alive Other Alive Dee Alive Social History Socioeconomic History Marital status: Spouse name: Alber Number of children: Not on file Years of education: Not on file Highest education level: Not on file Occupational History Not on file Tobacco Use Smoking status: Former Current packs/day: 0.00 Average packs/day: 0.5 packs/day for 8.0 years (4.0 ttl pk-yrs) Types: Cigarettes Start date: 01/16/2009 Quit date: 01/16/2017 Years since quittin.5 Smokeless tobacco: Former Quit date: 03/08/2017 Tobacco comments: No passive smoke exposures Vaping Use Vaping status: Never Used Substance and Sexual Activity Alcohol use: Not Currently Comment: social wine Drug use: Never Sexual activity: Yes Partners: Male Other Topics Concern Not on file Social History Narrative Not on file Social Needs Financial Resource Strain: Low Risk (06/18/2024) Financial Resource Strain Do you have any trouble paying for your medications, or do you think you might in the future? (Adult - for ages 18 years and over): No Does your family have trouble paying for medicine? (Household - for ages 0-17 years): Not on file Food Insecurity: No Food Insecurity (06/18/2024) Food Insecurity Do you need food for this week? (Adult - for ages 18 years and over): No Are you able to get enough food for your family? (Household - for ages 0-17 years): Not on file Does your family need food this week? (Household - for ages 0-17 years): Not on file Do you always have enough food for your family? (Household - for ages 0-17 years): Not on file Transportation Needs: No Transportation Needs (06/18/2024) Transportation Needs Do you have trouble getting a ride to medical visits or work? (Adult - for ages 18 years and over):Not on file Does your family have a hard time getting a ride to doctors visits? (Household - for ages 0-17 years): Not on file Has lack of transportation kept you from medical appointments, meetings, work, or from getting things needed for daily living? Check all that apply. (Adult - for ages 18 years and over): No Do you (or your family) have trouble finding or paying for a ride (transportation)? (Household - for ages 0-17 years): Not on file Social Connections: Socially Integrated (06/18/2024) Social Connections How often do you feel lonely or isolated from those around you? (Adult - for ages 18 years and over): Never Housing Stability: Low Risk (06/18/2024) Housing Stability Do you currently live in a penitentiary or have no steady place to sleep at night? (Adult - for ages 18 years and over): No Do you think you are at risk of becoming homeless? (Adult - for ages 18 years and over): Not on file Does your family worry about paying for your home or becoming homeless? (Household - for ages 0-17 years): Not on file Are you homeless or worried that you might be in the future? (Adult - for ages 18 years and over): No Are you (or your family) homeless or worried that you might be in the future? (Household - for ages0-17 years): Not on file Review of Systems Constitutional: Positive for fatigue. Negative for chills and fever. HENT: Negative for congestion, sore throat and trouble swallowing. Eyes: Negative for photophobia and itching. Respiratory: Positive for chest tightness and shortness of breath. Negative for apnea, cough, wheezing and stridor. Cardiovascular: Positive for chest pain. Negative for palpitations and leg swelling. Gastrointestinal: Negative for abdominal distention, abdominal pain, nausea and vomiting. Genitourinary: Negative for dysuria and frequency. Musculoskeletal: Positive for arthralgias. Negative for back pain, joint swelling, myalgias, neck pain and neck stiffness. Skin: Negative for pallor and rash. Neurological: Negative for dizziness, light-headedness and headaches. Psychiatric/Behavioral: Negative for sleep disturbance. The patient is not nervous/anxious. Objective There were no vitals taken for this visit. Physical Exam Constitutional: Appearance: Normal appearance. HENT: Head: Normocephalic and atraumatic. Right Ear: External ear normal. Left Ear: External ear normal. Nose: Nose normal. Mouth/Throat: Mouth: Mucous membranes are moist. Pharynx: Oropharynx is clear. Eyes: General: No scleral icterus. Conjunctiva/sclera: Conjunctivae normal. Pulmonary: Effort: Pulmonary effort is normal. No respiratory distress. Comments: No visible tachypnea or accessory muscle use Musculoskeletal: General: No swelling or deformity. Cervical back: Normal range of motion. Right lower leg: No edema. Left lower leg: No edema. Skin: Coloration: Skin is not jaundiced. Findings: No rash. Neurological: General: No focal deficit present. Mental Status: She is alert and oriented to person, place, and time. Psychiatric: Mood and Affect: Mood normal. Behavior: Behavior normal. ASSESSMENT/PLAN: Atypical chest pain (Primary) - TROPONIN T, HIGH SENSITIVITY; Future; Expected date: 08/12/2024 - D-DIMER; Future; Expected date: 08/12/2024 - CTA CHEST NON-CORONARY W CONTRAST - methylPREDNISolone 4 MG Oral Tablet Therapy Pack (Medrol Dosepack); follow package directions - BNP, NT-PRO; Future; Expected date: 08/12/2024 Pleurisy - TROPONIN T, HIGH SENSITIVITY; Future; Expected date: 08/12/2024 - D-DIMER; Future; Expected date: 08/12/2024 - CTA CHEST NON-CORONARY W CONTRAST - methylPREDNISolone 4 MG Oral Tablet Therapy Pack (Medrol Dosepack); follow package directions - BNP, NT-PRO; Future; Expected date: 08/12/2024 Atypical pneumonia Coronary vasospasm (HCC) - TROPONIN T, HIGH SENSITIVITY; Future; Expected date: 08/12/2024 - D-DIMER; Future; Expected date: 08/12/2024 Plan: Patient presents as telemedicine for evaluation of what sounds to be atypical chest pain. Possible pleurisy. Does not seem typical of coronary etiology but explained to patient that these symptoms are not optimally evaluated by video visit. They possibly started around the same time treated for an atypical pneumonia. She is still completing her antibiotics but does not note any change in her symptoms. Took usual nitroglycerin 0.4 mg tablet and did not seem to help as much. Also notes pain in both of her legs but does not seem to be related to the low back. No obvious radicular description. Does not seem to be any calf tenderness or swelling Since some of her chest pain description sound like pleurisy, would like to further evaluate for pulmonary cause such as continued pneumonia or even possible PE. Recent chest x-ray was negative Recommend CTA chest with contrast at [facility]. Patient requests to have her troponin level checked. Will also check D-dimer. She will have labs done later this afternoon or tomorrow Would like to re-treat with short course of steroids. Medrol 4 mg Dosepak for possible pleurisy. Counseled on common side effects which to monitor. Counseled to take with food Had long discussion with patient that will try to evaluate her symptoms as outpatient but not optimal being a video visit. Have ordered some studies to further evaluate however if she notes any progression of her symptoms she has a let us know. This could be an indication for more emergent evaluation Follow Up: Return if symptoms worsen or fail to improve, for Follow up next routine with PCP as scheduled. | For: Follow up next routine with PCP as scheduled | Check-out note: Follow up pending testresults Labs allison osorio CTA Chest Allison Osorio I spent a total of 30-39 minutes (exact time 35 mins) on the date of service in preparation, delivery, and documentation of the care provided to Yakelin Hughes excluding any time spent in the performance of separately billed services or time spent by another provider/QHP. Gallo Brar DO documented in this encounter Plan of Treatment Upcoming Encounters Date Type Department Care Team (Late st Contact Info) Description 08/12/2024 2:50 PM EST [facility] [address] [facility] [place] [id number] [place] [address] [facility] [place] [address] Scheduled Orders Name Type Priority Associated Diagnoses Orde r Schedule TROPONIN T, HIGH SENSITIVITY Lab Routine Atypical chest pain Pleurisy Coronary vasospasm (HCC) Expected: 08/12/2024 (Approximate), Expires: 08/12/2025 D-DIMER Lab Routine Atypical chest pain Pleurisy Coronary vasospasm (HCC) Expected: 08/12/2024 (Approximate), Expires: 08/12/2025 CTA CHEST NON-CORONARY W CONTRAST Medical Imaging Routine Atypical chest pain Pleurisy Ordered: 08/12/2024 BNP, NT-PRO Lab Routine Atypical chest pain Pleurisy Expected: 08/12/2024 (Approximate), Expires: 08/12/2025 Health Maintenance Due Date Last Done Comments Hepatitis B Vaccine (1 of 3 - 19+ 3-dose series) 2006 COVID-19 Vaccine (2023- season) 2024 08/26/2021, 01/06/2021, 12/02/2020 Influenza Vaccine (FLU shot) (#1) 2024 06/20/2023, 08/31/2022, 07/01/2021, Additional history exists Depression Screening 12/31/2024 01/01/2024 Pap Smear 05/02/2027 05/02/2024, 01/19/2021 Diabetes Screening 08/09/2027 08/09/2024, 0 06/11/2024, 03/29/2024, Additional history exists Cervical Cancer Screening 05/02/2029 HPV/Co-Test 05/02/2029 05/02/2024 DTap/Tdap Vaccines (4 - Td or Tdap) 01/16/2034 01/17/2024, 08/25/2021, 08/23/2015 HPV (Gardasil) Vaccine Aged Out No lo [...] DVT Family history of other cardiovascular diseases Atypical chest pain- Primary Other chest pain Pleurisy Pleurisy without mention of effusion or current tuberculosis Atypical pneumonia Pneumonia, organism unspecified Coronary vasospasm (HCC) Prinzmetal angina documented in this encounter Advance Directives * [...] Power of Attor nely? No Care Teams Roving Changer Relationship Specialty Start Date End Date Alicia Bell CRNP [address] [place] [address] PCP - General Nurse Practitioner 05/28/24 documented as of this encounter"
--- OUTSIDE RECORDS SUMMARY | 2024-09-15 16:43 | External Medical Summary ---
Author Name Unknown Address Unknown Organization [id number]:[facility] [address] Laboratory Report Ordering Provider Test Date Status SHUKRI GAMA 08/12/2024 14:45:51 Final Rheumatoid factor at a level above 50 IU/mL may lead to an overestimation of the D-dimer level. A normal D-dimer result (<0.50 ug/mL FEU) has a negative predictive value of approximately 95% for the exclusion of acute pulmonary embolism (PE) or deep vein thrombosis when there is low or moderate pretest PE probability. Increased D-dimer values are abnormal but do not indicate a specific disease state and the D-dimer increase does not definitively correlate with clinical severity of disease. Observation Date Value Abnormality Reference (Units ) Status Fibrin D-dimer FEU [Mass/volume] in Platelet poor plasma by Immunoassay 08/12/2024 14:45:51 <0.27 <0.50 (ug/mL FEU) Final Performing Location [facility] - [facility] [place] [address]
--- OUTSIDE RECORDS SUMMARY | 2024-09-15 16:43 | External Medical Summary | Summary of Care ---
Author Name Unknown Organization [facility] Address [address] [place] [address] Phone [phone] Care Team Providers Care Hod Carrier Name Role Phone aRy Alicia Denise MALONE Primary Care Provider Reason for Visit * Reason Onset Date Comments Referral 08/26/2024 Breast Clinic Encounter Details Date Type Department Care Team ([facility] Contact Info) Description 08/26/2024 Telephone General Surgery, [place] [address] [place] [address] Services, Formerly [facility] [address] [place] [address] Referral (Breast Clinic) Allergies Active Allergy Reactions Criticality Noted Date Comments Amoxicillin-Pot Clavulanate Rash 06/29/20 17 Pollen Hives High 02/28/2017 Dust,ragweed,mold,dog and cat dander. documented as of this encounter (statuses as of 08/26/2024) Medications Montelukast Sodium 10 MG Oral Tablet [...] as of this encounter (statuses as of 08/26/2024) Active Problems Problem Noted Date Diagnosed Date Overweight (BMI 25.0-29.9) 08/09/2024 Gastroesophageal reflux disease without esophagi tis 08/09/2024 Iron deficiency anemia 01/24/2024 Coronary vasospasm 08/24/2023 Overview (08/30/2023): Diagnosed in May 2023 after evaluation at [facility] for chest pain. Suspected during evaluation [...] as of this encounter (statuses as of 08/26/2024) Resolved Problems Problem Noted Date Diagnosed Date [...] cffDNA screening, and testing was coordinated by [facility]. In addition to the risk of chromosomal abnormalities, there is an increased risk of congenital/structural anomalies. RECOMMENDATIONS: Recommend [facility] anatomy ultrasound at 19-20 weeks gestation. [...] delivery at 36-37 weeks without amniocentesis per [employer]. Every effort should be made by patient s primary OB provider to obtain prior operative reports. 2. 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 Assessment & Plan (11/17/2022 1:34 PM EST): [...] surveillance should begin at 30 weeks per [facility] protocol for di-tri triplets. Yakelin is taking extra folate and iron and will order her vitamin from [employer]. We also discussed nausea and vomiting as Yakelin is currently only taking unisom. She can add Vit B6 25 mg tid; often helpful in the form of a lollipop which can also be ordered via [employer]. Sniffing and alcohol wipe is also a [...] may not be caused by Zofran. (See https://mothertobaby.org/fact-sheets/bxbbwccwxok-vloqnc-uwfpiabsc/). Use should not be discouraged in patients [...] at least one child with a major mcc handicap related to prematurity, including cerebral palsy. [...] as of this encounter (statuses as of 08/26/2024) Immunizations Name Administration Dates Next Due COVID-19 [...] Recorded PHQ Adult Total Score 0 01/01/2024 [facility] - [facility]ational Stress Questionnaire Answer Date [...] money to get more. Never true 06/18/2024 [place] Depression Scale Answer Date Recorded [place] Depression Scale Total 2 03/15/2024 The thought [...] Nurse Navigator General Surgery and Breast Clinic [facility] * Telephone Encounter - Penny Silva LPN - 08/26/2024 12:26 PM EST Referral from: [place] Consult: Breast Surgery For: abnormal nipple Referral received as detailed above. Prerequisite imaging has not been ordered/completed. Will request from referring provider. Tiffany Silva LPN Intake Nurse Navigator General Surgery and Breast Clinic [facility] Breast Imaging: Short-Term Follow-Up & Biopsy [...] Breast Surgery Referral Patients from outside the [facility] that has completed breast imaging and/or [...] Care Team (Late st Contact Info) Description 08/26/2024 1:30 PM EST Office Visit Gynecology/Obstetrics [facility] [address] [address] Hernán Scruggs MD [address] [place] [address] 08/27/2024 10:15 AM EST Imaging Radiology [facility] [address] [address] Scheduled Orders Name Type Priority Associated Diagnoses Orde r Schedule MAMMOGRAM DIAGNOSTIC LEONORA RIGHT Medical Imaging Routine Abnormal nipple Expected: 09/02/2024, Expires: 09/26/2025 Health Maintenance Due Date Last Done Comments [...] Power of Attor nely? No Care Teams Hod Carrier Relationship Specialty Start Date End Date Alicia Bell CRNP [address] [address] PCP - General Nurse Practitioner 05/28/24 documented as of this encounter
--- OUTSIDE RECORDS SUMMARY | 2024-09-15 16:43 | External Medical Summary ---
Author Name Unknown Address Unknown Organization K01:[facility] [place] [address] [place] [address] Laboratory Report Ordering Provider Test Date Status ABDIAS GAMAYASHIRA 08/12/2024 14:45:51 Final Exclude Heart Failure: <300 pg/mL
Diagnose Heart Failure:
Age <50 yr: >450 pg/mL
50-75 yr: >900 pg/mL
>75 yr: >1800 pg/mL
GFR is 30-59 mL/min: >1200 pg/mL or Age- adjusted values
GFR <30 mL/min: do not use, not reliable

Prognostic threshold: 1000 pg/mL Observation Date Value Abnormality Reference (Units ) Status BNP, Pro-hormone 08/12/2024 14:45:51 <50 <30 0 (pg/mL) Final Performing Location [facility] [place] [place] [address] [place] [address]
--- OUTSIDE RECORDS SUMMARY | 2024-09-15 16:43 | External Medical Summary ---
Author Name Unknown Address Unknown Organization K01[place] [place] [address] [place] [address] Laboratory Report Ordering Provider Test Date Status SANTOS BLACKWOOD 08/26/2024 12:29:30 Final Observation Date Value Abnormality Reference (Units ) Status MYCODE SPECIMEN-SST 08/26/2024 12:29:30 Freezing of extracted DNA, whole blood and/or serum. Final Performing Location [facility] [place] [address] [facility] [address]
--- OUTSIDE RECORDS SUMMARY | 2024-09-15 16:43 | External Medical Summary | Summary of Care ---
Author Name Unknown Organization [facility] Address [address] [place] [address] Phone [phone] Care Team Providers Care Strategic Partnership Representative Name Role Phone Ray Alicia MALONE Primary Care Provider Reason for Referral * (Within 10 days (routine)) - Authorized Specialty Diagnoses / Procedures Referred By Itzel t Referred To Contact Radiology Diagnoses Sensation of lump in throat Tightness of neck Procedures US HEAD AND NECK Anita Ramos PA-C [address] [place] [address] Phone: tel: fax: Referral ID Status Reason Start Date Expiration Date V isits Requested Visits Authorized [id number] Authorized 08/27/2024 999 999 * Evaluate & Treat - Unlimited Visits (Within 10 days (routine)) - Authorized Specialty Diagnoses / Procedures Referred By Itzel alvarez Referred To Contact Breast Clinic Multi Specialty / Surgical Oncology Diagnoses Abnormal nipple Anita Ramos PA-C [address] [place] [address] Phone: tel: fax: Referral ID Status Reason Start Date Expiration Date Visits Requested Visits Authorized [id number] Authorized Specialty Services Required 08/26/2024 999 999 Question Answer Referral Priority Within 10 days (routine) Where should this appointment be scheduled? [facility] What is the reason to be seen? Breast Lump - small lump on R nipple Is there suspicion of Breast Cancer? No Reason for Visit * Reason Onset Date Comments Acute Patient reports she has a lump on her right nipple on Monday. No drainage, itchiness or pain. And also has been having a choking sensation for more than a year that causes pain in her chest and back. Has been more intense and occurring daily for the past month. Medication Administration 08/26/2024 Flu an d/or Pneumo Inj Encounter Details Date Type Department Care Team (Late st Contact Info) Description 08/26/2024 11:20 AM EST Office Visit General Internal Medicine [facility] [place] [address] [facility] [place] [address] Anita Ramos PA-C [address] [facility] [place] [address] Sensation of lump in throat*; Tightness of neck; Abnormal nipple; Need for prophylactic vaccination and inoculation against influenza Allergies Active Allergy Reactions Criticality Noted Date [...] for Wheezing. 18 g 2 4 Active Dicyclomine HCl 10 MG Oral Capsule (Bentyl) Take 1 Capsule by mouth 4 times a day as needed (abdominal pain/cramping. ). For abdominal pain 120 Capsule 1 4 08/26/20 24 Discontinu ed(Medicat ion List Clean Up) Omeprazole 20 MG Oral Capsule Delayed Release (PriLOSEC)Alice cations:Abdomi nal pain, epigastric Take 1 Capsule by mouth in the morning. 1 hour before the first meal of the day. 30 Capsule 11 4 08/26/20 24 Discontinu ed(Medicat ion List Clean Up) Azithromycin 250 MG Oral Tablet (Zithromax Z-David) Take two tablets by mouth on first day, then 1 tablet daily until gone 6 Tablet 4 08/26/20 24 Discontinu ed(Medicat ion List Clean Up) guaiFENesin-Co deine 100-10 MG/5ML Oral Solution (Robitussin AC)Indications :Atypical pneumonia Take 5 mL by mouth every 4 hours as needed for Cough. 120 mL 4 08/26/20 24 Discontinu ed(Medicat ion List Clean Up) methylPREDNISo lone 4 MG Oral Tablet Therapy Pack (Medrol Dosepack)Indic ations:Atypica l chest pain,Pleurisy follow package directions 21 Tablet 4 08/26/20 24 Discontinu ed(Medicat ion List Clean Up) documented as of this encounter (statuses as of 08/26/2024) Active Problems Problem Noted Date Diagnosed Date Overweight (BMI 25.0-29.9) 08/09/2024 Gastroesophageal reflux disease without esophagi tis 08/09/2024 Iron deficiency anemia 01/24/2024 Coronary vasospasm 08/24/2023 Overview (08/30/2023): Diagnosed in May 2023 after evaluation at [facility] for chest pain. Suspected during evaluation [...] cffDNA screening, and testing was coordinated by [facility]. In addition to the risk of [...] delivery at 36-37 weeks without amniocentesis per [employer]. Every effort should be made by patient s primary OB provider to obtain prior operative reports. 2. As per [employer]'s 2010 practice [...] caution. AMA (advanced maternal age) multigravida 35+ 2 08/09/2024 Assessment & Plan (08/22/2022 3:47 PM [...] monochorionic fetuses 08/04/2022 03/06/2023 Overview (08/23/2022): Spontaneous ztvkvjetricbg-zsl-abtfbvuq [on outside scan, to be confirmed by [...] to schedule this with MFM at the [facility] if we are able, with [...] urgent c/s. Recommend c/s in this case. [facility] is scheduled for next week so that Yakelin can meet with NICU staff to further discuss delivery expectations. Precautions reviewed; if there is an emergency couple is to present to the nearest hospital for evaluation/transfer; if Yakelin is having contractions that are regular, painful, and at least every 10 minutes x 1 hour, they should call and likely present to [facility]. Assessment & Plan (11/17/2022 1:34 PM EST): [...] surveillance should begin at 30 weeks per [facility] protocol for di-tri triplets. Yakelin is taking extra folate and iron and will order her vitamin from [employer]. We also discussed nausea and vomiting as Yakelin is currently only taking unisom. She can add Vit B6 25 mg tid; often helpful in the form of a lollipop which can also be ordered via [employer]. Sniffing and alcohol wipe is also a [...] may not be caused by Zofran. (See https://mothertobaby.org/fact-sheets/atltuwoniww-ugdoge-xaxwvqeed/). Use should not be discouraged in patients [...] at least one child with a major correction handicap related to prematurity, including cerebral palsy. [...] Recorded PHQ Adult Total Score 0 01/01/2024 [facility] - [...] money to get more. Never true 06/18/2024 [place] Depression Scale Answer Date Recorded [place] Depression Scale Total 2 03/15/2024 The thought [...] Sign Reading Time Taken Comments Blood Pressure 106/72 08/26/2024 11:36 AM EST Pulse 84 08/26/2024 11:36 AM EST Temperature 37.2 C (99 F) 08/26/2024 11: 36 AM EST Respiratory Rate - - Oxygen Saturation 99% 08/26/2024 11: 36 AM EST Inhaled Oxygen Concentration - - Weight 65.7 kg (144 lb 12.8 oz) 024 11:36 AM EST Height - - Body Mass Index 27.36 08/09/2024 11:25 AM EST documented in this encounter Functional [...] Macey Henry RN documented in this encounter Patient Instructions * Patient Instructions* Claudia Verdugo, MED ASSIST - 08/26/2024 12:08 PM EST ~~PATIENT INSTRUCTIONS FOR FLU SHOT~~ Possible side effects of influenza vaccine, (flu shot), are usually mild and include: 1. Soreness or redness at injection site 2. Low grade fever 3. Body aches You may use Tylenol/Acetaminophen as needed for these symptoms. LET YOUR DOCTOR KNOW IMMEDIATELY IF YOU HAVE DIFFICULTY BREATHING OR SWALLOWING, EXPERIENCE ITCHINGOF FEET OR HANDS, HAVE SWELLING OF EYES, FACE OR INSIDE OF NOSE. documented in this encounter Progress Notes * Claudia Verdugo MED ASSIST - 08/26/2024 12:07 PM EST PRE - ADMINISTRATION DOCUMENTATION Are you experiencing any cold symptoms or fever? No Have you had Guillain-[place] Syndrome (an illness that causes paralysis) within the last 6 weeks? No Have you had the flu shot in the past? YES Have you ever had a reaction to the flu shot? No NIRAJ Garcia, 08/26/2024 12:07 PM Immunization Administration Documentation Time Out Procedure Performed: Yes Patient Identified (Ask Name/Date of ): Yes Does the patient have a fever greater than 101 degrees today? No Patient allergic to latex? No VFC Stock: No Immunization(s) verified: Yes, Immunization Name: Flu, VIS Sheet(s) given: Yes Verified Side and Site: Yes Verified Shot(s) with Parent(s)/Patient: Yes * Anita Ramos PA-C - 08/26/2024 11:46 AM EST Images from the original note were not included. History of Present Illness Yakelin Hughse is a 39 year old female that presents for Acute (Patient reports she has a lump on her right nipple on Monday. No drainage, itchiness or pain. And also has been having a choking sensation for more than a year that causes pain in her chest and back. Has been more intense and occurring daily for the past month. ) and Medication Administration (Flu and/or Pneumo Inj) Pt here today with a c/o a small lump on her R nipple. Was noticed by her over the weekend.Denies any associated pain. Pt reports she has a history of --last breastfed approx 5 months ago. No family history of breast CA that she is aware of. Pt also c/o ongoing feeling of tightness in her neck. Worse with swallowing. Has been ongoing for over a year, but feels over the past month or so the symptoms are progressing. Review of Systems: See HPI for pertinent positives. All other review of systems is negative. Physical Exam Vitals: 08/26/24 1136 Temp: 99 F (37.2 C) Pulse: 84 SpO2: 99% BP: 106/72 Physical Exam Constitutional: General: She is not in acute distress. Appearance: She is not diaphoretic. HENT: Mouth/Throat: Mouth: Mucous membranes are moist. Pharynx: Oropharynx is clear. Neck: Thyroid: No thyroid mass or thyroid tenderness. Comments: Fullness in distal anterior neck appreciated. Pt reports when the area is palpated she can feel the tightness deeper into her neck. Cardiovascular: Rate and Rhythm: Normal rate and regular rhythm. Pulmonary: Effort: Pulmonary effort is normal. Breath sounds: Normal breath sounds. Chest: Musculoskeletal: Cervical back: Normal range of motion and neck supple. Skin: General: Skin is warm and dry. Neurological: General: No focal deficit present. Mental Status: She is alert. Mental status is at baseline. I have reviewed the following results: Assessment and Plan Sensation of lump in throat Update thyroid labs, as well as an US of the neck. Will notify of results as available. - US HEAD AND NECK; Future - TSH WITH FREE T4 IF INDICATED; Future Tightness of neck See above. - US HEAD AND NECK; Future - TSH WITH FREE T4 IF INDICATED; Future Abnormal nipple Will refer to breast specialist for eval of the area. Suspect it may be an enlarged milk duct, but will refer to specialist to confirm. - BREAST CLINIC REFERRAL OP Need for prophylactic vaccination and inoculation against influenza Flu vac given today. - INFLUENZA VAC, TRIVALENT, (IIV3), PF, 0.5 ML (FLUZONE) Wrap-Up Follow Up: Return if symptoms worsen or fail to improve. Time: I spent a total of 40-54 minutes (exact time 40 mins) on the date of service in preparation, delivery, and documentation of the care provided to Yakelin Hughes excluding any time spent in the performance of separately billed services. documented in this encounter Nursing Notes * Claudia Verdugo, MED ASSIST - 08/26/2024 11:38 AM EST Chief Complaint Patient presents with Acute Patient reports she has a lump on her right nipple on Monday. No drainage, itchiness or pain. Andalso has been having a choking sensation for more than a year that causes pain in her chest and back. Has been more intense and occurring daily for the past month. documented in this encounter Plan of Treatment Upcoming Encounters Date Type Department Care Team (Late st Contact Info) Description 08/26/2024 1:30 PM EST Office Visit Gynecology/Obstetrics [facility] [address] [facility] [place] [address] Hernán Scruggs MD [address] [facility] [place] [address] 08/27/2024 10:15 AM EST Imaging Radiology [facility] [address] [facility] [place] [address] Pending Results Name Type Priority Associated Diagnoses Date /Time TSH WITH FREE T4 IF INDICATED Lab Routine Sensation of lump in throat Tightness of neck 08/26/2024 12:29 PM EST Scheduled Orders Name Type Priority Associated Diagnoses Orde r Schedule US HEAD AND NECK Medical Imaging Routine Sensation of lump in throat Tightness of neck Expected: 08/27/2024, Expires: 09/26/2025 TSH WITH FREE T4 IF INDICATED Lab Routine Sensation of lump in throat Tightness of neck Expected: 08/26/2024 (Approximate), Expires: 08/26/2025 Scheduled Referrals Name Type Priority Associated Diagnoses Orde r Schedule BREAST CLINIC REFERRAL OP Referral Within 10 days (routine) Abnormal nipple Ordered: 08/26/2024 Health Maintenance Due Date Last Done Comments [...] DVT Family history of other cardiovascular diseases Sensation of lump in throat- Primary Other symptoms involving head and neck Tightness of neck Unspecified musculoskeletal disorders and symptoms referable to neck Abnormal nipple Unspecified breast disorder Need for prophylactic vaccination and inoculation against influenza documented in this encounter Advance Directives * [...] Power of Attor nely? No Care Teams Strategic Partnership Representative Relationship Specialty Start Date End Date Alicia Bell CRNP [address] [place] [address] PCP - General Nurse Practitioner 05/28/24 documented as of this encounter
--- OUTSIDE RECORDS SUMMARY | 2024-09-15 16:43 | External Medical Summary | Summary of Care ---
Author Name Unknown Organization [facility] Address [address] [place] [address] Phone [phone] Care Team Providers Care Pet Ambassador Name Role Phone Alicia Bell Denise MALONE Primary Care Provider Reason for Visit * Reason Comments Outpatient Testing Encounter Details Date Type Department Care Team (Late st Contact Info) Description 08/26/2024 12:30 PM EST Laboratory Laboratory [facility] [address] [place] [facility] [place] [place] [address] [facility] [address] [facility] [address] [employer] Other*[id number]; Sensation of lump in throat; Tightness of neck Allergies Active Allergy Reactions Criticality Noted Date [...] Diagnosed in May 2023 after evaluation at [facility] for chest pain. Suspected during [...] cffDNA screening, and testing was coordinated by [facility]. In addition to the risk of chromosomal abnormalities, there is an increased risk of congenital/structural anomalies. RECOMMENDATIONS: Recommend [facility] anatomy ultrasound at 19-20 weeks gestation. H/O [...] delivery at 36-37 weeks without amniocentesis per [employer]. Every effort should be made by patient s primary OB provider to obtain prior operative reports. 2. As per [employer]'s 2010 practice [...] monochorionic fetuses 08/04/2022 03/06/2023 Overview (08/23/2022): Spontaneous tffivlrsnxajc-iks-nhnyfijg [on outside scan, to be confirmed by [...] to schedule this with MFM at the [facility] if we are able, with [...] they should call and likely present to [facility]. Assessment & Plan (11/17/2022 1:34 PM EST): [...] surveillance should begin at 30 weeks per [facility] protocol for di-tri triplets. Yakelin is taking extra folate and iron and will order her vitamin from [employer]. We also discussed nausea and vomiting as Yakelin is currently only taking unisom. She can add Vit B6 25 mg tid; often helpful in the form of a lollipop which can also be ordered via [employer]. Sniffing and alcohol wipe is also a [...] may not be caused by Zofran. (See https://mothertobaby.org/fact-sheets/rbatcukvohv-tqvfve-zysxrzcxp/). Use should not be discouraged in patients [...] mRNA, LNP-s, No Pre serve, 2-Dose Series ([employer]) 01/06/2021,12/02/2020 DTaP Dipth/Tet/Acell Pertussis (Infanrix), Peds 08/23/2015 [...] Recorded PHQ Adult Total Score 0 01/01/2024 [facility] - Occupational Stress Questionnaire Answer Date [...] money to get more. Never true 06/18/2024 [place] Depression Scale Answer Date Recorded [place] Depression Scale Total 2 03/15/2024 The thought [...] 08/26/2024 1:30 PM EST Office Visit Gynecology/Obstetrics [facility] [address] [place] [address] Hernán Scruggs MD [address] [place] [address] 08/27/2024 10:15 AM EST Imaging Radiology [facility] [address] [place] [address] Pending Results Name Type Priority Associated Diagnoses Date /Time MYCODE SUBSEQUENT ADULT Lab Routine [employer] Other*[id number] 08/26/2024 12:29 PM EST TSH WITH FREE T4 IF INDICATED Lab Routine Sensation of lump in throat Tightness of neck 08/26/2024 12:29 PM EST MYCODE SST1 Lab Routine [employer] Other*[id number] 08/26/2024 12:29 PM EST MYCODE SST2 Lab Routine [employer] Other*[id number] 08/26/2024 12:29 PM EST Health Maintenance Due Date Last [...] history of other cardiovascular diseases [employer] Other*[id number] Sensation of lump in throat Other symptoms involving head and neck Tightness of neck Unspecified musculoskeletal disorders and symptoms referable to neck documented in this encounter Advance Directives * [...] Power of Attor nely? No Care Teams Pet Ambassador Relationship Specialty Start Date End Date Alicia Bell CRNP [address] [place] [address] PCP - General Nurse Practitioner 05/28/24 documented as of this encounter
--- OUTSIDE RECORDS SUMMARY | 2024-09-15 16:43 | External Medical Summary | Summary of Care ---
Author Name Unknown Organization [facility] Address [address] [place] [address] Phone [phone] Care Team Providers Care Cans Vacuum Tester Name Role Phone Ray Alicia MALONE Primary Care Provider Reason for Visit * Reason Comments Outpatient Testing Encounter Details Date Type Department Care Team ([facility] st Contact Info) Description 08/12/2024 2:50 PM EST Laboratory Laboratory, [facility] [address] [place] [address] [facility] [address] [place] [address] Atypical chest pain; Pleurisy; Coronary vasospasm (HCC) Allergies Active Allergy Reactions [...] 4 times a day as needed (abdominal pain/cramping.) . For abdominal pain 120 Capsule 1 4 Active Omeprazole 20 MG Oral Capsule Delayed Release (PriLOSEC)Indic ations:Abdomina l pain, epigastric Take 1 Capsule by mouth [...] 4 Active Doxycycline Hyclate 100 MG Oral CapsuleIndicati ons:Atypical pneumonia Take 1 Capsule by mouth in the morning and 1 Capsule before bedtime. Do all this for 10 days. Until gone.. 20 Capsule 4 08/16/20 24 Active Azithromycin 250 MG Oral Tablet (Zithromax Z-David) Take two tablets by mouth on first day, then 1 tablet daily until gone 6 Tablet 4 Active guaiFENesin-Cod eine 100-10 MG/5ML Oral Solution (Robitussin AC)Indications: Atypical pneumonia Take 5 mL by mouth every 4 hours as needed for Cough. 120 mL 4 Active methylPREDNISol one 4 MG Oral Tablet Therapy Pack (Medrol Dosepack)Indica tions:Atypical chest pain,Pleurisy follow package directions 21 Tablet 4 Active documented as of this encounter (statuses as of 08/12/2024) Active Problems Problem Noted Date Diagnosed Date Overweight (BMI 25.0-29.9) 08/09/2024 Gastroesophageal reflux disease without esophagi tis 08/09/2024 Iron deficiency anemia 01/24/2024 Coronary vasospasm 08/24/2023 Overview (08/30/2023): Diagnosed in May 2023 after evaluation at [facility] for chest pain. Suspected during evaluation [...] cffDNA screening, and testing was coordinated by [facility]. In addition to the risk of [...] monochorionic fetuses 08/04/2022 03/06/2023 Overview (08/23/2022): Spontaneous awjmhiwdfrnva-gcx-ulupkgfx [on outside scan, to be confirmed by [...] to schedule this with MFM at the [facility] if we are able, with the [...] they should call and likely present to [facility]. Assessment & Plan (11/17/2022 1:34 PM EST): [...] surveillance should begin at 30 weeks per [facility] protocol for di-tri triplets. Yakelin is taking extra folate and iron and will order her vitamin from [facility] [facility] We also discussed nausea and vomiting as Yakelin is currently only taking unisom. She can add Vit B6 25 mg tid; often helpful in the form of a lollipop which can also be ordered via [facility] Sniffing and alcohol wipe is also a [...] may not be caused by Zofran. (See https://mothertobaby.org/fact-sheets/xcppzrwufjr-totztj-qzuiavnmk/). Use should not be discouraged in patients [...] least one child with a major senior care handicap related to prematurity, including cerebral palsy. [...] Recorded PHQ Adult Total Score 0 01/01/2024 [facility] [place] [facility] Occupat [facility] - Occupational Stress [...] money to get more. Never true 06/18/2024 [place] Depression Scale Answer Date Recorded [place] Depression Scale Total 2 03/15/2024 The thought [...] Name Type Priority Associated Diagnoses Date /Time TROPONIN T, HIGH SENSITIVITY Lab Routine Atypical chest pain Pleurisy Coronary vasospasm (HCC) 08/12/2024 2:45 PM EST D-DIMER Lab Routine Atypical chest pain Pleurisy Coronary vasospasm (HCC) 08/12/2024 2:45 PM EST BNP, NT-PRO Lab Routine Atypical chest pain Pleurisy 08/12/2024 2:45 PM EST Health Maintenance Due Date Last Done Comments Hepatitis B Vaccine (1 of 3 - 19+ 3-dose series) 2006 COVID-19 Vaccine ( season) 2024 08/26/2021, 01/06/2021, 12/02/2020 Influenza Vaccine [...] history of other cardiovascular diseases Atypical chest pain Other chest pain Pleurisy Pleurisy without mention of effusion or current tuberculosis Coronary vasospasm (HCC) Prinzmetal angina documented in [...] Power of Attor nely? No Care Teams Cans Vacuum Tester Relationship Specialty Start Date End Date Alicia Bell CRNP [address] [place] [address] PCP - General Nurse Practitioner 05/28/24 documented as of this encounter
--- OUTSIDE RECORDS SUMMARY | 2024-09-15 16:43 | External Medical Summary | Summary of Care ---
Author Name Unknown Organization [facility] Address [address] [place] [address] Phone [phone] Care Team Providers Care Chief Contract Officer Name Role Phone Ray Alicia Denise MALONE Primary Care Provider Reason for Visit * Reason Onset Date Comments Referral 08/26/2024 Breast Clinic Encounter Details Date Type Department Care Team ([facility] Contact Info) Description 08/26/2024 Telephone General Surgery, [place] [address] [place] [address] Services, [facility] [address] [place] [address] Referral (Breast Clinic) Allergies Active Allergy Reactions [...] Diagnosed in May 2023 after evaluation at [facility] for chest pain. Suspected during evaluation with [...] cffDNA screening, and testing was coordinated by [facility]. In addition to the risk of chromosomal abnormalities, there is an increased risk of congenital/structural anomalies. RECOMMENDATIONS: Recommend [facility] anatomy ultrasound at 19-20 weeks gestation. [...] delivery at 36-37 weeks without amniocentesis per [employer]. Every effort should be made by patient s primary OB provider to obtain prior operative reports. 2. As per [employer]'s 2010 practice [...] by Date resolved PP education given 03/06/2023 Cihca Fountain RN 03/06/2023 Problem Action Taken Date [...] resolved Nutrition Due date letter given for [facility] 08/04/2022 Jennifer Lee RN 08/04/2022 Triplet gestation, with two or more monochorionic fetuses 08/04/2022 03/06/2023 Overview (08/23/2022): Spontaneous iompmjlngymyl-vxf-qlbtagyl [on outside scan, to be confirmed by [...] to schedule this with MFM at the [facility] if we are able, with the [...] they should call and likely present to [facility]. Assessment & Plan (11/17/2022 1:34 PM EST): [...] surveillance should begin at 30 weeks per [facility] protocol for di-tri triplets. Yakelin is taking extra folate and iron and will order her vitamin from [employer]. We also discussed nausea and vomiting as Yakelin is currently only taking unisom. She can add Vit B6 25 mg tid; often helpful in the form of a lollipop which can also be ordered via [employer]. Sniffing and alcohol wipe is also a [...] may not be caused by Zofran. (See https://mothertobaby.org/fact-sheets/pdvvcevbxdi-kdgzoi-zbpyekpzl/). Use should not be discouraged in patients [...] at least one child with a major intermediate handicap related to prematurity, including cerebral palsy. [...] Recorded PHQ Adult Total Score 0 01/01/2024 [facility] - Occupational Stress Questionnaire Answer Date Recorded [...] money to get more. Never true 06/18/2024 [place] Depression Scale Answer Date Recorded [place] Depression Scale Total 2 03/15/2024 The thought [...] Nurse Navigator General Surgery and Breast Clinic [facility] * Telephone Encounter - Penny Silva LPN - 08/26/2024 12:26 PM EST Referral from: [facility] Consult: Breast Surgery For: abnormal nipple Referral received as detailed above. Prerequisite imaging has not been ordered/completed. Will request from referring provider. Tiffany Silva LPN Intake Nurse Navigator General Surgery and Breast Clinic [facility] Breast Imaging: Short-Term Follow-Up & Biopsy recommendation [...] Breast Surgery Referral Patients from outside the [facility] that has completed breast imaging and/or [...] 08/26/2024 1:30 PM EST Office Visit Gynecology/Obstetrics [facility] [address] [address] Hernán Scruggs MD [address] [place] [address] 08/27/2024 10:15 AM EST Imaging Radiology [facility] [address] [address] Health Maintenance Due Date Last Done Comments [...] Power of Attor nely? No Care Teams Chief Contract Officer Relationship Specialty Start Date End Date Alicia Bell CRNP [address] [place] [address] PCP - General Nurse Practitioner 05/28/24 documented as of this encounter
--- OUTSIDE RECORDS SUMMARY | 2024-09-15 16:43 | External Medical Summary | Summary of Care ---
Author Name Unknown Organization [facility] Address [address] [place] [address] Phone [phone] Care Team Providers Care Information Technology Associate Name Role Phone Ray Alicia MALONE Primary Care Provider Reason for Visit * Reason Comments [employer]ander Return Encounter Details Date Type Department Care Team ([facility] st Contact Info) Description 08/26/2024 1:30 PM EST Office Visit Gynecology/Obstetric s [facility] [address] [place] [address] Hernán Scruggs MD [address] [place] [address] Menorrhagia with regular cycle* Allergies Active Allergy [...] cffDNA screening, and testing was coordinated by [facility]. In addition to the risk of chromosomal abnormalities, there is an increased risk of congenital/structural anomalies. RECOMMENDATIONS: Recommend [facility] anatomy ultrasound at 19-20 weeks [...] delivery at 36-37 weeks without amniocentesis per [employer]. Every effort should be made by patient s primary OB provider to obtain prior operative reports. 2. As per [employer]'s 2010 practice [...] monochorionic fetuses 08/04/2022 03/06/2023 Overview (08/23/2022): Spontaneous idjpmddhdkjoq-xlq-ketoiodv [on outside scan, to be confirmed by [...] to schedule this with MFM at the [facility] if we are able, with the [...] they should call and likely present to [facility]. Assessment & Plan (11/17/2022 1:34 PM EST): [...] surveillance should begin at 30 weeks per [facility] protocol for di-tri triplets. Yakelin is taking extra folate and iron and will order her vitamin from [employer]. We also discussed nausea and vomiting as Yakelin is currently only taking unisom. She can add Vit B6 25 mg tid; often helpful in the form of a lollipop which can also be ordered via [employer]. Sniffing and alcohol wipe is also a [...] may not be caused by Zofran. (See https://mothertobaby.org/fact-sheets/qagjhffbnhj-ijjxyx-bxkhgbsqr/). Use should not be discouraged in patients [...] least one child with a major senior living handicap related to prematurity, including cerebral palsy. [...] Adult Total Score 0 01/01/2024 [facility] - Occupational Stress Questionnaire Answer Date [...] money to get more. Never true 06/18/2024 [place] Depression Scale Answer Date Recorded [place] Depression Scale Total 2 03/15/2024 The thought [...] Sign Reading Time Taken Comments Blood Pressure 132/78 08/26/2024 1:18 PM EST Pulse - - Temperature - - Respiratory Rate - - Oxygen Saturation - - Inhaled Oxygen Concentration - - Weight 65.3 kg (144 lb) 08/26/2024 1:18 PM EST Height 154.9 cm (5' 1") 08/26/2024 1:18 PM EST Body Mass Index 27.21 08/26/2024 1:18 PM EST documented in this encounter Functional [...] Progress Notes * Hernán Scruggs MD - 08/26/2024 1:40 PM EST Patient Name: Yakelin Hughes Patient CC: Menorrhagia x 3 months. Post Context: (HPI) 39 year old last delivery was 5 months ago.pt reports menorrhagia x 3 mohs . Going thru several pads. Pt wishes to have more children Location: Quality: Severity: Duration: Worsening/improving sympt: Pain level/ Scale: Timing: Associated symptoms: Past Medical Hx: Past Medical History: Diagnosis Date Anxiety state 03/11/2020 Family history of hypercoagulable state mother with blood clots-provoked Gastroesophageal reflux disease without esophagitis 08/09/2024 Headache, unspecified headache type 07/27/2018 Herniated disc, cervical 07/27/2018 History of cardiac catheterization 01/13/2024 Hypertension Insomnia Overweight (BMI 25.0-29.9) 08/09/2024 Paresthesias 07/27/2018 Vasospasm (HCC) Past Surgical Hx: Past Surgical History: Procedure Laterality Date BREAST AUGMENTATION EDU CARDIAC CATHERIZATION.EDU 05/2023 [facility] Cardio DELIVERY ONLY W/ N/A 01/21/2023 DELIVERY AND CARE performed by Bay Long Jr., MD at [facility] DENTAL SURGERY PROCEDURE NEC 2021 INFORMATION history of luana figueroa RI EXCISION EXCESSIVE SKIN & SUBQ TISSUE ABDOMEN N/A 2010 REMOVAL OF APPENDIX around age 27 Social Hx: Social History Socioeconomic History Marital status: Spouse name: Alber Tobacco Use Smoking status: Former Current packs/day: 0.00 Average packs/day: 0.5 packs/day for 8.0 years (4.0 ttl pk-yrs) Types: Cigarettes Start date: 01/16/2009 Quit date: 01/16/2017 Years since quittin.6 Smokeless tobacco: Former Quit date: 03/08/2017 Tobacco comments: No passive smoke exposures Vaping Use Vaping status: Never Used Substance and Sexual Activity Alcohol use: Not Currently Comment: social wine Drug use: Never Sexual activity: Yes Partners: Male control/protection: Condom Social Needs Financial Resource Strain: Low Risk (06/18/2024) Financial Resource Strain Do you have any trouble paying for your medications, or do you think you might in the future? (Adult - for ages 18 years and over): No Food Insecurity: No Food Insecurity (06/18/2024) Food Insecurity Do you need food for this week? (Adult - for ages 18 years and over): No Transportation Needs: No Transportation Needs (06/18/2024) Transportation Needs Has lack of transportation kept you from medical appointments, meetings, work, or from getting things needed for daily living? Check all that apply. (Adult - for ages 18 years and over): No Social Connections: Socially Integrated (06/18/2024) Social Connections How often do you feel lonely or isolated from those around you? (Adult - for ages 18 years and over): Never Housing Stability: Low Risk (06/18/2024) Housing Stability Do you currently live in a detention or have no steady place to sleep at night? (Adult - for ages 18 years and over): No Are you homeless or worried that you might be in the future? (Adult - for ages 18 years and over): No Allergy: Review of patient's allergies indicates: Allergen Reactions Environmental [Pollen] Hives Dust,ragweed,mold,dog and cat dander. Augmentin [Amoxicillin-Pot Clavulanate] Rash Family HX: Family History Problem Relation Name Age of [...] Problems Grandfather (Paternal) No Known Problems Daughter ROS: REVIEW OF SYSTEMS CONSTITUTIONAL ROS: No change in weight, No weakness, No fatigue and No fevers, sweats, or chills PULMONARY ROS: No cough, sputum, or hemoptysis, No wheezing, No shortness or breath and No recent change in breathing CARDIOVASCULAR ROS: No chest pain, No shortness of breath, No dyspnea on exertion, No orthopnea, Noparoxysmal nocturnal dyspnea, No edema, No palpitations and No syncope BREAST ROS: No new breast lumps or masses, No severe breast pain, No nipple discharge, No recent change in shape/color and Performs self breast exam ENDOCRINE ROS; No change in wt gain, hair loss or bowel habits, malaise or fatigue. No polyuria, polyphagia polydipsia GASTROINTESTINAL ROS: No abdominal pain, No change in bowel habits, No significant heartburn, No significant change in appetite, No nausea, vomiting, diarrhea, or constipation, No hematemesis, No blood in stools or black tarry stools, No abdominal bloating or early satiety and No dysphagia GENITO-URINARY FEMALE ROS: No STDs, No dysuria, No frequency, No incontinence, No urgency and No vaginal discharge and + for irreg menses. ALL OTHERS REVIEWED AND ALL OTHERS NEGATIVE LABS: PHYSICAL EXAMINATION Well developed. Well nourishes white female in no acute distress Vital signs BP 132/78 | Ht 1.549 m (5' 1") | Wt 65.3 kg (144 lb) | LMP 08/03/2024 | BMI 27.21 kg/m | BSA 1.68m Pelvic: Normal female esch. Vagina and vulva are normal; no discharge is noted. Cervix normal. Uterus normal in size and shape without tenderness. 10 week size Adnexa normal in size without masses ortenderness. A/P Menorrhagia x 3 months S/p 5 months PP Unremarkable pelvic exam Plan Pelvic sono ordered EMBX after sono Discussed OCP vrs IUD Khurram placement I spent a total of 30-39 minutes (exact time 33 mins) on the date of service in preparation, delivery, and documentation of the care provided to Yakelin Hughes excluding any time spent in the performance of separately billed services or time spent by another provider/QHP. documented in this encounter Nursing Notes * Snow Montoya LPN - 08/26/2024 1:28 PM EST Heavy menses with large clots and 10/10 pain with menses. Changes super tampon q 20 minutes for 3 days. documented in this encounter Plan of Treatment Upcoming Encounters Date Type Department Care Team (Late st Contact Info) Description 09/04/2024 1:00 PM EST Imaging Radiology [address] [facility] [place] [address] 09/04/2024 1:45 PM EST Imaging Radiology [address] [facility] [place] [address] 10/15/2024 3:45 PM EST Office Visit Gynecology/Obstetrics [address] [place] [address] Hernán Scruggs MD [address] [facility] [place] [address] Health Maintenance Due Date Last Done Comments [...] Procedure Name Priority Date/Time Associated Diagnosis Comments US PELVIS TRANS-VAGINAL NON-OB Routine 08/26/2024 2:37 PM EST Menorrhagia with regular cycle documented in this encounter Results * US PELVIS TRANS-VAGINAL NON-OB (08/26/2024 2:37 PM EST) Anatomical Region Laterality Modality Pelvis, Body Ultrasound 08/26/2024 2:50 PM EST Impressions 08/26/2024 2:48 PM EST IMPRESSION: Enlarged heterogeneous uterus. Narrative 08/26/2024 2:48 PM EST EXAM: US PELVIS TRANS-VAGINAL NON-OB HISTORY: menorrhagia TECHNIQUE: Real-time scanning is performed transvaginally. COMPARISON: Prior studies including: US PREG FOLLOW-UP EACH FETUS, ACC: [id number], dated 2024-02-13 10:45:53; US PREG FOLLOW-UP EACH FETUS, ACC: [id number], dated 2024-01-17 10:44:18; US PREG SINGLE_1ST GEST, 14 WEEKS OR LATER, ACC: [id number], dated 2023-11-20 13:29:50; [facility] US PREG SINGLE_1ST GEST, LESS THAN 14 WKS, ACC: [id number], dated 2023-09-29 15:37:04 FINDINGS: Uterus: Anteverted measuring 11.8 cm x 6.7 cm x 7.2 cm; enlarged contour somewhat lobulated. Visualized myometrial parenchymal echotexture diffusely heterogeneous. A discrete focal lesion is not identified. Endometrial canal: Segmentally demonstrated. Visualized portion non deviated. Echotexture appears homogeneous. There is no significant intraluminal fluid or demonstrable intraluminal mass. Endometrial canal thickness approximally 12 mm. Patient's reported last menstrual period date 08/03/2024 Endocervical canal: Within normal limits Right ovary: 3.6 cm x 2.4 cm x 3.2 cm corresponding to volume approximately 15 cc. Left ovary: 2.8 cm x 2.0 cm x 1.9 cm corresponding to volume approximately 6 cc. Within each ovary are small ovoid well-defined sonolucent (allowing for technical artifact) structures ultrasonographically nonspecific but likely follicles. These are often not clinically significant. Additionally in the right ovary there is an ovoid complex predominantly sonolucent area with somewhat crenulated inner margin. This is also nonspecific but may reflect a corpus luteal etiology. There is no adnexal mass or cul-de-sac fluid. Procedure Note Rashid Rodrigues MD - 08/26/2024 EXAM: US PELVIS TRANS-VAGINAL NON-OB HISTORY: menorrhagia TECHNIQUE: Real-time scanning is performed transvaginally. COMPARISON: Prior studies including: US PREG FOLLOW-UP EACH FETUS, ACC: [id number], dated 2024-02-13 10:45:53; US PREG FOLLOW-UP EACH FETUS, ACC: [id number], dated 2024-01-17 10:44:18; US PREG SINGLE_1ST GEST, 14 WEEKS OR LATER, ACC: [id number], [id number] 13:29:50; [facility] US PREG SINGLE_1ST GEST, LESS THAN 14 WKS, ACC: [id number], [id number] 15:37:04 FINDINGS: Uterus: Anteverted measuring 11.8 cm x 6.7 cm x 7.2 cm; enlarged contoursomewhat lobulated. Visualized myometrial parenchymal echotexturediffusely heterogeneous. A discrete focal lesion is not identified. Endometrial canal: Segmentally demonstrated. Visualized portion nondeviated. Echotexture appears homogeneous. There is no significantintraluminal fluid or demonstrable intraluminal mass. Endometrial canal thickness approximally 12 mm. Patient's reported lastmenstrual period date 08/03/2024 Endocervical canal: Within normal limits Right ovary: 3.6 cm x 2.4 cm x 3.2 cm corresponding to volumeapproximately 15 cc. Left ovary: 2.8 cm x 2.0 cm x 1.9 cm corresponding to volume approximately6 cc. Within each ovary are small ovoid well-defined sonolucent (allowing fortechnical artifact) structures ultrasonographically nonspecific but likelyfollicles. These are often not clinically significant. Additionally inthe right ovary there is an ovoid complex predominantly sonolucent areawith somewhat crenulated inner margin. This is also nonspecific but mayreflect a corpus luteal etiology. There is no adnexal mass or cul-de-sac fluid. IMPRESSION IMPRESSION: Enlarged heterogeneous uterus. us Hernán Scruggs MD RAD ULTRASOUND Final Result documented in this encounter Visit [...] regular cycle- Primary Excessive or frequent menstruation Screening mammogram for breast cancer documented in this encounter Advance Directives * [...] Power of Attor nely? No Care Teams Information Technology Associate Relationship Specialty Start Date End Date Alicia Bell CRNP [address] [place] [address] PCP - General Nurse Practitioner 05/28/24 documented as of this encounter
--- OUTSIDE RECORDS SUMMARY | 2024-09-15 16:43 | External Medical Summary ---
Author Name Unknown Address Unknown Organization K01:LABORATORY [facility] - [address] [place] [address] Laboratory Report Ordering Provider Test Date Status SANTOS BLACKWOOD 08/26/2024 12:29:30 Final Observation Date Value Abnormality Reference (Units ) Status MYCODE SPECIMEN-SST 08/26/2024 12:29:30 Freezing of extracted DNA, whole blood and/or serum. Final Performing Location LABORATORY [facility] - [address] [facility] [address]
--- OUTSIDE RECORDS SUMMARY | 2024-09-15 16:43 | External Medical Summary ---
Author Name Unknown Address Unknown Organization K01:LABORATORY [facility] - [address] [place] [address] Laboratory Report Ordering Provider Test Date Status LANETTEMARICARMENBERNABE 08/12/2024 14:45:51 Final Observation Date Value Abnormality Reference (Units ) Status Troponin T 08/12/2024 14:45:51 12 <=14 (ng/ L) Final Performing Location LABORATORY [facility] - [address] [place] [address]
--- OUTSIDE RECORDS SUMMARY | 2024-09-15 16:43 | External Medical Summary | Summary of Care ---
Author Name Unknown Organization [facility] Address [address] [place] [address] Phone [phone] Care Team Providers Care Product Accountant Name Role Phone Ray Alicia Denise MALONE Primary Care Provider Reason for Visit * Reason Onset Date Comments Referral 08/26/2024 Breast Clinic Encounter Details Date Type Department Care Team ([facility] Contact Info) Description 08/26/2024 Telephone General Surgery, [facility] [address] [place] [address] Services, [facility] [address] [place] [address] Referral (Breast Clinic) Allergies Active Allergy Reactions [...] Diagnosed in May 2023 after evaluation at [facility] for chest pain. Suspected during [...] cffDNA screening, and testing was coordinated by [facility]. In addition to the risk of chromosomal abnormalities, there is an increased risk of congenital/structural anomalies. RECOMMENDATIONS: Recommend [facility] anatomy ultrasound at 19-20 weeks [...] delivery at 36-37 weeks without amniocentesis per [employer]. Every effort should be made by patient s primary OB provider to obtain prior operative reports. 2. As per [employer]'s 2010 practice [...] resolved Nutrition Due date letter given for [facility] 08/04/2022 Jennifer Lee RN 08/04/2022 Triplet gestation, with two or more monochorionic fetuses 08/04/2022 03/06/2023 Overview (08/23/2022): Spontaneous qfgkesjatrtgl-izu-nodxtowa [on outside scan, to be confirmed by [...] schedule this with MFM at the [facility] if we are able, with the [...] they should call and likely present to [facility]. Assessment & Plan (11/17/2022 1:34 PM EST): [...] surveillance should begin at 30 weeks per [facility] protocol for di-tri triplets. Yakelin is taking extra folate and iron and will order her vitamin from [employer]. We also discussed nausea and vomiting as Yakelin is currently only taking unisom. She can add Vit B6 25 mg tid; often helpful in the form of a lollipop which can also be ordered via [employer]. Sniffing and alcohol wipe is also a [...] may not be caused by Zofran. (See https://mothertobaby.org/fact-sheets/zbhzwzhxqeo-nzxugv-kbaydthse/). Use should not be discouraged in patients [...] at least one child with a major assisted handicap related to prematurity, including cerebral palsy. [...] Recorded PHQ Adult Total Score 0 01/01/2024 [facility] - Occupational Stress Questionnaire Answer [...] money to get more. Never true 06/18/2024 [place] Depression Scale Answer Date Recorded [place] Depression Scale Total 2 03/15/2024 The thought [...] Nurse Navigator General Surgery and Breast Clinic [facility] * Telephone Encounter - Penny Silva LPN - 08/26/2024 12:26 PM EST Referral from: [place] [facility] Consult: Breast Surgery For: abnormal nipple Referral received as detailed above. Prerequisite imaging has not been ordered/completed. Will request from referring provider. Tiffany Silva LPN Intake Nurse Navigator General Surgery and Breast Clinic [facility] Breast Imaging: Short-Term Follow-Up & Biopsy [...] Breast Surgery Referral Patients from outside the [facility] that has completed breast imaging and/or [...] 08/26/2024 1:30 PM EST Office Visit Gynecology/Obstetrics [facility] [address] [address] Hernán Scruggs MD [address] [place] [address] 08/27/2024 10:15 AM EST Imaging Radiology [facility] [address] [address] Health Maintenance Due Date Last Done Comments [...] Power of Attor nely? No Care Teams Product Accountant Relationship Specialty Start Date End Date Alicia Bell CRNP [address] [place] [address] PCP - General Nurse Practitioner 05/28/24 documented as of this encounter
--- OUTSIDE RECORDS SUMMARY | 2024-09-15 16:43 | External Medical Summary ---
Author Name Unknown Address Unknown Organization K01:[facility] [place] [address] [facility] [address] Laboratory Report Ordering Provider Test Date Status VERITO CIFUENTES 08/26/2024 12:29:30 Final Observation Date Value Abnormality Reference (Units ) Status TSH 08/26/2024 12:29:30 2.71 0.27-4.20 (uIU/mL) Final Performing Location [facility] [address] [facility] [address]
--- OUTSIDE RECORDS SUMMARY | 2024-09-15 16:43 | External Medical Summary | Summary of Care ---
Author Name Unknown Organization [facility] Address [address] [place] [address] Phone [phone] Care Team Providers Care Credit Card Specialist Name Role Phone Ronaldhilary Alicia Denise MALONE Primary Care Provider Reason for Visit * Reason Comments Follow Up Pt here for follow u p, c/o SOB chest and back pain Encounter Details Date Type Department Care Team ([facility] st Contact Info) Description 08/09/2024 11:00 AM EST Office Visit Family Practice [facility] [address] [facility] [address] [address] Aiden Castellon MD [address] [facility] [address] [place] [address] Atypical pneumonia* Allergies Active Allergy Reactions Criticality Noted Date Comments Amoxicillin-Pot Clavulanate Rash 06/29/20 17 Pollen Hives High 02/28/2017 Dust,ragweed,mold,dog and cat dander. documented as of this encounter (statuses as of 08/09/2024) Medications Montelukast Sodium 10 MG Oral Tablet (Singulair) Take 1 Tab by mouth every evening. 30 Tab 5 02/25/20 21 Active Acetaminophen 325 MG Oral Tablet (Tylenol) Take 3 Tablets by mouth in the morning and 3 Tablets at noon and 3 Tablets in the evening and 3 Tablets before bedtime. 30 Tablet 5 3 9:44 AM EDT 01/26/20 23 Active Fluticasone Propionate 50 MCG/ACT Nasal Suspension (Flonase) Administer 2 Sprays into each nostril in the morning. 16 mL 10/23/19 24 Active Nitroglycerin 0.4 MG Sublingual Tablet Sublingual (Nitrostat) Place 1 Tablet under the tongue every 5 minutes as needed for Pain, Chest. 25 Tablet 1 05/28/20 24 Active Dicyclomine HCl 10 MG Oral Capsule (Bentyl) Take 1 Capsule by mouth 4 times a day as needed (abdominal pain/cramping.) . For abdominal pain 120 Capsule 1 06/07/20 24 Active Omeprazole 20 MG Oral Capsule Delayed Release (PriLOSEC)Alice cations:Abdomi nal pain, epigastric Take 1 Capsule by mouth in the morning. 1 hour before the first meal of the day. 30 Capsule 11 06/07/20 24 Active Ibuprofen 800 MG Oral Tablet (Motrin) Take 1 Tablet by mouth every 8 hours as needed for Pain, Severe. with food for pain 30 Tablet 1 07/29/20 24 Active traZODone HCl 50 MG Oral Tablet (Desyrel)Indic ations:Primary insomnia TAKE 1 & 1/2 (ONE & ONE-HALF) TABLETS BY MOUTH AT BEDTIME 135 Tablet 08/08/20 24 Active Ventolin HFA 108 (90 Base) MCG/ACT Inhalation Aerosol SolutionIndica tions:Atypical pneumonia,Whee zing Inhale 2 Puffs by mouth every 4 hours as needed for Wheezing. 18 g 2 08/06/20 24 Active predniSONE 10 MG Oral Tablet (Deltasone)Ind ications:Atypi markell pneumonia,Whee zing Take 5 tabs for 2 days, 4 tabs for 2 days, 3 tabs for 2 days, 2 tabs for 2 days 1 tab for 2 days 30 Tablet 08/06/20 24 Active Doxycycline Hyclate 100 MG Oral CapsuleIndicat ions:Atypical pneumonia Take 1 Capsule by mouth in the morning and 1 Capsule before bedtime. Do all this for 10 days. Until gone.. 20 Capsule 08/06/20 24 024 Active Azithromycin 250 MG Oral Tablet (Zithromax Z-David) Take two tablets by mouth on first day, then 1 tablet daily until gone 6 Tablet 08/09/20 24 Active guaiFENesin-Co deine 100-10 MG/5ML Oral Solution (Robitussin AC)Indications :Atypical pneumonia Take 5 mL by mouth every 4 hours as needed for Cough. 120 mL 08/09/20 Active 27-0.8 MG Oral Tablet Take 1 Tablet by mouth daily at noon. 024 Discontinued Breast Pump Use as recommended 1 Each 03/06/20 24 024 Discontinued documented as of this encounter (statuses as of 08/09/2024) Active Problems Problem Noted Date Diagnosed Date Overweight (BMI 25.0-29.9) 08/09/2024 Gastroesophageal reflux disease without esophagi tis 08/09/2024 Iron deficiency anemia 01/24/2024 Coronary vasospasm 08/24/2023 Overview (08/30/2023): Diagnosed in May 2023 after evaluation at [facility] for chest pain. Suspected during evaluation with [...] as of this encounter (statuses as of 08/09/2024) Resolved Problems Problem Noted Date Diagnosed Date [...] delivery at 36-37 weeks without amniocentesis per [employer]. Every effort should be made by patient s primary OB provider to obtain prior operative reports. 2. As per [employer]'s 2010 practice [...] Date resolved PP education given 03/06/2023 Chica Fountain, AMIRAH 03/06/2023 Problem Action [...] caution. AMA (advanced maternal age) multigravida 35+ 12/0208/09/2024 Assessment & Plan (08/22/2022 3:47 PM EST): [...] resolved Nutrition Due date letter given for [facility] 08/04/2022 Jennifer Lee RN 08/04/2022 Triplet gestation, with two or more monochorionic fetuses 08/04/2022 03/06/2023 Overview (08/23/2022): Spontaneous qqnqnqffstoxx-jlz-emvmzmmo [on outside scan, to be confirmed by [...] to schedule this with MFM at the [facility] if we are able, with the alternative [...] they should call and likely present to [facility]. Assessment & Plan (11/17/2022 1:34 PM EST): [...] iron and will order her vitamin from [employer]. We also discussed nausea and vomiting as Yakelin is currently only taking unisom. She can add Vit B6 25 mg tid; often helpful in the form of a lollipop which can also be ordered via [employer]. Sniffing and alcohol wipe is also a [...] may not be caused by Zofran. (See https://mothertobaby.org/fact-sheets/yzaemmqxdbm-qvwbtp-wuvjdllfb/). Use should not be discouraged in patients [...] at least one child with a major group home handicap related to prematurity, including cerebral [...] as of this encounter (statuses as of 08/09/2024) Immunizations Name Administration Dates Next Due COVID-19 [...] Recorded PHQ Adult Total Score 0 01/01/2024 [facility] - Occupational Stress [...] money to get more. Never true 06/18/2024 [place] Depression Scale Answer Date Recorded [place] Depression Scale Total 2 03/15/2024 The thought [...] Sign Reading Time Taken Comments Blood Pressure 128/84 08/09/2024 11:25 AM EST Pulse 62 08/09/2024 11:25 AM EST Temperature 36 C (96.8 F) 08/09/2024 11:25 AM EST Respiratory Rate 18 08/09/2024 11:25 AM EST Oxygen Saturation 100% 08/09/2024 11:25 AM EST Inhaled Oxygen Concentration - - Weight 66.2 kg (146 lb) 08/09/2024 11:25 AM EST Height 154.9 cm (5' 1") 08/09/2024 11:25 AM EST Body Mass Index 27.59 08/09/2024 11:25 AM EST documented in this [...] documented in this encounter Progress Notes * Aiden Castellon MD - 08/09/2024 3:17 PM EST SUBJECTIVE: Yakelin Hughes is a 39 year old female. Chief Complaint Patient presents with Follow Up Pt here for follow up, c/o SOB chest and back pain HPI: Yakelin is a pleasant 39 year old female here for evaluation of cough and shortness of breath. She was seen two days ago via Telemedicine and prescribed doxycycline for presumed upper respiratory infection. She has not noticed much improvement. Exam today is reassuring. Patient Active Problem List Diagnosis Chronic insomnia Coronary vasospasm (HCC) Iron deficiency anemia Overweight (BMI 25.0-29.9) Gastroesophageal reflux disease without esophagitis Current Outpatient Medications Medication Sig Dispense Refill Montelukast Sodium 10 MG Oral Tablet (Singulair) Take 1 Tab by mouth every evening. 30 Tab 5 Fluticasone Propionate 50 MCG/ACT Nasal Suspension [...] hours asneeded for Cough. 120 mL 0 Acetaminophen 325 MG Oral Tablet (Tylenol) Take 3 Tablets by mouth in the morning and 3 Tablets at noon and 3 Tablets in the evening and 3 Tablets before bedtime. 30 Tablet 5 No current facility-administered medications for this visit. Allergy: Review of patient's allergies indicates: Allergen Reactions Environmental [Pollen] Hives Dust,ragweed,mold,dog and cat dander. Augmentin [Amoxicillin-Pot Clavulanate] Rash OBJECTIVE: BP 128/84 | Pulse 62 | Temp 96.8 F (36 C) | Resp 18 | Ht 5' 1" (1.549 m) | Wt 146 lb (66.2 kg) | SpO2 100% | BMI 27.59 kg/m | BSA 1.69 m Gen: aao x 3, nad Lungs: ctab Heart: rrr, no mrg Skin: no rashes Neuro: grossly normal ASSESSMENT AND PLAN: (J18.9) Atypical pneumonia (primary encounter diagnosis) Plan: XR CHEST 2 VIEWS, COMPREHENSIVE METABOLIC PANEL, CBC WITH WBC DIFFERENTIAL AND ANEMIA REFLEX WORKUP, guaiFENesin-Codeine 100-10 MG/5ML Oral Solution (Robitussin AC) -stop doxycycline; start z-pack Follow up as needed. No other complaints were offered at this time. Aiden Castellon MD documented in this encounter Nursing Notes * Seema Harding LPN - 08/09/2024 11:25 AM EST The patient has been properly identified by confirmation of name and date of . Chief Complaint Patient presents with Follow Up Pt here for follow up, c/o SOB chest and back pain documented in this encounter Plan of Treatment Pending Results Name Type Priority Associated Diagnoses Date /Time XR CHEST 2 VIEWS Medical Imaging Routine Atypical pneumonia 08/09/2024 11:48 AM EST CBC WITH WBC DIFFERENTIAL AND ANEMIA REFLEX WORKUP Lab Routine Atypical pneumonia 08/09/2024 11:55 AM EST Scheduled Orders Name Type Priority Associated Diagnoses Orde r Schedule CBC WITH WBC DIFFERENTIAL AND ANEMIA REFLEX WORKUP Lab Routine Atypical pneumonia Expected: 08/09/2024 (Approximate), Expires: 08/09/2025 Health Maintenance Due Date Last Done Comments [...] Not on filedocumented as of this encounter Results * COMPREHENSIVE METABOLIC PANEL (08/09/2024 11:55 AM EST) BUN 16 6 - 20 mg/dL 08/09/2024 1:29 PM EST [facility] CREATININE 0.8 0.5 - 1.0 mg/dL 08/09/2024 1:29 PM EST [facility] EGFR >90 >=60 mL/min 08/09/2024 1:29 PM EST [facility] Comment:eGFR is calculated b ased on the CKD-EPI 2020 equation. SODIUM 141 135 - 146 mmol/L 08/09/2024 1:29 PM EST [facility] POTASSIUM 3.5 3.5 - 5.1 mmol/L 08/09/2024 1:29 PM EST [facility] CHLORIDE 105 98 - 107 mmol/L 08/09/2024 1:29 PM EST [facility] CO2 27 22 - 32 mmol/L 08/09/2024 1:29 PM EST [facility] ANION GAP 9 7 - 15 mmol/L 08/09/2024 1:29 PM EST [facility] GLUCOSE 85 70 - 120 mg/dL 08/09/2024 1:29 PM EST [facility] Albumin 4.2 3.8 - 5.0 g/dL 08/09/2024 1:29 PM EST [facility] AST 13 10 - 35 U/L 08/09/2024 1:29 PM EST [facility] Alkaline Phosphatase 52 35 - 130 U/L 08/09/2024 1:29 PM EST [facility] Bilirubin, Total 0.2 <=1.2 mg/dL 08/09/2024 1:29 PM EST [facility] CALCIUM 9.2 8.4 - 10.2 mg/dL 08/09/2024 1:29 PM EST [facility] Protein 6.9 6.0 - 8.3 g/dL 08/09/2024 1:29 PM EST [facility] ALT 17 10 - 35 U/L 08/09/2024 1:29 PM EST [facility] [place] [facility] Blood Venous blood specimen / Unknown Venipuncture / Unknown 08/09/2024 11:55 AM EST 08/09/2024 11:55 AM EST Aiden Castellon MD LAB BLOOD ORDERABLES Arline l Result [facility] [address] [place] [address] documented in this encounter Visit Diagnoses Diagnosis Multigravida of advanced maternal age in first trimester- Primary Antepartum multigravida of advanced maternal age H/O section Other postprocedural status Supervision of with grand multiparity, antepartum Coronary vasospasm (HCC) Prinzmetal angina Medication exposure during first trimester of Supervision of other high-risk Family history of DVT Family history of other cardiovascular diseases Atypical pneumonia- Primary Pneumonia, organism unspecified documented in this encounter Advance Directives * [...] Power of Attor nely? No Care Teams Credit Card Specialist Relationship Specialty Start Date End Date Alicia Bell CRNP [address] [place] [address] PCP - General Nurse Practitioner 05/28/24 documented as of this encounter
--- OUTSIDE RECORDS SUMMARY | 2024-09-15 16:44 | External Medical Summary | Summary of Care ---
Author Name Unknown Organization [facility] Address [address] [place] [address] Phone [phone] Care Team Providers Care Drug Discovery Informatics Specialist Name Role Phone Alicia Bell Primary Care Provider Reason for Visit * Reason Onset Date Comments Order Request 07/29/2024 Encounter Details Date Type Department Care Team ([facility] Contact Info) Description 07/29/2024 Telephone Family Practice [facility] [address] [place] [address] Alicia Bell CRNP [address] [place] [address] Order Request Allergies Active Allergy Reactions Criticality Noted Date Comments Amoxicillin-Pot Clavulanate Rash 06/29/20 17 Pollen Hives High 02/28/2017 Dust,ragweed,mold,dog and cat dander. documented as of this encounter (statuses as of 08/01/2024) Medications Montelukast Sodium 10 MG Oral Tablet (Singulair) Take 1 Tab by mouth every evening. 30 Tab 5 1 Active Acetaminophen 325 MG Oral Tablet (Tylenol) Take 3 Tablets by mouth in the morning and 3 Tablets at noon and 3 Tablets in the evening and 3 Tablets before bedtime. 30 Tablet 5 01/25/2023 9:44 AM EDT 3 Active 27-0.8 MG Oral Tablet Take 1 Tablet by mouth daily at noon. Active Fluticasone Propionate 50 MCG/ACT Nasal Suspension (Flonase) Administer 2 Sprays into each nostril in the morning. 16 mL 4 Active Additional Information Patient not taking.Reported on 03/29/2024 Breast Pump Use as recommended 1 Each 4 Active Additional Information Patient not taking.Reported on 06/07/2024 traZODone HCl 50 MG Oral Tablet (Desyrel)Indica tions:Primary insomnia TAKE 1 & 1/2 (ONE & ONE-HALF) TABLETS BY MOUTH ONCE DAILY AT BEDTIME 135 Tablet 4 Active Nitroglycerin 0.4 MG Sublingual Tablet Sublingual (Nitrostat) Place 1 Tablet under the tongue every 5 minutes as needed for Pain, Chest. 25 Tablet 1 4 Active Dicyclomine HCl 10 MG Oral Capsule (Bentyl) Take 1 Capsule by mouth 4 times a day as needed (abdominal pain/cramping.). For abdominal pain 120 Capsule 1 4 [...] for pain 30 Tablet 1 4 Active documented as of this encounter (statuses as of 08/01/2024) Active Problems Problem Noted Date Diagnosed Date High serum bile acid 04/09/2024 Pruritus 04/09/2024 Rupture of operation wound 04/09/2024 Cryptic tonsil 04/09/2024 History of placental abruption 03/29/2024 Iron deficiency anemia 01/24/2024 Iron deficiency anemia 01/24/2024 Polyhydramnios 01/17/2024 Overview (01/17/2024): MAE 25.7 cm at 28w5d Low risk NIPT History of cardiac catheterization 01/13/2024 High-risk 11/06/2023 Medication exposure during first trimester of pr egnancy 08/30/2023 Assessment & Plan (08/30/2023 4:55 PM EST): Trazodone - Based on experimental animal studies and limited experience in human pregnancies, is not expected to increase incident of congenital anomalies. Family history of DVT 08/30/2023 Overview (08/30/2023): Mother with hx of VTE. Patient unsure what etiology was. Assessment & Plan (08/30/2023 4:57 PM EST): Encouraged patient to ask her mother if VTE related to inherited thrombophilia. If yes, recommend testing patient for inherited thrombophilias as may affect management. Antepartum multigravida of advanced maternal age 1208/24/2023 Assessment & Plan (08/30/2023 4:54 PM EST): [...] at 19-20 weeks gestation. H/O section 08/24/2023 Overview (08/30/2023): Desired TOLAC Assessment & Plan [...] delivery at 36-37 weeks without amniocentesis per [employer]. Every effort should be made by patient s primary OB provider to obtain prior operative reports. 2. As per [employer]'s 2010 practice [...] grand multiparity, antepartum 08/24/2023 Coronary vasospasm 08/24/2023 Overview (08/30/2023): Diagnosed in May 2023 after evaluation at [facility] for chest pain. Suspected during evaluation with [...] persist may consider repeat evaluation with [facility]. AMA (advanced maternal age) multigravida 35+ 10/2021 Assessment & Plan (08/22/2022 3:47 PM EST): [...] 19-20 weeks gestation. Antepartum anemia complicating 021 Overview (01/18/2024): Hgb 10.8 at 28 weeks, IV iron recommend per protocol. documented as of this encounter (statuses as of 08/01/2024) Resolved Problems Problem Noted Date Diagnosed Date Resolved Date Hypokalemia 07/04/2023 04/09/2024 Liveborn infant, of triplet [...] letter given for Assistance office 09/28/2022 Chica Foutnain RN 09/28/2022 Problem Action Taken Date entered [...] monochorionic fetuses 08/04/2022 03/06/2023 Overview (08/23/2022): Spontaneous brkjgjswgauvk-tvf-sgujhsqx [on outside scan, to be confirmed by [...] to schedule this with MFM at the [facility] if we are able, with the alternative [...] likely present to [facility]. Assessment & Plan [...] iron and will order her vitamin from [employer]. We also discussed nausea and vomiting as Yakelin is currently only taking unisom. She can add Vit B6 25 mg tid; often helpful in the form of a lollipop which can also be ordered via [employer]. Sniffing and alcohol wipe is also a [...] may not be caused by Zofran. (See https://mothertobaby.org/fact-sheets/cbotjeiklci-efqswy-cifybzwbt/). Use should not be discouraged in patients [...] screening and repeat 26-28 weeks if normal. Allergic conjunctivitis, bilateral 02/24/2021 08/21/2022 Intermittent asthma [...] as of this encounter (statuses as of 08/01/2024) Immunizations Name Administration Dates Next Due COVID-19 [...] Recorded PHQ Adult Total Score 0 01/01/2024 [facility] Questionnaire Answer [...] money to get more. Never true 06/18/2024 [place] Depression Scale Answer Date Recorded [place] Depression Scale Total 2 03/15/2024 The thought [...] 0-17 years) Not on file 06/18/2024 Comments No Sex and Gender Information Value Date Recorded [...] encounter Miscellaneous Notes * Telephone Encounter - Nicole Demarco OSA - 08/01/2024 12:57 PM EST Pt states this is no longer needed. * Telephone Encounter - Lorrie Burnett LPN - 08/01/2024 11:32 AM EST Pt was not seen in office for this. Will need OV * Telephone Encounter - Alirio José PHARM Tech - 07/29/2024 3:54 PM EST An order was requested for this patient. Name of Requestor: patient Order Request: support boot - ROUTE TO CLINIC NURSE POOL Diagnosis/Reason for Request: pt feels that a boot would provide more support than taping Does the order need to be faxed somewhere? If so, where?: unknown, suggested pt reach out to insurance for additional recommendations Call Back Number: [phone] or pt okay with MyG message Thank you, Alirio José Sand Mill Operator [employer] [facility] 07/29/2024,3:55 PM documented in this encounter Plan of Treatment Health Maintenance Due Date Last Done Comments Hepatitis B Vaccine (1 of - + 3-dose series) 2006 COVID-19 Vaccine (2023- season) 2024 08/26/2021, 01/06/2021, 12/02/2020 Influenza Vaccine (FLU shot) (#1) 2024 06/20/2023, 08/31/2022, 07/01/2021, Additional history exists Depression Screening 12/31/2024 01/01/2024 Pap Smear 05/02/2027 05/02/2024, 01/19/2021 Diabetes Screening 06/11/2027 06/11/2024, 0 03/29/2024, 01/31/2024, Additional history exists Cervical Cancer Screening 05/02/2029 [...] Power of Attor nely? No Care Teams Drug Discovery Informatics Specialist Relationship Specialty Start Date End Date Alicia Bell CRNP [address] [address] PCP - General Nurse Practitioner 05/28/24 documented as of this encounter
--- OUTSIDE RECORDS SUMMARY | 2024-09-15 16:44 | External Medical Summary ---
Author Name Unknown Address Unknown Organization [id number]:[facility] [address] [place] [address] Laboratory Report Ordering Provider Test Date Status AMAN COLÓN 06/11/2024 10:53:18 Final Observation Date Value Abnormality Reference (Units ) Status Amylase 06/11/2024 10:53:18 79 28-100 (U/ L) Final Performing Location [facility] [address] [place] [address]
--- OUTSIDE RECORDS SUMMARY | 2024-09-15 16:44 | External Medical Summary | Summary of Care ---
Author Name Unknown Organization [facility] Address [address] [place] [address] Phone [phone] Care Team Providers Care Ob Gyn Physician Assistant Name Role Phone Ray Alicia MALONE Primary Care Provider Reason for Visit * Reason Onset Date Comments Medication Refill 08/07/2024 Encounter Details Date Type Department Care Team (Late st Contact Info) Description 08/07/2024 Refill [facility] [address] [place] [address] January, Phil Wong MD [address] [place] [address] Primary insomnia Allergies Active Allergy Reactions Criticality Noted Date Comments Amoxicillin-Pot Clavulanate Rash 06/29/20 17 Pollen Hives High 02/28/2017 Dust,ragweed,mold,dog and cat dander. documented as of this encounter (statuses as of 08/08/2024) Medications Montelukast Sodium 10 MG Oral Tablet [...] for pain 30 Tablet 1 4 Active Ventolin HFA 108 (90 Base) MCG/ACT Inhalation Aerosol SolutionIndicat ions:Atypical pneumonia,[place] Inhale 2 Puffs by mouth every 4 hours as needed for Wheezing. 18 g 2 4 Active predniSONE 10 MG Oral Tablet (Deltasone)Alice cations:Atypica l pneumonia,[place] Take 5 tabs for 2 days, 4 tabs for 2 days, 3 tabs for 2 days, 2 tabs for 2 days 1 tab for 2 days 30 Tablet 4 Active Doxycycline Hyclate 100 MG Oral CapsuleIndicati ons:Atypical pneumonia Take 1 Capsule by mouth in the morning and 1 Capsule before bedtime. Do all this for 10 days. Until gone.. 20 Capsule 4 08/16/20 24 Active documented as of this encounter (statuses as of 08/08/2024) Active Problems Problem Noted Date Diagnosed Date [...] cffDNA screening, and testing was coordinated by [facility]. In addition to the risk of [...] delivery at 36-37 weeks without amniocentesis per [employer]. Every effort should be made by patient s primary OB provider to obtain prior operative reports. 2. As per [employer]'s 2010 practice [...] Diagnosed in May 2023 after evaluation at [facility] for chest pain. Suspected during evaluation [...] as of this encounter (statuses as of 08/08/2024) Resolved Problems Problem Noted Date Diagnosed Date [...] monochorionic fetuses 08/04/2022 03/06/2023 Overview (08/23/2022): Spontaneous ebfaqombmqrqg-ccz-voneeulu [on outside scan, to be confirmed by [...] to schedule this with MFM at the [facility] if we are able, with the [...] urgent c/s. Recommend c/s in this case. [facility] is scheduled for next week so that Yakelin can meet with NICU staff to further discuss delivery expectations. Precautions reviewed; if there is an emergency couple is to present to the nearest hospital for evaluation/transfer; if Yakelin is having contractions that are regular, painful, and at least every 10 minutes x 1 hour, they should call and likely present to [facility] [place] [place]. Assessment & Plan (11/17/2022 1:34 PM EST): [...] surveillance should begin at 30 weeks per [facility] protocol for di-tri triplets. Yakelin is taking extra folate and iron and will order her vitamin from [employer]. We also discussed nausea and vomiting as Yakelin is currently only taking unisom. She can add Vit B6 25 mg tid; often helpful in the form of a lollipop which can also be ordered via [employer]. Sniffing and alcohol wipe is also a [...] may not be caused by Zofran. (See https://mothertobaby.org/fact-sheets/bxyhbrqshsd-sdwlbs-xjsmqpqrm/). Use should not be discouraged in patients [...] at least one child with a major halfway handicap related to prematurity, including cerebral palsy. [...] as of this encounter (statuses as of 08/08/2024) Immunizations Name Administration Dates Next Due COVID-19 mRNA, LNP-s, No Pre serve, 2-Dose Series (Triumfant) 01/06/2021,12/02/2020 DTaP Dipth/Tet/Acell Pertussis (Infanrix), Peds 08/23/2015 [...] Recorded PHQ Adult Total Score 0 01/01/2024 [facility] - Occupational [...] money to get more. 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 Multigravida of advanced maternal age in first trimester Short interval between pregnancies complicating , antepartum Supervision of other high-risk Anxiety disorder affecting , antepartum headache in first trimester Asthma affecting in first trimester Supervision of high-risk , unspecified trimester Family history of hypercoagulable state Multigravida of advanced maternal age in first trimester- Primary Antepartum multigravida of advanced maternal age H/O section Other postprocedural status Supervision of with grand multiparity, antepartum Coronary vasospasm (HCC) Prinzmetal angina Medication exposure during first trimester of Supervision of other high-risk Family history of DVT Family history of other cardiovascular diseases Primary insomnia Persistent disorder of initiating or maintaining sleep documented in this encounter Advance Directives * [...] Power of Attor nely? No Care Teams Ob Gyn Physician Assistant Relationship Specialty Start Date End Date Alicia Bell CRNP [address] [address] PCP - General Nurse Practitioner 05/28/24 documented as of this encounter
--- OUTSIDE RECORDS SUMMARY | 2024-09-15 16:44 | External Medical Summary ---
Author Name Unknown Address Unknown Organization K01:[facility] - [address] [facility] [address] Laboratory Report Ordering Provider Test Date Status LEXX ASNTIAGO 06/11/2024 10:53:18 Final Observation Date Value Abnormality Reference (Units ) Status WBC, Total 06/11/2024 10:53:18 4.30 4.00-10.8 0 (K/uL) Final RBC 06/11/2024 10:53:18 4.81 3.85-5.15 (M/uL) Final Hemoglobin 06/11/2024 10:53:18 14.1 12.0-15.3 (g/dL) Final Anemia reflex testing trigge rs on a HGB < 12.0 for Females and HGB < 13.0 for Males in accordance with the WHO Anemia Guidelines
Anemia reflex testing triggers on a HGB < 12.0 for Females and HGB < 13.0 for Males in accordance with the WHO Anemia Guidelines HCT 06/11/2024 10:53:18 44.9 36.0-45.2 (%) Final MCV 06/11/2024 10:53:18 93.3 81.5-97.5 (fL) Final MCH 06/11/2024 10:53:18 29.3 27.0-34.0 (pg) Final MCHC 06/11/2024 10:53:18 31.4 32.0-36.0 (g/dL) Final RDW 06/11/2024 10:53:18 13.4 11.5-15.5 (%) Final Platelets 06/11/2024 10:53:18 221 140-400 (K /uL) Final MPV 06/11/2024 10:53:18 10.2 6.6-11.1 ( fL) Final Nucleated erythrocytes/100 leukocytes [Ratio] in Blood by Automated count 06/11/2024 10:53:18 0 <=0 (/100 WBCs) [facility] Performing Location [facility] [address] [facility] [address]
--- OUTSIDE RECORDS SUMMARY | 2024-09-15 16:44 | External Medical Summary | Summary of Care ---
Author Name Unknown Organization [facility] Address [address] [place] [address] Phone [phone] Care Team Providers Care Police Captain Precinct Name Role Phone Alicia Bell Primary Care Provider Reason for Visit * Reason Onset Date Comments Medication Pre-auth 06/10/2024 OMEPRAZOLE D R 20 MG CAPSULE Encounter Details Date Type Department Care Team ([facility] Contact Info) Description 06/10/2024 Telephone Family Practice [facility] [address] [place] [address] Dalton Gill PA-C [address] [facility] [place] [address] Medication Pre-auth (OMEPRAZOLE DR 20 MG C... Allergies Active Allergy Reactions Criticality Noted Date Comments Amoxicillin-Pot Clavulanate Rash 06/29/20 17 Pollen Hives High 02/28/2017 Dust,ragweed,mold,dog and cat dander. documented as of this encounter (statuses as of 06/10/2024) Medications Medication Sig Dispensed Refills Start Date [...] before bedtime. 30 Tablet 5 01/25/2023 Active 27-0.8 MG Oral Tablet Take 1 Tablet by mouth daily at noon. Active Fluticasone Propionate 50 MCG/ACT Nasal Suspension (Flonase) Administer 2 Sprays into each nostril in the morning. 16 mL 10/23/2023 Active Additional Information Patient not taking.Reported on 03/29/2024 Breast Pump Use as recommended 1 Each 03/06/2024 Active Additional Information Patient not taking.Reported on 06/07/2024 traZODone HCl 50 MG Oral Tablet (Desyrel)Indicatio ns:Primary insomnia TAKE 1 & 1/2 (ONE & ONE-HALF) TABLETS BY MOUTH ONCE DAILY AT BEDTIME 135 Tablet 05/14/2024 Active Nitroglycerin 0.4 MG Sublingual Tablet Sublingual (Nitrostat) Place 1 Tablet under the tongue every 5 minutes as needed for Pain, Chest. 25 Tablet 1 05/28/2024 Active Dicyclomine HCl 10 MG Oral Capsule (Bentyl) Take 1 Capsule by mouth 4 times a day as needed (abdominal pain/cramping.). For abdominal pain 120 Capsule 1 06/07/2024 Active Omeprazole 20 MG Oral Capsule Delayed Release (PriLOSEC)Indicati ons:Abdominal pain, epigastric Take 1 Capsule by mouth in the morning. 1 hour before the first meal of the day. 30 Capsule 11 06/07/2024 Active documented as of this encounter (statuses as of 06/10/2024) Active Problems Problem Noted Date Diagnosed Date [...] cffDNA screening, and testing was coordinated by [facility]. In addition to the risk of chromosomal abnormalities, there is an increased risk of congenital/structural anomalies. RECOMMENDATIONS: Recommend [facility] anatomy ultrasound at 19-20 weeks gestation. [...] delivery at 36-37 weeks without amniocentesis per [employer]. Every effort should be made by patient s primary OB provider to obtain prior operative reports. 2. As per [employer]'s 2010 practice [...] Diagnosed in May 2023 after evaluation at [facility] for chest pain. Suspected during evaluation [...] as of this encounter (statuses as of 06/10/2024) Resolved Problems Problem Noted Date Diagnosed Date Resolved Date Hypokalemia 07/04/2023 04/09/2024 Liveborn , of triplet [...] Fountain RN 03/15/2024 Anxiety disorder affecting p regyohannescy, antepartum 08/21/2022 03/06/2023 Overview: -Mood stable. Last [...] resolved Nutrition Due date letter given for [facility] 08/04/2022 Jennifer Lee RN 08/04/2022 Triplet gestation, with two or more monochorionic fetuses 08/04/2022 03/06/2023 Overview: Spontaneous cjoejzcvrypeh-qcb-veqgfhac [on outside scan, to be confirmed by [...] as of this encounter (statuses as of 06/10/2024) Immunizations Name Administration Dates Next Due COVID-19 mRNA, LNP-s, No Pre serve, 2-Dose Series (Pfizer) 01/06/2021,12/02/2020 DTaP Dipth/Tet/Acell Pertussis (Infanrix), Peds 08/23/2015 MMR - Measles/Mumps/Rubella Vaccine 08/24/2015 PPD 05/25/2018 Seasonal Influenza, PF, 6 M & above, IM , (FluLaval or Fluzone) 06/20/2023,08/31/2022,07/01/2021, 021,07/26/2018() Seasonal Influenza, Trivalen t, (IIV3), with Preserv, (Fluzone) 08/07/2017 TDAP (age 10 and older)(Boostrix) 01/17/2024,04/2021 [...] Recorded PHQ Adult Total Score 0 01/01/2024 [facility] - Occupational Stress Questionnaire Answer [...] money to get more. Never true 03/15/2024 [place] Depression Scale Answer Date Recorded [place] Depression Scale Total 2 03/15/2024 The thought [...] 03/15/2024 Does the household have a re gular [...] ages 0-17 years) Not on file 03/15/2024 Sex and Gender Information Value Date Recorded [...] encounter Miscellaneous Notes * Telephone Encounter - Mandi Garcia CPhT - 06/10/2024 8:04 AM EDT Patients insurance would like to inform the office that OMEPRAZOLE DR 20 MG CAPSULE is not requiring review because no pa required, paid test claim at pharmacy.I was able to release RX to pharmacy. Thank you, Mandi Garcia Cruise Consultant [facility] 06/10/2024,8:04 AM documented in this encounter Plan of Treatment Upcoming Encounters Date Type Department Care Team (Late st Contact Info) Description 06/10/2024 2:00 PM EDT Imaging Radiology, [facility] [address] [address] 07/12/2024 9:20 AM EDT Office Visit Family [facility] [address] [place] [address] Alicia Bell CRNP [address] [place] [address] Health Maintenance Due Date Last Done Comments Hepatitis B Vaccine (1 of 3 - 19+ 3-dose series) 2006 COVID-19 Vaccine ( - season) 2024 08/26/2021, 01/06/2021, 12/02/2020 Influenza Vaccine (FLU shot) (#1) 2024 06/20/2023, 08/31/2022, 07/01/2021, Additional history exists Depression Screening 12/31/2024 01/01/2024 Diabetes Screening 03/29/2027 03/29/2024, 0 01/31/2024, 06/29/2023, Additional history exists Pap Smear 05/02/2027 05/02/2024, 01/19/2021 Cervical Cancer Screening 05/02/2029 HPV/Co-Test 05/02/2029 05/02/2024 [...] Power of Attor nely? No Care Teams Police Captain Precinct Relationship Specialty Start Date End Date Alicia Bell CRNP [address] [address] PCP - General Nurse Practitioner 05/28/24 documented as of this encounter
--- OUTSIDE RECORDS SUMMARY | 2024-09-15 16:44 | External Medical Summary | Summary of Care ---
Author Name Unknown Organization [facility] Address [address] [place] [address] Phone [phone] Care Team Providers Care Shipping Agent Name Role Phone Ray Alicia MALONE Primary Care Provider Reason for Visit * Reason Comments Outpatient Testing Encounter Details Date Type Department Care Team ([facility] Contact Info) Description 06/11/2024 11:20 AM EDT Laboratory Laboratory, [facility] [address] [place] [id number] [facility] [address] [place] [address] High serum bile acid; Abdominal pain, epigastric Allergies Active Allergy Reactions Criticality Noted Date Comments Amoxicillin-Pot Clavulanate Rash 06/29/20 17 Pollen Hives High 02/28/2017 Dust,ragweed,mold,dog and cat dander. documented as of this encounter (statuses as of 06/11/2024) Medications Medication Sig Dispensed Refills Start Date [...] as of this encounter (statuses as of 06/11/2024) Active Problems Problem Noted Date Diagnosed Date [...] cffDNA screening, and testing was coordinated by [facility]. In addition to the risk of chromosomal abnormalities, there is an increased risk of congenital/structural anomalies. RECOMMENDATIONS: Recommend [facility] anatomy ultrasound at 19-20 weeks gestation. [...] delivery at 36-37 weeks without amniocentesis per [employer]. Every effort should be made by patient s primary OB provider to obtain prior operative reports. 2. As per [employer]'s 2010 practice [...] as of this encounter (statuses as of 06/11/2024) Resolved Problems Problem Noted Date Diagnosed Date [...] more monochorionic fetuses 08/04/2022 03/06/2023 Overview: Spontaneous eiywltynxvutl-rsx-knovkfha [on outside scan, to be confirmed by [...] as of this encounter (statuses as of 06/11/2024) Immunizations Name Administration Dates Next Due COVID-19 [...] Recorded PHQ Adult Total Score 0 01/01/2024 [facility] - Occupational [...] money to get more. Never true 03/15/2024 [place] Depression Scale Answer Date Recorded [place] Depression Scale Total 2 03/15/2024 The thought [...] Care Team (Late st Contact Info) Description 07/12/2024 9:20 AM EDT Office Visit Family Practice [facility] [address] [address] Alicia Bell CRNP [address] [address] Pending Results Name Type Priority Associated Diagnoses Date /Time BILE ACIDS, FRACTIONATED AND TOTAL Lab Routine High serum bile acid 06/11/2024 10:53 AM EDT CBC WITH WBC DIFFERENTIAL AND ANEMIA REFLEX WORKUP Lab Routine High serum bile acid 06/11/2024 10:53 AM EDT COMPREHENSIVE METABOLIC PANEL Lab Routine Abdominal pain, epigastric 06/11/2024 10:53 AM EDT AMYLASE Lab Routine Abdominal pain, epigastric 06/11/2024 10:53 AM EDT LIPASE Lab Routine Abdominal pain, epigastric 06/11/2024 10:53 AM EDT ANEMIA CBC Lab Routine High serum bile acid 06/11/2024 10:53 AM EDT DIFFERENTIAL, AUTOMATED Lab Routine High serum bile acid 06/11/2024 10:53 AM EDT ANEMIA REFLEX CHEMISTRY HOLD Lab Routine High serum bile acid 06/11/2024 10:53 AM EDT BILIRUBIN, DIRECT Lab Routine High serum bile acid 06/11/2024 10:53 AM EDT Health Maintenance Due Date Last Done Comments [...] as of this encounter Visit Diagnoses Diagnosis High serum bile acid Abdominal pain, epigastric documented in this encounter Advance Directives * [...] Power of Attor nely? No Care Teams Shipping Agent Relationship Specialty Start Date End Date Alicia Bell CRNP [address] [address] PCP - General Nurse Practitioner 05/28/24 documented as of this encounter
--- OUTSIDE RECORDS SUMMARY | 2024-09-15 16:44 | External Medical Summary ---
Author Name Unknown Address Unknown Organization K0G:[facility] [address] - [address] [place] [address] Laboratory Report Ordering Provider Test Date Status MOY TOLBERT 08/09/2024 11:55:55 Final Observation Date Value Abnormality Reference (Units ) Status BUN 08/09/2024 11:55:55 16 6-20 (mg/dL) Final Creatinine 08/09/2024 11:55:55 0.8 0.5-1.0 (mg/dL) Final Glomerular filtration rate/1.73 sq M.predicted [Volume Rate/Area] in Serum, Plasma or Blood by Creatinine-based formula (CKD-EPI) 08/09/2024 11:55:55 >90 >=60 (mL/min) Final eGFR is calculated based on the CKD-EPI 2020 equation. Sodium 08/09/2024 11:55:55 141 135-146 (m mol/L) Final Potassium 08/09/2024 11:55:55 3.5 3.5-5.1 (m mol/L) Final Cl 08/09/2024 11:55:55 105 98-107 (mm ol/L) Final CO2 08/09/2024 11:55:55 27 22-32 (mmo l/L) Final Anion gap 08/09/2024 11:55:55 9 7-15 (mmol /L) Final Glucose 08/09/2024 11:55:55 85 70-120 (mg /dL) Final Albumin 08/09/2024 11:55:55 4.2 3.8-5.0 (g /dL) Final AST (Aspartate aminotransferase) 08/09/2024 11:55:55 13 10-35 (U/L) Final Alk Phos 08/09/2024 11:55:55 52 35-130 (U/ L) Final Bilirubin, Total 08/09/2024 11:55:55 0.2 <=1 .2 (mg/dL) Final Calcium 08/09/2024 11:55:55 9.2 8.4-10.2 ( mg/dL) Final Protein 08/09/2024 11:55:55 6.9 6.0-8.3 (g /dL) Final ALT (Alanine aminotransferase) 08/09/2024 11:55:55 17 10-35 (U/L) Final [facility] [address] [facility] [address]
--- OUTSIDE RECORDS SUMMARY | 2024-09-15 16:44 | External Medical Summary ---
Author Name Unknown Address Unknown Organization : Laboratory Report Ordering Provider Test Date Status LEXX SANTIAGO 06/11/2024 10:53:18 Final Observation Date Value Abnormality Reference (Units ) Status Bile acid [Moles/volume] in Serum --fasting 06/11/2024 10:53:18 SEE BELOW Final TESTS--------- ----RESULTS--------UNITS--REF. RANGE---
Cholic Acid <0.5 umol/L < OR = 1.8
Deoxycholic Acid <0.5 umol/L < OR = 2.4
Chenodeoxycholic Acid 0.5 umol/L < OR = 3.1
Total Bile Acids <1.5 umol/L < OR = 6.8
This test was developed and its analytical
performance characteristics have been determined
by [facility]. It has not been cleared or
approved by FDA. This assay has been validated
pursuant to the CLIA regulations and is used for
clinical purposes.
Test performed by [facility]
[address],
[place] [address]

Supervisor Contingents: Viviane Rosenthal MD,PHD,WALTER Performing Location
--- OUTSIDE RECORDS SUMMARY | 2024-09-15 16:44 | External Medical Summary | Summary of Care ---
Author Name Unknown Organization [facility] Address [address] [place] [address] Phone [phone] Care Team Providers Care Mountain Bike Guide Name Role Phone Alicia Bell Primary Care Provider Encounter Details Date Type Department Care Team (Late st Contact Info) Description 08/06/2024 2:40 PM EST [facility]medicine [facility] [address] [facility] [place] [address] Gabby Archer CRNP [address] [place] [facility] [place] [address] Atypical pneumonia*; Wheezing Allergies Active Allergy Reactions Criticality Noted Date Comments Amoxicillin-Pot Clavulanate Rash 06/29/20 17 Pollen Hives High 02/28/2017 Dust,ragweed,mold,dog and cat dander. documented as of this encounter (statuses as of 08/06/2024) Medications Montelukast Sodium 10 MG Oral Tablet [...] as of this encounter (statuses as of 08/06/2024) Active Problems Problem Noted Date Diagnosed Date [...] cffDNA screening, and testing was coordinated by [facility]. In addition to the risk of [...] delivery at 36-37 weeks without amniocentesis per [employer]. Every effort should be made by patient s primary OB provider to obtain prior operative reports. 2. As per [employer]'s 2010 practice [...] Diagnosed in May 2023 after evaluation at [facility] for chest pain. Suspected during evaluation [...] as of this encounter (statuses as of 08/06/2024) Resolved Problems Problem Noted Date Diagnosed Date [...] any current needs or questions 03/15/2024 Chica oFuntain RN 03/15/2024 Anxiety disorder affecting p regnancy, [...] monochorionic fetuses 08/04/2022 03/06/2023 Overview (08/23/2022): Spontaneous kownoarbccjrp-amw-nodhdvai [on outside scan, to be confirmed by [...] schedule this with MFM at the [facility] if we are able, with [...] urgent c/s. Recommend c/s in this case. [facility] [place] scheduled for next week so that Yakelin can meet with NICU staff to further discuss delivery expectations. Precautions reviewed; if there is an emergency couple is to present to the nearest hospital for evaluation/transfer; if Yakelin is having contractions that are regular, painful, and at least every 10 minutes x 1 hour, they should call and likely present to [facility]. Assessment & Plan (11/17/2022 1:34 PM EST): [...] surveillance should begin at 30 weeks per [facility] protocol for di-tri triplets. Yakelin is taking extra folate and iron and will order her vitamin from [employer]. We also discussed nausea and vomiting as Yakelin is currently only taking unisom. She can add Vit B6 25 mg tid; often helpful in the form of a lollipop which can also be ordered via [employer]. Sniffing and alcohol wipe is also a [...] may not be caused by Zofran. (See https://mothertobaby.org/fact-sheets/drqqcfvyoal-vcdxwo-qduczrxjp/). Use should not be discouraged in patients [...] at least one child with a major terminologist handicap related to prematurity, including cerebral palsy. [...] as of this encounter (statuses as of 08/06/2024) Immunizations Name Administration Dates Next Due COVID-19 mRNA, LNP-s, No Pre serve, 2-Dose Series ([employer]) 01/06/2021,12/02/2020 DTaP Dipth/Tet/Acell Pertussis (Infanrix), Peds 08/23/2015 [...] Recorded PHQ Adult Total Score 0 01/01/2024 [facility] [place] [facility] - Occupational Stress [...] money to get more. Never true 06/18/2024 [place] Depression Scale Answer Date Recorded [place] Depression Scale Total 2 03/15/2024 The thought [...] documented in this encounter Progress Notes * Gabby Archer CRNP - 08/06/2024 3:02 PM EST Images from the original note were not included. History of Present Illness Yakelin Hughes is a 39 year old female that presents for No chief complaint on file. HPI Video visit. Chest congestion, sore throat x 1 week that is worsening. [place] feverish last week and a lot of malaise. Did not measure temperature. Had night sweats one night. Chest hurts when she coughs or talks-feels like pressure near her sternum right in the middle. She does feel like there's some wheezing with deep breaths. She denies n/v/d. She is not . Current Outpatient Medications Medication Sig Dispense Refill Doxycycline Hyclate 100 MG Oral Capsule Take 1 Capsule by mouth in the morning and 1 Capsule beforebedtime. Do all this for 10 days. Until gone.. 20 Capsule 0 predniSONE 10 MG Oral Tablet (Deltasone) Take 5 tabs for 2 days, 4 tabs for 2 days, 3 tabs for 2 days, 2 tabs for 2 days 1 tab for 2 days 30 Tablet 0 Ventolin HFA 108 (90 Base) MCG/ACT Inhalation Aerosol Solution Inhale 2 Puffs by mouth every 4 hours as needed for Wheezing. 18 g 2 Ibuprofen 800 MG Oral Tablet (Motrin) Take 1 Tablet by mouth every 8 hours as needed for Pain, Severe. with food for pain 30 Tablet 1 Dicyclomine HCl 10 MG Oral Capsule (Bentyl) Take 1 Capsule by mouth 4 times a day as needed (abdominal pain/cramping.). For abdominal pain 120 Capsule 1 Omeprazole 20 MG Oral Capsule Delayed Release (PriLOSEC) Take 1 Capsule by mouth in the morning. 1 hour before the first meal of the day. 30 Capsule 11 Nitroglycerin 0.4 MG Sublingual Tablet Sublingual (Nitrostat) Place 1 Tablet under the tongue every5 minutes as needed for Pain, Chest. 25 Tablet 1 traZODone HCl 50 MG Oral Tablet (Desyrel) TAKE 1 & 1/2 (ONE & ONE-HALF) TABLETS BY MOUTH ONCE DAILY AT BEDTIME 135 Tablet 0 Breast Pump Use as recommended (Patient not taking: Reported on 06/07/2024) 1 Each 0 Fluticasone Propionate 50 MCG/ACT Nasal Suspension (Flonase) Administer 2 Sprays into each nostril in the morning. (Patient not taking: Reported on 03/29/2024) 16 mL 0 27-0.8 MG Oral Tablet Take 1 Tablet by mouth daily at noon. (Patient not taking: Reported on 06/07/2024) Acetaminophen 325 MG Oral Tablet (Tylenol) Take 3 Tablets by mouth in the morning and 3 Tablets at noon and 3 Tablets in the evening and 3 Tablets before bedtime. 30 Tablet 5 Montelukast Sodium 10 MG Oral Tablet (Singulair) Take 1 Tab by mouth every evening. 30 Tab 5 No current facility-administered medications for this visit. Physical Exam There were no vitals filed for this visit. Physical Exam Constitutional: General: She is not in acute distress. Neurological: Mental Status: She is alert and oriented to person, place, and time. Psychiatric: Behavior: Behavior normal. Thought Content: Thought content normal. Assessment and Plan Atypical pneumonia - Ventolin HFA 108 (90 Base) MCG/ACT Inhalation Aerosol Solution; Inhale 2 Puffs by mouth every 4 hours as needed for Wheezing. - predniSONE 10 MG Oral Tablet (Deltasone); Take 5 tabs for 2 days, 4 tabs for 2 days, 3 tabs for 2days, 2 tabs for 2 days 1 tab for 2 days - Doxycycline Hyclate 100 MG Oral Capsule; Take 1 Capsule by mouth in the morning and 1 Capsule before bedtime. Do all this for 10 days. Until gone.. Wheezing - Ventolin HFA 108 (90 Base) MCG/ACT Inhalation Aerosol Solution; Inhale 2 Puffs by mouth every 4 hours as needed for Wheezing. - predniSONE 10 MG Oral Tablet (Deltasone); Take 5 tabs for 2 days, 4 tabs for 2 days, 3 tabs for 2days, 2 tabs for 2 days 1 tab for 2 days Wrap-Up Follow Up: Return if symptoms worsen or fail to improve. Time: I spent a total of 20-29 minutes (exact time 20 mins) on the date of service in preparation, delivery, and documentation of the care provided to Yakelin Hughes excluding any time spent in the performance of separately billed services. Telemedicine: Patient location: HOME. I was in a hospital or clinic location. After connecting through televideo,patient was verified with two unique identifiers. Patient (or authorized legal sales representative trainee) was then informed that this was a Telemedicine visit and being conducted confidentially over secure lines. Methods to assure confidentiality were taken. Patient acknowledged consent and understanding of pr ivacy and security of the Telemedicine visit. The patient agreed to participate. documented in this encounter Plan of Treatment [...] diseases Atypical pneumonia- Primary Pneumonia, organism unspecified Wheezing documented in this encounter Advance Directives * [...] Power of Attor nely? No Care Teams Mountain Bike Guide Relationship Specialty Start Date End Date Alicia Bell CRNP [address] [address] PCP - General Nurse Practitioner 05/28/24 documented as of this encounter
--- OUTSIDE RECORDS SUMMARY | 2024-09-15 16:44 | External Medical Summary ---
Author Name Unknown Address Unknown Organization [id number]:LABORATORY [facility] - [address] [place] [address] Laboratory Report Ordering Provider Test Date Status AMAN COLÓN 06/11/2024 10:53:18 Final Observation Date Value Abnormality Reference (Units ) Status Lipase 06/11/2024 10:53:18 42 13-60 (U/L ) Final Performing Location LABORATORY [facility] - [address] [place] [address]
--- OUTSIDE RECORDS SUMMARY | 2024-09-15 16:44 | External Medical Summary | Summary of Care ---
Author Name Unknown Organization [facility] Address [address] [place] [address] Phone [phone] Care Team Providers Care Fire Prevention Captain Name Role Phone Alicia Hallman Primary Care Provider Reason for Visit * Reason Comments eRx-Medication Refill Encounter Details Date Type Department Care Team (Late st Contact Info) Description 08/06/[address] [address] Alicia Hallman CRNP [address] [place] [address] Primary insomnia Allergies Active Allergy Reactions Criticality [...] 3 9:44 AM EDT 01/26/20 23 Active 27-0.8 MG Oral Tablet Take 1 Tablet by mouth daily at noon. Active Fluticasone Propionate 50 MCG/ACT Nasal Suspension (Flonase) Administer 2 Sprays into each nostril in the morning. 16 mL 10/23/19 Active Additional Information Patient not taking.Reported on 03/29/2024 Breast Pump Use as recommended 1 Each 03/06/20 Active Additional Information Patient not taking.Reported on 06/07/2024 Nitroglycerin 0.4 MG Sublingual Tablet Sublingual (Nitrostat) [...] gone.. 20 Capsule 08/06/20 24 024 Active traZODone HCl 50 MG Oral Tablet (Desyrel)Indic ations:Primary insomnia TAKE 1 & 1/2 (ONE & ONE-HALF) TABLETS BY MOUTH ONCE DAILY AT BEDTIME 135 Tablet 05/14/20 24 024 Discontinued documented as of this [...] cffDNA screening, and testing was coordinated by [facility]. In addition to the risk of chromosomal [...] in May 2023 after evaluation at [facility] for chest pain. Suspected during evaluation [...] resolved Nutrition Due date letter given for [facility] 08/04/2022 Jennifer Lee RN 08/04/2022 Triplet gestation, with two or more monochorionic fetuses 08/04/2022 03/06/2023 Overview (08/23/2022): Spontaneous bzstegarnkdna-cuj-bkifkqby [on outside scan, to be confirmed by [...] to schedule this with MFM at the [facility] if we are able, with [...] they should call and likely present to [facility]. Assessment & Plan (11/17/2022 1:34 PM EST): [...] surveillance should begin at 30 weeks per [facility] protocol for di-tri triplets. Yakelin is taking extra folate and iron and will order her vitamin from [employer]. We also discussed nausea and vomiting as Yakelin is currently only taking unisom. She can add Vit B6 25 mg tid; often helpful in the form of a lollipop which can also be ordered via [employer]. Sniffing and alcohol wipe is also a [...] may not be caused by Zofran. (See https://mothertobaby.org/fact-sheets/loigehtnjco-bqniyc-rhwkgqrxm/). Use should not be discouraged in patients [...] mRNA, LNP-s, No Pre serve, 2-Dose Series ([employer]) 01/06/2021,12/02/2020 DTaP Dipth/Tet/Acell Pertussis (Infanrix), Peds 08/23/2015 [...] Recorded PHQ Adult Total Score 0 01/01/2024 [facility] - Occupational Stress Questionnaire Answer Date Recorded [...] money to get more. Never true 06/18/2024 [place] Depression Scale Answer Date Recorded [place] Depression Scale Total 2 03/15/2024 The thought [...] Assessment Author No 07/24/2018 10:26 AM Macey Henry, RN * Are you blind or do [...] encounter Miscellaneous Notes * Telephone Encounter - Alicia Hallman CRNP - 08/08/2024 9:07 AM EST Signed Prescriptions: Disp Refills traZODone HCl 50 MG Oral Tablet (Desyrel) 135 Ta*0 Sig: TAKE 1 & 1/2 (ONE & ONE-HALF) TABLETS BY MOUTH AT BEDTIME Authorizing Provider: ALICIA HALLMAN * Telephone Encounter - [facility] - 08/07/2024 5:18 PM ESTPending Prescriptions: Disp Refills traZODone HCl 50 MG Oral Tablet (Desyrel) 135 Ta*1 Sig: TAKE 1 & 1/2 (ONE & ONE-HALF) TABLETS BY MOUTH AT BEDTIME * Telephone Encounter - [facility] - 08/07/2024 5:18 PM EST Pending Prescriptions: Disp Refills traZODone HCl 50 MG Oral Tablet (Desyrel) 135 Ta*1 Sig: TAKE 1 & 1/2 (ONE & ONE-HALF) TABLETS BY MOUTH AT BEDTIME Last Visit: Visit date not found (in office), 05/29/2023 (telemedicine) Next Visit: Visit date not found If no future appointments scheduled, and last appointment is greater than a year ago, please schedule patient for a follow-up appointment Last date the medication was ordered: 05-14-24 Pharmacy: [facility] Is this request for a controlled substance?No Urine Drug Screen:No results found for this or any previous visit. Patient Phone Numbers [email or web address] [phone] Labs: Lab Results Component Value Date/Time CREAT 0.8 06/11/2024 10:53 AM CREAT 0.57 (L) 01/31/2024 12:00 AM CREAT 0.79 04/24/2020 02:19 PM CREAT 0.8 07/25/2018 06:04 AM POTASSIUM 4.5 06/11/2024 10:53 AM POTASSIUM 3.2 (L) 01/31/2024 12:00 AM POTASSIUM 4.0 04/24/2020 02:19 PM POTASSIUM 4.3 07/25/2018 06:04 AM TSH 1.81 01/17/2024 11:38 AM TSH 1.14 07/25/2018 06:04 AM LDL 100 10/28/2020 11:57 AM ALT 28 06/11/2024 10:53 AM ALT 32 04/24/2020 02:19 PM ALT 12 02/28/2017 10:54 AM Julian KingPh. Clinical Pharmacist [facility] ([facility]) [address] [place] [address], [address] [place] [address] [phone] [id number] 08/07/2024,5:18 PM documented in this encounter Plan of [...] Power of Attor nely? No Care Teams Fire Prevention Captain Relationship Specialty Start Date End Date Alicia Hallman CRNP [address] [address] PCP - General Nurse Practitioner 05/28/24 documented as of this encounter
--- OUTSIDE RECORDS SUMMARY | 2024-09-15 16:44 | External Medical Summary ---
Author Name Unknown Address Unknown Organization K01:[facility] [place] [address] [facility] [address] Laboratory Report Ordering Provider Test Date Status LEXX SANTIAGO 06/11/2024 10:53:18 Final Observation Date Value Abnormality Reference (Units ) Status SYNC LEUKOCYTES IN BLOOD BY AUTOMATED COUNT 06/11/2024 10:53:18 4.30 4.00-10.80 (K/uL) Final Segs 06/11/2024 10:53:18 57.0 40.0-75.0 (%) Final Lymphs % 06/11/2024 10:53:18 30.5 18.0-42.0 (%) Final Monos 06/11/2024 10:53:18 7.0 1.0-11.0 (%) Final Eosinophils 06/11/2024 10:53:18 4.4 0.0-6.0 (%) Final Basos 06/11/2024 10:53:18 0.9 0.0-2.0 (%) Final Immature Granulocyte, Percent 06/11/2024 10:53:18 0.2 0.0-2.0 (%) Final Absolute Segs 06/11/2024 10:53:18 2.45 1.80-7.70 (K/uL) Final Lymphs, absolute 06/11/2024 10:53:18 1.31 1.00-4.80 (K/ul) Final Monos, Abs 06/11/2024 10:53:18 0.30 0.00-1.10 (K/uL) Final Eos, Abs 06/11/2024 10:53:18 0.19 0.00-0.70 (K/uL) Final Basos, Abs 06/11/2024 10:53:18 0.04 0.00-0.20 (K/uL) Final Immature Granulocytes, Number 06/11/2024 10:53:18 0.01 0.00-0.20 (K/uL) Final Performing Location [facility] [place] [address] [facility] [address]
--- OUTSIDE RECORDS SUMMARY | 2024-09-15 16:44 | External Medical Summary ---
Author Name Unknown Address Unknown Organization K0G:LABORATORY [place] [facility] - [address] [place] [address] Laboratory Report Ordering Provider Test Date Status MOY TOLBERT 08/09/2024 11:55:55 Final Observation Date Value Abnormality Reference (Units ) Status WBC, Total 08/09/2024 11:55:55 6.65 4.00-10.8 0 (K/uL) Final RBC 08/09/2024 11:55:55 4.12 3.85-5.15 (M/uL) Final Hemoglobin 08/09/2024 11:55:55 12.3 12.0-15.3 (g/dL) Final Anemia reflex testing trigge rs on a HGB < 12.0 for Females and HGB < 13.0 for Males in accordance with the WHO Anemia Guidelines
Anemia reflex testing triggers on a HGB < 12.0 for Females and HGB < 13.0 for Males in accordance with the WHO Anemia Guidelines HCT 08/09/2024 11:55:55 37.7 36.0-45.2 (%) Final MCV 08/09/2024 11:55:55 91.5 81.5-97.5 (fL) Final MCH 08/09/2024 11:55:55 29.9 27.0-34.0 (pg) Final MCHC 08/09/2024 11:55:55 32.6 32.0-36.0 (g/dL) Final RDW 08/09/2024 11:55:55 14.1 11.5-15.5 (%) Final Platelets 08/09/2024 11:55:55 222 140-400 (K /uL) Final MPV 08/09/2024 11:55:55 9.9 6.6-11.1 ( fL) Final Performing Location LABORATORY [facility] [employer] [facility] 0 - [address] [place] [address]
--- OUTSIDE RECORDS SUMMARY | 2024-09-15 16:44 | External Medical Summary ---
Author Name Unknown Address Unknown Organization K[facility] [address] [place] [address] Laboratory Report Ordering Provider Test Date Status MOY TOLBERT 08/09/2024 11:55:55 Final Observation Date Value Abnormality Reference (Units ) Status SYNC LEUKOCYTES IN BLOOD BY AUTOMATED COUNT 08/09/2024 11:55:55 6.65 4.00-10.80 (K/uL) Final Segs 08/09/2024 11:55:55 51.4 40.0-75.0 (%) Final Lymphs % 08/09/2024 11:55:55 39.5 18.0-42.0 (%) Final Monos 08/09/2024 11:55:55 6.5 1.0-11.0 (%) Final Eosinophils 08/09/2024 11:55:55 2.0 0.0-6.0 (%) Final Basos 08/09/2024 11:55:55 0.6 0.0-2.0 (%) Final Absolute Segs 08/09/2024 11:55:55 3.42 1.80-7.70 (K/uL) Final Lymphs, absolute 08/09/2024 11:55:55 2.63 1.00-4.80 (K/ul) Final Monos, Abs 08/09/2024 11:55:55 0.43 0.00-1.10 (K/uL) Final Eos, Abs 08/09/2024 11:55:55 0.13 0.00-0.70 (K/uL) Final Basos, Abs 08/09/2024 11:55:55 0.04 0.00-0.20 (K/uL) Final Performing Location LABORATORY [facility] 0 - [address] [place] [address]
--- OUTSIDE RECORDS SUMMARY | 2024-09-15 16:44 | External Medical Summary | Summary of Care ---
Author Name Unknown Organization [facility] Address [address] [place] [address] Phone [phone] Care Team Providers Care Furnace Puncher Name Role Phone Ronaldhilary Alicia Denise MALONE Primary Care Provider Reason for Visit * Reason Comments Outpatient Testing Encounter Details Date Type Department Care Team ([facility] st Contact Info) Description 08/09/2024 12:00 PM EST Laboratory Laboratory, [facility] [address] [place] [address] [facility] [address] [place] [address] Atypical pneumonia Allergies Active Allergy Reactions Criticality Noted Date [...] hours as needed for Cough. 120 mL Active documented as of this encounter (statuses as of 08/09/2024) Active Problems Problem Noted Date Diagnosed Date Overweight (BMI 25.0-29.9) 08/09/2024 Gastroesophageal reflux disease without esophagi tis 08/09/2024 Iron deficiency anemia 01/24/2024 Coronary vasospasm 08/24/2023 Overview (08/30/2023): Diagnosed in May 2023 after evaluation at [facility] for chest pain. Suspected during evaluation with [...] cffDNA screening, and testing was coordinated by [facility]. In addition to the risk of [...] resolved Nutrition Due date letter given for [facility] 08/04/2022 Jennifer Lee RN 08/04/2022 Triplet gestation, with two or more monochorionic fetuses 08/04/2022 03/06/2023 Overview (08/23/2022): Spontaneous plcegmfvxmyya-rvt-jevrcqcc [on outside scan, to be confirmed by [...] to schedule this with MFM at the [facility] if we are able, with the [...] they should call and likely present to [facility]. Assessment & Plan (11/17/2022 1:34 PM EST): [...] surveillance should begin at 30 weeks per [facility] protocol for di-tri triplets. Yakelin is taking extra folate and iron and will order her vitamin from [employer]. We also discussed nausea and vomiting as Yakelin is currently only taking unisom. She can add Vit B6 25 mg tid; often helpful in the form of a lollipop which can also be ordered via [employer]. Sniffing and alcohol wipe is also a [...] may not be caused by Zofran. (See https://mothertobaby.org/fact-sheets/rcqpvktanry-wzhggf-imeqowneo/). Use should not be discouraged in patients [...] least one child with a major intermediate card tender handicap related to prematurity, including cerebral palsy. [...] Recorded PHQ Adult Total Score 0 01/01/2024 [facility] [place] of Occupat ional Health - Occupational Stress [...] money to get more. Never true 06/18/2024 [place] Depression Scale Answer Date Recorded [place] Depression Scale Total 2 03/15/2024 The thought [...] Name Type Priority Associated Diagnoses Date /Time COMPREHENSIVE METABOLIC PANEL Lab Routine Atypical pneumonia 08/09/2024 11:55 AM EST CBC WITH WBC DIFFERENTIAL AND ANEMIA REFLEX WORKUP Lab Routine Atypical pneumonia 08/09/2024 11:55 AM EST ANEMIA CBC Lab Routine Atypical pneumonia 08/09/2024 11:55 AM EST DIFFERENTIAL, AUTOMATED Lab Routine Atypical pneumonia 08/09/2024 11:55 AM EST ANEMIA REFLEX CHEMISTRY HOLD Lab Routine Atypical pneumonia 08/09/2024 11:55 AM EST Health Maintenance Due Date Last Done Comments Hepatitis B Vaccine (1 of 3 - 19+ 3-dose series) 2006 COVID-19 Vaccine (4 - 2024-25 season) 2024 08/26/2021, 01/06/2021, 12/02/2020 Influenza Vaccine [...] Family history of other cardiovascular diseases Atypical pneumonia Pneumonia, organism unspecified documented in this encounter [...] Power of Attor nely? No Care Teams Furnace Puncher Relationship Specialty Start Date End Date Alicia Bell CRNP [address] [address] PCP - General Nurse Practitioner 05/28/24 documented as of this encounter
--- OUTSIDE RECORDS SUMMARY | 2024-09-15 16:44 | External Medical Summary ---
Author Name Unknown Address Unknown Organization K0G:LABORATORY [place] [facility] - [address] [place] [address] Laboratory Report Ordering Provider Test Date Status LEXX SANTIAGO 06/11/2024 10:53:18 Final Observation Date Value Abnormality Reference (Units ) Status Bilirubin, Direct 06/11/2024 10:53:18 <0.2 0. 0-0.3 (mg/dL) Final Performing [facility] - [address] [place] [address]
--- OUTSIDE RECORDS SUMMARY | 2024-09-15 16:44 | External Medical Summary | Summary of Care ---
Author Name Unknown Organization [facility] Address [address] [place] [address] Phone [phone] Care Team Providers Care Machine Stemmer Name Role Phone Alicia Bell Denise MALONE Primary Care Provider Encounter Details Date Type Department Care Team ([facility] st Contact Info) Description 06/11/2024 Orders Only PATIENT PORTAL DO NOT DELETE THIS DEPT USED BY VIJI JOHNSON [id number] Allergies Active Allergy Reactions Criticality Noted Date [...] cffDNA screening, and testing was coordinated by [facility]. In addition to the risk of chromosomal [...] delivery at 36-37 weeks without amniocentesis per [employer]. Every effort should be made by patient s primary OB provider to obtain prior operative reports. 2. As per [employer]'s 2010 practice [...] Diagnosed in May 2023 after evaluation at [facility] for chest pain. Suspected during [...] Fountain RN 03/15/2024 Anxiety disorder affecting p harlan, antepartum 08/21/2022 03/06/2023 Overview: -Mood stable. Last [...] more monochorionic fetuses 08/04/2022 03/06/2023 Overview: Spontaneous cicmpifoquqzl-mup-ggdysfuj [on outside scan, to be confirmed by [...] Recorded PHQ Adult Total Score 0 01/01/2024 [facility] - [...] money to get more. Never true 03/15/2024 [place] Depression Scale Answer Date Recorded [place] Depression Scale Total 2 03/15/2024 The thought [...] Care Team (Late st Contact Info) Description 06/11/2024 10:30 AM EDT Imaging Radiology [facility] 2[facility] [address] [address] 07/12/2024 9:20 AM EDT Office Visit Family Practice [facility] [address] [address] Alicia Bell CRNP [address] [address] Health Maintenance Due Date Last Done Comments [...] of Attor nely? No Care Teams Machine Stemmer Relationship Specialty Start Date End Date Alicia Bell CRNP [address] [address] PCP - General Nurse Practitioner 05/28/24 documented as of this encounter
--- OUTSIDE RECORDS SUMMARY | 2024-09-15 16:44 | External Medical Summary ---
Author Name Unknown Address Unknown Organization K0G:[facility] [address] [place] [address] Laboratory Report Ordering Provider Test Date Status AMAN COLÓN 06/11/2024 10:53:18 Final Observation Date Value Abnormality Reference (Units ) Status BUN 06/11/2024 10:53:18 15 6-20 (mg/dL) Final Creatinine 06/11/2024 10:53:18 0.8 0.5-1.0 (mg/dL) Final Glomerular filtration rate/1.73 sq M.predicted [Volume Rate/Area] in Serum, Plasma or Blood by Creatinine-based formula (CKD-EPI) 06/11/2024 10:53:18 >90 >=60 (mL/min) Final eGFR is calculated based on the CKD-EPI 2020 equation. Sodium 06/11/2024 10:53:18 139 135-146 (m mol/L) Final Potassium 06/11/2024 10:53:18 4.5 3.5-5.1 (m mol/L) Final Cl 06/11/2024 10:53:18 105 98-107 (mm ol/L) Final CO2 06/11/2024 10:53:18 22 22-32 (mmo l/L) Final Anion gap 06/11/2024 10:53:18 12 7-15 (mmol /L) Final Glucose 06/11/2024 10:53:18 91 70-120 (mg /dL) Final Albumin 06/11/2024 10:53:18 4.2 3.8-5.0 (g /dL) Final AST (Aspartate aminotransferase) 06/11/2024 10:53:18 21 10-35 (U/L) Final Alk Phos 06/11/2024 10:53:18 56 35-130 (U/ L) Final Bilirubin, Total 06/11/2024 10:53:18 0.4 <=1 .2 (mg/dL) Final Calcium 06/11/2024 10:53:18 9.1 8.4-10.2 ( mg/dL) Final Protein 06/11/2024 10:53:18 7.0 6.0-8.3 (g /dL) Final ALT (Alanine aminotransferase) 06/11/2024 10:53:18 28 10-35 (U/L) Final Performing Location [facility] [address] [facility] [address]
--- OUTSIDE RECORDS SUMMARY | 2024-09-15 16:44 | External Medical Summary | Summary of Care ---
Author Name Unknown Organization [facility] Address [address] [place] [address] Phone [phone] Care Team Providers Care Division Officer Weapons Department Name Role Phone Ray Alicia MALONE Primary Care Provider Reason for Visit * Reason Comments Acute Encounter Details Date Type Department Care Team ([facility] st Contact Info) Description 07/29/2024 11:20 AM EST Telemedicine Family Practice [facility] [address] [facility] [place] [address] Shane Santiago, DO [address] [facility] [address] Pain of left hand*; Pain of toe of left foot Allergies Active Allergy Reactions Criticality Noted Date Comments Amoxicillin-Pot Clavulanate Rash 06/29/20 17 Pollen Hives High 02/28/2017 Dust,ragweed,mold,dog and cat dander. documented as of this encounter (statuses as of 07/29/2024) Medications Montelukast Sodium 10 MG Oral Tablet [...] as of this encounter (statuses as of 07/29/2024) Active Problems Problem Noted Date Diagnosed Date [...] cffDNA screening, and testing was coordinated by [facility]. In addition to the risk of [...] delivery at 36-37 weeks without amniocentesis per [employer]. Every effort should be made by patient s primary OB provider to obtain prior operative reports. 2. As per [employer]'s 2010 practice [...] after evaluation at [facility] for chest pain. Suspected during evaluation with [...] as of this encounter (statuses as of 07/29/2024) Resolved Problems Problem Noted Date Diagnosed Date [...] entered Entered by Date resolved Triplet Provider vidyaal 08/04/2022 Jennifer Lee RN 08/04/2022 Problem Action Taken Date entered Entered by Date resolved Nutrition Due date letter given for [facility] 08/04/2022 Jennifer Lee RN 08/04/2022 Triplet gestation, with two or more monochorionic fetuses 08/04/2022 03/06/2023 Overview (08/23/2022): Spontaneous cnradjdsjjysg-fzr-urwarsgy [on outside scan, to be confirmed by [...] schedule this with MFM at the [facility] if we are able, with the alternative [...] they [place] and [place] [facility] Assessment & Plan (11/17/2022 [...] surveillance should begin at 30 weeks per [facility] protocol for di-tri triplets. Yakelin is taking extra folate and iron and will order her vitamin from [employer]. We also discussed nausea and vomiting as Yakelin is currently only taking unisom. She can add Vit B6 25 mg tid; often helpful in the form of a lollipop which can also be ordered via [employer]. Sniffing and alcohol wipe is also a [...] may not be caused by Zofran. (See https://mothertobaby.org/fact-sheets/ultskarmrnp-vgsjst-brhyevrcw/). Use should not be discouraged in patients [...] at least one child with a major joint terminal attack controller handicap related to prematurity, including cerebral palsy. [...] as of this encounter (statuses as of 07/29/2024) Immunizations Name Administration Dates Next Due COVID-19 [...] Recorded PHQ Adult Total Score 0 01/01/2024 [facility] - Occupational Stress Questionnaire Answer Date Recorded [...] money to get more. Never true 06/18/2024 [place] Depression Scale Answer Date Recorded [place] Depression Scale Total 2 03/15/2024 The thought [...] documented in this encounter Progress Notes * Shane Santiago, - 07/29/2024 11:32 AM EST Subjective: Yakelin Hughes is a 39 year old female. Chief Complaint Patient presents with Acute Patient location: HOME. I was in a hospital or clinic location. After connecting through [employer],patient was verified with two unique identifiers. Patient (or authorized legal assisted sales representative) was then informed that this was a Telemedicine visit and being conducted confidentially over secure lines. Methods to assure confidentiality were taken. Patient acknowledged consent and understanding of pr ivacy and security of the Telemedicine visit. The patient agreed to participate. HPI: HEr L hand has some pain in the middle of her hand. Sudden shooting pain. NO injury or accident. She has a cyst on her wrist, separate from area of pain. No swelling or redness or brusing. No numbness, tingling or burning. She broke a toe and she is taping it. She is getting bad pain with it. Not currently breast feeding. Weight lifting discussed. PMHx, meds, and allergies reviewed Patient Active Problem List Diagnosis Antepartum anemia complicating AMA (advanced maternal age) multigravida 35+ Antepartum multigravida of advanced maternal age H/O section Supervision of with grand multiparity, antepartum Coronary vasospasm (HCC) Medication exposure during first trimester of Family history of DVT High-risk History of cardiac catheterization Polyhydramnios Iron deficiency anemia Iron deficiency anemia History of placental abruption High serum bile acid Pruritus Rupture of operation wound Cryptic tonsil Current Outpatient Medications Medication Sig Dispense Refill Montelukast Sodium 10 MG Oral Tablet (Singulair) Take 1 Tab by mouth every evening. 30 Tab 5 Acetaminophen 325 MG Oral Tablet (Tylenol) Take 3 Tablets by mouth in the morning and 3 Tablets at noon and 3 Tablets in the evening and 3 Tablets before bedtime. 30 Tablet 5 27-0.8 MG Oral Tablet Take 1 Tablet by mouth daily at noon. (Patient not taking: Reported on 06/07/2024) Fluticasone Propionate 50 MCG/ACT Nasal Suspension (Flonase) Administer 2 Sprays into each nostril in the morning. (Patient not taking: Reported on 03/29/2024) 16 mL 0 Breast Pump Use as recommended (Patient not taking: Reported on 06/07/2024) 1 Each 0 traZODone HCl 50 MG Oral Tablet (Desyrel) TAKE 1 & 1/2 (ONE & ONE-HALF) TABLETS BY MOUTH ONCE DAILY AT BEDTIME 135 Tablet 0 Nitroglycerin 0.4 MG Sublingual Tablet Sublingual [...] meal of the day. 30 Capsule 11 No current facility-administered medications for this visit. Review of patient's allergies indicates: Allergen Reactions Environmental [Pollen] Hives Dust,ragweed,mold,dog and cat dander. Augmentin [Amoxicillin-Pot Clavulanate] Rash OBJECTIVE: There were no vitals taken for this visit. Estimated body mass index is 27.55 kg/m as calculated from the following: Height as of 04/08/24: 1.549 m (5' 1"). Weight as of 05/02/24: 66.1 kg (145 lb 12.8 oz). BP Readings from Last 3 Encounters: 05/02/24 120/74 04/25/24 120/84 04/09/24 118/80 Wt Readings from Last 3 Encounters: 05/02/24 66.1 kg (145 lb 12.8 oz) 04/25/24 66.2 kg (146 lb) 04/09/24 65 kg (143 lb 4 oz) ROS: Negative except for above PHYSICAL EXAM: General: alert, healthy, and no distress Head: Normocephalic, No masses, lesions, tenderness or abnormalities ASSESSMENT/Plan Pain of left hand (Primary) - XR HAND 3 OR MORE VIEWS Pain of toe of left foot - XR TOES 2 OR MORE VIEWS Other orders - Ibuprofen 800 MG Oral Tablet (Motrin); Take 1 Tablet by mouth every 8 hours as needed for Pain, Severe. with food for pain Check x-ray to see severity of break and check on hand also. The above was discussed and understanding was expressed. Shane Santiago DO documented in this encounter Plan of Treatment Scheduled Orders Name Type Priority Associated Diagnoses Orde r Schedule XR HAND 3 OR MORE VIEWS Medical Imaging Routine Pain of left hand Ordered: 07/29/2024 XR TOES 2 OR MORE VIEWS Medical Imaging Routine Pain of toe of left foot Ordered: 07/29/2024 Health Maintenance Due Date Last Done Comments [...] DVT Family history of other cardiovascular diseases Pain of left hand- Primary Pain in limb Pain of toe of left foot Pain in limb documented in this encounter Advance Directives * [...] Power of Attor nely? No Care Teams Division Officer Weapons Department Relationship Specialty Start Date End Date Alicia Bell CRNP [address] [address] PCP - General Nurse Practitioner 05/28/24 documented as of this encounter
--- OUTSIDE RECORDS SUMMARY | 2024-09-15 16:45 | External Medical Summary | Summary of Care ---
Author Name Unknown Organization [facility] Address [address] [place] [address] Phone [phone] Care Team Providers Care Instructor Tap Dancing Name Role Phone Alicia Bell Primary Care Provider Reason for Referral * Evaluate & Treat - Unlimited Visits (Within 10 days (routine)) - Authorized Specialty Diagnoses / Procedures Referred By Itzel alvarez Referred To Contact Gastroenterology Diagnoses Abdominal pain, epigastric Jairo, Dalton Schilling PA-C [address] [place] [address] Referral ID Status Reason Start Date Expiration Date Visits Requested Visits Authorized [id number] Authorized Specialty Services Required 06/07/2024 999 999 Question Answer Referral Priority Within 10 days (routine) Where should this appointment be scheduled? [facility] For what condition is the patient being referred? All Gastro Conditions * Medication Prior Authorization - Pending Review Specialty Diagnoses / Procedures Referred By Itzel alvarez Referred To Contact Diagnoses Abdominal pain, epigastric Jairo, Dalton Schilling PA-C [address] [place] [address] Referral ID Status Reason Start Date Expiration Date V isits Requested Visits Authorized [id number] Pending Review [phone] Reason for Visit * Reason Comments Acute 2 months constant lo ose stools. Really nausea, lack of appetite,stomach hurts, can hear her stomach making noises Encounter Details Date Type Department Care Team (Late st Contact Info) Description 06/07/2024 4:00 PM EDT Telemedicine Family Practice [address] [place] [address] [address] Dalton Gill PA-C [address] [place] [address] Abdominal pain, epigastric* Allergies Active Allergy Reactions Criticality Noted Date Comments Amoxicillin-Pot Clavulanate Rash 06/29/20 17 Pollen Hives High 02/28/2017 Dust,ragweed,mold,dog and cat dander. documented as of this encounter (statuses as of 06/07/2024) Medications Medication Sig Dispensed Refills Start Date [...] 06/07/2024 traZODone HCl 50 MG Oral Tablet (Desyrel)Indicat ions:Primary insomnia TAKE 1 & 1/2 (ONE & [...] Omeprazole 20 MG Oral Capsule Delayed Release (PriLOSEC)Indica tions:Abdominal pain, epigastric Take 1 Capsule by mouth in the morning. 1 hour before the first meal of the day. 30 Capsule 11 06/07/2024 Active Cephalexin 500 MG Oral Capsule (Keflex)Indicati ons:Post-operati ve state,Superficia l skin infection Take 1 Capsule by mouth in the morning and 1 Capsule before bedtime. Do all this for 7 days. Until gone.. 14 Capsule 03/29/2024 4 Discontinue d(End of Procedure) Nitrofurantoin Monohyd Macro 100 MG Oral Capsule (Macrobid) Take 1 Capsule by mouth in the morning and 1 Capsule before bedtime. Do all this for 5 days. With food. Until gone.. 10 Capsule 04/25/2024 4 Discontinue d(End of Procedure) documented as of this encounter (statuses as of 06/07/2024) Active Problems Problem Noted Date Diagnosed Date [...] cffDNA screening, and testing was coordinated by [facility]. In addition to the risk of chromosomal abnormalities, there is an increased risk of congenital/structural anomalies. RECOMMENDATIONS: Recommend [facility] anatomy ultrasound at 19-20 weeks gestation. [...] delivery at 36-37 weeks without amniocentesis per [employer]. Every effort should be made by patient s primary OB provider to obtain prior operative reports. 2. As per [employer]'s 2010 practice [...] in May 2023 after evaluation at [facility] for chest pain. Suspected during evaluation with [...] as of this encounter (statuses as of 06/07/2024) Resolved Problems Problem Noted Date Diagnosed Date [...] resolved Nutrition Due date letter given for [facility] 08/04/2022 Jennifer Lee RN 08/04/2022 Triplet gestation, with two or more monochorionic fetuses 08/04/2022 03/06/2023 Overview: Spontaneous aqbqvyvgqdiiq-uta-bdzhgrkg [on outside scan, to be confirmed by [...] as of this encounter (statuses as of 06/07/2024) Immunizations Name Administration Dates Next Due COVID-19 [...] Recorded PHQ Adult Total Score 0 01/01/2024 [facility] - Occupational Stress [...] money to get more. Never true 03/15/2024 [facility] Depression Scale Answer Date Recorded [facility] Depression Scale Total 2 03/15/2024 The thought [...] No 07/24/2018 documented as of this encounter Nursing Notes * Macey Curtis CCMA - 06/07/2024 3:53 PM EDT Chief Complaint Patient presents with Acute 2 months constant loose stools. Really nausea, lack of appetite,stomach hurts, can hear her stomachmaking noises documented in this encounter Plan of Treatment Upcoming Encounters Date Type Department Care Team (Late st Contact Info) Description 07/12/2024 9:20 AM EDT Office Visit Family Practice [facility] [address] [address] Alicia Bell CRNP [address] [address] Scheduled Orders Name Type Priority Associated Diagnoses Orde r Schedule CBC WITH WBC DIFFERENTIAL Lab Routine Abdominal pain, epigastric Expected: 06/07/2024 (Approximate), Expires: 06/07/2025 COMPREHENSIVE METABOLIC PANEL Lab Routine Abdominal pain, epigastric Expected: 06/07/2024 (Approximate), Expires: 06/07/2025 AMYLASE Lab Routine Abdominal pain, epigastric Expected: 06/07/2024 (Approximate), Expires: 06/07/2025 LIPASE Lab Routine Abdominal pain, epigastric Expected: 06/07/2024 (Approximate), Expires: 06/07/2025 US ABDOMEN COMPLETE Medical Imaging Routine Abdominal pain, epigastric Expected: 06/07/2024, Expires: 07/07/2025 Scheduled Referrals Name Type Priority Associated Diagnoses Order Schedule ADULT GASTROENTEROLOGY REFERRAL OP Referral Within 10 days (routine) Abdominal pain, epigastric Ordered: 06/07/2024 Health Maintenance Due Date Last Done Comments [...] as of this encounter Visit Diagnoses Diagnosis Abdominal pain, epigastric- Primary documented in this encounter Advance Directives * [...] Power of Attor nely? No Care Teams Instructor Tap Dancing Relationship Specialty Start Date End Date Alicia Bell CRNP [address] [address] PCP - General Nurse Practitioner 05/28/24 documented as of this encounter
--- OUTSIDE RECORDS SUMMARY | 2024-09-15 16:45 | External Medical Summary ---
Author Name Unknown Address Unknown Organization K01:[facility] [place] [address] Laboratory Report Ordering Provider Test Date Status ALIDA SAMANO 05/02/2024 12:33:00 Final Observation Date Value Abnormality Reference (Units ) Status Human papilloma virus E6+E7 mRNA [Presence] in Cervix by CARLOS MANUEL with probe detection 05/02/2024 12:33:00 Negative Not Applicable Final No high/intermediate-risk Hu man Papillomavirus (HPV E6/E7 messenger RNA) detected by nucleic acid amplification.

This assay looks for high/intermediate risk Human Papillomavirus (HPV E6/E7 messenger RNA) by nucleic acid amplification. This assay includes the qualitative detection of HPV types 16,18,31,33,35,39,45,51,52,56,58,59,66 and 68 from cervical specimens.
This assay has been FDA cleared for Thin prep collection vials.
This assay has not been approved for use as a primary screening test for HPV and should be tested in conjunction with a PAP screen.
If collected utilizing a Surepath vial, the collection and specimen preparation of this test was developed, and its performance characteristics determined by [employer]. It has not been cleared or approved by the U.S. Food and Drug Administration (FDA). The FDA has determined that such clearance or approval is not necessary.
This assay has been performed at [facility], [address] [place] [address], [place]. [address]. Performing Location LABORATORY [address] [address]
--- OUTSIDE RECORDS SUMMARY | 2024-09-15 16:45 | External Medical Summary | Summary of Care ---
Author Name Unknown Organization [facility] Address [address] [place] [address] Phone [phone] Care Team Providers Care Supervisor Refining Name Role Phone Penny Roper MD Primary Care Provider [phone] Reason for Visit * Reason Onset Date Comments Other 01/24/2024 Encounter Details Date Type Department Care Team ([facility] st Contact Info) Description 01/24/2024 Telephone Pharmacy Call Center WB DEPT CLOSED - 04/24/24 [phone] [place] [address] Clinic, Anemia [address] [place] [address] Other Allergies Active Allergy Reactions Criticality Noted Date Comments Amoxicillin-Pot Clavulanate Rash 06/29/20 17 Pollen Hives High 02/28/2017 Dust,ragweed,mold,dog and cat dander. documented as of this encounter (statuses as of 04/24/2024) Medications Medication Sig Dispensed Refills Start Date End Date Status Montelukast Sodium 10 MG Oral Tablet (Singulair) Take 1 Tab by mouth every evening. 30 Tab 5 02/24/2021 Active Additional Information Patient not taking.Reported on 04/09/2024 Acetaminophen 325 MG Oral Tablet (Tylenol) Take [...] Additional Information Patient not taking.Reported on 03/29/2024 documented as of this encounter (statuses as of 04/24/2024) Active Problems Problem Noted Date Diagnosed Date [...] cffDNA screening, and testing was coordinated by [facility]. In addition to the risk of chromosomal abnormalities, there is an increased risk of congenital/structural anomalies. RECOMMENDATIONS: Recommend [facility] anatomy ultrasound at 19-20 [...] delivery at 36-37 weeks without amniocentesis per [employer]. Every effort should be made by patient s primary OB provider to obtain prior operative reports. 2. As per [employer]'s 2010 practice [...] in May 2023 after evaluation at [facility] for chest pain. Suspected during evaluation [...] 28 weeks, IV iron recommend per protocol. Comments Yes documented as of this encounter (statuses as of 04/24/2024) Resolved Problems Problem Noted Date Diagnosed Date [...] more monochorionic fetuses 08/04/2022 03/06/2023 Overview: Spontaneous zbtvbcqqnqsge-pvr-hopfsamc [on outside scan, to be confirmed by [...] as of this encounter (statuses as of 04/24/2024) Immunizations Name Administration Dates Next Due COVID-19 mRNA, LNP-s, No Pre serve, 2-Dose Series ([employer]) 01/06/2021,12/02/2020 DTaP Dipth/Tet/Acell Pertussis (Infanrix), Peds 08/23/2015 [...] Recorded PHQ Adult Total Score 0 01/01/2024 [facility] - Occupational Stress Questionnaire Answer [...] the money to buy more. Never true 06/28/20 24 Within the past 12 months, t he food you bought just didn't last and you didn't have money to get more. Never true 03/15/2024 [place] Depression Scale Answer Date Recorded [place] Depression Scale Total 2 03/15/2024 The thought [...] ages 0-17 years) Not on file 03/15/2024 Comments Yes Sex and Gender Information Value Date Recorded [...] encounter Miscellaneous Notes * Telephone Encounter - Melany Carreno PHARM Tech - 01/24/2024 3:43 PM EDT Caller's name: Yakelin Preferred call back number(OFFICE NUMBER FOR ): [phone] Reason for call: Pt was returning a phone call. Please advise. Thank you, Melany Carreno [facility] 01/24/2024, 3:44 PM documented in this encounter Plan of Treatment Upcoming Encounters Date Type Department Care Team (Late st Contact Info) Description 05/02/2024 12:00 PM EDT Office Visit Gynecology/Obstetrics [facility] [address] [place] [address] Leila Alejandra CRNP [address] [place] [address] 07/12/2024 9:20 AM EDT Office Visit Family Practice [facility] [address] [place] [address] Alicia Bell CRNP [address] [place] [address] Health Maintenance Due Date Last Done Comments Hepatitis B Vaccine (1 of 3 - 19+ 3-dose series) 2006 HPV/Co-Test 2017 COVID-19 Vaccine (4 - 2022-24 season) 2023 08/26/2021, 01/06/2021, 12/02/2020 Cervical Cancer Screening 01/20/2024 Pap Smear 01/20/2024 01/19/2021 Influenza Vaccine (FLU shot) (#1) 2024 06/20/2023, 08/31/2022, 07/01/2021, Additional history exists Depression Screening 12/31/2024 01/01/2024 Diabetes Screening 03/29/2027 03/29/2024, 0 01/31/2024, 06/29/2023, Additional history exists DTaP,Tdap,and Td Vaccines (4 [...] Power of Attor nely? No Care Teams Supervisor Refining Relationship Specialty Start Date End Date Penny Roper MD [address] [facility], [place] [address] PCP - General Family Medicine 08/30/22 04/08/24 documented as of this encounter
--- OUTSIDE RECORDS SUMMARY | 2024-09-15 16:45 | External Medical Summary | Summary of Care ---
Author Name Unknown Organization [facility] Address [address] [place] [address] Phone [phone] Care Team Providers Care Lead Electrical Controls Engineer Name Role Phone Unavailable Primary Care Provider Unavailabl e Reason for Visit * Reason Onset Date Comments Medication Refill 05/13/2024 Encounter Details Date Type Department Care Team ([facility] st Contact Info) Description 05/13/2024 Refill [facility] [address] [place] [address] JanuaryPhil MD [address] [place] [address] Primary insomnia Allergies Active Allergy Reactions Criticality Noted Date Comments Amoxicillin-Pot Clavulanate Rash 06/29/20 17 Pollen Hives High 02/28/2017 Dust,ragweed,mold,dog and cat dander. documented as of this encounter (statuses as of 05/15/2024) Medications Medication Sig Dispensed Refills Start Date [...] Use as recommended 1 Each 03/06/2024 Active traZODone HCl 50 MG Oral Tablet (Desyrel)Indicatio ns:Primary insomnia TAKE 1 & 1/2 (ONE & ONE-HALF) TABLETS BY MOUTH ONCE DAILY AT BEDTIME 135 Tablet 05/14/2024 Active documented as of this encounter (statuses as of 05/15/2024) Active Problems Problem Noted Date Diagnosed Date [...] cffDNA screening, and testing was coordinated by [facility]. In addition to the risk of chromosomal abnormalities, there is an increased risk of congenital/structural anomalies. RECOMMENDATIONS: Recommend [facility] anatomy ultrasound at 19-20 weeks [...] in May 2023 after evaluation at [facility] for chest pain. Suspected during evaluation [...] as of this encounter (statuses as of 05/15/2024) Resolved Problems Problem Noted Date Diagnosed Date [...] more monochorionic fetuses 08/04/2022 03/06/2023 Overview: Spontaneous bbciucsxkmyah-ilp-rdmfuyhi [on outside scan, to be confirmed by [...] as of this encounter (statuses as of 05/15/2024) Immunizations Name Administration Dates Next Due COVID-19 mRNA, LNP-s, No Pre serve, 2-Dose Series ([employer]) 01/06/2021,12/02/2020 DTaP Dipth/Tet/Acell Pertussis (Infanrix), Peds 08/23/2015 [...] Recorded PHQ Adult Total Score 0 01/01/2024 [facility] - Occupational [...] money to get more. Never true 03/15/2024 [place] Depression Scale Answer Date Recorded [place] Depression Scale Total 2 03/15/2024 The thought [...] No 03/15/2024 Does the household have a [facility] source of income? (Household - for ages [...] encounter Miscellaneous Notes * Telephone Encounter - Audi Nielsen [facility] - 05/15/2024 3:06 PM EDTRefused Prescriptions: Disp Refills traZODone HCl 50 MG Oral Tablet (Desyrel) 135 Ta*3 Sig: Take 1.5 Tablets by mouth at bedtime.Refused By: AUDI NIELSENon for Refusal: Duplicate Request--- documented in this encounter Plan of Treatment Upcoming Encounters Date Type Department Care Team (Late st Contact Info) Description 05/16/2024 3:30 PM EDT Office Visit Gynecology/Obstetrics [facility] [address] [facility] [place] [address] Isabel Barbosa PA-C [address] [place] [phone] 07/12/2024 9:20 AM EDT Office Visit Family Practice [facility] [address] [place] [address] Alicia Bell CRNP [address] [place] [address] Health Maintenance Due Date Last Done Comments Hepatitis B Vaccine (1 of 3 - 19+ 3-dose series) 2006 COVID-19 Vaccine ( - 2022-24 season) 2023 08/26/2021, 01/06/2021, 12/02/2020 Influenza Vaccine (FLU shot) [...] as of this encounter Visit Diagnoses Diagnosis Primary insomnia Persistent disorder of initiating or [...]
--- OUTSIDE RECORDS SUMMARY | 2024-09-15 16:45 | External Medical Summary | Summary of Care ---
Author Name Unknown Organization [facility] Address [address] [place] [address] Phone [phone] Care Team Providers Care Chief Cardiopulmonary Technologist Name Role Phone Unavailable Primary Care Provider Unavailabl e Reason for Visit * Reason Comments Healthy Beginnings Encounter Details Date Type Department Care Team (Late st Contact Info) Description 05/02/2024 12:00 PM EDT Office Visit Gynecology/Obstetric s [facility] [address] [place] [address] Leila Alejandra CRNP [address] [place] [address] Routine follow-up*; Pap smear for cervical cancer screening; Contraceptive education; Unprotected sexual intercourse Allergies Active Allergy Reactions Criticality Noted Date Comments Amoxicillin-Pot Clavulanate Rash 06/29/20 17 Pollen Hives High 02/28/2017 Dust,ragweed,mold,dog and cat dander. documented as of this encounter (statuses as of 05/02/2024) Medications Medication Sig Dispensed Refills Start Date [...] as of this encounter (statuses as of 05/02/2024) Active Problems Problem Noted Date Diagnosed Date [...] cffDNA screening, and testing was coordinated by [facility]. In addition to the risk of chromosomal abnormalities, there is an increased risk of congenital/structural anomalies. RECOMMENDATIONS: Recommend [facility] anatomy ultrasound at 19-20 weeks gestation. [...] delivery at 36-37 weeks without amniocentesis per [employer]. Every effort should be made by patient s primary OB provider to obtain prior operative reports. 2. As per [employer]'s 2010 practice [...] as of this encounter (statuses as of 05/02/2024) Resolved Problems Problem Noted Date Diagnosed Date [...] resolved Nutrition Due date letter given for [facility] 08/04/2022 Jennifer Lee RN 08/04/2022 Triplet gestation, with two or more monochorionic fetuses 08/04/2022 03/06/2023 Overview: Spontaneous kidfolvtxhhxr-vbp-kvdlwyqi [on outside scan, to be confirmed by [...] as of this encounter (statuses as of 05/02/2024) Immunizations Name Administration Dates Next Due COVID-19 [...] Recorded PHQ Adult Total Score 0 01/01/2024 [facility] [...] money to get more. Never true 03/15/2024 [place] Depression Scale Answer Date Recorded [place] Depression Scale Total 2 03/15/2024 The thought [...] Sign Reading Time Taken Comments Blood Pressure 120/74 05/02/2024 12:05 PM EDT Pulse - - Temperature - - Respiratory Rate - - Oxygen Saturation - - Inhaled Oxygen Concentration - - Weight 66.1 kg (145 lb 12.8 oz) 024 12:05 PM EDT Height - - Body Mass Index 27.55 04/08/2024 11:43 AM EDT documented in this encounter Functional Status Functional [...] Progress Notes * Leila Alejandra CRNP - 05/02/2024 12:20 PM EDT HPI: 39 year old female s/p repeat c/s on 02/29/24, delivered by Dr. Roman. Was seen for incisional pain, but this has resolved. Patient is bottlefeeding. Pt is feeling well rested. She has no issues with depression. She has been sexually active since the delivery, not using condoms. She is interested in Nexplanon placement. Asking for UPT today. Past Medical History: Diagnosis Date Anxiety state 03/11/2020 Family history of hypercoagulable state mother with blood clots-provoked Headache, unspecified headache type 07/27/2018 Herniated disc, cervical 07/27/2018 History of cardiac catheterization 01/13/2024 Hypertension Insomnia Paresthesias 07/27/2018 Vasospasm (HCC) Current Outpatient Medications Medication Sig Dispense Refill Acetaminophen 325 MG Oral Tablet (Tylenol) Take 3 Tablets by mouth in the morning and 3 Tablets at noon and 3 Tablets in the evening and 3 Tablets before bedtime. 30 Tablet 5 traZODone HCl 50 MG Oral Tablet (Desyrel) Take 1.5 Tablets by mouth at bedtime for 360 doses. 135 Tablet 3 27-0.8 MG Oral Tablet Take 1 Tablet by mouth daily at noon. Breast Pump Use as recommended 1 Each 0 Montelukast Sodium 10 MG Oral Tablet (Singulair) Take 1 Tab by mouth every evening. (Patient not taking: Reported on 04/09/2024) 30 Tab 5 Fluticasone Propionate 50 MCG/ACT Nasal Suspension (Flonase) Administer 2 Sprays into each nostril in the morning. (Patient not taking: Reported on 03/29/2024) 16 mL 0 No current facility-administered medications for this visit. Assessment/Plan: Routine follow-up (Primary) Pap smear for cervical cancer screening - [employer] PAP SCREEN; Future; Expected date: 05/02/2024 Contraceptive education Discussed need for protected intercourse for 2 weeks prior to Nexplanon placement. Appt scheduled before she left appt. Unprotected sexual intercourse UPT negative. Stressed importance of protected intercourse. Follow Up: Return in about 2 weeks (around 05/16/2024) for Nexplanon. | For: Nexplanon KIRA Casarez documented in this encounter Nursing Notes * Chica Fountain RN - 05/02/2024 12:20 PM EDT Patient seen by [facility] Marketing Admin. Patient denies any questions or concerns.patient doing well post . Has no concerns for nurse today. Patient interested in nexplanon for control. * Ju Bauer MED ASSIST - 05/02/2024 12:02 PM EDT Date of Delivery: 03/20/2024 Delivered by: Dr Alis Zepeda. 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 documented in this encounter Plan of Treatment Upcoming Encounters Date Type Department Care Team (Late st Contact Info) Description 05/16/2024 3:30 PM EDT Office Visit Gynecology/Obstetrics [facility] [address] [place] [address] Isabel Barbosa PA-C [address] [place] [address] [place] [address] 07/12/2024 9:20 AM EDT Office Visit Family Practice [facility] [address] [place] [address] Alicia Bell CRNP [address] [facility] [place] [address] Pending Results Name Type Priority Associated Diagnoses Date /Time [employer] PAP SCREEN Pathology Routine Pap smear for cervical cancer screening 05/02/2024 12:33 PM EDT Scheduled Orders Name Type Priority Associated Diagnoses Orde r Schedule [employer] PAP SCREEN Pathology Routine Pap smear for cervical cancer screening Expected: 05/02/2024, Expires: 06/02/2025 Health Maintenance Due Date Last Done Comments Hepatitis B Vaccine (1 of 3 - 19+ 3-dose series) 2006 HPV/Co-Test 2017 COVID-19 Vaccine ( season) 2023 08/26/2021, 01/06/2021, 12/02/2020 Cervical Cancer [...] as of this encounter Visit Diagnoses Diagnosis Routine follow-up- Primary Pap smear for cervical cancer screening Screening for malignant neoplasm of the cervix Contraceptive education Other general counseling and advice for contraceptive management Unprotected sexual intercourse Problems related to high-risk sexual behavior documented in this encounter Advance Directives * [...] have Health Care Power of Attor nely? No"
--- OUTSIDE RECORDS SUMMARY | 2024-09-15 16:45 | External Medical Summary | Summary of Care ---
Author Name Unknown Organization [facility] Address [address] [place] [address] Phone [phone] Care Team Providers Care Electronic Intelligence Officer Name Role Phone Unavailable Primary Care Provider Unavailabl e Reason for Visit * Reason Comments Broke Man Return Encounter Details Date Type Department Care Team (Late st Contact Info) Description 04/25/2024 9:45 AM EDT Office Visit Gynecology/Obstetric s Joyce Beckett [address] [place] [address] Leila Alejandra CRNP [address] [facility] [place] [address] Lower abdominal pain* Allergies Active Allergy Reactions Criticality Noted Date Comments Amoxicillin-Pot Clavulanate Rash 06/29/20 17 Pollen Hives High 02/28/2017 Dust,ragweed,mold,dog and cat dander. documented as of this encounter (statuses as of 04/25/2024) Medications Medication Sig Dispensed Refills Start Date [...] Use as recommended 1 Each 03/06/2024 Active Nitrofurantoin Monohyd Macro 100 MG Oral Capsule (Macrobid) Take 1 Capsule by mouth in the morning and 1 Capsule before bedtime. Do all this for 5 days. With food. Until gone.. 10 Capsule 04/25/2024 04/30/2024 Active documented as of this encounter (statuses as of 04/25/2024) Active Problems Problem Noted Date Diagnosed Date [...] cffDNA screening, and testing was coordinated by [facility]. In addition to the risk [...] delivery at 36-37 weeks without amniocentesis per [employer]. Every effort should be made by patient s primary OB provider to obtain prior operative reports. 2. As per [employer]'s 2010 practice [...] in May 2023 after evaluation at [facility] for chest pain. Suspected during evaluation [...] as of this encounter (statuses as of 04/25/2024) Resolved Problems Problem Noted Date Diagnosed Date [...] more monochorionic fetuses 08/04/2022 03/06/2023 Overview: Spontaneous movivsssppxva-oxj-hskzlcae [on outside scan, to be confirmed by [...] as of this encounter (statuses as of 04/25/2024) Immunizations Name Administration Dates Next Due COVID-19 [...] Recorded PHQ Adult Total Score 0 01/01/2024 [facility] [...] money to get more. Never true 03/15/2024 [place] Depression Scale Answer Date Recorded [place] Depression Scale Total 2 03/15/2024 The thought [...] Sign Reading Time Taken Comments Blood Pressure 120/84 04/25/2024 9:53 AM EDT Pulse - - Temperature - - Respiratory Rate - - Oxygen Saturation - - Inhaled Oxygen Concentration - - Weight 66.2 kg (146 lb) 04/25/2024 9:53 AM EDT Height - - Body Mass Index 27.59 04/08/2024 11:43 AM EDT documented in this [...] Progress Notes * Leila Alejandra CRNP - 04/25/2024 10:14 AM EDT SUBJECTIVE: Yakelin Hughes is a 39 year old female. Chief Complaint Patient presents with Broke Man Return HPI: Pt is a 39 year old female who presents with c/o abdominal pain. S/p c/s 03/20/24. She was pushing 2 of her year-old triplets around in a basket on the floor 2 days ago and developed abdominal pain. Went to ED yesterday d/t the pain. Records reviewed on pt's phone, as not available in [facility] (thisoffice was not aware she went to ED). Labs WNL, ?UTI. CT done showing no free fluid or air. Reproductive organs WNL. Thickening of duodenum and jejunum c/w nonspecific enteritis. She reports that her abdomen remains tender around her c/s scar. Was more swollen at first but seems back to baseline at this time. Bottlefeeding. Patient Active Problem List Diagnosis Antepartum anemia [...] Pump Use as recommended 1 Each 0 Nitrofurantoin Monohyd Macro 100 MG Oral Capsule (Macrobid) Take 1 Capsule by mouth in the morning and 1 Capsule before bedtime. Do all this for 5 days. With food. Until gone.. 10 Capsule 0 Montelukast Sodium 10 MG Oral Tablet [...] dander. Augmentin [Amoxicillin-Pot Clavulanate] Rash OBJECTIVE: BP 120/84 | Wt 66.2 kg (146 lb) | BMI 27.59 kg/m | BSA 1.69 m PHYSICAL EXAM: General: alert, healthy, and no distress Head: Normocephalic Abdomen: abdomen soft. Tender to palpation proximal to c/s scar. No rebound tenderness. Neuro Exam: alert & oriented x 3 with fluent speech, no focal motor/sensory deficits, gait normal ASSESSMENT/PLAN: Lower abdominal pain (Primary) In light of the WNL labs and, more importantly, CT scan from yesterday, low probability of uterine dehiscence. Discussed this is likely musculoskeletal in nature, as she is only 5 weeks PP from her 2nd c/s in about a year. Other orders - Nitrofurantoin Monohyd Macro 100 MG Oral Capsule (Macrobid); Take 1 Capsule by mouth in the morning and 1 Capsule before bedtime. Do all this for 5 days. With food. Until gone.. Follow Up: Return if symptoms worsen or fail to improve. KIRA Casarez documented in this encounter Nursing Notes * Ju Bauer MED ASSIST - 04/25/2024 9:53 AM EDT Pain in incision/lower abdomin and swelling after pushing 2 babies and playing. Swelling did go down. Denies redness/discharge/bleeding. Feels hot to touch per patient. Headache and increase in discharge with odor started before the pain came on. documented in this encounter Plan of Treatment Upcoming Encounters Date Type Department Care Team (Late st Contact Info) Description 05/02/2024 12:00 PM EDT Office Visit Gynecology/Obstetrics [facility] [address] [place] [address] Leila Alejandra CRNP [address] [place] [address] 07/12/2024 9:20 AM EDT Office Visit Family Practice [facility] [address] [address] Alicia Bell CRNP [address] [place] [place] [address] Health Maintenance Due Date Last Done Comments [...] as of this encounter Visit Diagnoses Diagnosis Lower abdominal pain- Primary Abdominal pain, other specified site documented in this encounter Advance Directives * [...]
--- OUTSIDE RECORDS SUMMARY | 2024-09-15 16:45 | External Medical Summary | Summary of Care ---
Author Name Unknown Organization [facility] Address [address] [place] [address] Phone [phone] Care Team Providers Care Security Officer Supervisor Name Role Phone Alicia Bell Primary Care Provider Reason for Referral * Evaluate & Treat - Unlimited Visits (Within 10 days (routine)) - Authorized Specialty Diagnoses / Procedures Referred By Itzel alvarez Referred To Contact Gastroenterology Diagnoses Abdominal pain, epigastric Jairo, Dalton Schilling PA-C [address] [place] [address] Referral ID Status Reason Start Date Expiration Date Visits Requested Visits Authorized [id number] Authorized Specialty Services Required 06/07/2024 999 999 Question Answer Referral Priority Within 10 days (routine) Where should this appointment be scheduled? [facility] For what condition is the patient being referred? All Gastro Conditions * Medication Prior Authorization - Pending Review Specialty Diagnoses / Procedures Referred By Itzel alvarez Referred To Contact Diagnoses Abdominal pain, epigastric Jairo, Dalton Schilling PA-C [address] [place] [address] Referral ID Status Reason Start Date Expiration Date V isits Requested Visits Authorized [id number] Pending Review 999 999 Reason for Visit * Reason Comments Acute 2 months constant lo ose stools. Really nausea, lack of appetite,stomach hurts, can hear her stomach making noises Encounter Details Date Type Department Care Team (Late st Contact Info) Description 06/07/2024 4:00 PM EDT Telemedicine Family Practice [address], [place] [address] [place] [address] Dalton Gill PA-C [address] [place] [address] Abdominal pain, epigastric* Allergies Active Allergy Reactions [...] cffDNA screening, and testing was coordinated by [facility]. In addition to the risk of chromosomal abnormalities, there is an increased risk of congenital/structural anomalies. RECOMMENDATIONS: Recommend [facility] anatomy ultrasound at 19-20 weeks [...] delivery at 36-37 weeks without amniocentesis per [employer]. Every effort should be made by patient s primary OB provider to obtain prior operative reports. 2. As per [employer]'s 2010 practice [...] in May 2023 after evaluation at [facility] for chest pain. Suspected during evaluation [...] resolved Nutrition Due date letter given for [facility] 08/04/2022 Jennifer Lee RN 08/04/2022 Triplet gestation, with two or more monochorionic fetuses 08/04/2022 03/06/2023 Overview: Spontaneous wxfnvoikhiaxn-vcx-hrsxfwzk [on outside scan, to be confirmed by [...] PHQ Adult Total Score 0 01/01/2024 [facility] of Occupat ional Health - Occupational Stress [...] money to get more. Never true 03/15/2024 [place] Depression Scale Answer Date Recorded [place] Depression Scale Total 2 03/15/2024 The thought [...] 9:20 AM EDT Office Visit Family Practice [facility] [address] [address] Alicia Bell CRNP [address] [address] Scheduled Orders Name Type Priority Associated Diagnoses [...] Power of Attor nely? No Care Teams Security Officer Supervisor Relationship Specialty Start Date End Date Alicia Bell CRNP [address] [address] PCP - General Nurse Practitioner 05/28/24 documented as of this encounter
--- OUTSIDE RECORDS SUMMARY | 2024-09-15 16:45 | External Medical Summary | Summary of Care ---
Author Name Unknown Organization [facility] Address [address] [place] [address] Phone [phone] Care Team Providers Care Media Professional Name Role Phone Alicia Bell Primary Care Provider Reason for Visit * Reason Onset Date Comments Encounter Created in Error 06/07/2024 Encounter Details Date Type Department Care Team ([facility] Contact Info) Description 06/07/2024 Telephone Family Practice [facility] [address] [place] [address] Alicia Bell CRNP [address] [place] [address] Encounter Created in Error Allergies Active Allergy Reactions Criticality Noted Date [...] Pain, Chest. 25 Tablet 1 05/28/2024 Active documented as of this encounter (statuses [...] cffDNA screening, and testing was coordinated by [facility]. In addition to the risk of chromosomal abnormalities, there is an increased risk of congenital/structural anomalies. RECOMMENDATIONS: Recommend [facility] anatomy ultrasound at 19-20 weeks gestation. [...] delivery at 36-37 weeks without amniocentesis per [employer]. Every effort should be made by patient s primary OB provider to obtain prior operative reports. 2. As per [employer]'s 2010 practice [...] more monochorionic fetuses 08/04/2022 03/06/2023 Overview: Spontaneous kcsmbnigchasq-cat-hgszfmjt [on outside scan, to be confirmed by [...] Recorded PHQ Adult Total Score 0 01/01/2024 [facility] of Occupat ional Health - Occupational Stress [...] money to get more. Never true 03/15/2024 [place] Depression Scale Answer Date Recorded [place] Depression Scale Total 2 03/15/2024 The thought [...] Info) Description 06/07/2024 4:00 PM EDT Telemedicine [facility] [address] [place] [address] Dalton Gill PA-C [address] [place] [address] 07/12/2024 9:20 AM EDT Office Visit Family Practice [facility] [address] [place] [address] Alicia Bell CRNP [address] [place] [address] Health Maintenance Due Date Last Done Comments [...] Power of Attor nely? No Care Teams Media Professional Relationship Specialty Start Date End Date Alicia Bell CRNP [address] [address] PCP - General Nurse Practitioner 05/28/24 documented as of this encounter
--- OUTSIDE RECORDS SUMMARY | 2024-09-15 16:45 | External Medical Summary | Summary of Care ---
Author Name Unknown Organization [facility] Address [address] [place] [address] Phone [phone] Care Team Providers Care Washing Machine Mechanic Name Role Phone Unavailable Primary Care Provider Unavailabl e Reason for Visit * Reason Comments Healthy Beginnings Encounter Details Date Type Department Care Team (Late st Contact Info) Description 05/02/2024 12:00 PM EDT Office Visit Gynecology/Obstetric s [facility] [address] [place] [address] Leila Alejandra CRNP [address] [place] [address] Routine follow-up*; Pap smear for cervical cancer [...] cffDNA screening, and testing was coordinated by [facility]. In addition to the risk of chromosomal abnormalities, there is an increased risk of congenital/structural anomalies. RECOMMENDATIONS: Recommend [facility] anatomy ultrasound at 19-20 weeks gestation. [...] delivery at 36-37 weeks without amniocentesis per [employer]. Every effort should be made by patient s primary OB provider to obtain prior operative reports. 2. As per [employer]'s 2010 [...] Diagnosed in May 2023 after evaluation at [facility] for chest pain. Suspected during [...] letter given for Assistance office 09/28/2022 Chica Fountani RN 09/28/2022 Problem Action Taken Date entered [...] resolved Nutrition Due date letter given for [facility] 08/04/2022 Jennifer Lee RN 08/04/2022 Triplet gestation, with two or more monochorionic fetuses 08/04/2022 03/06/2023 Overview: Spontaneous yfactvjsaybdi-vsk-swtyanap [on outside scan, to be confirmed by [...] Recorded PHQ Adult Total Score 0 01/01/2024 [facility]ational Stress Questionnaire [...] money to get more. Never true 03/15/2024 [place] Depression Scale Answer Date Recorded [place] Depression Scale Total 2 03/15/2024 The thought [...] Pap smear for cervical cancer screening - COAL WEIGHER PAP SCREEN; Future; Expected date: 05/02/2024 Contraceptive [...] [facility] Strip Machine Tender. Patient denies any questions or concerns.patient doing well post . Has no concerns for nurse today. Patient interested in nexplanon for control. * Paris Bauer MED ASSIST - 05/02/2024 12:02 PM EDT Date of Delivery: 03/20/2024 Delivered by: Dr Alis Zepeda. 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 documented in this encounter Miscellaneous Notes * Addendum Note - Paris Bauer MED ASSIST - 05/02/2024 2:22 PM EDTAddended by: PARIS BAUER on: 05/02/2024 02:22 PM Modules accepted: Orders documented in this encounter Plan of Treatment Upcoming Encounters Date Type Department Care Team (Late st Contact Info) Description 05/16/2024 3:30 PM EDT Office Visit Gynecology/Obstetrics [facility] [address] [place] [address] Isabel Barbosa PA-C [address] [place] [address] [place] [address] 07/12/2024 9:20 AM EDT Office Visit Family Practice [facility] [address] [address] Alicia Bell CRNP [address] [facility] [place] [address] Pending Results Name Type Priority Associated Diagnoses Date /Time COAL WEIGHER PAP SCREEN Pathology Routine Pap smear for cervical cancer screening 05/02/2024 12:33 PM EDT Scheduled Orders Name Type Priority Associated Diagnoses Orde r Schedule COAL WEIGHER PAP SCREEN Pathology Routine Pap smear for [...] URINE SCREEN, POINT OF CARE (ENTER/EDIT) Routine 05/02/2024 Routine follow-up Unprotected sexual intercourse documented in this encounter Results * URINE SCREEN, POINT OF CARE (ENTER/EDIT) (05/02/2024) hCG Beta, Urine Negative Negative Procedural Control Valid? Yes Lot Number [id number] Expiration Date ,858,380 Urine 05/02/2024 [facility] POINT OF CARE TE ST ENTER/EDIT ORDERABLES documented in this encounter Visit Diagnoses Diagnosis Routine follow-up- [...]
--- OUTSIDE RECORDS SUMMARY | 2024-09-15 16:45 | External Medical Summary | Summary of Care ---
Author Name Unknown Organization [facility] Address [address] [place] [address] Phone [phone] Care Team Providers Care Drop Forger Name Role Phone Unavailable Primary Care Provider Unavailabl e Reason for Visit * Reason Comments eRx-Medication Refill Encounter Details Date Type Department Care Team ([facility] st Contact Info) Description 05/11/2024 Refill [facility] [address] [place] [address] January, Phil Wong MD [address] [place] [address] Primary insomnia Allergies Active Allergy Reactions Criticality Noted Date Comments Amoxicillin-Pot Clavulanate Rash 06/29/20 17 Pollen Hives High 02/28/2017 Dust,ragweed,mold,dog and cat dander. documented as of this encounter (statuses as of 05/14/2024) Medications Medication Sig Dispensed Refills Start Date [...] Active traZODone HCl 50 MG Oral Tablet (Desyrel)Indicat ions:Primary insomnia TAKE 1 & 1/2 (ONE & ONE-HALF) TABLETS BY MOUTH ONCE DAILY AT BEDTIME 135 Tablet 05/14/2024 Active traZODone HCl 50 MG Oral Tablet (Desyrel)Indicat ions:Primary insomnia Take 1.5 Tablets by mouth at bedtime for 360 doses. 135 Tablet 3 05/29/2023 Discontinued documented as of this encounter (statuses as of 05/14/2024) Active Problems Problem Noted Date Diagnosed Date [...] cffDNA screening, and testing was coordinated by [facility]. In addition to the risk of [...] delivery at 36-37 weeks without amniocentesis per [employer]. Every effort should be made by patient s primary OB provider to obtain prior operative reports. 2. As per [employer]'s 2010 practice [...] as of this encounter (statuses as of 05/14/2024) Resolved Problems Problem Noted Date Diagnosed Date [...] more monochorionic fetuses 08/04/2022 03/06/2023 Overview: Spontaneous lspihracdtxgp-pdz-fiodlona [on outside scan, to be confirmed by [...] as of this encounter (statuses as of 05/14/2024) Immunizations Name Administration Dates Next Due COVID-19 [...] Recorded PHQ Adult Total Score 0 01/01/2024 [facility] of Occupat ional Health - Occupational Stress [...] money to get more. Never true 03/15/2024 [place] Depression Scale Answer Date Recorded [place] Depression Scale Total 2 03/15/2024 The thought [...] Telephone Encounter - Alicia Hallman CRNP - 05/14/2024 7:34 AM EDT Signed Prescriptions: Disp Refills traZODone HCl 50 MG Oral Tablet (Desyrel) 135 Ta*0 Sig: TAKE 1 & 1/2 (ONE & ONE-HALF) TABLETS BY MOUTH ONCE DAILY AT BEDTIME Authorizing Provider: ALICIA HALLMAN * Telephone Encounter - Peter Connors [facility] - 05/13/2024 12:02 PM EDT Pending Prescriptions: Disp Refills traZODone HCl 50 MG Oral Tablet 135 Ta*0 Sig: TAKE 1 & 1/2 (ONE & ONE-HALF) TABLETS BY MOUTH ONCE DAILY AT BEDTIME * Telephone Encounter - Peter Connors [facility] - 05/13/2024 12:01 PM EDT Patient does not have active [facility] PCP under whom to authorize refills. Please review and refill as appropriate. Pending Prescriptions: Disp Refills traZODone HCl 50 MG Oral Tablet (Desyrel)*135 Ta*0 Sig: TAKE 1 & 1/2 (ONE & ONE-HALF) TABLETS BY MOUTH ONCE DAILY AT BEDTIME Last Visit: Visit date not found (in office), 05/29/2023 (telemedicine) Next Visit: Visit date not found If no future appointments scheduled, and last appointment is greater than a year ago, please schedule patient for a follow-up appointment Last date the medication was ordered: 05/29/23 Pharmacy: [facility] [address] [address] [place] HALLMAN Is this request for a controlled substance? No Urine Drug Screen:No results found for this or any previous visit. Patient Phone Numbers mobile [phone] Labs: Lab Results Component Value Date/Time CREAT 0.7 03/29/2024 09:19 AM CREAT 0.57 (L) 01/31/2024 12:00 AM CREAT 0.79 04/24/2020 02:19 PM CREAT 0.8 07/25/2018 06:04 AM POTASSIUM 4.3 03/29/2024 09:19 AM POTASSIUM 3.2 (L) 01/31/2024 12:00 AM POTASSIUM 4.0 04/24/2020 02:19 PM POTASSIUM 4.3 07/25/2018 06:04 AM TSH 1.81 01/17/2024 11:38 AM TSH 1.14 07/25/2018 06:04 AM LDLCALC 100 10/28/2020 11:57 AM ALT 20 03/29/2024 09:19 AM ALT 32 04/24/2020 02:19 PM ALT 12 02/28/2017 10:54 AM documented in this encounter Plan of Treatment Upcoming Encounters Date Type Department Care Team (Late st Contact Info) Description 05/16/2024 3:30 PM EDT Office Visit Gynecology/Obstetrics [facility] [address] [place] [address] Isabel Barbosa PA-C [address] [place] [address] 07/12/2024 9:20 AM EDT Office Visit Family Practice [facility] [address] [place] [address] Alicia Hallman CRNP [address] [facility] [place] [address] Health Maintenance Due Date Last Done Comments Hepatitis B Vaccine (1 of 3 - 19+ 3-dose series) 2006 COVID-19 Vaccine (2022- season) 2023 08/26/2021, 01/06/2021, 12/02/2020 Influenza Vaccine [...]
--- OUTSIDE RECORDS SUMMARY | 2024-09-15 16:45 | External Medical Summary | Summary of Care ---
Author Name Unknown Organization [facility] Address [address] [place] [address] Phone [phone] Care Team Providers Care Retail Solar Advisor Name Role Phone Alicia Bell Primary Care Provider Reason for Visit * Reason Onset Date Comments Medication Question 05/28/2024 Encounter Details Date Type Department Care Team ([facility] Contact Info) Description 05/28/2024 Telephone Family Practice [facility] [address] [place] [address] Alicia Bell CRNP [address] [place] [address] Medication Question Allergies Active Allergy Reactions Criticality Noted Date Comments Amoxicillin-Pot Clavulanate Rash 06/29/20 17 Pollen Hives High 02/28/2017 Dust,ragweed,mold,dog and cat dander. documented as of this encounter (statuses as of 05/28/2024) Medications Medication Sig Dispensed Refills Start Date [...] as of this encounter (statuses as of 05/28/2024) Active Problems Problem Noted Date Diagnosed Date [...] cffDNA screening, and testing was coordinated by [facility]. In addition to the risk of chromosomal abnormalities, there is an increased risk of congenital/structural anomalies. RECOMMENDATIONS: Recommend [facility] anatomy ultrasound at 19-20 weeks gestation. [...] delivery at 36-37 weeks without amniocentesis per [employer]. Every effort should be made by patient s primary OB provider to obtain prior operative reports. 2. As per [employer]'s 2010 practice [...] Diagnosed in May 2023 after evaluation at [facility] for chest pain. Suspected during [...] as of this encounter (statuses as of 05/28/2024) Resolved Problems Problem Noted Date Diagnosed Date [...] interval between pregn ancies complicating , antepartum 08/19/2022 06/19 /2023 Overview: Triplets delivered via c/s 01/2023 Last [...] more monochorionic fetuses 08/04/2022 03/06/2023 Overview: Spontaneous zygpmvftyrsfy-xsb-ivtjiova [on outside scan, to be confirmed by [...] as of this encounter (statuses as of 05/28/2024) Immunizations Name Administration Dates Next Due COVID-19 [...] Recorded PHQ Adult Total Score 0 01/01/2024 [facility] of Occupat ional Health - Occupational Stress [...] money to get more. Never true 03/15/2024 [place] Depression Scale Answer Date Recorded [place] Depression Scale Total 2 03/15/2024 The thought [...] encounter Miscellaneous Notes * Telephone Encounter - Olive Gallegos LPN - 05/28/2024 12:51 PM EDT Did you pend patient's preferred pharmacy and medication before forwarding?yes Pharmacy: [facility] Pending Prescriptions: Disp Refills Nitroglycerin 0.4 MG Sublingual Tablet Sewell*25 Tab*1 Sig: Place 1 Tablet under the tongue every 5 minutes as needed for Pain, Chest. Last Visit: 04/09/2024 (in office), Visit date not found (telemedicine) Next Visit: 07/12/2024 If no future appointments scheduled, and last appointment is greater than a year ago, please schedule patient for a follow-up appointment Last date the medication was ordered: 08/24/2023 Is this request for a controlled substance?No Urine Drug Screen:No results found for this or any previous visit. Patient Phone Numbers Labs: Lab Results Component Value Date/Time CREAT [...] AM LDL 100 10/28/2020 11:57 AM ALT 20 03/29/2024 09:19 AM ALT 32 04/24/2020 02:19 PM ALT 12 02/28/2017 10:54 AM * Telephone Encounter - Jennifer Garcia CPhT - 05/28/2024 12:23 PM EDT Patient requesting refills for Nitroglycerin 0.4 MG Sublingual Tablet Sublingual (Nitrostat) . Uponchart review, medication is listed as discontinued, with discontinuation reason as "Medication ListClean Up". Please advise if you wish to continue this therapy for the patient. Pt looking to supervisor opening and picking today. Thank you, Jennifer Garcia CPhT Cylinder Die Machine Operator III [facility] 05/28/2024, 12:23 PM documented in this encounter Plan of Treatment Upcoming Encounters Date Type Department Care Team (Late st Contact Info) Description 07/12/2024 9:20 AM EDT Office Visit [facility] [address] [address] Alicia Bell CRNP [address] [address] Health Maintenance Due Date Last Done Comments Hepatitis B Vaccine (1 of 3 - 19+ 3-dose series) 2006 COVID-19 Vaccine (24 season) 2024 08/26/2021, 01/06/2021, 12/02/2020 Influenza Vaccine [...] Power of Attor nely? No Care Teams Retail Solar Advisor Relationship Specialty Start Date End Date Alicia Bell CRNP [address] [address] PCP - General Nurse Practitioner 05/28/24 documented as of this encounter
[2024-09-15 17:03] LABS: Basophils # (auto) 0.04 K/uL (0.00-0.20); Eosinophils # (auto) 0.11 K/uL (0.00-0.50); Eosinophils % (auto) 2.7 %; Hematocrit (blood only) 39.8 % (37.0-47.0); Hemoglobin 13.2 g/dl (12.0-16.0); Immature Granulocytes # (auto) 0.01 K/uL (0.01-0.20); Immature Granulocytes % (auto) 0.2 %; Lymphocytes # (auto) 1.55 K/uL (1.20-3.40); Lymphocytes % (auto) 37.4 %; Mean Corpuscular Hemoglobin 29.9 pg (25.0-34.0); Mean Corpuscular Hgb Conc 33.2 g/dL (32.0-36.0); Mean Platelet Volume 9.5 fL (9.4-12.4); Monocytes # (auto) 0.36 K/uL (0.11-0.59); Monocytes % (auto) 8.7 %; Neutrophils # (auto) 2.07 K/uL (1.40-6.50); Platelet Count 260 K/uL (130-400); RDW Coefficient of Variation 13.1 % (11.5-14.5); RDW Standard Deviation 43.3 fL (36.4-46.3); Red Blood Count 4.42 M/uL (4.20-5.40); White Blood Count 4.14 K/ul (4.8-10.8)
[2024-09-15 17:18] LABS: Albumin Globulin Ratio 1.3 (0.9-2); Albumin Level 4.2 gm/dl (3.4-5.0); BUN Creatinine Ratio 16.4 (10-20); Bilirubin,Total 0.4 mg/dl (0.2-1.0); Creatinine Clr Calc Pharmacy 91.5 ml/min; Globulin 3.2 gm/dl (2.5-4.0); Potassium 3.7 mmol/L (3.5-5.1); Total Protein 7.4 gm/dl (6.0-8.3)
[2024-09-15 17:25] LABS: Troponin I High Sensitivity 28.8 pg/ml (0-14)
[2024-09-15 17:34] LABS: Influenza A virus by PCR Negative (Neg); Influenza B virus by PCR Negative (Neg); RSV by PCR Negative (Neg); SARS CoV2 RNA(COVID-19) Ceph NEGATIVE (Negative)
[2024-09-15 17:34] LABS: Partial Thromboplastin Time 27 Seconds (21-31)
--- NOTE | 2024-09-15 17:46 | XRay Report ---
EXAM: Radiograph of the Chest 1 View INDICATION: Chest pain. TECHNIQUE: Frontal view of the chest. COMPARISON: 04/06/2024 FINDINGS: Lungs and pleural spaces: No consolidation or pulmonary edema. No pleural effusion or pneumothorax. Heart: Shape and configuration within normal limits allowing for technique. Mediastinum: Normal contour. Bones/joints: No fracture, erosion or dislocation. Soft tissues: No abnormality noted. No radiopaque foreign body noted. Upper abdomen: No abnormality noted. IMPRESSION: No abnormality noted. ACT 112: Negative or not required by law. Electronically signed by Debra Melendez 09-15-2024 5:46 PM
[2024-09-15] MEDS: ONDANSETRON INJ 2 MG/ML 2 ML VIAL IV STA (18:11)
[2024-09-15] MEDS: ACETAMINOPHEN 1,000 MG/100 ML VIAL IV STA (18:11)
[2024-09-15] MEDS: SODIUM CHLORIDE 0.9% 500 ML IV ONE (18:12)
--- NOTE | 2024-09-15 18:35 | Emergency Department Note ---
Impression & Plan Chest pain, Non-ST elevation OR (NSTEMI) ED Provider Note HISTORY OF PRESENT ILLNESS: Patient is a 39-year-old female presenting with chest pain and headache. Patient reports she has been having a diffuse headache for the last week. She states that Tylenol minimally improves her headache. She does not have a history of headaches like this before. Denies any fevers. She states that last night she started having substernal chest pain. States that she has had pain like this before from vasospasms. She reports she took a dose of nitroglycerin yesterday, with minimal improvement in her chest pain. She reports the pain has been constant since last night and is worsened throughout the day today. She reports the pain now radiates into her upper back and into the right upper part of her abdomen. Reports feeling short of breath with minimal exertion. Denies any DVT or PE history. Denies any OCP use. She currently rates her pain a 6 out of 10. Describes her chest pain as a pressure and sharp sensation. Denies any anticoagulation use. Denies any recent sick contact exposures. Currently complaining of nausea. Does report that when her chest pain was at its worst last night, she had some numbness and what felt like weakness down her left arm. Denies any recent chiropractic manipulation of her neck or head injury. Denies any changes in vision, such as double or blurry vision. ROS: as above PHYSICAL EXAM: Constitutional: Patient appears in no acute distress. HENT: Head: Normocephalic and atraumatic. Eyes: EOMI, PERRL Mouth/Throat: Mucous membranes moist. Neck: Trachea midline. Neck supple. Cardiovascular: RRR, No murmurs, rubs or gallops. Intact distal pulses. Pulmonary/Chest: No respiratory distress. Breath sounds clear and equal bilaterally. No wheezes or rales. Abdominal: Abdomen soft, no tenderness, rebound or guarding. Musculoskeletal: No edema, tenderness or deformity noted. Skin: Warm and dry. No rash, erythema, pallor or cyanosis Psychiatric: Appropriate mood and affect for situation. Neurological: Alert and keenly responsive. CN II-XII grossly intact, moving all extremities equally and fully. MDM: - Vitals signs showed bradycardia. - History obtained via patient. History as above. - Chronic conditions affecting care: vasospasm - Differential diagnoses include, but are not limited to: Acute coronary syndrome; pulmonary embolism; dissection; tension pneumothorax; esophageal rupture; pneumonia; myocarditis - Order placed for continuous cardiac monitoring. At this time, monitor showed rate of 60 bpm with normal sinus rhythm, per my interpretation. - External medical records reviewed. Cardiology documentation from 06/30/2023 was reviewed. Patient wore a Holter monitor for 13 days and 13 hours. Had the monitor on for palpitations. Per the documentation, the patient had frequent symptomatic events reported correlating with normal sinus rhythm. On rare occasions, the symptoms correlated with a supraventricular ectopy and ventricular ectopy. - EKG interpreted by myself showed normal sinus rhythm. Rate bradycardic at 59 bpm. QT 396. No acute ischemic changes. Is noted to have some T wave inversions in V1 through V3. - Laboratory workup interpreted by myself showed leukopenia (WBC 4.14); normal PT/INR; stable electrolytes; elevated troponin (28.8) - CXR negative for pneumonia, per my interpretation - Patient initially given 1g IV tylenol, 500 cc NS and 4 mg IV zofran for symptomatic management. On reassessment, still complaining of pain. Given SL nitro and 50 mcg IV fentanyl - Repeat troponin still elevated, but trending down, at 27.7 - CTA chest negative for acute pathology - Discussion was had with supervisor case loading about patient's case and need for admission - Hospitalist, Dr. Mazariegos, consulted for admission - Patient admitted to [facility] hospitalist service for further evaluation and management. ASSESSMENT AND PLAN: Diagnosis: chest pain; NSTEMI Plan: admit Past Med/Surg History Problem List (Updated 09/15/24 @ 19:43 by Melissa Palma MD) Non-ST elevation OR (NSTEMI) (Acute) Chest pain (Acute) Delivery by section using transverse incision of lower segment of uterus Irregular uterine contractions Headache in Acute viral bronchitis (Acute) Elevated troponin I level (Acute) Chest pain (Acute) RSV (respiratory syncytial virus infection) (Acute) Headache (Acute) COVID-19 virus infection (Acute) Injury of conjunctiva and corneal abrasion of left eye w/o FB (Acute) Triplet gestation in second trimester Abdominal pain affecting Nausea and vomiting during Diarrhea Back pain affecting in second trimester Medical History Placental abruption Vaginal bleeding during Grand multiparity Insomnia Seasonal allergies Spontaneous vaginal delivery [facility] 08/07/2007 [facility] 04/13/2010 [facility] 08/23/2015 LM 11/08/21 Encounter for pre-operative examination Herniated disc, cervical Surgical History History of low transverse section H/O abdominoplasty 2010 History of breast augmentation 2010 [place] teeth extracted 2020 History of appendectomy 2009 Family History Grandmother (Maternal) Diabetes Brother Diabetes Social History Smoking Status: Never smoker Tobacco Type: Cigarettes Second Hand Exposure: No; Hx Alcohol Use: No Hx Substance Use: No Preferred Language: Mohawk Communication Ability: Effective Bookmobile Clerk Required: No Beliefs That Will Affect Care: None marital status: marital status details: Alber Hughes Current Living Situation: Family Current Living Situation Comment: spouse, 7 children current occupational status: unemployed Feels Safe at Home: Yes Assistive Devices: None Allergies Allergies Allergy/AdvReac Type Severity Reaction Status Date / Time amoxicillin Allergy Intermediate Hives Verified 04/24/24 21:16 pollen extracts Allergy Intermediate ITCHY Verified 04/24/24 21:16 EYES, SNEEZING, CONGESTION cat dander Allergy Unknown Unverified 09/15/24 19:48 dog dander Allergy Unknown Unverified 09/15/24 19:48 ragweed pollen Allergy Unknown Unverified 09/15/24 19:48 Home Meds Home Medications Medication Instructions Recorded Confirmed trazodone 50 mg tablet 75 mg PO HS 06/13/23 04/24/24 vit no.95-ferrous 1 tab PO DAILY 04/24/24 04/24/24 fumarate 28 mg-folic acid 800 mcg tablet () Results & Data (ED) Vital Signs Vital Signs - 24 hr 09/15/24 16:37 09/15/24 16:37 09/15/24 17:26 Temperature 36.7 C Temperature Source Temporal Artery Scan Pulse Rate 60 Pulse Rate [Right Finger] 60 Pulse Rhythm [Right Finger] Regular Pulse Strength [Right Finger] Normal Respiratory Rate 19 21 Respiratory Effort / Characteristics SOB on Exertion Non-Labored Respiratory Depth Normal Respiratory Pattern Regular Blood Pressure 136/79 Blood Pressure [Right Arm] 131/79 Blood Pressure Mean 98 Blood Pressure Mean [Right Arm] 96 Blood Pressure Position [Right Arm] Lying Pulse Oximetry 100 100 Oxygen Delivery Method Room Air Room Air Sepsis Recent Fever Within 48 Hours No Sepsis New/Unexplained Change in Mental Status N/A Sepsis Action Taken by Nursing No Action Required 09/15/24 17:52 09/15/24 19:00 Temperature Temperature Source Pulse Rate 56 L Pulse Rate [Right Finger] 59 L Pulse Rhythm [Right Finger] Pulse Strength [Right Finger] Respiratory Rate 16 Respiratory Effort / Characteristics Respiratory Depth Respiratory Pattern Blood Pressure Blood Pressure [Right Arm] 125/83 Blood Pressure Mean Blood Pressure Mean [Right Arm] 97 Blood Pressure Position [Right Arm] Pulse Oximetry 100 Oxygen Delivery Method Room Air Sepsis Recent Fever Within 48 Hours Sepsis New/Unexplained Change in Mental Status Sepsis Action Taken by Nursing Laboratory Data 09/15/24 16:45 09/15/24 16:45 Lab Results 09/15/24 09/15/24 09/15/24 Range/Units 16:45 16:48 17:33 WBC 4.14 L (4.8-10.8) K/ul RBC 4.42 (4.20-5.40) M/uL Hgb 13.2 (12.0-16.0) g/dl Hct 39.8 (37.0-47.0) % MCV 90.0 (80.0-100.0) fL MCH 29.9 (25.0-34.0) pg MCHC 33.2 (32.0-36.0) g/dL RDW Std Deviation 43.3 (36.4-46.3) fL RDW Coeff of Jermain 13.1 (11.5-14.5) % Plt Count 260 (130-400) K/uL MPV 9.5 (9.4-12.4) fL Immature Gran % (Auto) 0.2 % Neut % (Auto) 50.0 % Lymph % (Auto) 37.4 % Campbell % (Auto) 8.7 % Eos % (Auto) 2.7 % Baso % (Auto) 1.0 % Neut # (Auto) 2.07 (1.40-6.50) K/uL Lymph # (Auto) 1.55 (1.20-3.40) K/uL Campbell # (Auto) 0.36 (0.11-0.59) K/uL Eos # (Auto) 0.11 (0.00-0.50) K/uL Baso # (Auto) 0.04 (0.00-0.20) K/uL Immature Gran # (Auto) 0.01 (0.01-0.20) K/uL PT 11.0 (9.0-12.0) Seconds INR 1.0 (0.9-1.1) APTT 27 (21-31) Seconds PTT Ratio 1.0 Sodium 138 (136-145) mmol/L Potassium 3.7 (3.5-5.1) mmol/L Chloride 107 (98-107) mmol/L Carbon Dioxide 27 (21-32) mmol/L Anion Gap 4 (3-11) BUN 12 (6-23) mg/dl Creatinine 0.73 (0.6-1.2) mg/dl Est Cr Clr Drug Dosing 91.5 ml/min eGFR 108.56 BUN/Creatinine Ratio 16.4 (10-20) Glucose 94 (70-99(Fasting)) mg/dl Calcium 9.0 (8.6-10.3) mg/dl Total Bilirubin 0.4 (0.2-1.0) mg/dl AST 14 (13-39) U/L ALT 12 (7-52) U/L Alkaline Phosphatase 49 (34-104) U/L Troponin I High Sens 28.8 H (0-14) pg/ml Total Protein 7.4 (6.0-8.3) gm/dl Albumin 4.2 (3.4-5.0) gm/dl Globulin 3.2 (2.5-4.0) gm/dl Albumin/Globulin Ratio 1.3 (0.9-2) Adenovirus (PCR) Not Detected (NotDetected) B. pertussis DNA (PCR) Not Detected (NotDetected) B.parapertussis DNA PCR Not Detected (NotDetected) C. pneumoniae DNA (PCR) Not Detected (NotDetected) Coronavirus OC43 (PCR) Not Detected (NotDetected) Coronavirus HKU1 (PCR) Not Detected (NotDetected) Coronavirus 229E (PCR) Not Detected (NotDetected) SARS-CoV-2 (PCR) NEGATIVE Not Detected (Negative) Coronavirus NL63 (PCR) Not Detected (NotDetected) Human Metapneumovir PCR Not Detected (NotDetected) Influenza Type A (PCR) Negative Not Detected (Neg) Influenza Type B (PCR) Negative Not Detected (Neg) M. pneumoniae (PCR) Not Detected (NotDetected) Parainfluenza 1 (PCR) Not Detected (NotDetected) Parainfluenza 2 (PCR) Not Detected (NotDetected) Parainfluenza 3 (PCR) Not Detected (NotDetected) Parainfluenza 4 (PCR) Not Detected (NotDetected) RSV (RT-PCR) Negative (Neg) RSV (PCR) Not Detected (NotDetected) Entero/Rhino (PCR) Not Detected (NotDetected) 09/15/24 Range/Units 18:56 WBC (4.8-10.8) K/ul RBC (4.20-5.40) M/uL Hgb (12.0-16.0) g/dl Hct (37.0-47.0) % MCV (80.0-100.0) fL MCH (25.0-34.0) pg MCHC (32.0-36.0) g/dL RDW Std Deviation (36.4-46.3) fL RDW Coeff of Jermain (11.5-14.5) % Plt Count (130-400) K/uL MPV (9.4-12.4) fL Immature Gran % (Auto) % Neut % (Auto) % Lymph % (Auto) % Campbell % (Auto) % Eos % (Auto) % Baso % (Auto) % Neut # (Auto) (1.40-6.50) K/uL Lymph # (Auto) (1.20-3.40) K/uL Campbell # (Auto) (0.11-0.59) K/uL Eos # (Auto) (0.00-0.50) K/uL Baso # (Auto) (0.00-0.20) K/uL Immature Gran # (Auto) (0.01-0.20) K/uL PT (9.0-12.0) Seconds INR (0.9-1.1) APTT (21-31) Seconds PTT Ratio Sodium (136-145) mmol/L Potassium (3.5-5.1) mmol/L Chloride (98-107) mmol/L Carbon Dioxide (21-32) mmol/L Anion Gap (3-11) BUN (6-23) mg/dl Creatinine (0.6-1.2) mg/dl Est Cr Clr Drug Dosing ml/min eGFR BUN/Creatinine Ratio (10-20) Glucose (70-99(Fasting)) mg/dl Calcium (8.6-10.3) mg/dl Total Bilirubin (0.2-1.0) mg/dl AST (13-39) U/L ALT (7-52) U/L Alkaline Phosphatase (34-104) U/L Troponin I High Sens 27.7 H (0-14) pg/ml Total Protein (6.0-8.3) gm/dl Albumin (3.4-5.0) gm/dl Globulin (2.5-4.0) gm/dl Albumin/Globulin Ratio (0.9-2) Adenovirus (PCR) (NotDetected) B. pertussis DNA (PCR) (NotDetected) B.parapertussis DNA PCR (NotDetected) C. pneumoniae DNA (PCR) (NotDetected) Coronavirus OC43 (PCR) (NotDetected) Coronavirus HKU1 (PCR) (NotDetected) Coronavirus 229E (PCR) (NotDetected) SARS-CoV-2 (PCR) (Negative) Coronavirus NL63 (PCR) (NotDetected) Human Metapneumovir PCR (NotDetected) Influenza Type A (PCR) (Neg) Influenza Type B (PCR) (Neg) M. pneumoniae (PCR) (NotDetected) Parainfluenza 1 (PCR) (NotDetected) Parainfluenza 2 (PCR) (NotDetected) Parainfluenza 3 (PCR) (NotDetected) Parainfluenza 4 (PCR) (NotDetected) RSV (RT-PCR) (Neg) RSV (PCR) (NotDetected) Entero/Rhino (PCR) (NotDetected) Administered Medications Discontinued Medications Fentanyl Citrate (Fentanyl Citrate Pf 100 Mcg/2 Ml Vial) 50 mcg IV NOW STA Stop: 09/15/24 19:37 Last Admin: 09/15/24 19:49 Dose: 50 mcg Documented By: AUDREY Sodium Chloride (Nss) 500 mls @ 999 mls/hr IV .Q31M ONE Stop: 09/15/24 18:33 Last Infusion: 09/15/24 18:51 Dose: Infused Documented By: Admin: 09/15/24 18:12 Dose: 999 mls/hr Documented By: KARINA Acetaminophen (Ofirmev) 1,000 mg in 100 mls @ 400 mls/hr IV NOW STA Stop: 09/15/24 18:17 Last Infusion: 09/15/24 18:51 Dose: Infused Documented By: Admin: 09/15/24 18:11 Dose: 400 mls/hr Documented By: KARINA Ioversol (Optiray 320 125ml) 119 ml IV ONCE ONE Stop: 09/15/24 19:16 Last Admin: 09/15/24 19:15 Dose: 119 ml Documented By: URSZULA Nitroglycerin (Nitroglycerin Sl 0.4 Mg/Tab Tab) 0.4 mg SL NOW STA Stop: 09/15/24 19:40 Last Admin: 09/15/24 19:49 Dose: 0.4 mg Documented By: AUDREY Ondansetron HCl (Ondansetron Inj 2 Mg/Ml 2 Ml Vial) 4 mg IV NOW STA Stop: 09/15/24 18:04 Last Admin: 09/15/24 18:11 Dose: 4 mg Documented By: KARINA Imaging Data Radiologist's Impression: Chest X-Ray 09/15/24 16:40 EXAM: Radiograph of the Chest 1 View INDICATION: Chest pain. TECHNIQUE: Frontal view of the chest. COMPARISON: 04/06/2024 FINDINGS: Lungs and pleural spaces: No consolidation or pulmonary edema. No pleural effusion or pneumothorax. Heart: Shape and configuration within normal limits allowing for technique. Mediastinum: Normal contour. Bones/joints: No fracture, erosion or dislocation. Soft tissues: No abnormality noted. No radiopaque foreign body noted. Upper abdomen: No abnormality noted. IMPRESSION: No abnormality noted. ACT 112: Negative or not required by law. Electronically signed by Debra Melendez 09-15-2024 5:46 PM Chest CTA 09/15/24 17:26 Exam(s): CTA CHEST W/WO Contrast IV Amt: OPTIRAY 320 119ML EXAM: CT Angiography Chest Without and With Intravenous Contrast CLINICAL HISTORY: Reason for exam: chest pain radiating to abd and back. TECHNIQUE: Axial computed tomographic angiography images of the chest without and with intravenous contrast. Automated exposure control was utilized for the study. A dose lowering technique was utilized adhering to the principles of ALARA. MIP reconstructed images were created and reviewed. CONTRAST: Patient received OPTIRAY 320 119ML of IV contrast COMPARISON: No relevant prior studies available. FINDINGS: Pulmonary arteries: Unremarkable. No pulmonary embolism. Aorta: No acute findings. No thoracic aortic aneurysm. Lungs: Unremarkable. No mass. No consolidation. Pleural space: Unremarkable. No significant effusion. No pneumothorax. Heart: Unremarkable. No cardiomegaly. No significant pericardial effusion. No evidence of RV dysfunction. Bones/joints: No acute fracture. No dislocation. Soft tissues: Unremarkable. Lymph nodes: Unremarkable. No enlarged lymph nodes. IMPRESSION: Normal chest CTA. No pulmonary embolism. No dissection Electronically signed by: Lazaro Tinoco MD 09/15/24 19:48 PM Discharge Plan Visit Data Chief Complaint: Chest Pain Stated Complaint: CHEST PAIN, RADIATING TO BACK AND LT ARM, HEADACHE ED Provider: Melissa Palma Discharge Problem: Chest pain, Non-ST elevation OR (NSTEMI) Forms Stand Alone Forms: My [employer] Prescriptions Prescriptions: No Action trazodone 50 mg tablet 75 mg PO HS PNV cmb#95-ferrous fumarate-FA [] 28 mg iron- 800 mcg Tablet 1 tab PO DAILY Referrals Referrals: Nickie Tolentino DO [Primary Care Provider] -
[2024-09-15 18:39] LABS: Adenovirus PCR Not Detected (NotDetected); Bordetella parapertussis PCR Not Detected (NotDetected); Bordetella pertussis PCR Not Detected (NotDetected); Chlamydia pneumoniae PCR Not Detected (NotDetected); Coronavirus 229E PCR Not Detected (NotDetected); Coronavirus CoV-2 (COVID19)PCR Not Detected (NotDetected); Coronavirus HKU1 PCR Not Detected (NotDetected); Coronavirus NL63 PCR Not Detected (NotDetected); Coronavirus OC43PCR Not Detected (NotDetected); Human Metapneumovirus PCR Not Detected (NotDetected); Influenza A PCR Not Detected (NotDetected); Influenza B PCR Not Detected (NotDetected); Mycoplasma pneumoniae PCR Not Detected (NotDetected); Parainfluenza Virus 1 PCR Not Detected (NotDetected); Parainfluenza Virus 2 PCR Not Detected (NotDetected); Parainfluenza Virus 3 PCR Not Detected (NotDetected); Parainfluenza Virus 4 PCR Not Detected (NotDetected); Respiratory Syncytial VirusPCR Not Detected (NotDetected); Rhinovirus/Enterovirus PCR Not Detected (NotDetected)
[2024-09-15] MEDS: OPTIRAY 320 125ml IV ONE (19:15)
[2024-09-15 19:36] LABS: Troponin I High Sensitivity 27.7 pg/ml (0-14)
[2024-09-15] MEDS: NITROGLYCERIN SL 0.4 MG/TAB TAB SL STA (19:49)
[2024-09-15] MEDS: fentaNYL citrate PF 100 MCG/2 ML VIAL IV STA (19:49)
--- NOTE | 2024-09-15 19:49 | CT Scan Report ---
Exam(s): CTA CHEST W/WO Contrast IV Amt: OPTIRAY 320 119ML EXAM: CT Angiography Chest Without and With Intravenous Contrast CLINICAL HISTORY: Reason for exam: chest pain radiating to abd and back. TECHNIQUE: Axial computed tomographic angiography images of the chest without and with intravenous contrast. Automated exposure control was utilized for the study. A dose lowering technique was utilized adhering to the principles of ALARA. MIP reconstructed images were created and reviewed. CONTRAST: Patient received OPTIRAY 320 119ML of IV contrast COMPARISON: No relevant prior studies available. FINDINGS: Pulmonary arteries: Unremarkable. No pulmonary embolism. Aorta: No acute findings. No thoracic aortic aneurysm. Lungs: Unremarkable. No mass. No consolidation. Pleural space: Unremarkable. No significant effusion. No pneumothorax. Heart: Unremarkable. No cardiomegaly. No significant pericardial effusion. No evidence of RV dysfunction. Bones/joints: No acute fracture. No dislocation. Soft tissues: Unremarkable. Lymph nodes: Unremarkable. No enlarged lymph nodes. IMPRESSION: Normal chest CTA. No pulmonary embolism. No dissection Electronically signed by: Lazaro Tinoco MD 09/15/24 19:48 PM
[2024-09-15 20:54] LABS: Magnesium 1.8 mg/dl (1.7-2.4)
[2024-09-15] MEDS: oxyCODONE HCL IR 5 MG TAB (IMMEDIATE RELEASE) PO STA (21:19)
[2024-09-15 22:20] LABS: C Reactive Protein 0.51 mg/dl (0-0.5)
[2024-09-15 22:26] LABS: Troponin I High Sensitivity 27.9 pg/ml (0-14)
[2024-09-15 22:54] LABS: Lyme Screen Rflx Confirmation Equivocal (Negative)
--- NOTE | 2024-09-15 23:16 | History & Physical Report ---
Date of Service September 15, 2024 Assessment & Plan (1) Chest pain: Plan: Atypical chest pain With minimal troponin elevation History of coronary vasospasm as per records bronchial asthma, stable GERD, not on maintenance medications anxiety/mood disorder, stable off maintenance medications. OBS PCU Analgesia TTE, Cardiology consult re: chest pain DVT prophylaxis. SCDs Full code Text document was generated using Loop voice recognition software. It may contain grammatical or spelling errors. Kindly contact undersigned for clarification of any documentation item in question. History of Present Illness Chief Complaint: Chest pain Primary Care Provider: Nickie Tolentino, History obtained from patient and records. Medical history significant for coronary vasospasm, bronchial asthma, GERD, anxiety/mood disorder. Last confinement March 2024 under obstetric service for abruptio placenta status post . Patient with intermittent achy headache symptoms different from prior episodes since last week. No head trauma. No arm or leg weakness. No nausea, no vomiting symptoms. Yesterday, patient experienced left-sided chest pain somewhat similar to chest pain during [facility] confinement last May 2023. Diagnostic cardiac catheterization showed 1. Angiographically normal major epicardial coronary arteries 2. Vasospasm versus mild diffuse disease in very small distal nondominant RCA 3. Normal intracardiac filling pressure Amlodipine recommended on discharge by proposal writer. Chest pain slightly responsive to nitroglycerin at home. Worsening headache after nitro Rx at home. Chest pain different from heartburn as per patient. 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 Allergies Allergy/AdvReac Type Severity Reaction Status Date / Time amoxicillin Allergy Intermediate Hives Verified 09/15/24 20:35 pollen extracts Allergy Intermediate ITCHY Verified 09/15/24 20:35 EYES, SNEEZING, CONGESTION cat dander Allergy Unknown Verified 09/15/24 20:35 dog dander Allergy Unknown Verified 09/15/24 20:35 ragweed pollen Allergy Unknown Verified 09/15/24 20:35 Home Medications Medication Instructions Recorded Confirmed Type trazodone 50 mg tablet 75 mg PO HS 06/13/23 09/15/24 History montelukast 10 mg PO HS 09/16/24 09/16/24 History Past Med/Surg History Problem List (Updated 09/15/24 @ 19:43 by Melissa Palma MD) Non-ST elevation DE (NSTEMI) (Acute) Chest pain (Acute) Delivery by section using transverse incision of lower segment of uterus Irregular uterine contractions Headache in Acute viral bronchitis (Acute) Elevated troponin I level (Acute) Chest pain (Acute) RSV (respiratory syncytial virus infection) (Acute) Headache (Acute) COVID-19 virus infection (Acute) Injury of conjunctiva and corneal abrasion of left eye w/o FB (Acute) Triplet gestation in second trimester Abdominal pain affecting Nausea and vomiting during Diarrhea Back pain affecting in second trimester Medical History Placental abruption Vaginal bleeding during Grand multiparity Insomnia Seasonal allergies Spontaneous vaginal delivery [facility] 08/07/2007 [facility] 04/13/2010 [facility] 08/23/2015 [facility] 11/08/21 Encounter for pre-operative examination Herniated disc, cervical Surgical History History of low transverse section H/O abdominoplasty 2010 History of breast augmentation 2010 [place] teeth extracted 2020 History of appendectomy 2009 Family History Grandmother (Maternal) Diabetes Brother Diabetes Social History Smoking Status: Former smoker Tobacco Type: Cigarettes Second Hand Exposure: No; Hx Alcohol Use: Yes Hx Substance Use: No Preferred Language: Turkish Communication Ability: Effective Firer Diesel Locomotive Required: No Beliefs That Will Affect Care: None marital status: marital status details: Alber Hughes Current Living Situation: Family Current Living Situation Comment: spouse, 7 children current occupational status: unemployed Feels Safe at Home: Yes Safety Concerns: Feels Safe At This Time Assistive Devices: Glasses Review of Systems 2 Review of Systems: As per HPI, all other systems reviewed and negative Physical Exam Physical Exam: GENERAL: Comfortable, pleasant, no respiratory distress SKIN: Normal color, warm HEENT: [place] palpebral conjunctivae, no ptosis, dry buccal mucosa NECK : Supple, no tenderness CHEST : CTA, minimal left chest wall tenderness HEART : Bradycardic, no obvious murmurs ABDOMEN: Some distention, nontender EXTREMITIES : No LE swelling/tenderness, no other conspicuous deformities noted NEUROLOGIC : Coherent, no facial asymmetry, no other gross focality Results & Data Results & Data Vital Signs (Past 12 Hours) Vital Signs Temp Pulse Pulse Resp BP BP Pulse Ox 09/15/24 23:00 58 L 16 122/91 100 09/15/24 22:04 58 L 09/15/24 22:00 56 L 16 123/79 99 09/15/24 21:00 68 16 121/83 100 09/15/24 20:30 55 L 16 120/83 100 09/15/24 19:51 93 H 16 130/93 97 09/15/24 19:00 59 L 16 125/83 100 09/15/24 17:52 56 L 09/15/24 17:26 60 21 131/79 100 09/15/24 16:37 36.7 C 60 19 136/79 100 O2 Del Method 09/15/24 23:00 Room Air 09/15/24 22:04 09/15/24 22:00 Room Air 09/15/24 21:00 Room Air 09/15/24 20:30 Room Air 09/15/24 19:51 Room Air 09/15/24 19:00 Room Air 09/15/24 17:52 09/15/24 17:26 Room Air 09/15/24 16:37 Room Air Laboratory Results Laboratory Results WBC 4.14 K/ul (4.8-10.8) L 09/15/24 16:45 RBC 4.42 M/uL (4.20-5.40) 09/15/24 16:45 Hgb 13.2 g/dl (12.0-16.0) 09/15/24 16:45 Hct 39.8 % (37.0-47.0) 09/15/24 16:45 MCV 90.0 fL (80.0-100.0) 09/15/24 16:45 MCH 29.9 pg (25.0-34.0) 09/15/24 16:45 MCHC 33.2 g/dL (32.0-36.0) 09/15/24 16:45 RDW Std Deviation 43.3 fL (36.4-46.3) 09/15/24 16:45 RDW Coeff of Jermain 13.1 % (11.5-14.5) 09/15/24 16:45 Plt Count 260 K/uL (130-400) 09/15/24 16:45 MPV 9.5 fL (9.4-12.4) 09/15/24 16:45 Immature Gran % (Auto) 0.2 % 09/15/24 16:45 Neut % (Auto) 50.0 % 09/15/24 16:45 Lymph % (Auto) 37.4 % 09/15/24 16:45 [place] % (Auto) 8.7 % 09/15/24 16:45 Eos % (Auto) 2.7 % 09/15/24 16:45 Baso % (Auto) 1.0 % 09/15/24 16:45 Neut # (Auto) 2.07 K/uL (1.40-6.50) 09/15/24 16:45 Lymph # (Auto) 1.55 K/uL (1.20-3.40) 09/15/24 16:45 [place] # (Auto) 0.36 K/uL (0.11-0.59) 09/15/24 16:45 Eos # (Auto) 0.11 K/uL (0.00-0.50) 09/15/24 16:45 Baso # (Auto) 0.04 K/uL (0.00-0.20) 09/15/24 16:45 Immature Gran # (Auto) 0.01 K/uL (0.01-0.20) 09/15/24 16:45 ESR 2 mm/hr (0-20) 09/15/24 21:49 PT 11.0 Seconds (9.0-12.0) 09/15/24 16:45 INR 1.0 (0.9-1.1) 09/15/24 16:45 APTT 27 Seconds (21-31) 09/15/24 16:45 PTT Ratio 1.0 09/15/24 16:45 Sodium 138 mmol/L (136-145) 09/15/24 16:45 Potassium 3.7 mmol/L (3.5-5.1) 09/15/24 16:45 Chloride 107 mmol/L (98-107) 09/15/24 16:45 Carbon Dioxide 27 mmol/L (21-32) 09/15/24 16:45 Anion Gap 4 (3-11) 09/15/24 16:45 BUN 12 mg/dl (6-23) 09/15/24 16:45 Creatinine 0.73 mg/dl (0.6-1.2) 09/15/24 16:45 Est Cr Clr Drug Dosing 91.5 ml/min 09/15/24 16:45 eGFR 108.56 09/15/24 16:45 BUN/Creatinine Ratio 16.4 (10-20) 09/15/24 16:45 Glucose 94 mg/dl (70-99(Fasting)) 09/15/24 16:45 Calcium 9.0 mg/dl (8.6-10.3) 09/15/24 16:45 Magnesium 1.8 mg/dl (1.7-2.4) 09/15/24 18:56 Total Bilirubin 0.4 mg/dl (0.2-1.0) 09/15/24 16:45 AST 14 U/L (13-39) 09/15/24 16:45 ALT 12 U/L (7-52) 09/15/24 16:45 Alkaline Phosphatase 49 U/L (34-104) 09/15/24 16:45 Troponin I High Sens 27.9 pg/ml (0-14) H 09/15/24 21:49 C-Reactive Protein 0.51 mg/dl (0-0.5) H 09/15/24 21:49 Total Protein 7.4 gm/dl (6.0-8.3) 09/15/24 16:45 Albumin 4.2 gm/dl (3.4-5.0) 09/15/24 16:45 Globulin 3.2 gm/dl (2.5-4.0) 09/15/24 16:45 Albumin/Globulin Ratio 1.3 (0.9-2) 09/15/24 16:45 Adenovirus (PCR) Not Detected (NotDetected) 09/15/24 17:33 B. pertussis DNA (PCR) Not Detected (NotDetected) 09/15/24 17:33 B.parapertussis DNA PCR Not Detected (NotDetected) 09/15/24 17:33 Lyme Disease Screen Equivocal (Negative) H 09/15/24 21:49 C. pneumoniae DNA (PCR) Not Detected (NotDetected) 09/15/24 17:33 Coronavirus OC43 (PCR) Not Detected (NotDetected) 09/15/24 17:33 Coronavirus HKU1 (PCR) Not Detected (NotDetected) 09/15/24 17:33 Coronavirus 229E (PCR) Not Detected (NotDetected) 09/15/24 17:33 SARS-CoV-2 (PCR) Not Detected (NotDetected) 09/15/24 17:33 Coronavirus NL63 (PCR) Not Detected (NotDetected) 09/15/24 17:33 Human Metapneumovir PCR Not Detected (NotDetected) 09/15/24 17:33 Influenza Type A (PCR) Not Detected (NotDetected) 09/15/24 17:33 Influenza Type B (PCR) Not Detected (NotDetected) 09/15/24 17:33 M. pneumoniae (PCR) Not Detected (NotDetected) 09/15/24 17:33 Parainfluenza 1 (PCR) Not Detected (NotDetected) 09/15/24 17:33 Parainfluenza 2 (PCR) Not Detected (NotDetected) 09/15/24 17:33 Parainfluenza 3 (PCR) Not Detected (NotDetected) 09/15/24 17:33 Parainfluenza 4 (PCR) Not Detected (NotDetected) 09/15/24 17:33 RSV (RT-PCR) Negative (Neg) 09/15/24 16:48 RSV (PCR) Not Detected (NotDetected) 09/15/24 17:33 Entero/Rhino (PCR) Not Detected (NotDetected) 09/15/24 17:33 Impressions Chest X-Ray 09/15/24 16:40 EXAM: Radiograph of the Chest 1 View INDICATION: Chest pain. TECHNIQUE: Frontal view of the chest. COMPARISON: 04/06/2024 FINDINGS: Lungs and pleural spaces: No consolidation or pulmonary edema. No pleural effusion or pneumothorax. Heart: Shape and configuration within normal limits allowing for technique. Mediastinum: Normal contour. Bones/joints: No fracture, erosion or dislocation. Soft tissues: No abnormality noted. No radiopaque foreign body noted. Upper abdomen: No abnormality noted. IMPRESSION: No abnormality noted. ACT 112: Negative or not required by law. Electronically signed by Debra Melendez 09-15-2024 5:46 PM Chest CTA 09/15/24 17:26 Exam(s): CTA CHEST W/WO Contrast IV Amt: OPTIRAY 320 119ML EXAM: CT Angiography Chest Without and With Intravenous Contrast CLINICAL HISTORY: Reason for exam: chest pain radiating to abd and back. TECHNIQUE: Axial computed tomographic angiography images of the chest without and with intravenous contrast. Automated exposure control was utilized for the study. A dose lowering technique was utilized adhering to the principles of ALARA. MIP reconstructed images were created and reviewed. CONTRAST: Patient received OPTIRAY 320 119ML of IV contrast COMPARISON: No relevant prior studies available. FINDINGS: Pulmonary arteries: Unremarkable. No pulmonary embolism. Aorta: No acute findings. No thoracic aortic aneurysm. Lungs: Unremarkable. No mass. No consolidation. Pleural space: Unremarkable. No significant effusion. No pneumothorax. Heart: Unremarkable. No cardiomegaly. No significant pericardial effusion. No evidence of RV dysfunction. Bones/joints: No acute fracture. No dislocation. Soft tissues: Unremarkable. Lymph nodes: Unremarkable. No enlarged lymph nodes. IMPRESSION: Normal chest CTA. No pulmonary embolism. No dissection Electronically signed by: Lazaro Tinoco MD 09/15/24 19:[address] head: Head CT negative for acute intracranial abnormality. CT abdomen pelvis: No acute findings in the abdomen or pelvis. Diagnostic Findings EKG as per my interpretation :Rate 55, sinus bradycardia, normal axis, T wave inversion anteroseptal leads
[2024-09-15] MEDS ORDERED: hydrOXYzine HCl 10 MG TAB PO PRN (23:18)
[2024-09-15] MEDS ORDERED: MoRPHine SULFATE 2 MG/ML CARP IV PRN (23:18)
[2024-09-15 23:28] LABS: Lyme Ab IgG 2nd Tier Confirm Positive (Negative); Lyme Ab IgM 2nd Tier Confirm Negative (Negative)
--- NOTE | 2024-09-16 00:07 | CT Scan Report ---
Exam(s): CT HEAD Without Contrast EXAM: CT Head Without Intravenous Contrast CLINICAL HISTORY: Reason for exam: love. TECHNIQUE: Axial computed tomography images of the head/brain without intravenous contrast. CTDI is 22.75 mGy and DLP is 1155.42 mGy-cm. Automated exposure control was utilized for the study. A dose lowering technique was utilized adhering to the principles of ALARA. COMPARISON: 04/24/2024 FINDINGS: Brain: Unremarkable. No hemorrhage. No significant white matter disease. No edema. Ventricles: Unremarkable. No ventriculomegaly. Bones/joints: Unremarkable. No acute fracture. Soft tissues: Unremarkable. Sinuses: Unremarkable as visualized. No acute sinusitis. Mastoid air cells: Unremarkable as visualized. No mastoid effusion. IMPRESSION: Head CT negative for acute intracranial abnormality. Electronically signed by: Lazaro Tinoco MD 09/16/24 00:06 AM
--- NOTE | 2024-09-16 00:42 | CT Scan Report ---
Exam(s): CT ABDOMEN + PELVIS Without Contrast EXAM: CT Abdomen and Pelvis Without Intravenous Contrast CLINICAL HISTORY: Reason for exam: r abd pain. TECHNIQUE: Axial computed tomography images of the abdomen and pelvis without intravenous contrast. Automated exposure control was utilized for the study. A dose lowering technique was utilized adhering to the principles of ALARA. COMPARISON: 04/24/2024 FINDINGS: Lung bases: Unremarkable. No mass. No consolidation. ABDOMEN: Liver: Unremarkable. Gallbladder and bile ducts: Unremarkable. No calcified stones. No ductal dilation. Pancreas: Unremarkable. No ductal dilation. Spleen: Unremarkable. No splenomegaly. Adrenals: Unremarkable. No mass. Kidneys and ureters: Both kidneys opacify with contrast and are normal and symmetric fashion. No obstructing stones. No hydronephrosis. Stomach and bowel: Moderate amount of stool within the colon. No obstruction. No mucosal thickening. PELVIS: Appendix: No findings to suggest acute appendicitis. Bladder: Unremarkable. No stones. Reproductive: Unremarkable as visualized. ABDOMEN and PELVIS: Intraperitoneal space: Unremarkable. No free air. No significant fluid collection. Bones/joints: No acute fracture. No dislocation. Soft tissues: Unremarkable. Vasculature: Unremarkable. No abdominal aortic aneurysm. Lymph nodes: Unremarkable. No enlarged lymph nodes. IMPRESSION: No acute findings in the abdomen or pelvis. Electronically signed by: Lazaro Tinoco MD 09/16/24 00:41 AM
[2024-09-16] MEDS: traZODone HCL 50 MG TAB PO SCH (00:48)
[2024-09-16] MEDS: MAGNESIUM SULFATE / D5W 1 GM/100 ML BAG IV ONE (00:49)
[2024-09-16 02:06] LABS: Thyroid Stimulating Hormone 2.184 uIu/ml (0.300-4.500)
[2024-09-16] MEDS: oxyCODONE HCL IR 5 MG TAB (IMMEDIATE RELEASE) PO PRN (03:16)
[2024-09-16 03:27] LABS: Appearance Urine Clear (Clear); Bilirubin Urine Negative (Negative); Blood Urine Negative (Negative); Color Urine Yellow; Glucose Urine UA Negative (Negative); Ketones Urine Trace (Negative); Leukocyte Esterase Urine Negative (Negative); Nitrite Urine Negative (Negative); Protein Urine Negative (Negative); Specific Gravity Urine > 1.045 (1.000-1.030); Urobilinogen Urine Negative (Negative); pH Urine 6.5 (4.5-7.5)
[2024-09-16] MEDS ORDERED: PROMETHAZINE 6.25 MG/50.25 ML BAG IV PRN (04:24)
[2024-09-16] MEDS: PROMETHAZINE 6.25 MG/50.25 ML BAG IV STA (04:36)
[2024-09-16 04:50] LABS: Pregnancy Test, Urine Negative (Negative)
--- NOTE | 2024-09-16 09:19 | Electrocardiogram Report ---
Test Reason : Blood Pressure : */* mmHG Vent. Rate : 59 BPM Atrial Rate : 59 BPM P-R Int : 146 ms QRS Dur : 78 ms QT Int : 396 ms P-R-T Axes : 26 28 45 degrees QTcB Int : 392 ms Sinus bradycardia Poor R-wave progression Low voltage QRS Abnormal ECG When compared with ECG of 24-Apr-2024 20:42, No significant change was found Confirmed by Chen Bermeo (Dony) on 09/16/2024 9:19:01 AM Referred By: REFERRED SELF Confirmed By: Chen Bermeo
--- NOTE | 2024-09-16 09:47 | Cardiology Consultation ---
Date of Consultation September 16, 2024 Assessment & Plan (1) Chest pain: Chest pain with noted minimal elevation in high-sensitivity troponin levels which were 16.6--28.8--> 27.7 -->27.9 pg/ml. C-reactive troponin was minimally elevated last night at 0.51 mg/dl (normal 0- 0.5 mg/dl), and would actually interpret this test as being normal. An echocardiogram was performed today which was normal with no pericardial effusion, no regional wall motion abnormalities, normal LVEF 55 to 60%. Initial EKG performed last evening at 1644 revealed sinus bradycardia 59 bpm, normal tracing. The repeat tracing this morning reveals new T wave inversion in lead V3, but I think this is just related to lead positioning as the EKG overall looks similar to previous tracings. Some the characteristics of the patient's complaint such as the fact that the discomfort is worse with deep inspiration or lying flat suggest possible myocarditis component. At present, I feel that repeat stress testing or repeat coronary angiography would be of low yield. Recommend resuming isosorbide mononitrate for possible coronary spasm, starting at low-dose of 15 mg by mouth daily in order to minimize potential side effect of headache or symptomatic low blood pressure. I have requested a ESR as this has not been completed yet. Future considerations include outpatient cardiac MRI for evaluation of myocarditis. Reassessed the patient this afternoon after she has had the isosorbide mononitrate as well as a repeat troponin level I will discuss future plans including potential for discharge versus ongoing observation. History of Present Illness Attending Physician: Erasto Sanchez, History of Present Illness Yakelin Hughes is a 39 year old female seen in cardiology consultation per the request of Dr Mazariegos for the evaluation of chest discomfort. Patient describes recent headache and then chest discomfort onset 2 days ago on 09/14/2024. The discomfort persisted throughout the weekend. She notes that it seems to be worse when she is up and moving around, but it is also worse with deep inspiration and when she lays flat. She notes that one of her children at home had recently been treated for pneumonia, no other sick contacts and the patient does not endorse any recent symptoms to suggest any personal history of a recent viral illness. The patient had initially been assessed for chest discomfort by the undersigned in May 2023. At that time the patient described chest discomfort and also had a similar mild elevation in serial high-sensitivity troponin levels. Serial EKG tracings at that time were normal. The patient underwent invasive coronary angiography performed by Dr. Garcia of interventional cardiology during that admission on 06/14/2023 revealing angiographically normal major epicardial vessels with noted vasospasm versus mild diffuse disease and a very small distal nondominant right coronary artery. She was initially treated with amlodipine for presumed vasospasm at that time but was not tolerated due to symptomatic low blood pressure. Ultimately she was placed on isosorbide mononitrate extended release 30 mg and it was titrated to 60 mg. Isosorbide mononitrate however was subsequently discontinued when she became . She was admitted in September 2023 with mild troponin elevation in the setting of and acute illness with COVID and RSV. Cardiac workup was otherwise negative at that time. She ultimately delivered a healthy child by section in March, without any cardiac issues. Allergies Allergy/AdvReac Type Severity Reaction Status Date / Time amoxicillin Allergy Intermediate Hives Verified 09/15/24 20:35 pollen extracts Allergy Intermediate ITCHY Verified 09/15/24 20:35 EYES, SNEEZING, CONGESTION cat dander Allergy Unknown Verified 09/15/24 20:35 dog dander Allergy Unknown Verified 09/15/24 20:35 ragweed pollen Allergy Unknown Verified 09/15/24 20:35 Home Medications Medication Instructions Recorded Confirmed Type trazodone 50 mg tablet 75 mg PO HS 06/13/23 09/15/24 History montelukast 10 mg PO HS 09/16/24 09/16/24 History Patient History Medical History Placental abruption Vaginal bleeding during Grand multiparity Insomnia Seasonal allergies Spontaneous vaginal delivery [facility] 08/07/2007 [facility] 04/13/2010 LM 08/23/2015 [facility] 11/08/21 Encounter for pre-operative examination Herniated disc, cervical Surgical History History of low transverse section H/O abdominoplasty 2010 History of breast augmentation 2010 [place] teeth extracted 2020 History of appendectomy 2009 Family History Grandmother (Maternal) Diabetes Brother Diabetes Social History Smoking Status: Former smoker Tobacco Type: Cigarettes Second Hand Exposure: No; Hx Alcohol Use: Yes Hx Substance Use: No Preferred Language: Irish Communication Ability: Effective Infection Control Manager Required: No Beliefs That Will Affect Care: None marital status: marital status details: Alber Hughes Current Living Situation: Family Current Living Situation Comment: spouse, 7 children current occupational status: unemployed Feels Safe at Home: Yes Safety Concerns: Feels Safe At This Time Assistive Devices: Glasses Review of Systems Review of Systems: All systems reviewed & are unremarkable except as noted in HPI & below Physical Exam Physical Exam: Temp Pulse Resp BP Pulse Ox O2 Del Method 36.6 C 49 L 16 97/62 L 94 Room Air 09/16/24 07:15 09/16/24 07:24 09/16/24 07:15 09/16/24 07:15 09/16/24 07:15 09/16/24 07:15 General: no acute distress and stated age Eyes: conjunctiva are pink and non-injected, sclera clear Neck: normal jugular venous pulse, no hepatojugular reflux Chest: normal shape and normal respiratory effort Lungs: clear to auscultation and percussion Cardiac Exam: - regular heart sounds, no murmurs, rubs, or gallops, no jugular venous distention Abdomen: abdomen soft, non-tender, no abnormal masses and no hepatosplenomegaly Musculoskeletal: no gait disturbance, no weakness Extremities: no edema and no cyanosis Neuro:awake, conversant, follows commands, no focal motor deficits Psych: appropriate affect and insight. Results & Data Laboratory Results Cardiac Enzymes 09/15/24 09/15/24 09/15/24 Range/Units 16:45 18:56 21:49 AST 14 (13-39) U/L Troponin I High Sens 28.8 H 27.7 H 27.9 H (0-14) pg/ml Coagulation 09/15/24 Range/Units 16:45 PT 11.0 (9.0-12.0) Seconds APTT 27 (21-31) Seconds CBC 09/15/24 Range/Units 16:45 WBC 4.14 L (4.8-10.8) K/ul RBC 4.42 (4.20-5.40) M/uL Hgb 13.2 (12.0-16.0) g/dl Hct 39.8 (37.0-47.0) % Plt Count 260 (130-400) K/uL Neut # (Auto) 2.07 (1.40-6.50) K/uL Lymph # (Auto) 1.55 (1.20-3.40) K/uL [place] # (Auto) 0.36 (0.11-0.59) K/uL Eos # (Auto) 0.11 (0.00-0.50) K/uL Baso # (Auto) 0.04 (0.00-0.20) K/uL Comprehensive Metabolic Panel 09/15/24 Range/Units 16:45 Sodium 138 (136-145) mmol/L Potassium 3.7 (3.5-5.1) mmol/L Chloride 107 (98-107) mmol/L Carbon Dioxide 27 (21-32) mmol/L BUN 12 (6-23) mg/dl Creatinine 0.73 (0.6-1.2) mg/dl Glucose 94 (70-99(Fasting)) mg/dl Calcium 9.0 (8.6-10.3) mg/dl AST 14 (13-39) U/L ALT 12 (7-52) U/L Alkaline Phosphatase 49 (34-104) U/L Total Protein 7.4 (6.0-8.3) gm/dl Albumin 4.2 (3.4-5.0) gm/dl Intake and Output 09/15/24 09/16/24 09/16/24 22:59 06:59 14:59 Intake Total 600 / 750.25 150.25 / 750.25 Output Total 400 / 400 Balance 600 / 350.25 -249.75 / 350.25 Intake: IV 600 / 750.25 150.25 / 750.25 Acetaminophen 1,000 mg In 100 100 / 100 ml @ 400 mls/hr IV NOW STA Rx#: [id number] Magnesium Sulfate / D5w 1 gm In 100 / 100 100 ml @ 50 mls/hr IV ONE ONE Rx#:[id number] Promethazine 6.25 mg In 50.25 50.25 / 50.25 ml @ 201 mls/hr IV NOW STA Rx#: [id number] Sodium Chloride 0.9% 500 ml @ 500 / 500 999 mls/hr IV .Q31M ONE Rx#: [id number] Output: Urine 400 / 400 Other: Weight 65.6 kg 65.5 kg Weight Measurement Method Standing Scale
[2024-09-16 10:47] VITALS: TEMP 98.4
--- NOTE | 2024-09-16 10:49 | Electrocardiogram Report ---
Test Reason : Blood Pressure : */* mmHG Vent. Rate : 57 BPM Atrial Rate : 57 BPM P-R Int : 150 ms QRS Dur : 82 ms QT Int : 444 ms P-R-T Axes : 18 35 45 degrees QTcB Int : 432 ms Sinus bradycardia Low voltage QRS T wave abnormality, consider anterior ischemia Abnormal ECG When compared with ECG of 15-Sep-2024 16:44, (unconfirmed) No significant change was found Confirmed by Mick Tomas ([id number]) on 09/16/2024 10:48:43 AM Referred By: REFERRED SELF Confirmed By: Mick Tomas
[2024-09-16] MEDS: ISOSORBIDE MONO EXTENDED REL 30 MG TABCR PO SCH (11:07)
[2024-09-16] MEDS: ACETAMINOPHEN 325 MG TAB PO PRN (11:07)
--- NOTE | 2024-09-16 12:21 | Communication Note ---
Date of Service: September 16, 2024 Patient states her chest discomfort is improved. A repeat troponin was performed at 10:55 AM was relatively unchanged with minimal elevation, 26.5 PG p er mL. She tolerated her first dose of isosorbide mononitrate 15 mg with minimal headache. CRP negative x 2 measurements this admission, ESR negative x 2 measurements this admission. Differential diagnosis includes small coronary vessel vasospasm, minimal branch vessel atherosclerosis, or myocarditis is certainly still a consideration. Proceed with treatment including isosorbide mononitrate. Although inflammatory markers are negative, given the character of the discomfort, recommend treatment with colchicine 0.6 mg 1 time per day, first dose now. Patient stable from cardiology perspective for discharge. I will help arrange outpatient cardiac MRI and follow-up appointment.
[2024-09-16] MEDS: COLCHICINE 0.6 MG TAB PO ONE (13:40)
[2024-09-16 15:04] VITALS: BP 95/62; PULSE 66; RESP 17; O2SAT 97
--- NOTE | 2024-09-16 15:21 | Discharge Summary ---
Discharge Summary Date of Service September 16, 2024 Principal Dx & Hospital Course #1 = Principal Diagnosis (1) Coronary artery vasospasm: Plan Patient presented to the emergency room with complaints of chest pain. Troponin was mildly elevated. Patient was monitored in the hospital. There is no significant arrhythmias or significant EKG changes on telemetry monitoring. Troponins were monitored and essentially remained flat without significant delta. Echocardiogram was performed showed normal ejection fraction, no pericardial effusion or wall motion abnormalities. Cardiology consultation was obtained. They reviewed her previous cardiac testing. Did not recommend any inpatient cardiac testing at this time. CRP and ESR within normal ranges. They recommended restarting her Imdur and colchicine for coronary artery vasospasm and possibly a very mild component of myocarditis. With these interventions patient's symptoms completely resolved. Her vital signs are stable. She can be discharged home to follow-up with her PCP and outpatient cardiology. Cardiology coordinating outpatient cardiac MRI for ongoing evaluation as an outpatient. Notes For Next Care Provider Attempt to titrate Imdur up to at least 30 mg if blood pressure can tolerate Follow-up with cardiology as coordinated through their office Cardiac MRI as ordered by cardiology Medication Changes From Visit Imdur, daily Colchicine daily Admission HPI Per Admitting Provider History obtained from patient and records. Medical history significant for coronary vasospasm, bronchial asthma, GERD, anxiety/mood disorder. Last confinement March 2024 under obstetric service for abruptio placenta status post . Patient with intermittent achy headache symptoms different from prior episodes since last week. No head trauma. No arm or leg weakness. No nausea, no vomiting symptoms. Yesterday, patient experienced left-sided chest pain somewhat similar to chest pain during [facility] confinement last May 2023. Diagnostic cardiac catheterization showed 1. Angiographically normal major epicardial coronary arteries 2. Vasospasm versus mild diffuse disease in very small distal nondominant RCA 3. Normal intracardiac filling pressure Amlodipine recommended on discharge by lumber tripper. Chest pain slightly responsive to nitroglycerin at home. Worsening headache after nitro Rx at home. Chest pain different from heartburn as per patient. 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 Lungs: Clear to auscultation, decreased, no wheezes rales or rhonchi CV: S1-S2, regular, no murmur Abdomen: Soft, nontender, nondistended Extremities: No significant edema Neuro: No focal deficits Psych: Cooperative, normal mood Updated Medication List Medication Instructions Recorded Confirmed Type trazodone 50 mg tablet 75 mg PO HS 06/13/23 09/15/24 History colchicine 0.6 mg tablet (Colcrys) 0.6 mg PO QAM #30 tabs 09/16/24 Rx isosorbide mononitrate 30 mg 15 mg (1/2 x 30 mg) PO QAM #30 tabs 09/16/24 Rx tablet,extended release 24 hr montelukast 10 mg PO HS 09/16/24 09/16/24 History Hospital Stay Data Consultations 09/15/24 19:38 ED Decision to Admit Stat 09/16/24 03:06 Consult Cardiology Routine Diagnostic Imagining Performed 09/15/24 17:26 CTA chest dissec wo/w con [CT angio chest dissec wo/w con] Stat 09/15/24 23:18 CT head/brain wo con Stat 09/15/24 23:19 CT Abd and Pelvis [CT abd pelvis wo con] Stat Reviewed imaging, laboratory and diagnostic studies. Pertinent findings as below. TSH 2.1 BMP stable ESR 2 CRP 0.51 Troponins 28.8 decreased to 26.5 CBC stable Echocardiogram: Ejection fraction 60 to 65%, no wall motion abnormalities, no evidence of pulmonary hypertension, normal RV functioning, I refer to full report for details Pending Results Patient Have Any Pending Studies at Discharge: No Discharge Instructions Given to Patient (Per Discharging Provider) Follow-up with cardiology as coordinated through their office, they will be setting you up for a cardiac MRI Total Time Total Time Spent Total Time Spent (In Minutes): 35
[2024-09-16] MEDS ORDERED: MONTELUKAST SODIUM 10 MG TABLET PO SCH (21:00)
[2024-09-17] MEDS ORDERED: COLCHICINE 0.6 MG TAB PO SCH (09:00)
== END 2024-09-16 16:01 | disposition home or self-care (01) ==
LOC: ED 16:34 → 2S 16:34
DX: K21.9 Gastro-esophageal reflux disease without esophagitis; R51.9 Headache, unspecified; R79.89 Other specified abnormal findings of blood chemistry; J45.909 Unspecified asthma, uncomplicated; Z79.899 Other long term (current) drug therapy; Z91.09 Other allergy status, other than to drugs and biological substances; I20.1 Angina pectoris with documented spasm; R94.31 Abnormal electrocardiogram [ECG] [EKG]; Z88.0 Allergy status to penicillin; F41.9 Anxiety disorder, unspecified; F39 Unspecified mood [affective] disorder; Z82.49 Family history of ischemic heart disease and other diseases of the circulatory system; Z20.822 Contact with and (suspected) exposure to COVID-19; R00.1 Bradycardia, unspecified; Z87.891 Personal history of nicotine dependence

== ENCOUNTER 2024-09-23 20:18 | Observation (INO) ==
[2024-09-23 20:45] LABS: Basophils # (auto) 0.06 K/uL (0.00-0.20); Basophils % (auto) 1.1 %; Eosinophils # (auto) 0.13 K/uL (0.00-0.50); Eosinophils % (auto) 2.3 %; Hematocrit (blood only) 39.1 % (37.0-47.0); Hemoglobin 13.3 g/dl (12.0-16.0); Immature Granulocytes # (auto) 0.02 K/uL (0.01-0.20); Immature Granulocytes % (auto) 0.4 %; Lymphocytes # (auto) 2.15 K/uL (1.20-3.40); Lymphocytes % (auto) 38.4 %; Mean Corpuscular Hemoglobin 29.9 pg (25.0-34.0); Mean Corpuscular Volume 87.9 fL (80.0-100.0); Mean Platelet Volume 9.3 fL (9.4-12.4); Monocytes # (auto) 0.32 K/uL (0.11-0.59); Monocytes % (auto) 5.7 %; Neutrophils # (auto) 2.92 K/uL (1.40-6.50); Neutrophils % (auto) 52.1 %; Platelet Count 253 K/uL (130-400); RDW Coefficient of Variation 12.7 % (11.5-14.5); RDW Standard Deviation 40.9 fL (36.4-46.3); Red Blood Count 4.45 M/uL (4.20-5.40)
[2024-09-23 20:59] LABS: Albumin Globulin Ratio 1.5 (0.9-2); Albumin Level 4.6 gm/dl (3.4-5.0); BUN Creatinine Ratio 9.6 (10-20); Bilirubin,Total 0.6 mg/dl (0.2-1.0); Calcium 9.1 mg/dl (8.6-10.3); Creatinine Clr Calc Pharmacy 90.4 ml/min; Potassium 3.4 mmol/L (3.5-5.1); Total Protein 7.6 gm/dl (6.0-8.3)
[2024-09-23 21:06] LABS: Troponin I High Sensitivity 24.6 pg/ml (0-14)
--- NOTE | 2024-09-23 21:53 | Emergency Department Note ---
ED Provider Note CHIEF COMPLAINT: Chest pain HISTORY OF PRESENT ILLNESS: This 39-year-old female patient presents to the emergency department via private vehicle for evaluation of chest pain that radiates into her back, and left arm for approximately 1 week. The patient has a pmh of elevated troponin with NSTEMI, in August of 2024. She reports she was discharged from this facility on 09/16, and has continued to have chest pain since that time. She states she followed up with cardiology who stated she needed cardiac MRI to rule out REVIEW OF SYSTEMS: A review of systems was performed with positives and pertinent negatives listed in the history of present illness. All other systems were reviewed and are negative. ALLERGIES: [] MEDICATIONS: [] PMH: [] PHYSICAL EXAM: VITALS: Vitals are noted on the nurse's note and reviewed by myself. Vital signs stable. GENERAL: [], in no acute distress, nondiaphoretic, well-developed well- nourished. SKIN: The skin was without rashes, erythema, edema, or bruising. HEAD: Normocephalic atraumatic. EARS: External auditory canals clear, tympanic membranes pearly alas without erythema or effusion bilaterally. EYES: Pupils equal round and reactive to light and accommodation. Conjunctivae without injection, sclerae without icterus. Extraocular movements intact. NOSE: Patent, turbinates without inflammation or discharge. No sinus tenderness. MOUTH: Mucous membranes moist. Tonsils are not enlarged. Pharynx without erythema or exudate. Uvula midline. Airway patent. Tongue does not deviate. NECK: Supple without nuchal rigidity. No lymphadenopathy. No thyromegaly. Cervical spine is nontender. No JVD. HEART: Regular rate and rhythm without murmurs gallops or rubs. LUNGS: Clear to auscultation bilaterally without wheezes, rales or rhonchi. No retractions or accessory muscle use. ABDOMEN: Positive bowel sounds x 4. Soft, nontender, without masses or organomegaly. Knowles sign negative. No guarding or rebound tenderness. MUSCULOSKELETAL: No muscle atrophy, erythema, or edema noted. Full range of motion without joint tenderness in all extremities. No tenderness to palpation. Normal gait. Strength 5/5 throughout. NEURO: Patient was alert and oriented to person place and time. No focal neurological deficits. MEDICAL DECISION MAKING: DIFFERENTIAL DIAGNOSIS: [] The chart was completed utilizing Dragon Speech voice recognition software. Grammatical errors, random word insertions, pronoun errors, and incomplete sentences are an occasional consequence of this system due to software limitations, ambient noise, and hardware issues. Any formal questions or concerns about the content, text, or information contained within the body of this dictation should be directly addressed to the physician for clarification. Past Med/Surg History Problem List (Updated 09/16/24 @ 15:17 by Erasto Sanchez DO) Coronary artery vasospasm Non-ST elevation MT (NSTEMI) (Acute) Chest pain (Acute) Delivery by section using transverse incision of lower segment of uterus Irregular uterine contractions Headache in Acute viral bronchitis (Acute) Elevated troponin I level (Acute) Chest pain (Acute) RSV (respiratory syncytial virus infection) (Acute) Headache (Acute) COVID-19 virus infection (Acute) Injury of conjunctiva and corneal abrasion of left eye w/o FB (Acute) Triplet gestation in second trimester Abdominal pain affecting Nausea and vomiting during Diarrhea Back pain affecting in second trimester Medical History Placental abruption Vaginal bleeding during Grand multiparity Insomnia Seasonal allergies Spontaneous vaginal delivery [facility] 08/07/2007 [facility] 04/13/2010 [facility] 08/23/2015 [facility] 11/08/21 Encounter for pre-operative examination Herniated disc, cervical Surgical History History of low transverse section H/O abdominoplasty 2010 History of breast augmentation 2010 [place] teeth extracted 2020 History of appendectomy 2009 Family History Grandmother (Maternal) Diabetes Brother Diabetes Social History Smoking Status: Never smoker Tobacco Type: Cigarettes Second Hand Exposure: No; Hx Alcohol Use: No Hx Substance Use: No Preferred Language: Kiswahili Communication Ability: Effective Wellness Guide Required: No Beliefs That Will Affect Care: None marital status: marital status details: Alber Hughes Current Living Situation: Family Current Living Situation Comment: spouse, 7 children current occupational status: unemployed Feels Safe at Home: Yes Safety Concerns: Feels Safe At This Time Assistive Devices: Glasses Allergies Allergies Allergy/AdvReac Type Severity Reaction Status Date / Time amoxicillin Allergy Intermediate Hives Verified 09/15/24 20:35 pollen extracts Allergy Intermediate ITCHY Verified 09/15/24 20:35 EYES, SNEEZING, CONGESTION cat dander Allergy Unknown Verified 09/15/24 20:35 dog dander Allergy Unknown Verified 09/15/24 20:35 ragweed pollen Allergy Unknown Verified 09/15/24 20:35 Home Meds Home Medications Medication Instructions Recorded Confirmed trazodone 50 mg tablet 75 mg PO HS 06/13/23 09/24/24 isosorbide mononitrate 30 mg 30 mg PO QAM 09/24/24 09/24/24 tablet,extended release 24 hr Results & Data (ED) Vital Signs Vital Signs - 24 hr 09/23/24 20:21 09/23/24 21:22 09/23/24 21:25 Temperature 36.6 C Temperature Source Temporal Artery Scan Pulse Rate 70 73 Pulse Rate [Apical] 68 Pulse Rhythm [Apical] Regular Pulse Strength [Apical] Normal Respiratory Rate 18 12 Respiratory Effort / Characteristics Non-Labored Spontaneous Non-Labored Spontaneous Respiratory Depth Normal Normal Respiratory Pattern Regular Blood Pressure 145/97 H Blood Pressure [Right Arm] 130/87 Blood Pressure Mean 113 Blood Pressure Mean [Right Arm] 101 Blood Pressure Position [Right Arm] Sitting Pulse Oximetry 100 100 Oxygen Delivery Method Room Air Room Air Sepsis Recent Fever Within 48 Hours No Sepsis New/Unexplained Change in Mental Status No Sepsis Action Taken by Nursing No Action Required 09/23/24 23:00 09/23/24 23:00 09/24/24 01:00 Temperature Temperature Source Pulse Rate Pulse Rate [Apical] 70 62 Pulse Rhythm [Apical] Regular Regular Pulse Strength [Apical] Normal Normal Respiratory Rate 18 18 Respiratory Effort / Characteristics Non-Labored Spontaneous Non-Labored Spontaneous Respiratory Depth Normal Normal Respiratory Pattern Regular Regular Blood Pressure Blood Pressure [Right Arm] 125/92 129/90 Blood Pressure Mean Blood Pressure Mean [Right Arm] 103 103 Blood Pressure Position [Right Arm] Semi-fowlers Semi-fowlers Pulse Oximetry 100 100 98 Oxygen Delivery Method Room Air Room Air Room Air Sepsis Recent Fever Within 48 Hours Sepsis New/Unexplained Change in Mental Status Sepsis Action Taken by Nursing 09/24/24 01:20 09/24/24 03:00 Temperature Temperature Source Pulse Rate 63 Pulse Rate [Apical] 63 Pulse Rhythm [Apical] Pulse Strength [Apical] Respiratory Rate 16 Respiratory Effort / Characteristics Non-Labored Spontaneous Respiratory Depth Normal Respiratory Pattern Regular Blood Pressure Blood Pressure [Right Arm] Blood Pressure Mean Blood Pressure Mean [Right Arm] Blood Pressure Position [Right Arm] Pulse Oximetry 100 Oxygen Delivery Method Room Air Sepsis Recent Fever Within 48 Hours Sepsis New/Unexplained Change in Mental Status Sepsis Action Taken by Nursing Laboratory Data 09/23/24 20:29 09/23/24 20:29 Lab Results 09/23/24 09/23/24 Range/Units 20: 22:29 WBC 5.60 (4.8-10.8) K/ul RBC 4.45 (4.20-5.40) M/uL Hgb 13.3 (12.0-16.0) g/dl Hct 39.1 (37.0-47.0) % MCV 87.9 (80.0-100.0) fL MCH 29.9 (25.0-34.0) pg MCHC 34.0 (32.0-36.0) g/dL RDW Std Deviation 40.9 (36.4-46.3) fL RDW Coeff of Jermain 12.7 (11.5-14.5) % Plt Count 253 (130-400) K/uL MPV 9.3 L (9.4-12.4) fL Immature Gran % (Auto) 0.4 % Neut % (Auto) 52.1 % Lymph % (Auto) 38.4 % Thayer % (Auto) 5.7 % Eos % (Auto) 2.3 % Baso % (Auto) 1.1 % Neut # (Auto) 2.92 (1.40-6.50) K/uL Lymph # (Auto) 2.15 (1.20-3.40) K/uL Thayer # (Auto) 0.32 (0.11-0.59) K/uL Eos # (Auto) 0.13 (0.00-0.50) K/uL Baso # (Auto) 0.06 (0.00-0.20) K/uL Immature Gran # (Auto) 0.02 (0.01-0.20) K/uL D-Dimer 440 (0-500) ug/L FEU Sodium 136 (136-145) mmol/L Potassium 3.4 L (3.5-5.1) mmol/L Chloride 106 (98-107) mmol/L Carbon Dioxide 24 (21-32) mmol/L Anion Gap 6 (3-11) BUN 7 (6-23) mg/dl Creatinine 0.73 (0.6-1.2) mg/dl Est Cr Clr Drug Dosing 90.4 ml/min eGFR 108.56 BUN/Creatinine Ratio 9.6 L (10-20) Glucose 100 H (70-99(Fasting)) mg/dl Calcium 9.1 (8.6-10.3) mg/dl Total Bilirubin 0.6 (0.2-1.0) mg/dl AST 14 (13-39) U/L ALT 17 (7-52) U/L Alkaline Phosphatase 45 (34-104) U/L Troponin I High Sens 24.6 H 21.9 H (0-14) pg/ml Total Protein 7.6 (6.0-8.3) gm/dl Albumin 4.6 (3.4-5.0) gm/dl Globulin 3.0 (2.5-4.0) gm/dl Albumin/Globulin Ratio 1.5 (0.9-2) Lipase 36 (11-82) U/L Administered Medications Discontinued Medications Hydromorphone HCl (Hydromorphone Inj 0.5 Mg/0.5 Ml Syr) 0.25 mg IV NOW STA Stop: 09/24/24 03:31 Last Admin: 09/24/24 03:52 Dose: 0.25 mg Documented By: SHANITA Ketorolac Tromethamine (Ketorolac Tromethamine 15 Mg/Ml Vial) Confirm Administered Dose 15 mg .ROUTE .STK-MED ONE Stop: 09/23/24 23:25 Last Admin: 09/23/24 23:26 Dose: Not Given Documented By: DELILAH Ketorolac Tromethamine (Ketorolac Tromethamine 15 Mg/Ml Vial) 15 mg IV NOW ONE Stop: 09/23/24 23:25 Last Admin: 09/23/24 23:26 Dose: 15 mg Documented By: DELILAH Morphine Sulfate (Morphine Sulfate 4 Mg/Ml 1 Ml Carp\Vial) 4 mg IV NOW STA Stop: 09/24/24 00:17 Last Admin: 09/24/24 00:46 Dose: 4 mg Documented By: IDD Imaging Data Radiologist's Impression: Chest X-Ray 09/23/24 20:23 Exam(s): XR CXR 1 VIEW EXAM: XR Chest, 1 View CLINICAL HISTORY: Reason for exam: Chest pain, nonspecific. TECHNIQUE: Frontal view of the chest. COMPARISON: 09/15/2024 FINDINGS: Lungs: Unremarkable. No consolidation. Pleural space: Unremarkable. No pneumothorax. Heart: Unremarkable. No cardiomegaly. Mediastinum: Unremarkable. Normal mediastinal contour. Bones/joints: Unremarkable. No acute fracture. IMPRESSION: No evidence of acute cardiopulmonary process. Electronically signed by: New Camacho MD 09/23/24 22:05 PM Discharge Plan Visit Data Chief Complaint: Chest Pain Stated Complaint: CHEST PAIN,GOING DOWN BACK, WEAK LT ARM ED Provider: Randall Gonzalez ED Midlevel Provider: Court Rey Patient Disposition: Admitted As Inpatient Discharge Instructions Interventions: ED Discharge Assessment Last Done: 09/24/24 04:20
--- NOTE | 2024-09-23 22:06 | XRay Report ---
Exam(s): XR CXR 1 VIEW EXAM: XR Chest, 1 View CLINICAL HISTORY: Reason for exam: Chest pain, nonspecific. TECHNIQUE: Frontal view of the chest. COMPARISON: 09/15/2024 FINDINGS: Lungs: Unremarkable. No consolidation. Pleural space: Unremarkable. No pneumothorax. Heart: Unremarkable. No cardiomegaly. Mediastinum: Unremarkable. Normal mediastinal contour. Bones/joints: Unremarkable. No acute fracture. IMPRESSION: No evidence of acute cardiopulmonary process. Electronically signed by: New Camacho MD 09/23/24 22:05 PM
[2024-09-23 22:40] LABS: D Dimer 440 ug/L FEU (0-500)
[2024-09-23] MEDS: KETOROLAC TROMETHAMINE 15 MG/ML VIAL ONE (23:26)
[2024-09-23] MEDS: KETOROLAC TROMETHAMINE 15 MG/ML VIAL IV ONE (23:26)
--- OUTSIDE RECORDS SUMMARY | 2024-09-23 23:58 | External Medical Summary | Summary of Care ---
Author Name Unknown Organization [facility] Address [address] [place] [address] Phone [phone] Care Team Providers Care Adult Probation Officer Name Role Phone Alicia Bell Primary Care Provider Reason for Visit * Reason Onset Date Comments Medication Refill 09/21/2024 Encounter Details Date Type Department Care Team ([facility] st Contact Info) Description 09/21/2024 Refill Family Practice [facility] [address] [place], [place] [id number] Alicia Bell CRNP [address] [place] [address] Allergies Active Allergy Reactions Criticality Noted Date Comments Amoxicillin-Pot Clavulanate Rash 06/29/20 17 Pollen Hives High 02/28/2017 Dust,ragweed,mold,dog and cat dander. documented as of this encounter (statuses as of 09/21/2024) Medications Montelukast Sodium 10 MG Oral Tablet [...] Active Additional Information Patient not taking.Reported on 09/20/2024 Nitroglycerin 0.4 MG Sublingual Tablet Sublingual (Nitrostat) Place 1 Tablet under the tongue every 5 minutes as needed for Pain, Chest. 25 Tablet 1 4 Active Ibuprofen 800 MG Oral Tablet (Motrin) Take 1 Tablet by mouth every 8 hours as needed for Pain, Severe. with food for pain 30 Tablet 1 4 Active Additional Information Patient not taking.Reported on 09/20/2024 traZODone HCl 50 MG Oral Tablet (Desyrel)Indicat ions:Primary insomnia TAKE 1 & 1/2 (ONE & ONE-HALF) TABLETS BY MOUTH AT BEDTIME 135 Tablet 4 Active Ventolin HFA 108 (90 Base) MCG/ACT Inhalation Aerosol SolutionIndicati ons:Atypical pneumonia,Wheezi ng Inhale 2 Puffs by mouth every 4 hours as needed for Wheezing. 18 g 2 4 Active Additional Information Patient not taking.Reported on 09/20/2024 Colchicine 0.6 MG Oral Tablet TAKE 1 TABLET BY MOUTH ONCE DAILY IN THE MORNING 4 Active Isosorbide Mononitrate ER 30 MG Oral Tablet Extended Release 24 Hour (Imdur) 0.5 Tablets. 4 Active documented as of this encounter (statuses as of 09/21/2024) Active Problems Problem Noted Date Diagnosed Date Overweight (BMI 25.0-29.9) 08/09/2024 Gastroesophageal reflux disease without esophagi tis 08/09/2024 Iron deficiency anemia 01/24/2024 Coronary vasospasm 08/24/2023 Overview (08/30/2023): Diagnosed in May 2023 after evaluation at [facility] for chest pain. Suspected during evaluation with [...] as of this encounter (statuses as of 09/21/2024) Resolved Problems Problem Noted Date Diagnosed Date [...] of congenital anomalies. Family history of DVT 08/30/20234 Overview (08/30/2023): Mother with hx of VTE. [...] cffDNA screening, and testing was coordinated by [facility]. In addition to the risk of chromosomal [...] delivery at 36-37 weeks without amniocentesis per [employer]. Every effort should be made by patient s primary OB provider to obtain prior operative reports. 2. 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 Yakelin is taking extra folate and iron and will order her vitamin from [employer]. We also discussed nausea and vomiting as Yakelin is currently only taking unisom. She can add Vit B6 25 mg tid; often helpful in the form of a lollipop which can also be ordered via [employer]. Sniffing and alcohol wipe is also a [...] may not be caused by Zofran. (See https://mothertobaby.org/fact-sheets/dknmzbinlzo-xdjdwm-tnigwtkqn/). Use should not be discouraged in patients [...] at least one child with a major polisher hand handicap related to prematurity, including cerebral palsy. [...] as of this encounter (statuses as of 09/21/2024) Immunizations Name Administration Dates Next Due COVID-19 mRNA, LNP-s, No Pre serve, 2-Dose Series (Nimbus Data) 08/26/2021,01/06/2021,12/02/2020 DTaP Dipth/Tet/Acell Pertussis (Infanrix), Peds 08/23/2015 MMR [...] Recorded PHQ Adult Total Score 0 01/01/2024 [facility] [...] money to get more. Never true 06/18/2024 [place] Depression Scale Answer Date Recorded [place] Depression Scale Total 2 03/15/2024 The thought [...] encounter Miscellaneous Notes * Telephone Encounter - Celi Malone CPhT - 09/21/2024 10:22 AM EST Called [facility]- they are filling last refill for pt Pt calling to request nitroglycerin. Informed pt that RX is available at their pharmacy. Pt verbalized understanding and stated they will check with their pharmacy regarding this medication. Thank you, Celi Malone CPhT II Director Education [facility] 09/21/2024, 10:28 AM documented in this encounter Plan of Treatment Upcoming Encounters Date Type Department Care Team (Late st Contact Info) Description 09/23/2024 9:30 AM EST Imaging Radiology [facility] [facility] [address] [facility] [place] [id number] 09/24/2024 9:15 AM EST Office Visit General Surgery, [facility] [address] [place] [address] Lilian Castañeda MD [address] [facility] [place] [address] Health Maintenance Due Date Last Done Comments Hepatitis B Vaccine (1 of 3 - 19+ 3-dose series) 2006 Depression Screening 12/31/2024 01/01/2024 Pap Smear 05/02/2027 05/02/2024, 01/19/2021 Diabetes Screening 09/20/2027 09/20/2024, 1 10/09/2023, 06/11/2024, Additional history exists Cervical Cancer Screening 05/02/2029 HPV/Co-Test 05/02/2029 05/02/2024 DTap/Tdap Vaccines (4 - Td or Tdap) 01/16/2034 01/17/2024, 08/25/2021, 08/23/2015 COVID-19 Vaccine Discontinued 08/26/2021, , 12/02/2020 Influenza Vaccine (FLU shot) Completed 08/26/2024, 06/20/2023, 08/31/2022, Additional history exists HPV (Gardasil) [...] Power of Attor nely? No Care Teams Adult Probation Officer Relationship Specialty Start Date End Date Alicia Bell CRNP [address] [place] [address] PCP - General Nurse Practitioner 05/28/24 documented as of this encounter
--- OUTSIDE RECORDS SUMMARY | 2024-09-23 23:58 | External Medical Summary | Summary of Care ---
Author Name Unknown Organization [facility] Address [address] [place] [address] Phone [phone] Care Team Providers Care Laboratory Director Name Role Phone Ray Alicia MALONE Primary Care Provider Reason for Visit * Reason Onset Date Comments Hospital Follow-Up [facility] 09/15/24 -09/16/24 for coronary artery vasospasm. Chest pain and headaches persist along with occasional lightheadedness. Cardiac MRI and cardiology appts scheduled. Hospital Follow-Up 09/20/2024 Encounter Details Date Type Department Care Team (Late st Contact Info) Description 09/20/2024 11:00 AM EST Office Visit Family [facility] [address] [facility] [place] [address] Genesis Sanchez MD [address] [place] [id number] Hospital discharge follow-up*; Coronary vasospasm (HCC) Allergies Active Allergy Reactions Criticality Noted Date Comments Amoxicillin-Pot Clavulanate Rash 06/29/20 17 Pollen Hives High 02/28/2017 Dust,ragweed,mold,dog and cat dander. documented as of this encounter (statuses as of 09/20/2024) Medications Montelukast Sodium 10 MG Oral Tablet [...] 09/20/2024 traZODone HCl 50 MG Oral Tablet (Desyrel)Indica [...] 24 Hour (Imdur) 0.5 Tablets. 4 Active Doxycycline Hyclate 100 MG Oral CapsuleIndicati ons:Atypical pneumonia Take 1 Capsule by mouth in the morning and 1 Capsule before bedtime. Do all this for 10 days. Until gone.. 20 Capsule 4 025 Discontin ued(Medic ation List Clean Up) documented as of this encounter (statuses as of 09/20/2024) Active Problems Problem Noted Date Diagnosed Date [...] as of this encounter (statuses as of 09/20/2024) Resolved Problems Problem Noted Date Diagnosed Date [...] cffDNA screening, and testing was coordinated by [facility]. In addition to the risk of chromosomal [...] delivery at 36-37 weeks without amniocentesis per [employer]. Every effort should be made by patient s primary OB provider to obtain prior operative reports. 2. 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 Recommend c/s in this case. [facility] is scheduled for next week so that Yakelin can meet with NICU staff to further discuss delivery expectations. Precautions reviewed; if there is an emergency couple is to present to the nearest hospital for evaluation/transfer; if Yakelin is having contractions that are regular, painful, and at least every 10 minutes x 1 hour, they should call and likely present to [facility]. Assessment & Plan (11/17/2022 1:34 PM EST): [...] surveillance should begin at 30 weeks per [facility] protocol for di-tri triplets. Yakelin is taking extra folate and iron and will order her vitamin from [employer]. We also discussed nausea and vomiting as Yakelin is currently only taking unisom. She can add Vit B6 25 mg tid; often helpful in the form of a lollipop which can also be ordered via [employer]. Sniffing and alcohol wipe is also a [...] may not be caused by Zofran. (See https://mothertobaby.org/fact-sheets/dnvfzqdhisg-uqvjbw-vgvigtxfr/). Use should not be discouraged in patients [...] at least one child with a major watermelon inspector handicap related to prematurity, including cerebral palsy. [...] as of this encounter (statuses as of 09/20/2024) Immunizations Name Administration Dates Next Due COVID-19 mRNA, LNP-s, No Pre serve, 2-Dose Series ([employer]) 08/26/2021,01/06/2021,12/02/2020 DTaP Dipth/Tet/Acell Pertussis ([employer]an[employer]), Peds 08/23/2015 [...] Recorded PHQ Adult Total Score 0 01/01/2024 [facility] - Occupational [...] money to get more. Never true 06/18/2024 Brewster Depression Scale Answer Date Recorded Brewster Depression Scale Total 2 03/15/2024 The thought [...] Sign Reading Time Taken Comments Blood Pressure 138/86 09/20/2024 11:10 AM EST Pulse 64 09/20/2024 11:10 AM EST Temperature - - Respiratory Rate - - Oxygen Saturation 99% 09/20/2024 11:10 AM EST Inhaled Oxygen Concentration - - Weight 66 kg (145 lb 9.6 oz) 09/20/2024 11:10 AM EST Height - - Body Mass Index 27.51 09/10/2024 7:48 AM EST documented in this [...] of Assessment Author No 07/24/2018 10:26 AM Macye Henry RN documented as of this encounter Mental Status * Because of a physical, mental, or emotional condition, do you have serious difficulty concentrating, remembering, or making decisions? (5 years old or older) Answer Entry Date Author No 07/24/2018 10:26 AM Macey Henry RN documented in this encounter Patient Instructions * Patient Instructions* Genesis Sanchez MD - 09/20/2024 11:54 AM EST Homework: -- for next few days, check your BP before taking Imdur. If BP is 130/80 or higher, take a whole tablet (30mg). Otherwise take 1/2 tablet. -- try to be consistent with colchicine. If diarrhea doesn't improve, please let Dr Jean know. documented in this encounter Progress Notes * Genesis Sanchez MD - 09/20/2024 11:27 AM EST SUBJECTIVE: Yakelin Hughes is a 39 year old female. Chief Complaint Patient presents with Hospital Follow-Up [facility] 09/15/24-09/16/24 for coronary artery vasospasm. Chest pain and headaches persist along with occasional lightheadedness. Cardiac MRI and cardiology appts scheduled. Hospital Follow-Up Recent Admission: Patient was recently admitted to [facility] 09/15/24. The date of discharge was 09/16/24. Discharge report received and reviewed. HPI: Admitted for chest pain, mildly elevated troponin. Saw Dr Jean. Echocardiogram was normal without effusion or regional wall motion abnormalities. Recommended isosorbide and colchicine for coronary spasm and possible mild myocarditis. Outpatient cardiac MRI recommended. Of note, previous cardiaccatheterization 05/[address] Garcia showed normal major vessels with vasospasm versus mild diffuse disease and a very small distal non dominant right coronary artery. Discharge recommendations: Titrate Imdur to 30 mg if blood pressure can tolerate. Outpatient Cardiology follow-up Since discharge has still had chest pain. Is not worsening. Is definitely better than before she went to the hospital. Is able to do her daily tasks. Did not take her Imdur today as she normally takes with food and she has not yet eaten. Has missed some colchicine doses. Staying home with infant. 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 Patient Active Problem List Diagnosis Chronic insomnia [...] 3 Tablets before bedtime. 30 Tablet 5 Nitroglycerin 0.4 MG Sublingual Tablet Sublingual (Nitrostat) Place 1 Tablet under the tongue every5 minutes as needed for Pain, Chest. 25 Tablet 1 traZODone HCl 50 MG Oral Tablet (Desyrel) TAKE 1 & 1/2 (ONE & ONE-HALF) TABLETS BY MOUTH ATBEDTIME 135 Tablet 0 Colchicine 0.6 MG Oral Tablet TAKE 1 TABLET BY MOUTH ONCE DAILY IN THE MORNING Isosorbide Mononitrate ER 30 MG Oral Tablet Extended Release 24 Hour (Imdur) 0.5 Tablets. Fluticasone Propionate 50 MCG/ACT Nasal Suspension (Flonase) Administer 2 Sprays into each nostril in the morning. (Patient not taking: Reported on 09/20/2024) 16 mL 0 Ibuprofen 800 MG Oral Tablet (Motrin) Take 1 Tablet by mouth every 8 hours as needed for Pain, Severe. with food for pain (Patient not taking: Reported on 09/20/2024) 30 Tablet 1 Ventolin HFA 108 (90 Base) MCG/ACT Inhalation Aerosol Solution Inhale 2 Puffs by mouth every 4 hours as needed for Wheezing. (Patient not taking: Reported on 09/20/2024) 18 g 2 No current facility-administered medications for this visit. Current and discharge medications have been reconciled. Review of patient's allergies indicates: Allergen Reactions Environmental [Pollen] Hives Dust,ragweed,mold,dog and cat dander. Augmentin [Amoxicillin-Pot Clavulanate] Rash OBJECTIVE: BP 138/86 (BP Site: Left Arm, BP Position: Sitting, BP Cuff Size: Regular) | Pulse 64 | Wt 145 lb 9.6 oz (66 kg) | LMP 08/31/2024 | SpO2 99% | BMI 27.51 kg/m | BSA 1.69 m REVIEW OF SYSTEMS: Review of Systems Constitutional: Negative for fever and unexpected weight change. HENT: Positive for sneezing. Negative for trouble swallowing. Tinnitus: imdur. Eyes: Negative for visual disturbance. Respiratory: Negative for cough and wheezing. Occ feels like has to take deep breath, but that hurts chest Cardiovascular: Positive for chest pain (not as bad, but still present.). Negative for palpitationsand leg swelling. Chest pain worse laying back, better leaning forward. Increase in chest pain in the 1-2 hrs before taking Imdur, big headache after taking. Mild dizziness with position changes Hasn't taken Imdur yet. BP cuff at home (wrist, hold against heart) - was still 138/80-90 hours after taking Imdur. Gastrointestinal: Positive for diarrhea (2x/day, large amounts, lots of cramping. no blood.). Negative for blood in stool, nausea and vomiting. Genitourinary: Negative for dysuria, frequency and vaginal bleeding. Musculoskeletal: Negative for arthralgias and joint swelling. Skin: Negative for rash. Neurological: Negative for seizures and numbness. Psychiatric/Behavioral: Positive for sleep disturbance (always been a bad sleeper). PHYSICAL EXAM: BP 138/86 (BP Site: Left Arm, BP Position: Sitting, BP Cuff Size: Regular) | Pulse 64 | Wt 145 lb 9.6 oz (66 kg) | LMP 08/31/2024 | SpO2 99% | BMI 27.51 kg/m | BSA 1.69 m Physical Exam Vitals and nursing note reviewed. Constitutional: General: She is not in acute distress. Appearance: Normal appearance. She is not ill-appearing. HENT: Head: Normocephalic and atraumatic. Eyes: Pupils: Pupils are equal, round, and reactive to light. Neck: Thyroid: No thyroid mass, thyromegaly or thyroid tenderness. Cardiovascular: Rate and Rhythm: Normal rate and regular rhythm. Heart sounds: No murmur heard. No friction rub. Pulmonary: Effort: Pulmonary effort is normal. Breath sounds: Normal breath sounds. Musculoskeletal: Right lower leg: No edema. Left lower leg: No edema. Lymphadenopathy: Cervical: No cervical adenopathy. Skin: General: Skin is warm and dry. Neurological: Mental Status: She is alert. ASSESSMENT: Hospital discharge follow-up (Primary) - DISCH MED RECON CUR MED LIS Coronary vasospasm (HCC) Patient Instructions Homework: -- for next few days, check your BP before taking Imdur. If BP is 130/80 or higher, take a whole tablet (30mg). Otherwise take 1/2 tablet. -- try to be consistent with colchicine. If diarrhea doesn't improve, please let Dr Jean know. I spent a total of 30-39 minutes (exact time 35 mins) minutes on the date of service in preparation, delivery, and documentation of the care provided to Yakelin Hughes excluding any time spent in performance of separately billed services. Genesis Sanchez MD documented in this encounter Plan of Treatment Upcoming Encounters Date Type Department Care Team (Late st Contact Info) Description 09/23/2024 9:30 AM EST Imaging Radiology [facility]st [facility] [address] [place] [address] 09/24/2024 9:15 AM EST Office Visit General Surgery, [facility] [address] [place] [address] Lilian Castañeda MD [address] [facility] [place] [address] Health Maintenance Due Date Last Done Comments [...] DVT Family history of other cardiovascular diseases Hospital discharge follow-up- Primary Other follow-up examination Coronary vasospasm (HCC) Prinzmetal angina documented in [...] Power of Attor nely? No Care Teams Laboratory Director Relationship Specialty Start Date End Date Alicia Bell CRNP [address] [place] [address] PCP - General Nurse Practitioner 05/28/24 documented as of this encounter"
--- OUTSIDE RECORDS SUMMARY | 2024-09-23 23:58 | External Medical Summary | Summary of Care ---
Author Name Unknown Organization [facility] Address [address] [place] [address] Phone [phone] Care Team Providers Care Laborer [employer] Name Role Phone Alicia Bell Denise MALONE Primary Care Provider Reason for Visit * Reason Onset Date Comments Appointment 09/20/2024 Encounter Details Date Type Department Care Team ([facility] st Contact Info) Description 09/20/2024 [address]phone [address] [place] [address] Alejandra Feldman TECH Appointment Allergies Active Allergy Reactions Criticality Noted [...] BY MOUTH ONCE DAILY IN THE MORNING Active Isosorbide Mononitrate ER 30 MG Oral Tablet Extended Release 24 Hour (Imdur) 0.5 Tablets. 4 Active documented as of this encounter (statuses as of 09/20/2024) Active Problems Problem Noted Date Diagnosed Date Overweight (BMI 25.0-29.9) 08/09/2024 Gastroesophageal reflux disease without esophagi tis 08/09/2024 Iron deficiency anemia 01/24/2024 Coronary vasospasm 08/24/2023 Overview (08/30/2023): Diagnosed in May 2023 after evaluation at [facility] for chest pain. Suspected during [...] cffDNA screening, and testing was coordinated by [facility]. In addition to the risk of chromosomal abnormalities, there is an increased risk of congenital/structural anomalies. RECOMMENDATIONS: Recommend [facility] anatomy ultrasound at 19-20 weeks [...] delivery at 36-37 weeks without amniocentesis per [employer] [place] [employer]. Every effort should be made by patient s primary OB provider to obtain prior operative reports. 2. 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 Assessment & Plan (11/17/2022 1:34 PM EST): [...] surveillance should begin at 30 weeks per [facility] protocol for di-tri triplets. Yakelin is taking extra folate and iron and will order her vitamin from [employer]. We also discussed nausea and vomiting as Yakelin is currently only taking unisom. She can add Vit B6 25 mg tid; often helpful in the form of a lollipop which can also be ordered via [employer]. Sniffing and alcohol wipe is also a [...] may not be caused by Zofran. (See https://mothertobaby.org/fact-sheets/szjsudylugp-ztnlgd-mxwgakfvw/). Use should not be discouraged in patients [...] mRNA, LNP-s, No Pre serve, 2-Dose Series ([employer] 08/26/2021,01/06/2021,12/02/2020 DTaP Dipth/Tet/Acell Pertussis ([employer]an[employer]), Peds 08/23/2015 [...] Recorded PHQ Adult Total Score 0 01/01/2024 [facility] - Occupational Stress Questionnaire Answer Date [...] money to get more. Never true 06/18/2024 Verdi Depression Scale Answer Date Recorded Verdi Depression Scale Total 2 03/15/2024 The thought [...] No 06/18/2024 Does the household have a [facility] source of income? (Household - for ages [...] encounter Miscellaneous Notes * Telephone Encounter - Alejandra Feldman TECH - 09/20/2024 3:09 PM EST Name: Yakelin Hughes Do you have any of the following: Pacemaker, stents, heart valves, aneurysm clips? No Have you ever worked with metal or have you ever gotten metal in your eyes? No Have you had a colonoscopy in the last 30 days? No On dialysis? No Do you have any dermals or body piercing's? No or ? no Do you wear an insulin pump or diabetic monitor? No No new tattoos KWABENA Baugh documented in this encounter Plan of Treatment Upcoming Encounters Date Type Department Care Team (Late st Contact Info) Description 09/23/2024 9:30 AM EST Imaging Radiology [facility] 1st [facility] [address] [place] [address] 09/24/2024 9:15 AM EST Office Visit General Surgery, [facility] [address] [place] [address] Lilian Castañeda MD 132 [facility] [place] [address] Health Maintenance Due Date Last Done Comments [...] Power of Attor nely? No Care Teams Laborer [employer] Relationship Specialty Start Date End Date Alicia Bell CRNP [address] [place] [address] PCP - General Nurse Practitioner 05/28/24 documented as of this encounter
--- OUTSIDE RECORDS SUMMARY | 2024-09-23 23:58 | External Medical Summary | Summary of Care ---
Author Name Unknown Organization [facility] Address [address] [place] [address] Phone [phone] Care Team Providers Care National Coverage Specialist Name Role Phone Ray Alicia Densie MALONE Primary Care Provider Encounter Details Date Type Department Care Team (Late st Contact Info) Description 09/18/2024 Population Health External Data Unspecified Department Allergies Active Allergy Reactions Criticality Noted Date Comments Amoxicillin-Pot Clavulanate Rash 06/29/20 17 Pollen Hives High 02/28/2017 Dust,ragweed,mold,dog and cat dander. 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 Assessment & Plan (11/17/2022 [...] surveillance should begin at 30 weeks per [facility] protocol for di-tri triplets. Yakelin is taking extra folate and iron and will order her vitamin from [employer]. We also discussed nausea and vomiting as Yakelin is currently only taking unisom. She can add Vit B6 25 mg tid; often helpful in the form of a lollipop which can also be ordered via [employer]. Sniffing and alcohol wipe is also a [...] may not be caused by Zofran. (See https://mothertobaby.org/fact-sheets/ujwletjppcq-nqbavs-rrmyojpdd/). Use should not be discouraged in patients [...] at least one child with a major nursing home handicap related to prematurity, including cerebral [...] as of this encounter (statuses as of 09/18/2024) Immunizations Name Administration Dates Next Due COVID-19 mRNA, LNP-s, No Pre serve, 2-Dose Series ([employer]) 01/06/2021,12/02/2020 DTaP Dipth/Tet/Acell Pertussis ([employer]an[employer]), Peds 08/23/2015 [...] Total Score 0 01/01/2024 [facility] - Occupational Stress Questionnaire Answer Date Recorded [...] money to get more. Never true 06/18/2024 Williams Depression Scale Answer Date Recorded Williams Depression Scale Total 2 03/15/2024 The thought [...] Date Author No 07/24/2018 10:26 AM EST [place], Macey A, RN documented in this encounter Plan of Treatment Upcoming Encounters Date Type Department Care Team (Late st Contact Info) Description 09/20/2024 11:00 AM EST Office Visit Family Practice [facility] [address] [place] [address] Genesis Sanchez MD [address] [place] [address] 09/23/2024 9:30 AM EST Imaging Radiology [facility] 1st Floor, [place] [address] [place] [address] 09/24/2024 9:15 AM EST Office Visit General Surgery, [facility] [address] [facility] [place] [address] Lilian Castañeda MD [address] [place] [address] Health Maintenance Due Date Last Done Comments [...] Power of Attor nely? No Care Teams National Coverage Specialist Relationship Specialty Start Date End Date Alicia Bell CRNP [address] [place] [address] PCP - General Nurse Practitioner 05/28/24 documented as of this encounter
--- OUTSIDE RECORDS SUMMARY | 2024-09-23 23:58 | External Medical Summary ---
Author Name Unknown Address Unknown Organization [id number] [address] [place] [address] Laboratory Report Ordering Provider Test Date Status EDOUARD SANTOS 09/20/2024 12:52:55 Final Observation Date Value Abnormality Reference (Units ) Status BUN 09/20/2024 12:52:55 12 6-20 (mg/dL) Final Creatinine 09/20/2024 12:52:55 0.7 0.5-1.0 (mg/dL) Final Glomerular filtration rate/1.73 sq M.predicted [Volume Rate/Area] in Serum, Plasma or Blood by Creatinine-based formula (CKD-EPI) 09/20/2024 12:52:55 >90 >=60 (mL/min) Final eGFR is calculated based on the CKD-EPI 2020 equation. Sodium 09/20/2024 12:52:55 139 135-146 (m mol/L) Final Potassium 09/20/2024 12:52:55 4.2 3.5-5.1 (m mol/L) Final Cl 09/20/2024 12:52:55 103 98-107 (mm ol/L) Final CO2 09/20/2024 12:52:55 24 22-32 (mmo l/L) Final Anion gap 09/20/2024 12:52:55 12 7-15 (mmol /L) Final Glucose 09/20/2024 12:52:55 90 70-120 (mg /dL) Final Calcium 09/20/2024 12:52:55 9.2 8.4-10.2 ( mg/dL) Final Performing Location [facility] [address] [place] [address]
--- OUTSIDE RECORDS SUMMARY | 2024-09-23 23:58 | External Medical Summary | Summary of Care ---
Author Name Unknown Organization [facility] Address [address] [place] [address] Phone [phone] Care Team Providers Care Certified Medical Coding Specialist Name Role Phone Ronaldhilary Alicia Denise MALONE Primary Care Provider Reason for Visit * Reason Comments Outpatient Testing Encounter Details Date Type Department Care Team (Late st Contact Info) Description 09/20/2024 12:50 PM EST Laboratory Laboratory, [facility] [address] [place] [address] [facility] [address] [place] [address] [employer] Other*[id number]; Other chest pain; Subacute idiopathic myocarditis Allergies Active Allergy Reactions Criticality Noted Date [...] cffDNA screening, and testing was coordinated by [facility]. In addition to the risk of [...] delivery at 36-37 weeks without amniocentesis per [employer]. Every effort should be made by patient s primary OB provider to obtain prior operative reports. 2. 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 Assessment & Plan (11/17/2022 1:34 PM EST): [...] surveillance should begin at 30 weeks per [facility] protocol for di-tri triplets. Yakelin is taking extra folate and iron and will order her vitamin from [employer]. We also discussed nausea and vomiting as Yakelin is currently only taking unisom. She can add Vit B6 25 mg tid; often helpful in the form of a lollipop which can also be ordered via [employer]. Sniffing and alcohol wipe is also a [...] may not be caused by Zofran. (See https://mothertobaby.org/fact-sheets/ufbfoglmaxm-faanen-xgnzmmssy/). Use should not be discouraged in patients [...] at least one child with a major cutter brake lining handicap related to prematurity, including cerebral palsy. [...] mRNA, LNP-s, No Pre serve, 2-Dose Series ([employer]) 08/26/2021,01/06/2021,12/02/2020 DTaP Dipth/Tet/Acell Pertussis (Infanrix), Peds 08/23/2015 [...] Recorded PHQ Adult Total Score 0 01/01/2024 [facility] - Occupational [...] money to get more. Never true 06/18/2024 [place] Depression Scale Answer Date Recorded [place] Depression Scale Total 2 03/15/2024 The [...] No 06/18/2024 Does the household have a forest health medical centerr source of income? (Household - for ages [...] Description 09/23/2024 9:30 AM EST Imaging [facility] [address] [facility] [place] [address] 09/24/2024 9:15 AM EST Office Visit General Surgery, [facility] [address] [facility] [place] [address] Lilian Castañeda MD [address] [facility] [place] [address] Pending Results Name Type Priority Associated Diagnoses Date /Time MYCODE SUBSEQUENT ADULT Lab Routine [employer] Other*[id number] 09/20/2024 12:52 PM EST BETA-HCG, QUANTITATIVE Lab Routine Other chest pain Subacute idiopathic myocarditis 09/20/2024 12:52 PM EST BASIC METABOLIC PANEL Lab Routine Other chest pain Subacute idiopathic myocarditis 09/20/2024 12:52 PM EST MYCODE SST1 Lab Routine [employer] Other*[id number] 09/20/2024 12:52 PM EST MYCODE SST2 Lab Routine [employer] Other*[id number] 09/20/2024 12:52 PM EST Health Maintenance Due Date Last [...] history of other cardiovascular diseases [employer] Other*[id number] Other chest pain Subacute idiopathic myocarditis documented in this encounter Advance Directives * [...] Power of Attor nely? No Care Teams Certified Medical Coding Specialist Relationship Specialty Start Date End Date Alicia Bell CRNP [address] [place] [address] PCP - General Nurse Practitioner 05/28/24 documented as of this encounter
--- OUTSIDE RECORDS SUMMARY | 2024-09-23 23:58 | External Medical Summary | Summary of Care ---
Author Name Unknown Organization [facility] [address] [place] [address] Phone [phone] Care Team Providers Care Money Room Supervisor Name Role Phone Ray Alicia Denise MALONE Primary Care Provider Reason for Visit * Reason Onset Date Comments Appointment 09/16/2024 Encounter Details Date Type Department Care Team ([facility] Contact Info) Description 09/16/2024 Telephone Radiology, [facility] [address] [place], [place] [id number] Requisition, External Radiology [address] [place] [address] Appointment Allergies Active Allergy Reactions Criticality Noted Date Comments Amoxicillin-Pot Clavulanate Rash 06/29/20 17 Pollen Hives High 02/28/2017 Dust,ragweed,mold,dog and cat dander. documented as of this encounter (statuses as of 09/19/2024) Medications Montelukast Sodium 10 MG Oral Tablet [...] as of this encounter (statuses as of 09/19/2024) Active Problems Problem Noted Date Diagnosed Date Overweight (BMI 25.0-29.9) 08/09/2024 Gastroesophageal reflux disease without esophagi tis 08/09/2024 Iron deficiency anemia 01/24/2024 Coronary vasospasm 08/24/2023 Overview (08/30/2023): Diagnosed in May 2023 after evaluation at [facility] for chest pain. Suspected during [...] as of this encounter (statuses as of 09/19/2024) Resolved Problems Problem Noted Date Diagnosed Date [...] delivery at 36-37 weeks without amniocentesis per [employer]. Every effort should be made by patient s primary OB provider to obtain prior operative reports. 2. 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 We also discussed nausea and vomiting as Yakelin is currently only taking unisom. She can add Vit B6 25 mg tid; often helpful in the form of a lollipop which can also be ordered via [employer]. Sniffing and alcohol wipe is also a [...] may not be caused by Zofran. (See https://mothertobaby.org/fact-sheets/sbsuzknuzgi-eunxqn-hcgvbzinm/). Use should not be discouraged in patients [...] as of this encounter (statuses as of 09/19/2024) Immunizations Name Administration Dates Next Due COVID-19 [...] Recorded PHQ Adult Total Score 0 01/01/2024 [facility] - [facility]ational Stress Questionnaire Answer Date [...] money to get more. Never true 06/18/2024 [place] Depression Scale Answer Date Recorded [place] Depression Scale Total 2 03/15/2024 The [...] of Assessment Author No 07/24/2018 10:26 AM EST [place], Macey A, RN documented as of this encounter Mental Status * Because of a physical, mental, or emotional condition, do you have serious difficulty concentrating, remembering, or making decisions? (5 years old or older) Answer Entry Date Author No 07/24/2018 10:26 AM EST Macey Foss RN documented in this encounter Miscellaneous Notes * Telephone Encounter - Alejandrina Figueroa OSA - 09/19/2024 9:01 AM EST Pt is scheduled * Telephone Encounter - Guillermina Rodriguez OSA - 09/16/2024 4:51 PM EST Please be advised pt has order for MRI Cardiac and needs triaged prior to scheduling. Please informif ok to schedule. Thank you documented in this encounter Plan of Treatment Upcoming Encounters Date Type Department Care Team (Late st Contact Info) Description 09/20/2024 11:00 AM EST Office Visit Family Practice [facility] [address] [place] [address] Genesis Sanchez MD [address] [place] [address] 09/23/2024 9:30 AM EST Imaging Radiology [facility] 1st Floor, [place] [address] [place] [address] 09/24/2024 9:15 AM EST Office Visit General Surgery, [facility] [address] [place] [address] Lilian Castañeda MD [address] [place] [address] Health Maintenance Due Date Last Done Comments Hepatitis B Vaccine (1 of 3 - 19+ 3-dose series) 2006 COVID-19 Vaccine (4 - 2024-25 season) 2024 08/26/2021, 01/06/2021, 12/02/2020 Depression Screening [...] Power of Attor nely? No Care Teams Money Room Supervisor Relationship Specialty Start Date End Date Alicia Bell CRNP [address] [place] [address] PCP - General Nurse Practitioner 05/28/24 documented as of this encounter
--- OUTSIDE RECORDS SUMMARY | 2024-09-23 23:58 | External Medical Summary ---
Author Name Unknown Address Unknown Organization [id number]:[facility] [place] [address] [place] [address] Laboratory Report Ordering Provider Test Date Status SANTOS BLACKWOOD 09/20/2024 12:52:55 Final Observation Date Value Abnormality Reference (Units ) Status MYCODE SPECIMEN-SST 09/20/2024 12:52:55 Freezing of extracted DNA, whole blood and/or serum. Final Performing Location [facility] [place] [address] [place] [address]
--- OUTSIDE RECORDS SUMMARY | 2024-09-23 23:58 | External Medical Summary ---
Author Name Unknown Address Unknown Organization [id number]:[facility] [place] [address] [place] [address] Laboratory Report Ordering Provider Test Date Status SANTOS BLACKWOOD 09/20/2024 12:52:55 Final Observation Date Value Abnormality Reference (Units ) Status MYCODE SPECIMEN-SST 09/20/2024 12:52:55 Freezing of extracted DNA, whole blood and/or serum. Final Performing Location [facility] [place] [address] [place] [address]
--- OUTSIDE RECORDS SUMMARY | 2024-09-23 23:58 | External Medical Summary ---
Author Name Unknown Address Unknown Organization K01:[facility] [place] [address] [facility] [address] Laboratory Report Ordering Provider Test Date Status EDOUARD SANTOS 09/20/2024 12:52:55 Final hCG can serve as a screening assay for . However, early may not give a positive hCG test result. In addition, some non- women may have a hCG result slightly higher than the reference limit. Careful interpretation of the hCG with clinical history is required to determine whether the patient may be . Observation Date Value Abnormality Reference (Units ) Status Choriogonadotropin.intact +Beta subunit [Units/volume] in Serum or Plasma 09/20/2024 12:52:55 <0.3 <=1.0 (mIU/mL) Final Performing Location [facility] [place] - [place] [address] [facility] [address]
--- OUTSIDE RECORDS SUMMARY | 2024-09-23 23:59 | External Medical Summary | Summary of Care ---
Author Name Unknown Organization [facility] [address] [place] [address] Phone [phone] Care Team Providers Care Features Editor Name Role Phone Ray Alicia Denise MALONE Primary Care Provider Reason for Visit * Reason Onset Date Comments Appointment 09/16/2024 Encounter Details Date Type Department Care Team ([facility] Contact Info) Description 09/16/2024 Telephone Radiology, [facility] [address] [place] [address] Requisition, External Radiology [address] [place] [address] Appointment Allergies Active Allergy Reactions Criticality Noted Date Comments Amoxicillin-Pot Clavulanate Rash 06/29/20 17 Pollen Hives High 02/28/2017 Dust,ragweed,mold,dog and cat dander. documented as of this encounter (statuses as of 09/16/2024) Medications Montelukast Sodium 10 MG Oral Tablet [...] as of this encounter (statuses as of 09/16/2024) Active Problems Problem Noted Date Diagnosed Date Overweight (BMI 25.0-29.9) 08/09/2024 Gastroesophageal reflux disease without esophagi tis 08/09/2024 Iron deficiency anemia 01/24/2024 Coronary vasospasm 08/24/2023 Overview (08/30/2023): Diagnosed in May 2023 after evaluation at [facility] for chest pain. Suspected during [...] as of this encounter (statuses as of 09/16/2024) Resolved Problems Problem Noted Date Diagnosed Date [...] cffDNA screening, and testing was coordinated by [facility]. In addition to the risk of chromosomal abnormalities, there is an increased risk of congenital/structural anomalies. RECOMMENDATIONS: Recommend [facility] anatomy ultrasound at 19-20 weeks gestation. H/O [...] delivery at 36-37 weeks without amniocentesis per [employer]. Every effort should be made by patient s primary OB provider to obtain prior operative reports. 2. 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 Assessment & Plan [...] surveillance should begin at 30 weeks per [facility] protocol for di-tri triplets. Yakelin is taking extra folate and iron and will order her vitamin from [employer]. We also discussed nausea and vomiting as Yakelin is currently only taking unisom. She can add Vit B6 25 mg tid; often helpful in the form of a lollipop which can also be ordered via [employer]. Sniffing and alcohol wipe is also a [...] may not be caused by Zofran. (See https://mothertobaby.org/fact-sheets/yuaqfiwffpp-rkoieh-kscdewsow/). Use should not be discouraged in patients [...] as of this encounter (statuses as of 09/16/2024) Immunizations Name Administration Dates Next Due COVID-19 [...] 0 01/01/2024 [facility] - Occupational Stress Questionnaire Answer Date [...] money to get more. Never true 06/18/2024 [place] Depression Scale Answer Date Recorded [place] Depression Scale Total 2 03/15/2024 The thought [...] Miscellaneous Notes * Telephone Encounter - Guillermina Rodriguez OSA - 09/16/2024 4:51 PM EST Please be advised pt has order for MRI Cardiac and needs triaged prior to scheduling. Please informif ok to schedule. Thank you documented in this encounter Plan of Treatment Upcoming Encounters Date Type Department Care Team (Late st Contact Info) Description 09/20/2024 11:00 AM EST Office Visit Family Practice [facility] [address] [place] [address] Genesis Sanchez MD [address] [place] [address] 09/24/2024 9:15 AM EST Office Visit General Surgery, [facility] [address] [place] [address] Lilian Castañeda MD [address] [place] [address] Health Maintenance Due Date Last Done Comments [...] Power of Attor nely? No Care Teams Features Editor Relationship Specialty Start Date End Date Alicia Bell CRNP [address] [place] [address] PCP - General Nurse Practitioner 05/28/24 documented as of this encounter
--- OUTSIDE RECORDS SUMMARY | 2024-09-23 23:59 | External Medical Summary | Summary of Care ---
Author Name Unknown Organization [facility] Address [address] [place] [address] Phone [phone] Care Team Providers Care Metal Coater Operator Name Role Phone Alicia Bell Denise MALONE Primary Care Provider Reason for Visit * Reason Onset Date Comments Nurse Documentation 09/17/2024 CMRI/Triaged Encounter Details Date Type Department Care Team ([facility] Contact Info) Description 09/17/2024 Telephone Cardiac Studies [facility] [place] [address] [place] [address] Adeline Escalera, RN Nurse Documentation (CMRI/Triaged) Allergies Active Allergy Reactions Criticality Noted Date Comments Amoxicillin-Pot Clavulanate Rash 06/29/20 17 Pollen Hives High 02/28/2017 Dust,ragweed,mold,dog and cat dander. documented as of this encounter (statuses as of 09/17/2024) Medications Montelukast Sodium 10 MG Oral Tablet [...] as of this encounter (statuses as of 09/17/2024) Active Problems Problem Noted Date Diagnosed Date [...] as of this encounter (statuses as of 09/17/2024) Resolved Problems Problem Noted Date Diagnosed Date [...] cffDNA screening, and testing was coordinated by [facility]. In addition to the risk of chromosomal abnormalities, there is an increased risk of congenital/structural anomalies. RECOMMENDATIONS: Recommend [facility] anatomy ultrasound at 19-20 weeks gestation. [...] delivery at 36-37 weeks without amniocentesis per [employer]. Every effort should be made by patient s primary OB provider to obtain prior operative reports. 2. As per [employer]'s 2010 practice [...] resolved Nutrition Due date letter given for 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 if we are able, with the [...] surveillance should begin at 30 weeks per [facility] protocol for di-tri triplets. Yakelin is taking extra folate and iron and will order her vitamin from [employer]. We also discussed nausea and vomiting as Ykaelin is currently only taking unisom. She can add Vit B6 25 mg tid; often helpful in the form of a lollipop which can also be ordered via [employer]. Sniffing and alcohol wipe is also a [...] may not be caused by Zofran. (See https://mothertobaby.org/fact-sheets/zhpghcyidpa-zydzjo-daypicyxv/). Use should not be discouraged in patients [...] at least one child with a major termite control technician handicap related to prematurity, including cerebral palsy. [...] as of this encounter (statuses as of 09/17/2024) Immunizations Name Administration Dates Next Due COVID-19 mRNA, LNP-s, No Pre serve, 2-Dose Series (Pfizer) 01/06/2021,12/02/2020 DTaP Dipth/Tet/Acell Pertussis (Infanrix), Peds 08/23/2015 MMR - Measles/Mumps/Rubella Vaccine 08/24/2015 PPD 05/25/2018 Seasonal Influenza Vac., MDV , IM, 0.5 mL (Fluzone) 08/07/2017 Seasonal Influenza, PF, 6 M & above, IM , (FluLaval or Fluzone) 06/20/2023,08/31/2022,07/01/2021,2 021,07/26/2018() Seasonal Influenza, Trivalen t, (IIV3), PF, [...] Total Score 0 01/01/2024 [facility] - Occupational Stress Questionnaire Answer [...] money to get more. Never true 06/18/2024 [place] Depression Scale Answer Date Recorded [place] Depression Scale Total 2 03/15/2024 The thought [...] encounter Miscellaneous Notes * Telephone Encounter - Adeline Escalera RN - 09/17/2024 8:07 AM EST This patient has been triaged and cleared by the cardiac nurse to be scheduled for the CMRI. A message has been sent to the schedulers to please call the patient and they will need labs drawn within 30 days prior to the date of the CMRI. Adeline Escalera sleeve separator Imaging Nurse [phone] documented in this encounter Plan of Treatment Upcoming Encounters Date Type Department Care Team (Late st Contact Info) Description 09/20/2024 11:00 AM EST Office Visit Family Practice [facility] [address] [place] [address] Genesis Sanchez MD [address] [place] [address] 09/24/2024 9:15 AM EST Office Visit General Surgery, [facility] [address] [place] [address] Lilian Castañeda MD [address] [place] [address] Health Maintenance Due Date Last Done Comments [...] Power of Attor nely? No Care Teams Metal Coater Operator Relationship Specialty Start Date End Date Alicia Bell CRNP [address] [place] [address] PCP - General Nurse Practitioner 05/28/24 documented as of this encounter
[2024-09-24] MEDS: MoRPHine SULFATE 4 MG/ML 1 ML CARP\\VIAL IV STA (00:46)
[2024-09-24] MEDS: HYDROmorphone INJ 0.5 MG/0.5 ML SYR IV STA (03:52)
--- NOTE | 2024-09-24 04:09 | History & Physical Report ---
Date of Service September 24, 2024 Assessment & Plan (1) Chest pain: Plan: 39-year-old female with past medical history significant for coronary spasm, bronchial asthma, GERD, anxiety/mood disorder history of abruptio placenta and status post presents with chest pains. Patient states she is having chest pain radiating to the back and also arms and legs. She also feeling her palms are red and somewhat swollen. She had cardiac MRI scan yesterday which was unremarkable. Patient was recently in the hospital for chest pains during which time echo was done which was unremarkable. CTA chest was done last admit and was also unremarkable. Differentials were thought to be coronary vessels spasm, minimal branch vessel atherosclerosis or myocarditis. Patient was started on isosorbide mononitrate and colchicine. Patient says she stopped colchicine because of diarrhea. Says she is taking isosorbide mononitrate 30 mg daily. CRP and ESR are negative during last admission. Currently resting comfortably and hemodynamics are stable. Chest pains Ongoing chest pains Was recently in the hospital during which CTA chest was done on 09/15/2024 which was unremarkable. Echo was done 09/16/2024 which was unremarkable Differentials were thought to be coronary vasospasm, minimal branch vessel atherosclerosis or myocarditis Patient was placed on colchicine and isosorbide mononitrate Stopped colchicine because of diarrhea Had cardiac MRI yesterday 09/23/2024 and was unremarkable Currently initial troponin 24 and repeat is 21. EKG nonspecific findings Had troponins in 20s last admission will follow d dimer Will observe in med/telemetry Serial cardiac enzymes Continue home isosorbide mononitrate Consult cardiology in a.m. for further recommendations DVT prophylaxis SCDs for now Disposition Observation med/telemetry Full code. History of Present Illness Chief Complaint: Chest pains Primary Care Provider: Nickie Tolentino DO 39-year-old female with past medical history significant for coronary spasm, bronchial asthma, GERD, anxiety/mood disorder history of abruptio placenta and status post presents with chest pains. Patient states she is having chest pain radiating to the back and also arms and legs. She also feeling her palms are red and somewhat swollen. She had cardiac MRI scan yesterday which was unremarkable. Patient was recently in the hospital for chest pains during which time echo was done which was unremarkable. CTA chest was done last admit and was also unremarkable. Differentials were thought to be coronary vessels spasm, minimal branch vessel atherosclerosis or myocarditis. Patient was started on isosorbide mononitrate and colchicine. Patient says she stopped colchicine because of diarrhea. Says she is taking isosorbide mononitrate 30 mg daily. CRP and ESR are negative during last admission. Currently resting comfortably and hemodynamics are stable. Past medical history. As mentioned above Past surgical history. Breast augmentation. Cardiac catheterization. C- section. Dental surgery. History of tummy tuck. Appendectomy. Social history. . Quit smoking 2017. Smoked 0.5 pack a day for 8 years. No alcohol use. No drug use. Family history. Mother had history of VTE, hypercoagulable, PE. Sister has a sthma. Brother has diabetes. Glaucoma. Paternal grandmother has dementia. Diabetes. Maternal grandmother has diabetes. Allergies Allergy/AdvReac Type Severity Reaction Status Date / Time amoxicillin Allergy Intermediate Hives Verified 09/15/24 20:35 pollen extracts Allergy Intermediate ITCHY Verified 09/15/24 20:35 EYES, SNEEZING, CONGESTION cat dander Allergy Unknown Verified 09/15/24 20:35 dog dander Allergy Unknown Verified 09/15/24 20:35 ragweed pollen Allergy Unknown Verified 09/15/24 20:35 Home Medications Medication Instructions Recorded Confirmed Type trazodone 50 mg tablet 75 mg PO HS 06/13/23 09/24/24 History isosorbide mononitrate 30 mg 30 mg PO QAM 09/24/24 09/24/24 History tablet,extended release 24 hr Past Med/Surg History Problem List (Updated 09/16/24 @ 15:17 by Erasto Sanchez DO) Coronary artery vasospasm Non-ST elevation DC (NSTEMI) (Acute) Chest pain (Acute) Delivery by section using transverse incision of lower segment of uterus Irregular uterine contractions Headache in Acute viral bronchitis (Acute) Elevated troponin I level (Acute) Chest pain (Acute) RSV (respiratory syncytial virus infection) (Acute) Headache (Acute) COVID-19 virus infection (Acute) Injury of conjunctiva and corneal abrasion of left eye w/o FB (Acute) Triplet gestation in second trimester Abdominal pain affecting Nausea and vomiting during Diarrhea Back pain affecting in second trimester Medical History Placental abruption Vaginal bleeding during Grand multiparity Insomnia Seasonal allergies Spontaneous vaginal delivery [facility] [place] 08/07/2007 LM 04/13/2010 [facility] [place] 08/23/2015 [facility] [place] 11/08/21 Encounter for pre-operative examination Herniated disc, cervical Surgical History History of low transverse section H/O abdominoplasty 2010 History of breast augmentation 2010 [place] teeth extracted 2020 History of appendectomy 2009 Family History Grandmother (Maternal) Diabetes Brother Diabetes Social History Smoking Status: Never smoker Tobacco Type: Cigarettes Second Hand Exposure: No; Hx Alcohol Use: No Hx Substance Use: No Preferred Language: Upper Sorbian Communication Ability: Effective Line Helper Required: No Beliefs That Will Affect Care: None marital status: marital status details: Alber Hughes Current Living Situation: Family Current Living Situation Comment: spouse, 7 children current occupational status: unemployed Feels Safe at Home: Yes Safety Concerns: Feels Safe At This Time Assistive Devices: Glasses Review of Systems Review of Systems: All systems reviewed & are unremarkable except as noted in HPI & below Physical Exam Physical Exam: General- Not in distress Head- atraumatic Eyes- PERRL. ENT- oropharynx clear Neck- supple, no JVD. Lungs- clear to auscultation no wheezing or crackles Heart- regular rhythm; no murmur, no gallop. Abdomen- normal bowel sounds, soft, nontender, no distension Extremities- no pretibial edema, no erythema seen Neuro- alert, oriented PERRL, no facial palsy; no dysarthria; moves extremities Results & Data Results & Data Vital Signs (Past 12 Hours) Vital Signs Temp Pulse Pulse Resp BP BP Pulse Ox 09/24/24 03:00 63 16 100 09/24/24 01:20 63 09/24/24 01:00 62 18 129/90 98 09/23/24 23:00 70 18 125/92 100 09/23/24 23:00 100 09/23/24 21:25 68 12 130/87 100 09/23/24 21:22 73 09/23/24 20:21 36.6 C 70 18 145/97 H 100 O2 Del Method 09/24/24 03:00 Room Air 09/24/24 01:20 09/24/24 01:00 Room Air 09/23/24 23:00 Room Air 09/23/24 23:00 Room Air 09/23/24 21:25 Room Air 09/23/24 21:22 09/23/24 20:21 Room Air Diagnostic Findings Laboratory Results WBC 5.60 K/ul (4.8-10.8) 09/23/24 20: RBC 4.45 M/uL (4.20-5.40) 09/23/24 20: Hgb 13.3 g/dl (12.0-16.0) 09/23/24 20: Hct 39.1 % (37.0-47.0) 09/23/24 20: MCV 87.9 fL (80.0-100.0) 09/23/24 20: MCH 29.9 pg (25.0-34.0) 09/23/24: MCHC 34.0 g/dL (32.0-36.0) 09/23/24 20: RDW Std Deviation 40.9 fL (36.4-46.3) 09/23/24: RDW Coeff of Jermain 12.7 % (11.5-14.5) 09/23/24 20: Plt Count 253 K/uL (130-400) 09/23/24 20: MPV 9.3 fL (9.4-12.4) L 09/23/24 20: Immature Gran % (Auto) 0.4 % 09/23/24 20: Neut % (Auto) 52.1 % 09/23/24 20: Lymph % (Auto) 38.4 % 09/23/24 20: Mcdowell % (Auto) 5.7 % 09/23/24: Eos % (Auto) 2.3 % 09/23/24 20: Baso % (Auto) 1.1 % 09/23/24: Neut # (Auto) 2.92 K/uL (1.40-6.50) 09/23/24 20: Lymph # (Auto) 2.15 K/uL (1.20-3.40) 09/23/24 20: Mcdowell # (Auto) 0.32 K/uL (0.11-0.59) 09/23/24 20: Eos # (Auto) 0.13 K/uL (0.00-0.50) 09/23/24: Baso # (Auto) 0.06 K/uL (0.00-0.20) 09/23/24: Immature Gran # (Auto) 0.02 K/uL (0.01-0.20) 09/23/24 20: D-Dimer 440 ug/L FEU (0-500) 09/23/24 20: Sodium 136 mmol/L (136-145) 09/23/24: Potassium 3.4 mmol/L (3.5-5.1) L 09/23/24: Chloride 106 mmol/L (98-107) 09/23/24: Carbon Dioxide 24 mmol/L (21-32) 09/23/24: Anion Gap 6 (3-11) 09/23/24: BUN 7 mg/dl (6-23) 09/23/24: Creatinine 0.73 mg/dl (0.6-1.2) 09/23/24: Est Cr Clr Drug Dosing 90.4 ml/min 09/23/24: eGFR 108.56 09/23/24 BUN/Creatinine Ratio 9.6 (10-20) L 09/23/24: Glucose 100 mg/dl (70-99(Fasting)) H 09/23/24: Calcium 9.1 mg/dl (8.6-10.3) 09/23/24: Total Bilirubin 0.6 mg/dl (0.2-1.0) 09/23/24: AST 14 U/L (13-39) 09/23/24 ALT 17 U/L (7-52) 09/23/24: Alkaline Phosphatase 45 U/L (34-104) 09/23/24: Troponin I High Sens 21.9 pg/ml (0-14) H 09/23/24: Total Protein 7.6 gm/dl (6.0-8.3) 09/23/24 20: Albumin 4.6 gm/dl (3.4-5.0) 09/23/24 20: Globulin 3.0 gm/dl (2.5-4.0) 09/23/24 20: Albumin/Globulin Ratio 1.5 (0.9-2) 09/23/24 20: Lipase 36 U/L (11-82) 09/23/24 20:29 Impressions Chest X-Ray 09/23/24 20:23 Exam(s): XR CXR 1 VIEW EXAM: XR Chest, 1 View CLINICAL HISTORY: Reason for exam: Chest pain, nonspecific. TECHNIQUE: Frontal view of the chest. COMPARISON: 09/15/2024 FINDINGS: Lungs: Unremarkable. No consolidation. Pleural space: Unremarkable. No pneumothorax. Heart: Unremarkable. No cardiomegaly. Mediastinum: Unremarkable. Normal mediastinal contour. Bones/joints: Unremarkable. No acute fracture. IMPRESSION: No evidence of acute cardiopulmonary process. Electronically signed by: New Camacho MD 09/23/24 22:05 PM ECG Additional Comments: ECG. Normal sinus rhythm rate 70. Nonspecific T wave abnormalities inferior leads. QTc 395. Code Status & VTE Plan VTE Prophylaxis Plan VTE Prophylaxis will be ordered: Yes
[2024-09-24] MEDS ORDERED: POLYETHYLENE (MIRALAX) 17 GM PACK PO PRN (04:21)
[2024-09-24] MEDS ORDERED: NITROGLYCERIN SL 0.4 MG/TAB TAB SL PRN (04:21)
[2024-09-24 07:36] LABS: Basophils # (auto) 0.06 K/uL (0.00-0.20); Basophils % (auto) 1.1 %; Eosinophils # (auto) 0.17 K/uL (0.00-0.50); Eosinophils % (auto) 3.1 %; Immature Granulocytes # (auto) 0.01 K/uL (0.01-0.20); Immature Granulocytes % (auto) 0.2 %; Lymphocytes # (auto) 2.33 K/uL (1.20-3.40); Lymphocytes % (auto) 42.1 %; Mean Corpuscular Hemoglobin 30.1 pg (25.0-34.0); Mean Corpuscular Hgb Conc 34.2 g/dL (32.0-36.0); Mean Platelet Volume 9.4 fL (9.4-12.4); Monocytes # (auto) 0.44 K/uL (0.11-0.59); Neutrophils # (auto) 2.52 K/uL (1.40-6.50); Neutrophils % (auto) 45.5 %; Platelet Count 229 K/uL (130-400); RDW Coefficient of Variation 12.5 % (11.5-14.5); RDW Standard Deviation 40.1 fL (36.4-46.3); Red Blood Count 4.32 M/uL (4.20-5.40); White Blood Count 5.53 K/ul (4.8-10.8)
[2024-09-24 07:51] LABS: BUN Creatinine Ratio 13.9 (10-20); Calcium 8.5 mg/dl (8.6-10.3); Creatinine Clr Calc Pharmacy 91.7 ml/min; Magnesium 2.1 mg/dl (1.7-2.4); Potassium 3.5 mmol/L (3.5-5.1)
--- NOTE | 2024-09-24 08:18 | Electrocardiogram Report ---
Test Reason : Blood Pressure : */* mmHG Vent. Rate : 70 BPM Atrial Rate : 70 BPM P-R Int : 122 ms QRS Dur : 74 ms QT Int : 366 ms P-R-T Axes : -14 -10 5 degrees QTcB Int : 395 ms Normal sinus rhythm Normal ECG When compared with ECG of 16-Sep-2024 06:29, QRS axis Shifted left Confirmed by Aiden Hendricks ([id number]) on 09/24/2024 8:18:34 AM Referred By: REFERRED SELF Confirmed By: Aiden Hendricks
[2024-09-24 08:30] LABS: D Dimer 320 ug/L FEU (0-500)
[2024-09-24] MEDS: MoRPHine SULFATE 4 MG/ML 1 ML CARP\\VIAL IV PRN (08:52)
--- NOTE | 2024-09-24 09:05 | Cardiology Consultation ---
Date of Consultation September 24, 2024 Assessment & Plan (1) Chest pain: Plan Patient with extensive cardiac evaluations over the last 16 months for evaluation of atypical chest pain and minimally elevated troponin in the , which has remained flat. She previously underwent cardiac cath in May 2023 without obstructive disease and possible vasospasm noted. She had been on isosorbide with good results after admission, but stopped when she was . Symptoms returned/worsened about 3 weeks ago. Admission last week with similar complaints of chest pain/tightness, possible pleuritic component and flat troponin in the . EKG without acute changes. echo with normal LVEF. Due to concerns of possible myocarditis, she underwent outpatient cardiac MRI yesterday which was normal per prelim read. Normal LVEF, no myocardial scars or evidence of inflammatory changes or infiltrative disease. At this time, her chest pain is likely non cardiac. Symptoms are suggestive of musculoskeletal pain. Currently she reports her back pain is worse and has b/l arm "tingling" and weakness. Would consider imaging of her spine. She also reports breast implants 10-15 years ago and has not had them monitored/followed. Would consider further evaluation contributing to her chest wall pain as well. In the meantime, would continue current dose of isosorbide 30 mg daily. Further cardiac testing is not warranted at this time. Case discussed with Dr. Sánchez I spent a total of 55 minutes on the date of service in preparation, delivery, and documentation of the care provided to this patient, excluding any time spent in the performance of separately billed services. Jackie Boyle PA-C Department of Cardiology, [facility] This chart was completed in part utilizing Speech Voice Recognition Software. Grammatical errors, random word insertions, pronoun errors, and incomplete sentences are an occasional consequence of this system due to software limitations, ambient noise, and hardware issues. Any formal questions or concerns about the content, text, or information contained within the body of this dictation should be directly addressed to the provider for clarification. Supervising Physician Co-Signing Physician Notes I have personally performed a history and physical examination on the patient. I have reviewed the advance practitioner's documentation, and I agree with, and take responsibility for the plan of care. 39-year-old female presenting with atypical chest discomfort. Minimally elevated high-sensitivity troponin noted without ischemic ECG changes. Minimal t roponin elevation noted per lab testing dating back to May 2023. Prior cardiac catheterization films reviewed demonstrating normal coronary arteries. Cardiac MRI performed yesterday without evidence of myocarditis or infiltrative process. Recommend symptomatic management at this time. Consider noncardiac etiologies of ongoing discomfort. No further inpatient cardiac testing or intervention. Consider outpatient neurology evaluation of upper extremity weakness and/or further spinal imaging. Thank you for allow me to participate in the care of your patient. Jim Sánchez DO, [facility] History of Present Illness Reason for Consultation: Requesting Physician: Ami Norwood Attending Physician: Dr. Sánchez History of Present Illness Patient is a 39 year old female admitted to [facility] yesterday, 09/23/24 with complaints of recurrent chest pain. Patient has had recent extensive evaluations for recurrent chest pain, dating back to May 2023 where she was admitted with slight elevation in HS troponin. During that admission the patient underwent invasive coronary angiography performed by Dr. Garcia of interventional on 06/14/2023 revealing angiographically normal major epicardial vessels with noted vasospasm versus mild diffuse disease and a very small distal nondominant right coronary artery. She was initially treated with amlodipine for presumed vasospasm at that time but was not tolerated due to symptomatic low blood pressure. Ultimately she was placed on isosorbide mononitrate extended release 30 mg and it was titrated to 60 mg. Isosorbide mononitrate however was subsequently discontinued when she became . She was admitted in September 2023 with mild troponin elevation in the setting of and acute illness with COVID and RSV. Cardiac workup was otherwise negative at that time. She ultimately delivered a healthy child by section in March, without any cardiac issues. Patient had recurrent admission on 09/16 with chest pain, described as a tightness, worse with deep inspiration and laying flat. HS troponin once again minimally elevated. EKG without acute ischemic changes. ESR, CRP were normal. Ec ho was unremarkable as well. She was started on low dose isosorbide for possible vasospasm. She was subsequently sent for outpatient cardiac MRI, completed yesterday as an outpatient. prelim report reveals normal Biventricular function, no myocardial scar or infiltrative disease noted. She returned to the ER yesterday with ongoing complaints of chest pain and back pain. She reports she had been taking isosorbide 15 mg and then increased to 30 mg since discharge 1 week ago but this failed to aid her symptoms. symptoms are the same as her last admission but more noticeable back pain radiating down her arms. Symptoms are worse with movement or deep inspiration. Not related to walking or exertion. She is requesting pain med, specifically Dilaudid in the ER. Feels morphine is not effective. Currently resting quietly in bed. reports her pain is 7/10. Just received AM meds at time of evaluation. No fever, cough, chills. No orthopnea, PND or edema. Allergies Allergy/AdvReac Type Severity Reaction Status Date / Time amoxicillin Allergy Intermediate Hives Verified 09/15/24 20:35 pollen extracts Allergy Intermediate ITCHY Verified 09/15/24 20:35 EYES, SNEEZING, CONGESTION cat dander Allergy Unknown Verified 09/15/24 20:35 dog dander Allergy Unknown Verified 09/15/24 20:35 ragweed pollen Allergy Unknown Verified 09/15/24 20:35 Home Medications Medication Instructions Recorded Confirmed Type trazodone 50 mg tablet 75 mg PO HS 06/13/23 09/24/24 History isosorbide mononitrate 30 mg 30 mg PO QAM 09/24/24 09/24/24 History tablet,extended release 24 hr Patient History Medical History Placental abruption Vaginal bleeding during Grand multiparity Insomnia Seasonal allergies Spontaneous vaginal delivery [facility] 08/07/2007 [facility] 04/13/2010 [facility] 08/23/2015 [facility] 11/08/21 Encounter for pre-operative examination Herniated disc, cervical Surgical History History of low transverse section H/O abdominoplasty 2010 History of breast augmentation 2010 [place] teeth extracted 2020 History of appendectomy 2009 Family History Grandmother (Maternal) Diabetes Brother Diabetes Social History Smoking Status: Never smoker Tobacco Type: Cigarettes Second Hand Exposure: No; Hx Alcohol Use: No Hx Substance Use: No Preferred Language: Zambian Communication Ability: Effective Economics Professor Required: No Beliefs That Will Affect Care: None marital status: marital status details: Alber Hughes Current Living Situation: Family Current Living Situation Comment: spouse, 7 children current occupational status: unemployed Feels Safe at Home: Yes Safety Concerns: Feels Safe At This Time Assistive Devices: Glasses Review of Systems Review of Systems: All systems reviewed & are unremarkable except as noted in HPI & below Physical Exam Constitutional: WD/WN, vitals as above well developed and well nourished; no acute distress Neck: trachea midline, no thyromegaly Respiratory: normal respiratory effort, lungs clear to auscultation Cardiovascular: Rate/Rhythm: regular rate and regular rhythm Heart Sounds: no murmur Vessels: no JVD Extremities: no edema Gastrointestinal (Abdomen): normal bowel sounds, soft, nontender, no hepatosplenomegaly Neurologic: PERRL, EOMI, accommodation nl, no face palsy, no dysarthria Results & Data Vital Signs (Past 12 Hours) Vital Signs Pulse Pulse Resp BP Pulse Ox O2 Del Method 09/24/24 07:30 62 09/24/24 07:00 53 L 16 99/64 L 97 Room Air 09/24/24 06:34 62 16 117/73 97 Room Air 09/24/24 04:21 52 L 16 135/86 97 Room Air 09/24/24 03:00 63 16 100 Room Air 09/24/24 01:20 63 09/24/24 01:00 62 18 129/90 98 Room Air 09/23/24 23:00 70 18 125/92 100 Room Air 09/23/24 23:00 100 Room Air 09/23/24 21:25 68 12 130/87 100 Room Air 09/23/24 21:22 73 Laboratory Results Cardiac Enzymes 09/23/24 09/23/24 09/24/24 Range/Units 20:29 22:29 07:21 AST 14 (13-39) U/L Troponin I High Sens 24.6 H 21.9 H 25.0 H (0-14) pg/ml CBC 09/23/24 09/24/24 Range/Units 20:29 07:21 WBC 5.60 5.53 (4.8-10.8) K/ul RBC 4.45 4.32 (4.20-5.40) M/uL Hgb 13.3 13.0 (12.0-16.0) g/dl Hct 39.1 38.0 (37.0-47.0) % Plt Count 253 229 (130-400) K/uL Neut # (Auto) 2.92 2.52 (1.40-6.50) K/uL Lymph # (Auto) 2.15 2.33 (1.20-3.40) K/uL Real # (Auto) 0.32 0.44 (0.11-0.59) K/uL Eos # (Auto) 0.13 0.17 (0.00-0.50) K/uL Baso # (Auto) 0.06 0.06 (0.00-0.20) K/uL Comprehensive Metabolic Panel 09/23/24 09/24/24 Range/Units 20:29 07:21 Sodium 136 137 (136-145) mmol/L Potassium 3.4 L 3.5 (3.5-5.1) mmol/L Chloride 106 108 H (98-107) mmol/L Carbon Dioxide 24 24 (21-32) mmol/L BUN 7 10 (6-23) mg/dl Creatinine 0.73 0.72 (0.6-1.2) mg/dl Glucose 100 H 90 (70-99(Fasting)) mg/dl Calcium 9.1 8.5 L (8.6-10.3) mg/dl AST 14 (13-39) U/L ALT 17 (7-52) U/L Alkaline Phosphatase 45 (34-104) U/L Total Protein 7.6 (6.0-8.3) gm/dl Albumin 4.6 (3.4-5.0) gm/dl Intake and Output 09/23/24 09/24/24 09/24/24 22:59 06:59 14:59 Other: Weight 64 kg 64 kg Weight Measurement Method Chair Scale Chair Scale Diagnostic Findings Telemetry reviewed: NSR, no arrhythmias EKG reviewed from 09/23/24: NSR, normal EKG no change from previous Chest X-Ray 09/23/24 20:23 IMPRESSION: No evidence of acute cardiopulmonary process. Cardiac MRI report reviewed (prelim) dated 09/23/24: Interpretation Summary 1. Cardiac MRI findings of normal biventricular systolic function without discrete abnormalities on late gadolinium imaging. 2. The left ventricular cavity size is normal.The LV wall thickness is normal.The left ventricular systolic function is normal.The calculated LV ejection fraction is 55%. 3. The right ventricle is normal in size.The right ventricular systolic function is normal.The calculated RV ejection fraction is 53%. 4. There is no myocardial infarction noted on late gadolinium enhanced imaging. All the myocardial segments are viable. Echo report reviewed from 09/16/24: Normal LVEF at 60-65% No wall motion abnormalities RV is normal in size and function LV diastolic function is normal No pulm hypertension Medications Administered Current Inpatient Medications Acetaminophen (Acetaminophen 325 Mg Tab) 650 mg PO Q4H PRN PRN Reason: Pain or Fever Stop: 10/24/24 04:20 Isosorbide Mononitrate (Isosorbide Real Extended Rel 30 Mg Tabcr) 30 mg PO QAM [facility] Stop: 10/24/24 08:59 Last Admin: 09/24/24 09:29 Dose: 30 mg Morphine Sulfate (Morphine Sulfate 4 Mg/Ml 1 Ml Carp\\Vial) 3 mg IV Q4H PRN PRN Reason: Mod-Sev Pain (Scale 4-10) Stop: 10/08/24 08:21 Last Admin: 09/24/24 08:52 Dose: 3 mg Nitroglycerin (Nitroglycerin Sl 0.4 Mg/Tab Tab) 0.4 mg SL Q5M PRN PRN Reason: Chest Pain Stop: 10/24/24 04:20 Polyethylene Glycol (Polyethylene (Miralax) 17 Gm Pack) 17 gm PO DAILY PRN PRN Reason: Constipation Stop: 10/24/24 04:20 Trazodone HCl (Trazodone Hcl 50 Mg Tab) 75 mg PO HS [facility] Stop: 10/24/24 20:59 (1) Chest pain Chest pain type: unspecified Qualified Code(s): R07.9 - Chest pain, unspecified
[2024-09-24] MEDS: ISOSORBIDE MONO EXTENDED REL 30 MG TABCR PO SCH (09:29)
[2024-09-24] MEDS: ACETAMINOPHEN 325 MG TAB PO PRN (12:39)
--- NOTE | 2024-09-24 16:42 | CT Scan Report ---
Clinical history: Disc herniation Technique: Axial computed tomography images were obtained of the cervical spine without intravenous contrast. Sagittal and coronal reconstructions were obtained Findings: No definite fracture is identified. There is a small bone fragment along the inferior aspect of the anterior arch of C1 that may represent a osteophyte on the result of old injury. No listhesis is seen. No focal osseous lesion is evident. The atlantoaxial articulation appears unremarkable. At C2-3, no disc herniation is identified. There is no spinal stenosis. The neural foramen are patent At C3-4, no disc herniation is identified. There is no spinal stenosis. The neural foramen are patent At C4-5, no disc herniation is identified. There is no spinal stenosis. The neural foramen are patent At C5-6, no disc herniation is identified. There is no spinal stenosis. The neural foramen are patent At C6-7, there is mild spinal stenosis due to a disc bulge. There is left neural foramen narrowing that may affect the left C7 nerve root At C7-T1,no disc herniation is identified. There is no spinal stenosis. The neural foramen are patent The lung apices appear clear. The visualized soft tissues of the neck appear unremarkable. No foreign body is seen Impression: 1. No definite cervical spine fracture 2. Mild spinal stenosis at C6-7 3. Left C6-7 neural foramen narrowing that may affect the left C7 nerve root Electronically signed by Ian Morrison 09-24-2024 4:42 PM
--- NOTE | 2024-09-24 16:45 | CT Scan Report ---
Clinical history: Rule out disc herniation Technique: Axial computed tomography images were obtained of the thoracic spine without intravenous contrast. Sagittal and coronal reconstructions were obtained Findings: No fracture is identified. No listhesis is seen. No focal osseous lesion is evident. There is no definite sign of osteomyelitis No definite disc herniation is seen at any level. There is no apparent spinal stenosis or definite nerve root compression Impression: Unremarkable CT of the thoracic spine Electronically signed by Ian Morrison 09-24-2024 4:44 PM
--- NOTE | 2024-09-24 16:53 | CT Scan Report ---
Clinical history: Rule out disc herniation Technique: Axial computed tomography images were obtained of the lumbar spine without intravenous contrast. Sagittal and coronal reconstructions were obtained Findings: No fracture is identified. No listhesis is seen. No focal osseous lesion is evident. There is no definite sign of osteomyelitis At L1-2, no disc herniation is identified. There is no spinal stenosis. The neural foramen are patent At L2-3, no disc herniation is identified. There is no spinal stenosis. The neural foramen are patent At L3-4, no disc herniation is identified. There is no spinal stenosis. The neural foramen are patent At L4-5, there is mild spinal stenosis due to a disc bulge and a central disc protrusion. The neural foramen are patent At L5-S1, there is a small central disc herniation. There is no spinal stenosis. The neural foramen are patent The visualized soft tissues of the abdomen and pelvis appear unremarkable Impression: 1. No definite lumbar spine fracture 2. Mild spinal stenosis at L4-5 3. Apparent small disc herniation at L5-S1, without spinal stenosis or definite nerve root compression Electronically signed by Ian Morrison 09-24-2024 4:52 PM
--- NOTE | 2024-09-24 17:16 | Hospitalist Progress Note ---
Date of Service September 24, 2024 Assessment & Plan (1) Chest pain: Plan: 39-year-old female with past medical history significant for coronary spasm, bronchial asthma, GERD, anxiety/mood disorder history of abruptio placenta and status post presents with chest pains. Patient states she is having chest pain radiating to the back and also arms and legs. She also feeling her palms are red and somewhat swollen. She had cardiac MRI scan yesterday which was unremarkable. Patient was recently in the hospital for chest pains during which time echo was done which was unremarkable. CTA chest was done last admit and was also unremarkable. Differentials were thought to be coronary vessels spasm, minimal branch vessel atherosclerosis or myocarditis. Patient was started on isosorbide mononitrate and colchicine. Patient says she stopped colchicine because of diarrhea. Says she is taking isosorbide mononitrate 30 mg daily. CRP and ESR are negative during last admission. Currently resting comfortably and hemodynamics are stable. Chest pains Ongoing chest pains Was recently in the hospital during which CTA chest was done on 09/15/2024 which was unremarkable. Echo was done 09/16/2024 which was unremarkable Differentials were thought to be coronary vasospasm, minimal branch vessel atherosclerosis or myocarditis Patient was placed on colchicine and isosorbide mononitrate Stopped colchicine because of diarrhea Had cardiac MRI yesterday 09/23/2024 and was unremarkable Currently initial troponin 24 and repeat is 21. EKG nonspecific findings Had troponins in 20s last admission will follow d dimer Will observe in med/telemetry Serial cardiac enzymes Continue home isosorbide mononitrate Appreciate cardiology input and recommendation- they feel that the chest pain is noncardiac and wanted to have spinal imaging Numbness involving the extremities Nonspecific pain involving the thoracic spine mainly Also has numbness and tingling involving the left upper extremity Numbness and tingling involving the legs as well Did not have any significant neurodeficit on examination of the limbs CT of the thoracic, lumbar and cervical spines have been ordered DVT prophylaxis SCDs for now Disposition Observation med/telemetry Full code. Admission and Anticipated Discharge Date Admission Date: September 24, 2024 Subjective 09/24/2024 The patient was seen and examined in medical telemetry unit She has been complaining of midthoracic pain associated with numbness and tingling in the left upper extremity and to some extent whole of the extremities She also has chest pain which is suspected to be coronary spasm Her symptoms have been going on for months Denies any other significant symptoms Review of Systems Review of Systems: all systems reviewed and are unremarkable except as noted below Physical Exam Physical Exam: Lying in bed without any acute Constitutional: + ill appearing and average body habitus Eyes: PERRL, conjunctivae normal, anicteric sclerae Neck: trachea midline, no thyromegaly Respiratory: no respiratory distress Auscultation: lungs clear to auscultation bilaterally Cardiovascular: Rate/Rhythm: regular rate and regular rhythm; not tachycardic Heart Sounds: normal S1 and normal S2; no murmur Extremities: no edema Gastrointestinal (Abdomen): Inspection/Auscultation: normal bowel sounds; abdomen not distended Percussion/Palpation: abdomen soft; abdomen nontender Musculoskeletal: No acute arthritis involving any of the joint. No tenderness along the spine and spinal movement was not painful Neurologic: normal touch/pain/proprioception and moves all extremities; no focal motor deficits Lymphatic: no cervical or axillary lymphadenopathy Results & Data Results & Data Vital Signs (Past 12 Hours) Vital Signs Temp Pulse Pulse Resp BP BP Pulse Ox 09/24/24 15:54 37 C 64 18 111/69 97 09/24/24 15:01 09/24/24 14:30 83 09/24/24 14:00 55 L 18 106/66 96 09/24/24 12:00 74 14 106/67 99 09/24/24 10:00 68 16 135/96 98 09/24/24 07:30 62 09/24/24 07:00 53 L 16 99/64 L 97 09/24/24 06:34 62 16 117/73 97 O2 Del Method 09/24/24 15:54 Room Air 09/24/24 15:01 Room Air 09/24/24 14:30 09/24/24 14:00 Room Air 09/24/24 12:00 Room Air 09/24/24 10:00 Room Air 09/24/24 07:30 09/24/24 07:00 Room Air 09/24/24 06:34 Room Air Laboratory Results Short CBC 09/23/24 09/24/24 Range/Units 20:29 07:21 WBC 5.60 5.53 (4.8-10.8) K/ul Hgb 13.3 13.0 (12.0-16.0) g/dl Hct 39.1 38.0 (37.0-47.0) % Plt Count 253 229 (130-400) K/uL BMP 09/23/24 09/24/24 20:29 07:21 Sodium 136 137 Potassium 3.4 L 3.5 Chloride 106 108 H Carbon Dioxide 24 24 BUN 7 10 Creatinine 0.73 0.72 Glucose 100 H 90 Calcium 9.1 8.5 L Liver Function 09/23/24 Range/Units 20:29 Total Bilirubin 0.6 (0.2-1.0) mg/dl AST 14 (13-39) U/L ALT 17 (7-52) U/L Alkaline Phosphatase 45 (34-104) U/L Albumin 4.6 (3.4-5.0) gm/dl Medications Administered Current Inpatient Medications Acetaminophen (Acetaminophen 325 Mg Tab) 650 mg PO Q4H PRN PRN Reason: Pain or Fever Stop: 10/24/24 04:20 Last Admin: 09/24/24 12:39 Dose: 650 mg Isosorbide Mononitrate (Isosorbide [place] Extended Rel 30 Mg Tabcr) 30 mg PO [facility] Stop: 10/24/24 08:59 Last Admin: 09/24/24 09:29 Dose: 30 mg Morphine Sulfate (Morphine Sulfate 4 Mg/Ml 1 Ml Carp\Vial) 3 mg IV Q4H PRN PRN Reason: Mod-Sev Pain (Scale 4-10) Stop: 10/08/24 08:21 Last Admin: 09/24/24 12:56 Dose: 3 mg Nitroglycerin (Nitroglycerin Sl 0.4 Mg/Tab Tab) 0.4 mg SL Q5M PRN PRN Reason: Chest Pain Stop: 10/24/24 04:20 Polyethylene Glycol (Polyethylene (Miralax) 17 Gm Pack) 17 gm PO DAILY PRN PRN Reason: Constipation Stop: 10/24/24 04:20 Trazodone HCl (Trazodone Hcl 50 Mg Tab) 75 mg PO [facility] Stop: 10/24/24 20:59
[2024-09-24] MEDS: predniSONE 20 MG TAB PO STA (20:06)
[2024-09-24] MEDS: traZODone HCL 50 MG TAB PO SCH (22:34)
[2024-09-25 03:12] VITALS: O2SAT 96
[2024-09-25 07:32] LABS: Anion Gap 7 (3-11); BUN Creatinine Ratio 21.4 (10-20); Blood Urea Nitrogen 15 mg/dl (6-23); C Reactive Protein < 0.50 mg/dl (0-0.5); Calcium 9.4 mg/dl (8.6-10.3); Carbon Dioxide 23 mmol/L (21-32); Chloride 107 mmol/L (98-107); Creatinine Clr Calc Pharmacy 97.3 ml/min; Glucose 138 mg/dl (70-99(Fasting)); Potassium 4.3 mmol/L (3.5-5.1); Sodium 137 mmol/L (136-145)
[2024-09-25 07:44] VITALS: RESP 18; TEMP 98.4
--- NOTE | 2024-09-25 11:11 | Discharge Summary ---
Discharge Summary Date of Service September 25, 2024 Principal Dx & Hospital Course #1 = Principal Diagnosis (1) Coronary artery vasospasm: (2) Non-cardiac chest pain: (3) Foraminal stenosis of cervical region: (4) Herniation of intervertebral disc between L5 and S1: Plan Patient 39-year-old female continues to present to the emergency room with recurrent chest pain. Patient has undergone extensive cardiac workup all of which has been unremarkable. Cardiac MRI performed a few days prior to admission was negative for any type of myocarditis. Was seen again by cardiology here in the hospital and recommended pursuing other etiologies for her chest pain. Concerned that there may be a musculoskeletal/spinal etiology to her pain. CT scan of the cervical thoracic and lumbar spines were performed. It did show some mild foraminal stenosis at C7 and a small herniated disc at L5 did not show any compression. Was seen by spinal surgery prior to discharge. They did not recommend any immediate interventions. Recommending outpatient follow-up with their office to consider EMG testing or possible pain management referral. Did not feel as though the findings on imaging and on their physical exam would fully explain her chest pain. Patient denies any issues with her breast implants. She did states she had some flushing of her hands and feet which was apparently new. I spent an extensive amount of time reviewing her laboratory studies and imaging studies that have been done over the past few weeks. Reviewed TSH which was in normal range, D-dimer which is normal low and not indicative of any type of embolism, CRP was normal range reviewed imaging with her reviewed that her troponins while mildly elevated have remained flat 10 units. This would not be indicative of any type of acute coronary injury and this may just be her normal levels for her even though they are somewhat out of the normal range. She has a long and multiple troponins that have been tested all left have been somewhat elevated. Other electrolytes and laboratory studies are all within normal ranges are stable. Explained to her that we have monitored her heart rhythm. We ruled out critical/acute life-threatening issues. She may still continue to have some chest pain however this can be pursued with further evaluations in the outpatient setting through her PCP. Will also help coordinate outpatient follow-up with a spinal surgeon. Notes For Next Care Provider May need ongoing outpatient evaluation for chronic noncardiac chest pain Follow-up with spinal surgery Medication Changes From Visit None, patient does not need to take colchicine Admission HPI Per Admitting Provider 39-year-old female with past medical history significant for coronary spasm, bronchial asthma, GERD, anxiety/mood disorder history of abruptio placenta and status post presents with chest pains. Patient states she is having chest pain radiating to the back and also arms and legs. She also feeling her palms are red and somewhat swollen. She had cardiac MRI scan yesterday which was unremarkable. Patient was recently in the hospital for chest pains during which time echo was done which was unremarkable. CTA chest was done last admit and was also unremarkable. Differentials were thought to be coronary vessels spasm, minimal branch vessel atherosclerosis or myocarditis. Patient was started on isosorbide mononitrate and colchicine. Patient says she stopped colchicine because of diarrhea. Says she is taking isosorbide mononitrate 30 mg daily. CRP and ESR are negative during last admission. Currently resting comfortably and hemodynamics are stable. Past medical history. As mentioned above Past surgical history. Breast augmentation. Cardiac catheterization. C- section. Dental surgery. History of tummy tuck. Appendectomy. Social history. . Quit smoking 2016. Smoked 0.5 pack a day for 8 years. No alcohol use. No drug use. Family history. Mother had history of VTE, hypercoagulable, PE. Sister has asthma. Brother has diabetes. Glaucoma. Paternal grandmother has dementia. Diabetes. Maternal grandmother has diabetes. Admission Exam Per Admitting Provider See H&P Discharge Exam Constitutional: Alert, nontoxic, no acute distress CV: S1-S2, regular Neuro: No focal deficits Psych: Cooperative, slightly anxious Updated Medication List Medication Instructions Recorded Confirmed Type trazodone 50 mg tablet 75 mg PO HS 06/13/23 09/24/24 History isosorbide mononitrate 30 mg 30 mg PO QAM 09/24/24 09/24/24 History tablet,extended release 24 hr Hospital Stay Data Consultations 09/23/24 23:47 ED Decision to Admit Stat 09/24/24 08:00 Consult Cardiology Routine 09/25/24 08:13 Consult Orthopedic Spine Surgery Routine Diagnostic Imagining Performed 09/24/24 15:20 CT cervical spine wo con Urgent CT spine [CT lumbar spine wo con] Urgent CT spine [CT thoracic spine wo con] Urgent Reviewed imaging, laboratory and diagnostic studies. Pertinent findings as below. CT cervical spine C7 foraminal stenosis with possible nerve root impingement CT lumbar spine small L5 herniated disc, no cord compression Troponins reviewed, flat not indicative of any type of acute coronary syndrome Electrolytes stable and within normal range Pending Results Patient Have Any Pending Studies at Discharge: No Discharge Instructions Given to Patient (Per Discharging Provider) You have been ruled out for major life-threatening acute issues that require hospital level care. Encourage you to continue to work through your chronic chest pain issue with your PCP and follow-up with spine surgery as recommended Total Time Total Time Spent Total Time Spent (In Minutes): 25
[2024-09-25 11:42] VITALS: BP 107/66; PULSE 64
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
--- NOTE | 2024-09-26 07:08 | Electrocardiogram Report ---
Test Reason : Blood Pressure : */* mmHG Vent. Rate : 57 BPM Atrial Rate : 57 BPM P-R Int : 150 ms QRS Dur : 82 ms QT Int : 440 ms P-R-T Axes : 23 34 47 degrees QTcB Int : 428 ms Sinus bradycardia Cannot rule out Anterior infarct , age undetermined Abnormal ECG When compared with ECG of 23-Sep-2024 20:26, Nonspecific T wave abnormality no longer evident in Inferior leads Confirmed by Gary Lerma ([id number]) on 09/26/2024 7:08:15 AM Referred By: REFERRED SELF Confirmed By: Gary Lerma
== END 2024-09-25 12:37 | disposition home or self-care (01) ==
LOC: ED 20:18 → EDINP 20:18 → SUATTDRO 09-24 03:32 → 2N 09-24 04:20